=== PATIENT | male | born 1965 | race Caucasian/White ===

== ENCOUNTER 2023-01-07 07:12 | Emergency (ER) | payer BC, SELFPAY ==
[2023-01-07 07:18] VITALS: BP 141/96; PULSE 68; RESP 18; TEMP 36.7; O2SAT 97; BMI 27.3
--- NOTE | 2023-01-07 07:31 | ED.HA1 ---
HPI - Headache General Chief Complaint: Dizziness Stated Complaint: HEADACHE, DIZZINESS Time Seen by Provider: 01/07/23 07:22 Source: patient Mode of arrival: walk-in History of Present Illness HPI Narrative: 57-year-old male presents for headache. It started about 3:20 this morning and was not associated with any trauma fever or stiff neck. He has a long history of migraine headaches and has seen a specialist about them. This time it's mostly on the right side of his head and he has no weakness or numbness. He feels dizzy. No vomiting and the headache has been continuous. Related Data Home Medications Medication Instructions Recorded Confirmed propranolol 60 mg capsule,24 mg PO 01/07/23 hr,extended release sumatriptan succinate 100 mg tablet mg PO 01/07/23 triamterene 37.5 cap 01/07/23 mg-hydrochlorothiazide 25 mg capsule Allergies Allergy/AdvReac Type Severity Reaction Status Date / Time No Known Drug Allergies Allergy Verified 01/07/23 07:22 Review of Systems ROS Narrative A ten point review of systems is negative except as noted above. PFSH PFS Social History Smoking status: Current some day smoker Exam Narrative Exam Narrative: Nurses note and vital signs reviewed and patient is not hypoxic. General: The patient appears well and in no apparent distress. Patient is resting comfortably on cart. he has his eyes closed. Skin: Warm, dry, no pallor noted. There is no rash noted. Head: Normocephalic, atraumatic Ears, Nose, Mouth, and Throat: oral mucosa is moist. Nares patent. Cardiovascular: Regular Rate and Rhythm Respiratory: Patient is in no distress, no accessory muscle use, lungs are clear to auscultation, no wheezing, rales or rhonchi Back: non-tender GI: nontender Musculoskeletal: The patient has no evidence of calf tenderness, no pitting edema, symmetrical pulses noted bilaterally Neurological: A&O x4, normal speech; upper and lower extremity strength five out of five and symmetric Psychiatric: Cooperative Constitutional Vital Signs, click to edit/add: Last Vital Signs Temp 98.0 F 01/07/23 07:18 Pulse 68 01/07/23 07:18 Resp 18 01/07/23 07:18 BP 141/96 H 01/07/23 07:18 Pulse Ox 97 01/07/23 07:18 O2 Del Method Room Air 01/07/23 07:18 Course Vital Signs Vital signs: Vital Signs Temperature 98.0 F 01/07/23 07:18 Pulse Rate 68 01/07/23 07:18 Respiratory Rate 18 01/07/23 07:18 Blood Pressure 141/96 H 01/07/23 07:18 Pulse Oximetry 97 01/07/23 07:18 Oxygen Delivery Method Room Air 01/07/23 07:18 Temperature 98.0 F 01/07/23 07:18 Pulse Rate 68 01/07/23 07:18 Respiratory Rate 18 01/07/23 07:18 Blood Pressure 141/96 H 01/07/23 07:18 Pulse Oximetry 97 01/07/23 07:18 Oxygen Delivery Method Room Air 01/07/23 07:18 MDM - Headache MDM Narrative Medical decision making narrative: the patient was given IV medications and he feels much better now, his headache is essentially gone. He is able to be discharged home. Treatment diagnosis and follow-up were discussed with the patient. I've no clinical suspicion of acute intracranial pathology. Differential Diagnosis Differential diagnosis: Likely migraine, subarachnoid hemorrhage and meningitis Discharge Plan Discharge Chief Complaint: Dizziness Clinical Impression: Migraine Patient Disposition: Home, Self-Care Time of Disposition Decision: 10:10 Condition: Good Mode of Transportation: Private Vehicle Prescriptions / Home Meds: No Action sumatriptan succinate 100 mg tablet PO propranolol 60 mg capsule,extended release 24 hr PO triamterene-hydrochlorothiazid 37.5-25 mg capsule Instructions: Migraine Headache (ED) Stand Alone Forms: Portal Instructions Referrals: Physician,Non-Staff, MD [Primary Care Provider] - 1 week
--- NOTE | 2023-01-07 07:52 | ECG_ITS ---
The [facility] Test Date: 2023-01-07 Pat Name: ANGELA LUGO Department: Room: - Gender: Male Neurology Physician: : 1965 Requested By: [id number] Order Number: [id number] Reading MD: RENATA DEL CASTILLO Measurements Intervals [place] Rate: 56 P: 67 AL: 166 QRS: 48 QRSD: 92 T: 53 QT: 422 QTc: 413 Interpretive Statements 1100 Sinus rhythm [id number] Early repolarization 9110 normal ECG No previous ECG available for comparison Electronically Signed On 01-08-2023 7:02:34 EDT by RENATA DEL CASTILLO
[2023-01-07] MEDS: ONDANSETRON PF 4 MG/2 ML VIAL IV (08:07)
[2023-01-07] MEDS: 0.9 % SODIUM CHLORIDE 1,000 ML 1000 ML IV (08:07)
[2023-01-07] MEDS: KETOROLAC TROMETHAMINE 30 MG/ML VIAL IVP (08:07)
[2023-01-07] MEDS: METHYLPREDNISOLONE SOD SUCC PF 125 MG/2 ML VIAL IVP (08:07)
[2023-01-07] MEDS: MORPHINE SULFATE 4 MG/ML VIAL IV (09:08)
== END 2023-01-07 10:17 | disposition home or self-care (01) ==
PROVIDERS: Emergency Provider Emergency Medicine
DX: G43.909 Migraine, unspecified, not intractable, without status migrainosus (principal); Z79.899 Other long term (current) drug therapy; F17.210 Nicotine dependence, cigarettes, uncomplicated
CPT/HCPCS: 93005; 96361; 96374; 96375; 99284; J2930

== ENCOUNTER 2024-05-06 06:16 | Emergency (ER) | payer BC, SELFPAY ==
[2024-05-06 06:19] VITALS: BP 138/90; PULSE 72; TEMP 36.5; O2SAT 98; BMI 29.8
--- NOTE | 2024-05-06 06:27 | ED.GENADUL1 ---
HPI HPI - General Adult General Chief complaint: Extremity Problem, Nontraumatic Stated complaint: UE INJURY Time Seen by Provider: 05/06/24 06:26 Source: patient Mode of arrival: walk-in Limitations: no limitations History of Present Illness HPI narrative: Patient is a 58-year-old male who is presenting to the ER today with chief complaint of left shoulder pain, left-sided neck pain, left trapezius pain, left scapular pain. Patient has no chest pain or shortness of breath. No abdominal pain nausea vomiting. Patient is right-hand dominant. Patient has no specific injury. Patient states the pain has been getting worse in the last 3 to 4 days. Patient has no fall or injury. No headache. No radiculopathy or paresthesias. No chest pain or shortness of breath. Patient has been using pkin-cgf-wckftxy products, ice and patient has a jwbg-mzl-rnnolks pain patch on with no significant relief. Patient is due to be working today, Wednesday and Wednesday. Patient has a PCP appointment with his doctor on Wednesday. Patient hagya-hhao-uwqbfaty. No strokelike signs or symptoms. All systems are negative except as noted/marked. All systems reviewed and otherwise negative. Nurses note and vital signs reviewed and patient is not hypoxic. Patient blood pressure was rechecked manually, 138/90. General: The patient appears well and in no apparent distress. Patient is resting comfortably on cart. Patient is not toxic, lethargic, or listless Skin: Warm, dry, no pallor noted. There is no rash noted. No petechiae, purpura. Head: Normocephalic, atraumatic; patient has no midline cervical tenderness to palpation. Mild to moderate left paracervical tenderness to palpation along with moderate tenderness palpation to left upper trapezius muscle. Patient has mild tenderness to palpation to left upper thoracic area as well, no rash. No midline thoracic tenderness to palpation. Eye: Normal conjunctiva, no drainage, EOMI. PERRL Ears, Nose, Mouth, and Throat: oral mucosa is moist. Nares patent. Mouth without vesicles. Cardiovascular: Regular Rate and Rhythm, no murmur, gallop, rub Respiratory: Patient is in no distress, no accessory muscle use, lungs are clear to auscultation, no wheezing, rales or rhonchi. Breath sounds equal bilateral. Back: See head exam. Patient has mild tenderness palpation to the left upper thoracic area and moderate tenderness to palpation to left upper trapezius muscle. Otherwise the rest of his back is non-tender, no CVA tenderness bilaterally to percussion. No CT LS midline pain GI: no tenderness Musculoskeletal: Patient has full range of motion of all of the extremities. Patient does have moderate tenderness to left paracervical soft tissue, left upper trapezius and left upper thoracic muscle tissue with raising his left arm up above his head. He does have full flexion extension abduction to 90 degrees with no pain. Once patient has abduction over 90 degrees, that is when he starting to have pain to left shoulder and left upper trapezius and left upper thoracic area. No crepitus to left shoulder. No signs of fracture or dislocation. No rash. No motor, sensory, or focal neurological deficits Neurological: A&O x4, normal speech Psychiatric: Cooperative Related Data Home Medications ?Medication ?Instructions ?Recorded ?Confirmed propranolol 60 mg capsule,24 mg PO 01/07/23 hr,extended release sumatriptan succinate 100 mg tablet mg PO 01/07/23 triamterene 37.5 cap 01/07/23 mg-hydrochlorothiazide 25 mg capsule Previous Rx's ?Medication ?Instructions ?Recorded hydrocodone 5 mg-acetaminophen 325 1 tab PO Q4H PRN pain #6 tabs 05/06/24 mg tablet lidocaine 5 % topical patch 1 patch topical Q24H #15 ea 05/06/24 (Lidoderm) methocarbamol 500 mg tablet 500 mg PO Q8H PRN muscle pain #10 05/06/24 tabs Allergies Allergy/AdvReac Type Severity Reaction Status Date / Time No Known Drug Allergies Allergy Verified 05/06/24 06:25 Opioid HPI Opioid Management Most Recent Opioid Data: No Data to Display [facility] Social History Smoking status: Current some day smoker Little interest or pleasure in doing things: not at all Feeling down, depressed, or hopeless: not at all Exam Constitutional Vital Signs, click to edit/add: Last Vital Signs Temp 97.7 F 05/06/24 06:19 Pulse 72 05/06/24 06:19 Resp 18 05/06/24 06:19 BP 138/90 05/06/24 06:19 Pulse Ox 98 05/06/24 06:19 Course Vital Signs Vital signs: Vital Signs Temperature 97.7 F 05/06/24 06:19 Pulse Rate 72 05/06/24 06:19 Respiratory Rate 18 05/06/24 06:19 Blood Pressure 138/90 05/06/24 06:19 Pulse Oximetry 98 05/06/24 06:19 Temperature 97.7 F 05/06/24 06:19 Pulse Rate 72 05/06/24 06:19 Respiratory Rate 18 05/06/24 06:19 Blood Pressure 138/90 05/06/24 06:19 Pulse Oximetry 98 05/06/24 06:19 Medical Decision Making MDM Narrative Medical decision making narrative: Patient chest x-ray shows no acute cardiopulmonary disease, no infiltrate, no effusion. Patient left shoulder x-ray shows no acute abnormality. Education on using ice was discussed. Education on shoulder exercises was shown at bedside as well. Patient has an appoint with Dr. Andrews at 10:30 AM on May 08, 2 days from now. Patient most likely has muscle strain to left trapezius, left upper thoracic area. Patient may have underlying left shoulder pathology. Patient understands education on rotator cuff was given to him for educational purposes only, I am not diagnosing him with rotator cuff injury at this time. Patient was hoping for a work note for today and tomorrow, I told the patient I could give him a work note for today, he can return back on Wednesday with restrictions for the next 3 to 5 days. This was written on his discharge work note. No questions at discharge. Discharge Plan Discharge Stand Alone Forms: Work/School Release Chief Complaint: Extremity Problem, Nontraumatic Clinical Impression: Left shoulder pain, Strain of left trapezius muscle, Acute left-sided thoracic back pain Patient Disposition: Home, Self-Care Time of Disposition Decision: 06:48 Condition: Fair Prescriptions / Home Meds: New methocarbamol 500 mg tablet 500 mg PO Q8H PRN (Reason: muscle pain) Qty: 10 0RF hydrocodone-acetaminophen 5-325 mg tablet 1 tab PO Q4H PRN (Reason: pain) Qty: 6 0RF lidocaine [Lidoderm] 5 % adhesive patch,medicated 1 patch topical Q24H Qty: 15 0RF Rx Instructions: leave on most painful area for up to 12 hrs No Action sumatriptan succinate 100 mg tablet PO propranolol 60 mg capsule,extended release 24 hr PO triamterene-hydrochlorothiazid 37.5-25 mg capsule Print Language: Angolan Instructions: Muscle Strain (ED), Rotator Cuff Injury (ED), Thoracic Pain (ED), Back Pain (ED), Shoulder Pain (ED) Additional Instructions: Use ice 20 minutes on, 20 minutes off, do not use heat. You have an appointment at [address] Andrews, orthopedic surgery. Perform stretching exercises for your left shoulder. I am not diagnosing you with rotator cuff injury, but education on rotator cuff injuries was given to you for educational purposes only. Alternate Tylenol and either Motrin, Advil, or ibuprofen every 4 hours to help with pain. If you are having severe pain, substitute a [place] tablet instead of Tylenol. Do not take Tylenol and [place] at the same time, you may actually take too much Tylenol at 1 setting or in 1 day. Maximum Tylenol dose of Tylenol is 3000 mg a day. Maximum dose of either Motrin, Advil, or ibuprofen is 2400 mg a day. Referrals: Physician,Non-Staff, [Primary Care Provider] - 1 week Sebastien Andrews MD [Physician] - 1 week
--- NOTE | 2024-05-06 06:35 | XR_ITS ---
The [address] [address] Patient Name: ANGELA LUGO MRN: [id number] date: 1965 Sex: M Assigned Patient Location: ED.MAIN Current Patient Location: ER Accession/Order Number: [id number] Exam Date: 05/06/2024 06:40 Report Date: 05/06/2024 08:21 At the request of: GUILLAUME FISCHER Procedure: XR shoulder LT min 2V EXAM: XR shoulder LT min 2V 05/06/2024 FINDINGS: Internal rotation, external rotation, and scapular Y type views were obtained. HISTORY: Pain. COMPARISON: None. XR/XR shoulder LT min 2V IMPRESSION: 1. No acute fracture or dislocation. 2. Mild arthritic changes involving the acromioclavicular articulation noted. Glenohumeral joint appears otherwise unremarkable. No pathologic calcification or radiopaque foreign body noted. Electronically authenticated by: KANNAN CLEANING Date: 05/06/2024 08:21
--- NOTE | 2024-05-06 06:35 | XR_ITS ---
The [address] [address] Patient Name: ANGELA LUGO MRN: [id number] date: 1965 Sex: M Assigned Patient Location: ED.MAIN Current Patient Location: ER Accession/Order Number: [id number] Exam Date: 05/06/2024 06:40 Report Date: 05/06/2024 08:21 At the request of: GUILLAUME FISCHER Procedure: XR chest 2V EXAM: XR chest 2V 05/06/2024 COMPARISON STUDY: AP chest 07/07/2021. FINDINGS: Cardiomediastinal contours are stable and within normal limits. No new dense consolidation, effusion, edema, failure, pneumothorax, or acute osseous change in the interval. Multilevel degenerative changes of the spine are noted incidentally. HISTORY: Pain. XR/XR chest 2V IMPRESSION: No acute cardiopulmonary process suspected in the interval. Electronically authenticated by: KANNAN [employer] Date: 05/06/2024 08:21
[2024-05-06] MEDS: KETOROLAC TROMETHAMINE 30 MG/ML VIAL IM (06:46)
== END 2024-05-06 07:02 | disposition home or self-care (01) ==
PROVIDERS: Emergency Provider Emergency Medicine
DX: S46.812A Strain of other muscles, fascia and tendons at shoulder and upper arm level, left arm, initial encounter (principal); M25.512 Pain in left shoulder; F17.200 Nicotine dependence, unspecified, uncomplicated; M54.6 Pain in thoracic spine; X58.XXXA Exposure to other specified factors, initial encounter
CPT/HCPCS: 71046; 73030; 96372; 99284; J1885

== ENCOUNTER 2024-05-08 10:59 | Outpatient (OUT) | payer BC, SELFPAY ==
--- NOTE | 2024-05-08 | XR_ITS ---
The [place] [id number] Patient Name: ANGELA LUGO MRN: [id number] date: 1965 Sex: M Assigned Patient Location: Current Patient Location: Accession/Order Number: [id number] Exam Date: 05/08/2024 11:04 Report Date: 05/09/2024 05:27 At the request of: CHELSEA GALAN Procedure: XR cervical spine 2-3V EXAMINATION: XR cervical spine 2-3V HISTORY: CERVICAL SPINE PAIN COMPARISON: No relevant comparison available. FINDINGS: BONES: No significant spondylosis, scoliosis, fracture, or visible bony lesion. DISC SPACES: Moderate narrowing C5-C6, C6-C7. PARASPINOUS: Negative. No paraspinous abnormality is seen. OTHER: Negative. XR/XR cervical spine 2-3V IMPRESSION: 1. Moderate degenerative disc disease at C5-C6 and C6-C7. Consider MRI for further evaluation. Electronically authenticated by: CHELSEA CRUZ Date: 05/09/2024 05:27
== END 2024-05-08 11:00 | disposition home or self-care (01) ==
LOC: EC 11:00
PROVIDERS: Visit Provider Orthopaedic Surgery
DX: M54.2 Cervicalgia (principal)
CPT/HCPCS: 72040

== ENCOUNTER 2024-05-15 06:40 | Outpatient (OUT) | payer BC, SELFPAY ==
--- NOTE | 2024-05-15 06:43 | MR_ITS ---
The [address] [address] Patient Name: ANGELA LUGO MRN: [id number] date: 1965 Sex: M Assigned Patient Location: MRI Current Patient Location: MRI Accession/Order Number: [id number] Exam Date: 05/15/2024 06:57 Report Date: 05/15/2024 08:03 At the request of: CATALINA MONTESINOS Procedure: MR cervical spine wo con MR cervical spine wo con, 05/15/2024 6:57 AM EST INDICATION: M54.2 Cervical pain M54.12 radiculopathy COMPARISON: Prior x-ray of cervical spine dated 05/08/[address] of the neck dated 07/07/2021 TECHNIQUE: Multiplanar, multisequence MRI images of cervical spine were obtained without contrast. FINDINGS: There is loss of normal physiologic cervical lordosis. The vertebral heights are relatively preserved. The cervicomedullary junction is unremarkable. No definite signal abnormality within the spinal cord is noted. There are moderate disc osteophyte complex associated with uncovertebral joint arthrosis from C3 to T1 contributing to neuroforaminal and canal stenosis. At the level of C2-C3, there is no neuroforaminal narrowing or canal stenosis. At the level of C3-C4, there is no neuroforaminal narrowing and no canal stenosis. At the level of C4-C5, there is superimposed central extrusion with superior migration with mild bilateral neuroforaminal narrowing and moderate to severe central canal stenosis. At the level of C5-C6, there is superimposed disc bulge with moderate bilateral neuroforaminal narrowing and moderate to severe central canal stenosis. At the level of C6-C7, there is mild right and moderate to severe left neuroforaminal narrowing and moderate canal stenosis. Level of C7-T1 is unremarkable. No definite muscular or ligamentous injury is noted. MR/MR cervical spine wo con IMPRESSION: Moderate degenerative changes of the cervical spine in particular at C4-C5, C5-C6 and C6-C7. Electronically authenticated by: NICOLASA ROCHA Date: 05/15/2024 08:03
--- OUTSIDE RECORDS SUMMARY | 2024-05-15 06:43 | XMS_ITS | CCD ---
Author Organization [facility] Care Team Providers Care Brand Representative Name Role Phone REQUEST, DR NONE LISTED Primary Care Unavailav REID, DR CARI Beckwith Attending Unavailable KARLA, DR CARI Beckwith Admitting Unavailable KARLA, DR CARI Beckwith Consulting Unavailable TONY CHESTER Consulting Unavailable NIGHAT, OZ Attending Unavailable NIGHAT, OZ Admitting Unavailable REQUEST, NONE LISTED Primary Care Unavailav CALL, DR ZHANE Danielle Consulting Unavailable HAY, DR GARCIA Consulting Unavailable SARAH GAN Consulting Unavailable SAMSA, OZ Consulting Unavailable MARTINNICA AFRRELL Consulting Unavailable Marlo, Gregg Consulting Unavailable Nima, Ena Consulting Unavailable Catarina Plascencia Unavailable Unavailable Unavailable Unavailable Unavailable Yan CENTRIFUGAL WAX MOLDER, Rahel Addison Unavailable Mariaa Collado MD Primary Care Provider Emma Scanlon NP Unavailable Shellie Veliz Primary Care [facility] er Capo HOUSER-Emma SHETH Primary Care Provider Lizz Hampton NP Unavailable VELMA ROSARIO Attending Unavailable SHELLIE HAMMOND Referring Unavailable SHELLIE HAMMOND Primary Care Unavailable GRIS ANTHONY Attending Unavailable SHELLIE HAMMOND Referring Unavailable EMMA SCANLON Primary Care Unavailable SHELLIE HAMMOND Referring Unavailable SHELLIE HAMMOND Primary Care Unavailable EMMA SCANLON Referring Unavailable CAPO EMMA R Primary Care Unavailable EMMA SCANLON Referring Unavailable EMMA SCANLON Primary Care Unavailable SHELLIE HAMMOND Referring Unavailable SHELLIE HAMMOND Primary Care Unavailable ZHANE BATES Attending Unavailable ZHANE BATES Referring Unavailable SCANLON, EMMA R Primary Care Unavailable GRILLIS, VELMA Bartlett Referring Unavailable SCANLON, EMMA R Primary Care Unavailable GRILLIS, VELMA Bartlett Attending Unavailable GRILLIS, VELMA E Referring Unavailable SCANLON, EMMA R Primary Care Unavailable GRILLIS, VELMA E Admitting Unavailable GRILLISVELMA Attending Unavailable SHELLIE HAMMOND Primary Care Unavailable ALONDRA HODGE Attending Unavailable SCANLON, EMMA R Primary Care Unavailable QUIN, MARIAA Referring Unavailable SCANLON, EMMA R Primary Care Unavailable QUIN, MARIAA Referring Unavailable SCANLON, EMMA R Primary Care Unavailable QUIN, MARIAA Referring Unavailable SCANLON, EMMA R Primary Care Unavailable QUIN, MARIAA Referring Unavailable SCANLON, EMMA R Primary Care Unavailable QUIN, MARIAA Referring Unavailable SCANLON, EMMA R Primary Care Unavailable QUIN, MARIAA Referring Unavailable SCANLON, EMMA R Primary Care Unavailable Scanlon CENTRIFUGAL WAX MOLDER, Emma R Unavailable Capo CENTRIFUGAL WAX MOLDER, Emma R Unavailable Marbella Phillips DO Attending Provider [phone] SCANLON, EMMA R Attending Unavailable SCANLON, EMMA R Referring Unavailable HAMPTONLIZZ Attending Unavailab fany HAMPTON, LIZZ Ley Referring Unavailab le HAMPTON, LIZZ Ley Attending Unavailab le QUIN, MARIAA F Attending Unavailable QUIN, MARIAA F Referring Unavailable QUIN, MARIAA F Referring Unavailable QUIN, MARIAA F Referring Unavailable QUIN, MARIAA F Attending Unavailable MARBELLA PHILLIPS Attending Unavailable QUIN, MARIAA F Referring Unavailable MARBELLA PHILLIPS Referring Unavailable MARBELLA PHILLIPS Attending Unavailable MARBELLA PHILLIPS Attending Unavailable MARIA L ETIENNE Attending Unavailab MARBELLA Singer Attending Unavailable Marbella Phillips Attending Unavailable Marbella Phillips Admitting Unavailable Mariaa Collado MD Unavailable YUKO REID Attending Unavailable CATARINA PLASCENCIA Primary Care Unavailable Medications Current Medications Medication Drug Class(es) Dates Sig (Normalized) Sig (Original) benzonatate 200 mg oral capsule (1 source) Non-narcotic Antitussive Start: 01-31-2024 End: 02-07-2024 take 1 capsule by mouth three times daily as needed for cough benzonatate (Tessalon) 200 MG capsule Indications: Cough, unspecified type Take 1 capsule (200 mg) by mouth 3 (three) times a day as needed for cough for up to 7 days Do not crush or chew. 20 capsule 01/31/2024 02/07/2024 Active doxycycline hyclate 100 mg oral capsule (4 sources) Tetracycline-class Drug Start: 04-14-2024 take 1 capsule by mouth in the morning doxycycline (Vibramycin) 100 MG capsule Take 100 mg by mouth in the morning and 100 mg before bedtime. 04/14/2024 Active Start: 11-23-2023 End: 12-03-2023 doxycycline (Vibra-Tabs) 100 MG tablet Indications: Acute bronchitis, unspecified organism Take 1 tablet (100 mg) by mouth in the morning and 1 tablet (100 mg) before bedtime. Do all this for 10 days. Take with a full glass of water and do not lie down for at least 30 minutes after.. 20 tablet 11/23/2023 12/03/2023 Active hydroCHLOROthiazide 25 mg / triamterene 37.5 mg oral capsule (20 sources) Potassium-sparing Diuretic, Thiazide Diuretic Start: 11-24-2023 End: 11-23-2024 take 1 capsule by mouth once daily Triamterene-Hydrochlorothiazid 37.5-25 mg capsule Active 1 CAP PO Daily April 14, 2024 12:00am Start: 07-13-2022 take 1 capsule by mouth in the morning triamterene-hydroCHLOROthiazide (Dyazide ) 37.5-25 MG capsule Take 1 capsule by mouth in the morning. 07/13/2022 Active Start: 09-02-2021 take 1 capsule by mouth once daily Triamterene-HCTZ 37.5-25 MG Oral Capsule TAKE 1 CAPSULE Daily Quantity: 90 Refills: 3 Ordered: 06-Nov-2022 Ben Ly MD Start : 02-Sep-2021 Active take 1 capsule by mouth once triamterene-hydroCHLOROthiazide (DYAZIDE ) 37.5-25 mg per capsule Take 1 capsule by mouth. 0 Active lisinopril 5 mg oral tablet (3 sources) Angiotensin Converting Enzyme Inhibitor Start: 07-23-2020 lisinopril 5 MG tablet 1 (one) time each day at the same time. 0 07/23/2020 Active my-jhc-C-glutamin-l ysine-hb124 (AIR[place]ORNE, LYSINE HCL,) 1,000-50 mg tablet, effervescent (2 sources) wr-dnr-Y-glutami n-oxana ine-hb124 (A[place]NE, LYSINE HCL,) 1,000-50 mg tablet, effervescent Take by mouth as needed. 0 Active Nirmatrelvir&Ritona vir 300/100 (Paxlovid, 300/100,) 20 x 150 MG & 10 x 100MG tablet therapy pack (6 sources) Start: 04-03-2024 take 1 tablet by mouth in the morning Nirmatrelvir&Ritonavi r 300/100 (Paxlovid, 300/100,) 20 x 150 MG & 10 x 100MG tablet therapy pack Indications: COVID-19 Take 1 Dose by mouth in the morning and 1 Dose before bedtime. 1 each 04/03/2024 Active omeprazole 40 mg delayed release oral capsule (20 sources) Proton Pump Inhibitor Start: 02-01-2024 End: 01-31-2025 take 1 capsule by mouth before mealtime omeprazole (PriLOSEC) [address] capsule Indications: Gastroesophageal reflux disease without esophagitis Take 1 capsule (40 mg) by mouth in the morning. Take before meals. Do not crush or chew.. 90 capsule 3 02/01/2024 01/31/2025 Active 24 hr propranolol hydrochloride 60 mg extended release oral capsule (20 sources) beta-Adrenergic Galileo Start: 11-24-2023 End: 11-23-2024 take 1 capsule by mouth once daily propranolol LA (Inderal LA) 60 mg 24 hr capsule Indications: Benign essential hypertension Take 1 capsule (60 mg) by mouth once daily. 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 Do not crush, chew, or split. . 30 capsule 11 09/02/2022 09/02/2023 Active Start: 12-23-2020 take 1 capsule by mo [facility] once daily Propranolol HCl ER 60 MG Oral Capsule Extended Release 24 Hour TAKE 1 CAPSULE Daily Quantity: 0 Refills: 0 Ordered: 10-Jul-2021 DO Start : 23-Dec-2020 Active SUMAtriptan 100 mg oral tablet (20 sources) Serotonin-1b and Serotonin-1d Receptor Agonist Start: 05-12-2023 take 1 tablet by mouth every two hours as needed, then take 2 tablets by mouth once daily as needed SUMAtriptan (Imitrex) 100 MG tablet Indications: Migraine without aura and without status migrainosus, not intractable (CMS/HCC) 1 tablet at least 2 hours between doses as needed Orally max 2 per day for 30 day(s) 9 tablet 05/12/2023 Active Start: 11-06-2021 SUMAtriptan Francisco ccinate 100 MG Oral Tablet TAKE DIRECTED. Quantity: 0 Refills: 0 Ordered: 04-Nov-2022 DO Start : 06-Nov-2021 Active take 1 tablet by mouth once DANIELITO triptan (Imitrex) 100 mg tablet Take 1 tablet (100 mg) by mouth 1 time if needed for migraine. Active Completed/Discontinued Medications Medication Drug Class(es) Dates Sig (Normalized) Sig (Original) acetaminophen 325 mg / oxyCODONE hydrochloride 5 mg oral tablet (1 source) Opioid Agonist Start: 06-15-2023 End: 06-30-2023 oxyCODONE-acetamino phen (PERCOCET) 5-325 mg per tablet Indications: Gallbladder polyp Take 1 tablet by mouth every 6 (six) hours as needed for pain for up to 8 doses. Max Daily Amount: 4 tablets 8 tablet 0 06/15/2023 06/30/2023 Discontinued (Patient Stopped On Own) Problems Active Problems Problem Classification Problem Date Documented Date Episodic/Chronic Adjustment disorders (20 sources) Adjustment disorder with anxious mood; Translations: [Adjustment disorder with anxiety] Onset: 09-02-2022 09-02-2022 Chronic Cardiac dysrhythmias (20 sources) Supraventricular tachycardia; Translations: [Supraventricular tachycardia] Onset: 07-10-2021 09-02-2022 Chronic Esophageal disorders (2 sources) Gastroesophageal reflux disease without esophagitis; Translations: [Gastro-esophageal reflux disease without esophagitis] 02-01-2024 Chronic Essential hypertension (20 sources) Essential (primary) hypertension; Translations: [Benign essential hypertension] Onset: 07-10-2021 09-02-2022 Chronic Fluid and electrolyte disorders (1 source) Dehydration; Translations: [DEHYDRATION] Onset: 05-20-2021 Episodic Headache; including migraine (20 sources) Migraine without aura, not refractory ; Translations: [Migraine without aura, not intractable, without status migrainosus] Onset: 09-02-2022 09-02-2022 Chronic Headache; including migraine (1 source) Headache; including migraine; Translations: [HEADACHE UNSPECIFIED] Onset: 07-10-2021 Heart valve disorders (20 sources) Tricuspid valve regurgitation; Translations: [Rheumatic tricuspid insufficiency] Onset: 09-02-2022 09-02-2022 Chronic Nonspecific chest pain (6 sources) Chest pain, unspecified; Translations: [Chest pain] Onset: 07-10-2021 01-31-2024 Episodic Other aftercare (1 source) Other intermediate (current) drug therapy; Translations: [OTH DETENTION CURRENT DRUG THERAPY] Onset: 07-10-2021 Episodic Other and ill-defined heart disease (20 sources) Left ventricular hypertrophy; Translations: [Cardiomegaly] Onset: 09-02-2022 09-02-2022 Chronic Other circulatory disease (1 source) H/O: hypertension; Translations: [Personal history of other diseases of the circulatory system] 06-09-2023 Episodic Other lower respiratory disease (6 sources) Cough; Translations: [Cough, unspecified type] 01-31-2024 Episodic Other lower respiratory disease (7 sources) Hemoptysis; Translations: [Hemoptysis] 02-25-2024 Episodic Other lower respiratory disease (1 source) Acute lower respiratory tract infection; Translations: [Unspecified acute lower respiratory infection] 04-14-2024 Episodic Other lower respiratory disease (1 source) Unspecified acute lower respiratory infection; Translations: [Other diseases of respiratory system, not elsewhere classified] 04-14-2024 Episodic Other lower respiratory disease (1 source) Hemoptysis; Translations: [Hemoptysis] Onset: 03-28-2024 Episodic Other nervous system disorders (1 source) Paresthesia of skin; Translations: [PARESTHESIA OF SKIN] Onset: 07-10-2021 Episodic Other nutritional; endocrine; and metabolic disorders (1 source) Obesity, unspecified; Translations: [OBESITY UNSPECIFIED] Onset: 07-10-2021 Chronic Other nutritional; endocrine; and metabolic disorders (1 source) Body mass index (BMI) 30.0-30.9, adult; Translations: [BODY MASS INDEX BMI 30.0-30.9 ADULT] Onset: 07-10-2021 Chronic Other nutritional; endocrine; and metabolic disorders (2 sources) Obesity; Translations: [Obesity, unspecified] Chronic Other nutritional; endocrine; and metabolic disorders (9 sources) Overweight in adulthood with body mass index of 25 or more but less than 30; Translations: [Overweight] Onset: 05-01-2024 05-01-2024 Episodic Other nutritional; endocrine; and metabolic disorders (2 sources) Body mass index (BMI) 29.0-29.9, adult; Translations: [Body mass index (BMI) 29.0-29.9, adult] Onset: 05-01-2024 Episodic Other screening for suspected conditions (not mental disorders or infectious disease) (9 sources) CT of chest abnormal; Translations: [Abnormal findings on diagnostic imaging of other specified body structures] Onset: 02-10-2024 01-31-2024 Chronic Other screening for suspected conditions (not mental disorders or infectious disease) (5 sources) CT of chest abnormal 01-31-2024 Episodic Other upper respiratory infections (2 sources) Sore throat symptom; Translations: [Acute pharyngitis, unspecified] 04-03-2024 Episodic Paralysis (1 source) Hemiplegia, unspecified affecting left nondominant side; Translations: [HEMIPL UNS AFFECT LT NONDOM SIDE] Onset: 07-10-2021 Chronic Unclassified (1 source) CONTACT W/AND (SUSP) EXPOS COVID-19; Translations: [CONTACT W/AND (SUSP) EXPOS COVID-19] Onset: 07-10-2021 Unclassified (1 source) Post-op Onset: 06-30-2023 Unclassified (1 source) Cholelithiasis Onset: 06-09-2023 Unclassified (1 source) Cough, unspecified; Translations: [Cough, unspecified] Onset: 02-10-2024 Unclassified (1 source) gallbladder polyp Onset: 06-15-2023 Viral infection (2 sources) Disease caused by 2019-nCoV; Translations: [COVID-19] 04-03-2024 Episodic Past or Other Problems Problem Classification Problem Date Documented Da te Episodic/Chronic Biliary tract disease (4 sources) Polyp of gallbladder; Translations: [Cholesterolosis of gallbladder] Onset: 06-09-2023 06-09-2023 Episodic Other circulatory disease (1 source) Personal history of other diseases of the circulatory system; Translations: [Personal history of other diseases of the circulatory system] Onset: 06-09-2023 Episodic Other lower respiratory disease (20 sources) Nodule of lung; Translations: [Solitary pulmonary nodule] Onset: 09-02-2022 09-02-2022 Episodic Other lower respiratory disease (1 source) Multiple nodules of lung; Translations: [Other nonspecific abnormal finding of lung field] 12-01-2023 Episodic Residual codes; unclassified (1 source) Acquired absence of other specified parts of digestive tract; Translations: [Acquired absence of other specified parts of digestive tract] Onset: 06-30-2023 Episodic Residual codes; unclassified (1 source) Pain, unspecified; Translations: [Pain, unspecified] Onset: 06-08-2023 Episodic Syncope (20 sources) Syncope and collapse; Translations: [Syncope] Onset: 07-07-2021 Episodic Unclassified (9 sources) Never smoked tobacco; Translations: [Never a smoker] Unclassified (3 sources) Onset: 07-31-2021 07-31-2021 Results Test Name Value Interpretation Reference Range Facility FUNGUS (MYCOLOGY) CULTUREon 04-27-2024 [facility] NOTE Final report [facility] are OTHER-RIGHT LOWER LO BE TBBX [place] FUNGUS (MYCOLOGY) RESULT 104-27-2024 [facility] NOTE Comment [facility] Comment on above: No yeast or mold iso lated after 4 weeks. Performed at: [address] [id number] Network Analyst: Tigre Baker PhD, Phone: [phone] [facility] NOTE Comment [facility] Comment on above: No yeast or mold iso lated after 4 weeks. Performed at: [facility] [address] [id number] Network Analyst: Tigre Baker PhD, Phone: [phone] No Panel Informationon 04-27 OTHER-RIGHT LOWER LO BE TBBX [place] [facility] NOTE Final report [facility] are [facility] MISC LABon 04-07-2024 [facility] Comment on above: Bronch Alveolar Lav RIGHT LOWER LOBE Lower Respiratory Culture report Result : Routine respiratory ofelia Performed at: [facility] [id number] Network Analyst: Tigre Baker PhD, Phone: [phone] [facility] Test Name: LAB [facility] CULTURE FROM RT LOW LOBE - BAL [place] [facility] Laboratory - Microbiology an d Antimicrobial susceptibilityon 04-03-2024 SARS-CoV-2 (COVID-19) RNA MANDI+probe Ql (Unsp spec) Positive [facility] S. pyogenes Ag Ql (Throat) Negative Negative, None Detected [facility] Healthcare No Panel Informationon 04-03 FLU A Negative [facility] FLU B Negative [facility] Interpretation and review of laboratory results Abnormal [facility] Interpretation and review of laboratory results Normal [facility]ca re [facility] AFB SMEAR RESULTon [facility] NOTE Negative [facility] Comment on above: Performed at: - [facility] [address] [id number] Network Analyst: Tigre Baker PhD, Phone: [phone] AFB SPECIMEN PROCESSINGon [facility] NOTE Concentration [facility] OTHER-RIGHT LOWER LO BE TBBX [place] [facility] OTHER-RIGHT LOWER LO BE TBBX [place] FUNGAL SMEARon 03-30-2024 [facility] NOTE Not performed [facility] Health care [facility] FUNGAL SMEAR No Yeast Like Elemen ts Seen [facility] FUNGAL SMEAR No Fungal Like Eleme nts Seen [facility] Healthcare [facility] No Panel Informationon 03-30 [facility] NOTE Concentration [facility] FUNGAL SMEARon 03-29-2024 FUNGAL SMEAR No Fungal Like Eleme nts Seen [facility] FUNGAL SMEAR No Yeast Like Elemen ts Seen [facility] Healthcare [facility] AFB Specimen Processingon AFB Specimen Processing Concentration Negative Performed at: [facility] [id number] Network Analyst: Tigre Baker PhD, Phone: [phone] PERFORMED BY: [place] [address] PATHOLOGIST BOWL TOPPER MAGGIE MANNING M.D. Normal [facility] Comment on above: Performed By: #### C UBR, [facility], FLCCDIFF, FS #### [address] #### MYC CULT, AFBCS RES1 #### [facility] , AFB Specimen Processing OTHER-RIGHT LOWER LOBE TBBX Concentration OTHER-RIGHT LOWER LOBE TBBX Negative Performed at: - [facility] [address] [id number] Network Analyst: Tigre Baker PhD, Phone: [phone] PERFORMED BY: [place] [address] PATHOLOGIST BOWL TOPPER MAGGIE MANNING M.D. Normal [facility] Comment on above: Performed By: #### C UBR, [facility], FLCCDIFF, FS #### [address] #### MYC CULT, AFBCS RES1 #### [facility] , Acid fast bacillus (AFB) cul tureOrdered By: Marbella Phillips on 03-28-2024 Mycobacterium sp identified Org specific cx Nom (Unsp spec) Acid fast bacillus (AFB) culture [facility] Acid fast bacillus (AFB) sme arOrdered By: Marbella Phillips on 03-28-2024 Microscopic observation Smear Nom (Unsp spec) Acid fast bacillus (AFB) smear [facility] Bacteria identification in b ronchial specimen by aerobe cultureOrdered By: Marbella Phillips on 03-28-2024 Bacteria identified Aer cx Nom (Bronch spec) Bacteria identification in bronchial specimen by aerobe culture [facility] Body fluid differential cell countOrdered By: Marbella Phillips on 03-28-2024 Differential panel (Body fld) Body fluid differential cell count [facility] Comment on above: The reference interv al and other method performance specifications have not been established for this body fluid. The test result must be integrated into the clinical context for interpretation. Body fluid total nucleated c ells countOrdered By: Marbellanavin Phillips on 03-28-2024 Body Fluid Total Nucleated Cells 1348 /uL [facility] Comment on above: Body fluid is partia lly clotted and/or cell clumps or debris are present. Fluid cell count and differential results may not be reliable. Clinical correlation is recommended.The reference interval and other method performance specifications have not been established for this body fluid. The test result must be integrated into the clinical context for interpretation. Bronch Cultureon 03-28-2024 Bronch Culture Light Normal Respira tory Ofelia 2 Days PERFORMED BY: [place] [address] PATHOLOGIST BOWL TOPPER MAGGIE MANNING M.D. Normal [facility] Comment on above: Performed By: #### C UBR, MISC LAB, FLCCDIFF, FS #### [place] [address] [place] #### MYC CULT, AFBCS RES1 #### [facility] , Bronch Culture No Growth 2 Days PERFORMED BY: [place] [address] PATHOLOGIST BOWL TOPPER MAGGIE MANNING M.D. Normal [facility] Comment on above: Performed By: #### C UBR, MISC LAB, FLCCDIFF, FS #### [place] [address] [place] #### MYC CULT, AFBCS RES1 #### [facility] , Bronch Culture Respiratory Results PENDING SAMPLE SENT TO LAB [facility] PRIOR TO BEING SET UP IN HOUSE. ADDED ON TEST TO LAB [facility] ORDER. RESULTING IN A MISC. TEST. @04/07/24 NICO PERFORMED BY: [place] [address] PATHOLOGIST BOWL TOPPER MAGGIE MANNING M.D. Normal [facility] Comment on above: Performed By: #### C UBR, MISC LAB, FLCCDIFF, FS #### [address] #### MYC CULT, AFBCS RES1 #### [facility] , CELL COUNT/DIFF,FLUIDon 12- APPEARANCE, FLUID Turbid [facility] Comment on above: The reference interv al and other method performance specifications have not been established for this body fluid. The test result must be integrated into the clinical context for interpretation. COLOR, FLUID Straw [facility] Comment on above: The reference interv al and other method performance specifications have not been established for this body fluid. The test result must be integrated into the clinical context for interpretation. COLOR, FLUID SUPERNATANT [facility]raw [facility] Comment on above: The reference interv al and other method performance specifications have not been established for this body fluid. The test result must be integrated into the clinical context for interpretation. EOSINOPHILS, FLUID 0 /100{WBC} 0 - 3 /100{WBC} [facility] LYMPHOCYTES, FLUID 1 % [facility] Comment on above: The reference interv al and other method performance specifications have not been established for this body fluid. The test result must be integrated into the clinical context for interpretation. MONOCYTES/MACROPHAG ES, FLUID 8 % [facility] Comment on above: The reference interv al and other method performance specifications have not been established for this body fluid. The test result must be integrated into the clinical context for interpretation. NEUTROPHIL, FLUID 91 % [facility] Comment on above: The reference interv al and other method performance specifications have not been established for this body fluid. The test result must be integrated into the clinical context for interpretation. RBC, FLUID 65 /uL [facility] Comment on above: Body fluid is partia lly clotted and/or cell clumps or debris are present. Fluid cell count and differential results may not be reliable. Clinical correlation is recommended.@Avg 68,62 = 65 03/28/24 1320 [id number] The reference interval and other method performance specifications have not been established for this body fluid. The test result must be integrated into the clinical context for interpretation. TNC, BODY FLUID 1348 /uL [facility] Comment on above: Body fluid is partia lly clotted and/or cell clumps or debris are present. Fluid cell count and differential results may not be reliable. Clinical correlation is recommended. The reference interval and other method performance specifications have not been established for this body fluid. The test result must be integrated into the clinical context for interpretation. Body Fluid Source: O ther (Name in the Site) Body Fluid Site: RLL [facility] Cell Count/Diff, Fluidon Appearance, Fluid Turbid Normal [facility] Comment on above: Order Comment: Body Fluid Source: Other (Name in the Site) Body Fluid Site: RLL Result Comment: The reference interval and other method performance specifications have not been established for this body fluid. The test result must be integrated into the clinical context for interpretation. Performed By: #### C UBR, MISC LAB, FLCCDIFF, FS #### [address] #### MYC CULT, AFBCS RES1 #### [facility] , Color, Fluid Straw Normal The [facility] Comment on above: Order Comment: Body Fluid Source: Other (Name in the Site) Body Fluid Site: RLL Result Comment: The reference interval and other method performance specifications have not been established for this body fluid. The test result must be integrated into the clinical context for interpretation. Performed By: #### C UBR, MISC LAB, FLCCDIFF, FS #### [place] [address] [place] #### MYC CULT, AFBCS RES1 #### [facility] , Color, Fluid Supernatant Straw Normal [facility] Comment on above: Order Comment: Body Fluid Source: Other (Name in the Site) Body Fluid Site: RLL Result Comment: The reference interval and other method performance specifications have not been established for this body fluid. The test result must be integrated into the clinical context for interpretation. Performed By: #### C UBR, MISC LAB, FLCCDIFF, FS #### [address] #### MYC CULT, AFBCS RES1 #### [facility] , Eosinophils, Fluid 0 /100{WBC} Normal 0-3 [facility] Comment on above: Order Comment: Body Fluid Source: Other (Name in the Site) Body Fluid Site: RLL Result Comment: PERF ORMED BY: [place] [address] PATHOLOGIST BOWL TOPPER MAGGIE MANNING M.D. Performed By: #### C UBR, MISC LAB, FLCCDIFF, FS #### [address] #### MYC CULT, AFBCS RES1 #### [facility] , Lymphocytes, Fluid 1 % Normal The [facility] Comment on above: Order Comment: Body Fluid Source: Other (Name in the Site) Body Fluid Site: RLL Result Comment: The reference interval and other method performance specifications have not been established for this body fluid. The test result must be integrated into the clinical context for interpretation. Performed By: #### C UBR, MISC LAB, FLCCDIFF, FS #### [address] #### MYC CULT, AFBCS RES1 #### [facility] , Monocytes/Macrophag es, Fluid 8 % Normal [facility] Comment on above: Order Comment: Body Fluid Source: Other (Name in the Site) Body Fluid Site: RLL Result Comment: The reference interval and other method performance specifications have not been established for this body fluid. The test result must be integrated into the clinical context for interpretation. Performed By: #### C UBR, MISC LAB, FLCCDIFF, FS #### [place] [id number] [place] #### MYC CULT, AFBCS RES1 #### [facility] , Neutrophil, Fluid 91 % Normal [facility] Comment on above: Order Comment: Body Fluid Source: Other (Name in the Site) Body Fluid Site: RLL Result Comment: The reference interval and other method performance specifications have not been established for this body fluid. The test result must be integrated into the clinical context for interpretation. Performed By: #### C UBR, MISC LAB, FLCCDIFF, FS #### [address] #### MYC CULT, AFBCS RES1 #### [facility] , RBC, Fluid 65 /uL Normal [facility] Comment on above: Order Comment: Body Fluid Source: Other (Name in the Site) Body Fluid Site: RLL Result Comment: Body fluid is partially clotted and/or cell clumps or debris are present. Fluid cell count and differential results may not be reliable. Clinical correlation is recommended.@Avg 68,62 = 65 03/28/24 1320 [id number] The reference interval and other method performance specifications have not been established for this body fluid. The test result must be integrated into the clinical context for interpretation. Performed By: #### C UBR, MISC LAB, FLCCDIFF, FS #### [address] #### MYC CULT, AFBCS RES1 #### [facility] , TNC, Body Fluid 1348 /uL Normal The [facility] Comment on above: Order Comment: Body Fluid Source: Other (Name in the Site) Body Fluid Site: RLL Result Comment: Body fluid is partially clotted and/or cell clumps or debris are present. Fluid cell count and differential results may not be reliable. Clinical correlation is recommended. The reference interval and other method performance specifications have not been established for this body fluid. The test result must be integrated into the clinical context for interpretation. Performed By: #### C UBR, MISC LAB, FLCCDIFF, FS #### [address] #### MYC CULT, AFBCS RES1 #### [facility] , Color of Spun Body fluidOrde red By: Marbella Pihllips on 03-28-2024 Color (Spun body fld) Color of Spun Body fluid [facility] Comment on above: The reference interv al and other method performance specifications have not been established for this body fluid. The test result must be integrated into the clinical context for interpretation. Determination of appearance of body fluidOrdered By: Marbella Phillips on 03-28-2024 Appearance (Body fld) Determination of appearance of body fluid [facility] Comment on above: The reference interv al and other method performance specifications have not been established for this body fluid. The test result must be integrated into the clinical context for interpretation. Evaluation of color of body fluidOrdered By: Marbella Phillips on 03-28-2024 Color (Body fld) Evaluation of color of body fluid [facility] Comment on above: The reference interv al and other method performance specifications have not been established for this body fluid. The test result must be integrated into the clinical context for interpretation. Fungal Smearon 03-28-2024 Fungal Smear Fungus Smear Results No Fungal Like Elements Seen No Yeast Like Elements Seen PERFORMED BY: [place] [address] PATHOLOGIST BOWL TOPPER MAGGIE MANNING M.D. Normal [facility] Comment on above: Performed By: #### C UBR, MISC LAB, FLCCDIFF, FS #### [place] [address] [place] #### MYC CULT, AFBCS RES1 #### [facility] , Fungal Smear Fungus Smear Results No Yeast Like Elements Seen No Fungal Like Elements Seen PERFORMED BY: [place] [address] PATHOLOGIST BOWL TOPPER MAGGIE MANNING M.D. Normal [facility] Comment on above: Performed By: #### C UBR, MISC LAB, FLCCDIFF, FS #### [place] [address] [place] #### MYC CULT, AFBCS RES1 #### [facility] , Fungal Smear PERFORMED BY: [place] [address] PATHOLOGIST BOWL TOPPER MAGGIE MANNING M.D. Normal [facility] Comment on above: Performed By: #### C UBR, MISC LAB, FLCCDIFF, FS #### [address] #### MYC CULT, AFBCS RES1 #### [facility] , Fungal smearOrdered By: Jeremy Phillips on 03-28-2024 Fungus identified Fungus stain Nom (Unsp spec) Fungal smear [facility] Fungus # 2 identified in Uns pecified specimen by CultureOrdered By: Marbella Phillips on 03-28-2024 Fungus identified # 2 Cx Nom (Unsp spec) Fungus # 2 identified in Unspecified specimen by Culture [facility] Fungus # 3 identified in Uns pecified specimen by CultureOrdered By: Marbella Phillips on 03-28-2024 Fungus identified # 3 Cx Nom (Unsp spec) Fungus # 3 identified in Unspecified specimen by Culture [facility] Fungus # 4 identified in Uns pecified specimen by CultureOrdered By: Marbella Phillips on 03-28-2024 Fungus identified # 4 Cx Nom (Unsp spec) Fungus # 4 identified in Unspecified specimen by Culture [facility] Fungus (Mycology) Cultureon 03-28-2024 Fungus (Mycology) Culture Final report Comment No yeast or mold isolated after 4 weeks. Performed at: - [facility] [id number] Network Analyst: Tigre Baker PhD, Phone: [phone] PERFORMED BY: [place] [address] PATHOLOGIST BOWL TOPPER MAGGIE MANNING M.D. Normal [facility] Comment on above: Performed By: #### C UBR, MISC LAB, FLCCDIFF, FS #### [address] [address] [place] #### MYC CULT, AFBCS RES1 #### [facility] , Fungus (Mycology) Culture OTHER-RIGHT LOWER LOBE TBBX Final report OTHER-RIGHT LOWER LOBE TBBX Comment No yeast or mold isolated after 4 weeks. Performed at: [facility], [place], [place] [id number] Network Analyst: Tigre Baker PhD, Phone: [phone] PERFORMED BY: [place] [address] PATHOLOGIST BOWL TOPPER MAGGIE MANNING M.D. Normal [facility] Comment on above: Performed By: #### C VIDAR, [facility], FLCCDIFF, FS #### [address] #### MYC CULT, AFBCS RES1 #### [facility] , Noah 03-28-2024 L ------ Specimen: [id number] Received: 03/29/24 Status: [place] Num: [id number] Spec Type: Surgical Subm Dr: Marbella Phillips DO Tissues: A Lung - Transbroncial Biopsy ((3) RLL TBBX IN FORMALIN) B Lung - Transbroncial Biopsy ((4) RLL TBBX IN SALINE) Procedures: HE/Kimberly, Gross/Micro L4/2 Age/ Patient Sex Location Account Attending Physician Dariusz Najera 58/M [place] [id number] Marbella Phillips DO SPEC NUM: [id number] RECD: 03/29/24 STATUS: [place] NUM: [id number] ADA: 03/28/[address] [facility] [address]: Marbella Phillips DO ENTERED: 03/29/[address]: [facility] SPEC TYPE: Surgical DEPT: S ENTERED BY: [id number] RECV BY: [id number] ORDERED: HE/4, Gross/Micro L4/2 ORDERED: HE/4, Gross/Micro L4/2 Pathological Diagnosis A, right lower lobe of lung, transbronchial biopsy: -Benign bronchial mucosa with moderate chronic inflammation in lamina propria, consistent with nonspecific chronic bronchitis -Incidental mild stromal congestion and edema are also noticed -No evidence of malignancy or any epithelial atypia or dysplasia identified B, right lower lobe of lung, transbronchial biopsy: -Minute mucus tissue with rare admixed blood cells and at least 1 benign epithelial cell -The material is however largely exhausted after the processing, and is not contributory for any possible or specific type interpretation Clinical Information 58-year-old white male with hemoptysis. Gross Description Part A is received in formalin labeled with the patients name, date of , and BX RT lower lobe are 2 pale domínguez, focally erythematous, feathery, 0.3 and 0.4 cm in greatest dimension tissue bits. The specimen is filtered and entirely submitted in a single cassette. (1, ns, [id number] A) CIRO Specimen: [id number] Received: 03/29/24 Status: [place] Num: [id number] Spec Type: Surgical Subm Dr: Marbella Phillips DO Tissues: A Lung - Transbroncial Biopsy ((3) RLL TBBX IN FORMALIN) B Lung - Transbroncial Biopsy ((4) RLL TBBX IN SALINE) Procedures: HE/Kimberly, Gross/Micro L4/2 Patient: Dariusz Najera [id number] (Continued) Specimen: [id number] Received: 03/29/24 (Continued) Gross Description (Continued) Signed (signature on file) Rosita Nicholson MD 03/30/24 046 Specimen: [id number] Received: 03/29/24 Status: [place] Num: [id number] Spec Type: Surgical Subm Dr: Marbella Phillips DO Tissues: A Lung - Transbroncial Biopsy ((3) RLL TBBX IN FORMALIN) B Lung - Transbroncial Biopsy ((4) RLL TBBX IN SALINE) Procedures: HE/4, Gross/Micro L4/2 Patient: Dariusz Najera [id number] (Continued) Specimen: [id number] Received: 03/29/24 (Continued) Gross Description (Continued) Part B is received in saline from microbiology labeled with the patient's name, date of , and BX RT lower lobe is a domínguez-pink, focally erythematous, feathery, 0.2 cm in greatest dimension tissue bit. The specimen is filtered and entirely submitted in a single cassette. (1, ns, [id number] B) Microscopic Description Microscopic examinations are performed supporting the above interpretation CPT Codes 51690a1 Specimen: [id number] Received: 03/29/24 Status: [place] Num: [id number] Spec Type: Surgical Subm Dr: Marbella Phillips DO Tissues: A Lung - Transbroncial Biopsy ((3) RLL TBBX IN FORMALIN) B Lung - Transbroncial Biopsy ((4) RLL TBBX IN SALINE) Procedures: Beth PHILLIPS/Alexis L4/2 Patient: Dariusz Najera [id number] (Continued) Signed (signature on file) Rosita Nicholson MD 03/30/24 1402 Normal [facility] L ------ Specimen: [id number] Received: 03/29/24 Status: [place] Num: [id number] Spec Type: Cytology Subm Dr: Marbella Phillips DO Tissues: A BRONWASH (RT WASH) B BAL (RLL) Procedures: HE/2, Gross/Micro L4, Cyto Prepstain/2, PAPSTN/2 Age/ Patient Sex Location Account Attending Physician Dariusz Najera/Azael DU [id number] Marbella Phillips DO SPEC NUM: [id number] RECD: 03/29/24 STATUS: [place] NUM: [id number] ADA: 03/28/[address] [facility] [address]: Marbella Phillips DO ENTERED: 03/29/24 [facility] DR: SPEC TYPE: Cytology DEPT: LEDA ENTERED BY: [id number] RECV BY: [id number] ORDERED: HE/2, Gross/Micro L4, Cyto Prepstain/2, PAPSTN/2 ORDERED: HE/2, Gross/Micro L4, Cyto Prepstain/2, PAPSTN/2 Pathological Diagnosis A, right lung bronchial washings for cytology: -Negative for malignant cell -Many degenerated PMNs, consistent with recent or acute bronchopneumonitis -Cell block section also showing similar findings B, right lower lobe of lung BAL for cytology: -No evidence of malignant cell -Moderate numbers of PMN and occasional chronic inflammatory cells and respiratory epithelial cells, consistent with sampling of recent bronchopneumonitis without obvious atypical cell identified Clinical Information 58 yo male with hemoptysis Gross Description A. (Rt wash) Received fresh is 3 ml colorless opaque mucinous unfixed fluid for cytology said to have been obtained as Right wash. ThinPrep and cell block preparations are prepared for microscopic examination. (NC/nh) Specimen: [id number] Received: 03/29/24 Status: [place] Num: [id number] Spec Type: Cytology Subm Dr: Marbella Phillips DO Tissues: A BRONWASH (RT WASH) B BAL (RLL) Procedures: HE/2, Gross/Micro L4, Cyto Prepstain/2, PAPSTN/2 Patient: Dariusz Najera [id number] (Continued) Specimen: [id number] Received: 03/29/24 (Continued) Gross Description (Continued) Signed (signature on file) Rosita Nicholson MD 04/01/24 [facility] Specimen: [id number] Received: 03/29/24 Status: [place] Num: [id number] Spec Type: Cytology Subm Dr: Marbella Phillips DO Tissues: A BRONWASH (RT WASH) B BAL (RLL) Procedures: HE/2, Gross/Micro L4, Cyto Prepstain/2, PAPSTN/2 Patient: Dariusz Najera [id number] (Continued) Specimen: [id number] Received: 03/29/24 (Continued) Gross Description (Continued) Marty (BAL RLL) Received fresh is 15 ml colorless opaque unfixed fluid for cytology said to have been obtained as RLL BAL. ThinPrep preparations are prepared for microscopic examination. (NC/nd) Microscopic Description Microscopic examinations are performed supporting the above interpretation CPT Codes 61633m3 89548 Specimen: [id number] Received: 03/29/24 Status: [place] Num: [id number] Spec Type: Cytology Subm Dr: Marbella Phillips DO Tissues: A BRONWASH (RT WASH) B BAL (RLL) Procedures: HE/2, Gross/Micro L4, Cyto Prepstain/2, PAPSTN/2 Patient: Dariusz Najera [id number] (Continued) Signed (signature on file) Chin-Seng Nicholson MD 04/01/24 1111 Normal [facility] 03-28-2024 [facility] Normal [facility] Comment on above: Order Comment: [facility] Test Name: LAB PATRICIA BRONC CULTURE FROM RT LOW LOBE - BAL Result Comment: Bron ch Alveolar Lav RIGHT LOWER LOBE Lower Respiratory Culture report Result : Routine respiratory ofelia Performed at: CB - [facility] [address] [id number] Network Analyst: Tigre Baker PhD, Phone: [phone] PERFORMED BY: [place] [address] PATHOLOGIST BOWL TOPPER MAGGIE MANNING M.D. Performed By: #### C UBR, [facility], FLCCDIFF, FS #### [place] [address] [place] #### MYC CULT, AFBCS RES1 #### [facility] , Manual body fluid eosinophil s/100 leukocytesOrdered By: Marbella Phillips on 03-28-2024 Eosinophils/100 WBC Manual cnt (Body fld) Manual body fluid eosinophils/100 leukocytes 0-3 [facility] Manual body fluid erythrocyt es count (number/volume)Ordered By: Marbella Phillips on 03-28-2024 RBC Manual cnt (Body fld) [#/Vol] Manual body fluid erythrocytes count (number/volume) [facility] Comment on above: Body fluid is partia lly clotted and/or cell clumps or debris are present. Fluid cell count and differential results may not be reliable. Clinical correlation is recommended.@Avg 68,62 = 65 03/28/24 1320 [id number] reference interval and other method performance specifications have not been established for this body fluid. The test result must be integrated into the clinical context for interpretation. Manual body fluid lymphocyte s/100 leukocytesOrdered By: Marbella Phillips on 03-28-2024 Lymphocytes/100 WBC Manual cnt (Body fld) Manual body fluid lymphocytes/100 leukocytes [facility] Comment on above: The reference interv al and other method performance specifications have not been established for this body fluid. The test result must be integrated into the clinical context for interpretation. Neutrophils/100 WBC Manual c nt (Body fld)Ordered By: Marbella Phillips on 03-28-2024 Neutrophils/100 WBC (Body fld) Manual body fluid neutrophils/100 leukocytes [facility] Comment on above: The reference interv al and other method performance specifications have not been established for this body fluid. The test result must be integrated into the clinical context for interpretation. No Panel InformationOrdered By: Marbella Phillips on 03-28-2024 Miscellaneous Test See comment [facility] Comment on above: Bronch Alveolar Lav RIGHT LOWER LOBE Lower Respiratory Culture reportResult : Routine respiratory floraPerformed at: CB - [facility] [address] [id number] Director: Tigre Baker PhD, Phone: [phone] Mycology Susceptibility N/A [facility] CT CHEST W IV CONTRASTon CT CHEST W IV CONTRAST EXAM: CT CHEST W IV CONTRAST Clinical History: Follow up exam, history of coughing up blood - resolved Reference Exam: 12/03/2023 CT scanning Imaging technique: Axial imaging of the thorax is provided from above the thoracic inlet, through the hemidiaphragms, during the IV bolus of nonionic contrast material IV contrast: Isovue-300, 100 mL Imaging findings: Heart/pericardium: The heart size is normal. No pericardial effusion. No evidence of chamber enlargement. Non-gated study limits the evaluation of the coronary arteries. There is evidence of coronary arterial calcification. Great vessels: The great vessels are remarkable for minor atherosclerosis. Standard great vessel branching pattern. Four pulmonary vein ostia are present. No evidence of pulmonary vein stenosis. No pulmonary arterial enlargement. No definite filling defect of the pulmonary arteries. Hilum/mediastinum: Negative for mediastinal lymphadenopathy or mass. Pulmonary parenchymal analysis: Pulmonary parenchyma is remarkable for tubular bronchiectasis in the medial right lower lobe, fairly stable in appearance. Thickened peribronchial marcelo remain. Air cysts in the inferior right lower lobe. Negative for lobar consolidation. No other soft tissue density pulmonary nodularity. No pneumothorax. No pleural effusion. The airway is unremarkable. No abnormality of the pleural space. Thoracic inlet: Symmetry of the structures here is documented. Upper abdomen: Negative. Osseous analysis: Moderate thoracic spinal spondylosis. Chest wall: Negative. Impression: 1. Tubular bronchiectasis right lower lobe with thickening of the peribronchial marcelo. No changes. 2. Vascular atherosclerotic disease. 3. No lobar pneumonia or pulmonary alveolar edema. All CT scans at this institution are performed using dose optimization techniques as appropriate for the performed exam including the following: Automated exposure control Adjustment of the mA and/or kV according to patient size Use of iterative reconstruction technique Normal Not Available Comment on above: Order Comment: PE pr otocol HX ABNORMAL CHEST CT CT Chest W contrast Tracey EXAM: CT CHEST W IV CONTRAST Clinical History: Follow up exam, history of coughing up blood - resolved Reference Exam: 12/03/2023 CT scanning Imaging technique: Axial imaging of the thorax is provided from above the thoracic inlet, through the hemidiaphragms, during the IV bolus of nonionic contrast material IV contrast: Isovue-300, 100 mL Imaging findings: Heart/pericardium: The heart size is normal. No pericardial effusion. No evidence of chamber enlargement. Non-gated study limits the evaluation of the coronary arteries. There is evidence of coronary arterial calcification. Great vessels: The great vessels are remarkable for minor atherosclerosis. Standard great vessel branching pattern. Four pulmonary vein ostia are present. No evidence of pulmonary vein stenosis. No pulmonary arterial enlargement. No definite filling defect of the pulmonary arteries. Hilum/mediastinum: Negative for mediastinal lymphadenopathy or mass. Pulmonary parenchymal analysis: Pulmonary parenchyma is remarkable for tubular bronchiectasis in the medial right lower lobe, fairly stable in appearance. Thickened peribronchial marcelo remain. Air cysts in the inferior right lower lobe. Negative for lobar consolidation. No other soft tissue density pulmonary nodularity. No pneumothorax. No pleural effusion. The airway is unremarkable. No abnormality of the pleural space. Thoracic inlet: Symmetry of the structures here is documented. Upper abdomen: Negative. Osseous analysis: Moderate thoracic spinal spondylosis. Chest wall: Negative. Impression: 1. Tubular bronchiectasis right lower lobe with thickening of the peribronchial marcelo. No changes. 2. Vascular atherosclerotic disease. 3. No lobar pneumonia or pulmonary alveolar edema. All CT scans at this institution are performed using dose optimization techniques as appropriate for the performed exam including the following: Automated exposure control Adjustment of the mA and/or kV according to patient size Use of iterative reconstruction technique IMAGING Cari Gonsales MD - 03/01/2024 EXAM: CT CHEST W IV CONTRAST Clinical History: Follow up exam, history of coughing up blood - resolved Reference Exam: 12/03/2023 CT scanning Imaging technique: Axial imaging of the thorax is provided from above the thoracic inlet, through the hemidiaphragms, during the IV bolus of nonionic contrast material IV contrast: Isovue-300, 100 mL Imaging findings: Heart/pericardium: The heart size is normal. No pericardial effusion. No evidence of chamber enlargement. Non-gated study limits the evaluation of the coronary arteries. There is evidence of coronary arterial calcification. Great vessels: The great vessels are remarkable for minor atherosclerosis. Standard great vessel branching pattern. Four pulmonary vein ostia are present. No evidence of pulmonary vein stenosis. No pulmonary arterial enlargement. No definite filling defect of the pulmonary arteries. Hilum/mediastinum: Negative for mediastinal lymphadenopathy or mass. Pulmonary parenchymal analysis: Pulmonary parenchyma is remarkable for tubular bronchiectasis in the medial right lower lobe, fairly stable in appearance. Thickened peribronchial marcelo remain. Air cysts in the inferior right lower lobe. Negative for lobar consolidation. No other soft tissue density pulmonary nodularity. No pneumothorax. No pleural effusion. The airway is unremarkable. No abnormality of the pleural space. Thoracic inlet: Symmetry of the structures here is documented. Upper abdomen: Negative. Osseous analysis: Moderate thoracic spinal spondylosis. Chest wall: Negative. Impression: 1. Tubular bronchiectasis right lower lobe with thickening of the peribronchial marcelo. No changes. 2. Vascular atherosclerotic disease. 3. No lobar pneumonia or pulmonary alveolar edema. All CT scans at this institution are performed using dose optimization techniques as appropriate for the performed exam including the following: Automated exposure control Adjustment of the mA and/or kV according to patient size Use of iterative reconstruction technique [facility] Study observation (narrative) [facility] CT Chest W contrast IVOrdere d By: Cari Gonsales on 03-01-2024 [facility] Devver e Work Phone: CT CHEST WO IV CONTRASTon CT CHEST WO IV CONTRAST EXAM: CT Chest Without Contrast. REASON FOR EXAM: Coughing up blood over 1 month. COMPARISON: Chest x-ray November 23, 2023. TECHNIQUE: Sagittal, coronal, axial thin cuts of the chest obtained. Contrast not administered. FINDINGS: The lower neck is without abnormality. Scattered subcentimeter noncalcified mediastinal lymph nodes with benign fatty paula. The heart is not enlarged. No pericardial thickening. Multivessel coronary artery calcifications are present. Images of the upper abdomen are without acute abnormality. No axillary adenopathy. The lungs are notable for a tubular opacity in the right lower lobe. This overall measures 1.76 x 1.8 x 1.7 cm. There is bronchial wall thickening. There are internal subtle calcifications. Subtle bronchial wall thickening diffusely. Density of the anterolateral third rib is present. IMPRESSION: 1. There is right lower lobe bronchiectasis with bronchial wall thickening and calcifications. Differential includes chronic inflammatory, infectious disease or malignancy. Correlate with bronchoscopy. 2. Coronary artery and atherosclerotic vascular disease. 3. The chest x-ray finding of the left upper lung corresponds to a small bone island or nonaggressive appearing subtle bone lesion of the left lateral third rib. *This report is generated using voice recognition reporting ([employer]). On occasion Getting-ine erroneously drops words from the report or replaces the spoken word with similar sounding words. Please call with any questions/concerns regarding this report.* Dictated and transcribed 12/06/23/dpd This report has been electronically signed and approved by the interpreting radiologist. Electronically Signed Ben Grey II, M.D. 2023-12-06 09:59:27 Normal Not Available Comment on above: Order Comment: COUGH ING UP BLOOD X 1 MONTH, HX NODULES XR CHEST 2 VIEWSon 4 XR CHEST 2 VIEWS EXAM: XR Chest, Two Views. REASON FOR EXAM: Hemoptysis. COMPARISON: None FINDINGS: Two images of the chest submitted. The cardiac and mediastinal silhouettes are normal for size. The trachea is not displaced. Pulmonary vasculature is normal. The lungs are clear. The regional skeleton and pleural surfaces are without significant abnormality. 2 to 3 mm left upper lobe circumscribed density consistent with an incidental granuloma. History reports right lower lobe pulmonary nodule. This finding is not definitely visualized on the current study. No previous submitted for comparison. IMPRESSION: No cardiopulmonary abnormalities radiographically. *This report is generated using voice recognition reporting ([email or web address]). On occasion [employer] erroneously drops words from the report or replaces the spoken word with similar sounding words. Please call with any questions/concerns regarding this report.* Dictated and transcribed 11/24/23/dpd This report has been electronically signed and approved by the interpreting radiologist. Electronically Signed Ben Grey II, M.D. 2023-11-24 12:53:41 Normal Not Available XR ABDOMEN 2 VIEWon 09-30-19 24 XR ABDOMEN 2 VIEW FINDINGS: Moderate to large volume of ascending colon stool tapering through the transverse and descending colon regions. No mass effect or bowel obstruction. No free air. No biliary or intrarenal stones. Bilateral 2 mm pelvic calcifications, likely phleboliths. IMPRESSION: Proximal colon stool, no obstruction. TRANSCRIBED BY: ELECTRONICALLY SIGNED BY: Rosales Estes MD Normal Not Available Surgical Pathologyon 024 Surgical Pathology Normal [facility] Comment on above: Result Comment: [facility] [address] [place] [address] Surgical Pathology Consultation Patient Name:DARIUSZ NAJERA:1965 (Age: 57)Gender:MTaken:06/15/2023eported:06/23/2023hysician(s):Velma Rosario D.O. ([phone])Copy To: Rec. #:[id number]: #[id number] Final Pathologic Diagnosis Gallbladder, cholecystectomy: Mild subacute and chronic cholecystitis Report Electronically Signed Out nsk/06/23/2023Razia Gutierrez MD Interpretation performed at [address], [place] [address], License number: [id number]. Clinical History Gallbladder polyp. Gross Description Received in formalin labeled PARISH, gallbladder is an intact gallbladder that measures, 9.1 x 2.8 x 2.7 cm with a cystic duct of 0.2 cm. No lymph node is identified adjacent to the cystic duct. The serosal surface is green with an area of green granular soft tissue consistent with hepatic bed. The gallbladder is opened and filled with green viscous bile. No calculus is identified within the lumen. The mucosa is green and velvety with yellow striations. The gallbladder wall is 0.1-0.2 cm in thickness. Autoglazier cross-sections are submitted within a single cassette. (1, ss, [id number],m2) DM. dm/06/16/2023EAK Specimen(s) Received Gallbladder Fee Codes(s): 1; 26707 COMPLETE BLOOD COUNTon Erythrocyte distribution width (RBC) [Ratio] 13.2 % Normal 11.5-15.0 [facility] Comment on above: Performed By: #### C YOKO SOLIS, 3040-3 #### [facility] ([id number]) [address] [address] [place] [address] Hematocrit (Bld) [Volume fraction] 42.2 % Normal 39-49 [facility] Comment on above: Performed By: #### Sharmin SOLIS CMP, 3040-3 #### [facility] ([id number]) [address] [address] Hemoglobin (Bld) [Mass/Vol] 14.0 g/dL Normal 13.0-17.0 [facility] Comment on above: Performed By: #### Sharmin SOLIS CMP, 3040-3 #### [facility] ([id number]) [address] [address] MCH (RBC) [Entitic mass] 30.0 pg Normal 27-34 [facility] Comment on above: Performed By: #### Sharmin SOLIS CMP, 0-3 #### [facility] ([id number]) [address] [place] [address] MCHC (RBC) [Mass/Vol] 33.3 g/dL Normal 32-36 [facility] Comment on above: Performed By: #### Sharmin BC, CMP, 3040-3 #### [facility] ([id number]) [address], [facility] [address] [place] [address] MCV (RBC) [Entitic vol] 90 fL Normal 80-100 [facility] Comment on above: Performed By: #### Sharmin SOLIS, CMP, 3039-3 #### [facility] ([id number]) [address], [facility] [address] [place] [address] Platelet mean volume (Bld) [Entitic vol] 9.9 fL Normal 7-12 [facility] Comment on above: Performed By: #### Sharmin BC, CMP, 3039-3 #### [facility] ([id number]) [address], [facility] [address] [place] [address] Platelets (Bld) [#/Vol] 233 10*3/uL Normal 150-450 [facility] Comment on above: Performed By: #### Sharmin BC, CMP, 0-3 #### [facility] ([id number]) [address], [facility] [address] [place] [address] RBC COUNT 4.69 X10E12/L Normal 4.10-5.70 [facility] Comment on above: Performed By: #### Sharmin BC, CMP, 0-3 #### [facility] ([id number]) [address] [address] [place] [address] WBC (Bld) [#/Vol] 6.1 10*3/uL Normal 4.0-11.0 [facility] Comment on above: Performed By: #### Sharmin BC, CMP, 0-3 #### [facility] ([id number]) [address], [address] [place] [address] COMPREHENSIVE METABOLIC PANE Noah 06-10-2023 Albumin [Mass/Vol] 4.3 g/dL Normal 3.2-5.3 [facility] Comment on above: Performed By: #### Sharmin SOLIS CMP, 3040-3 #### [facility] ([id number]) [address], [address] [place] [address] ALP [Catalytic activity/Vol] 121 U/L Normal 39-130 [facility] Comment on above: Performed By: #### Sharmin SOLIS CMP, 3039-3 #### [facility] ([id number]) [address] [place] [address] ALT [Catalytic activity/Vol] 14 U/L Normal 0-40 [facility] Comment on above: Performed By: #### Sharmin SOLIS CMP, 3039-3 #### [facility] ([id number]) [address] [place] [address] Anion gap [Moles/Vol] 8 mmol/L Normal 5-15 [facility] Comment on above: Performed By: #### Sharmin SOLIS CMP, 3039-3 #### [facility] ([id number]) [address], [address] [place] [address] AST [Catalytic activity/Vol] 15 U/L Normal 0-41 [facility] Comment on above: Performed By: #### Sharmin SOLIS CMP, 3039-3 #### [facility] ([id number]) [address], [address] [place] [address] Bilirubin [Mass/Vol] 0.4 mg/dL Normal 0.3-1.2 [facility] Comment on above: Performed By: #### Sharmin SOLIS CMP, 0-3 #### [facility] ([id number]) [address] [place] [address] Calcium [Mass/Vol] 9.0 mg/dL Normal 8.5-10.5 [facility] Comment on above: Performed By: #### Sharmin SOLIS CMP, 3040-3 #### [facility] ([id number]) [address] [place] [address] Chloride [Moles/Vol] 106 mmol/L Normal 98-109 [facility] Comment on above: Performed By: #### Sharmin SOLIS CMP, 0-3 #### [facility] ([id number]) [address], [address] [place] [address] CO2 [Moles/Vol] 29 mmol/L Normal 22-32 [facility] Comment on above: Performed By: #### Sharmin SOLIS CMP, 3040-3 #### [facility] ([id number]) [address] [place] [address] Creatinine [Mass/Vol] 0.86 mg/dL Normal 0.60-1.30 [facility] Comment on above: Result Comment: METH OD TRACEABLE TO IDMS STANDARD Performed By: #### Sharmin SOLIS CMP, 3040-3 #### [facility] ([id number]) [address], [address] [place] [address] eGFR (CKD-EPI) NON-RACE DEPENDENT >90 Normal >59 [facility] Comment on above: Result Comment: Reported eGFR is based on the CKD-EPI 2020 equation that does not use a race coefficient. Performed By: #### Sharmin SOLIS CMP, 3040-3 #### [facility] ([id number]) [address] [place] [address] Glucose [Mass/Vol] 100 mg/dL High 65-99 [facility] Comment on above: Performed By: #### Sharmin SOLIS CMP, 3040-3 #### [facility] ([id number]) [address] [place] [address] Potassium [Moles/Vol] 4.1 mmol/L Normal 3.5-5.0 [facility] Comment on above: Performed By: #### Sharmin SOLIS CMP, 3040-3 #### [facility] ([id number]) [address] [place] [address] Protein [Mass/Vol] 6.6 g/dL Normal 6.0-8.0 [facility] Comment on above: Performed By: #### Sharmin SOLIS CMP, 3040-3 #### [facility] ([id number]) [address], [facility] [address] [place] [address] Sodium [Moles/Vol] 143 mmol/L Normal 134-146 [facility] Comment on above: Performed By: #### Sharmin SOLIS CMP, 3040-3 #### [facility] ([id number]) [address], [facility] [address] [place] [address] Urea nitrogen [Mass/Vol] 26 mg/dL High 5-23 [facility] Comment on above: Performed By: #### Sharmin SOLIS CMP, 3040-3 #### [facility] ([id number]) [address], [facility] [address] [place] [address] ECG 12 leadon 06-10-2023 [facility] LIPASEon 06-10-2023 Lipase [Catalytic activity/Vol] 30 U/L Normal 11-82 [facility] Comment on above: Performed By: #### Sharmin SOLIS CMP, 3040-3 #### [facility] ([id number]) [address] [place] [address] US GALLBLADDERon 05-17-2023 US GALLBLADDER FINDINGS: Liver normal in size, contour, and echogenicity. No intrahepatic and no extrahepatic ductal dilatation. Common duct measures 5 mm. Gallbladder contains 1.8 mm nonshadowing echogenic nonmobile focus adherent to the wall of the gallbladder. No gallbladder wall thickening or para cholecystic fluid. Pancreatic body normal in size, shape, and echogenicity. Remainder of pancreas obscured by overlying bowel gas. IMPRESSION: Impression: Gallbladder polyp. ELECTRONICALLY SIGNED BY: Nirmal Gutierres MD Normal Not Available Office Visit (Cardiology)on 11-06-2022 Follow-up visit Diagnoses/Problems Assessed Benign essential hypertension (401.1) (I10) Overweight with body mass index (BMI) of 27 to 27.9 in adult (278.02,V85.23) (E66.3,Z68.27) Never a smoker Syncope (780.2) (R55) Orders Benign essential hypertension Renew: Triamterene-HCTZ 37.5-25 MG Oral Capsule; TAKE 1 CAPSULE Daily Basic Metabolic Panel; Status:Active; Requested for:24Cwu0664; Overweight with body mass index (BMI) of 27 to 27.9 in adult Healthy Weight Tips; Status:Complete; Done: 29Pio5445 Some eating tips that can help you lose weight.; Status:Complete; Done: 81Isv0463 SocHx: Never a smoker Tobacco Use Screening; Status:Complete; Done: 25Klu6416 Patient Instructions Please bring all medicines, vitamins, and herbal supplements with you when you come to the office. Prescriptions will not be filled unless you are compliant with your follow up appointments or have a follow up appointment scheduled as per instruction of your physician. Refills should be requested at the time of your visit. lab follow up in 1 year. Chief Complaint DARIUSZ NAJERA is being seen for an annual follow-up of. History of Present Illness Patient returns in follow-up of problems as noted. In the interim he is done well. He has been exercising and dieting and lost weight. Blood pressure control has improved. Advised him that continued weight loss and exercise may lower his blood pressure to the point where medication may have to be reduced. We would probably recommend a reduction or cessation of Dyazide therapy if and/or when blood pressure becomes lower. Propranolol appears to be beneficial at preventing migraine headaches. He also may have a benefit if in fact there is an element of vasovagal syncope. For now, though, we will continue as is. He was educated regarding symptoms to watch for and encouraged to call if they arise. Surgical History Problems History of Complete colonoscopy History of Esophagogastroduodenoscopy History of Tonsillectomy with adenoidectomy History of Beasley tooth extraction Current Meds Medication NameInstruction Propranolol HCl ER 60 MG Oral Capsule Extended Release 24 HourTAKE 1 CAPSULE Daily SUMAtriptan Succinate 100 MG Oral TabletTAKE DIRECTED. Triamterene-HCTZ 37.5-25 MG Oral CapsuleTAKE 1 CAPSULE Daily Patient did not bring medication list or bottles. Updated verbally with patient Allergies Medication No Known Drug Allergies Recorded By: Nasra Bullock; 07/17/2021 3:24:36 PM Social History Problems Consumes alcohol occasionally (V49.89) (Z78.9) Never a smoker No caffeine use No illicit drug use Review of Systems Constitutional: not feeling tired. Eyes: no eyesight problems. ENT: no hearing loss and no nosebleeds. Cardiovascular: no intermittent leg claudication and as noted in HPI. Respiratory: no chronic cough and no shortness of breath. Gastrointestinal: no change in bowel habits and no blood in stools. Genitourinary: no urinary frequency and no hematuria. Skin: no skin rashes. Neurological: no seizures and no frequent falls. Psychiatric: no depression and not suicidal. All other systems have been reviewed and are negative for complaint. Vitals Vital Signs Recorded: 39Rjy9760 01:39PM Heart Rate76, L Radial Oqmltaam652, LUE, Sitting Qwvikuxxl34, LUE, Sitting Height5 ft 7 in Tmdybf432 lb BMI Gmhmdkjaik48.41 kg/m2 BSA Calculated1.91 Tobacco Useb) No PHQ-2 #1. Over the last 2 weeks have you felt down, depressed or hopeless? (If yes, answer PHQ-9 below)No PHQ-2 #2. Over the last 2 weeks have you felt little interest or pleasure in doing things? (If yes, answer PHQ-9 below)No Physical Exam Constitutional: alert and in no acute distress. Eyes: no erythema, swelling or discharge from the eye . Neck: neck is supple, symmetric, trachea midline, no masses and no thyromegaly . Pulmonary: no increased work of breathing or signs of respiratory distress and lungs clear to auscultation. Cardiovascular: carotid pulses 2+ bilaterally with no bruit , JVP was normal, no thrills , regular rhythm, normal S1 and S2, no murmurs , pedal pulses 2+ bilaterally and no edema . Abdomen: abdomen non-tender, no masses and no hepatomegaly . Skin: skin warm and dry, normal skin turgor . Psychiatric judgment and insight is normal and oriented to person, place and time . Signatures Electronically signed by : Ben Ly MD; Nov 07 2022 1:14PM EST (Author) Normal [facility] Tobacco Screening.on 023 Adult depression screening assessment No [facility] [address] DO Work Phone: Tobacco use status CP b) No [facility] [address] DO Work Phone: Falls Risk Screeningon 09-30 Fall risk assessment c) Not medically indicated [facility] [facility] DO Work Phone: Tobacco Screening.on 022 Tobacco use status CP b) No [facility] [address] DO Work Phone: Tobacco Screening.on 022 Adult depression screening assessment No -[facility] 250 DO Work Phone: Tobacco use status CP b) No [facility] [facility] DO Work Phone: CBC AUTO DIFFon 07-08-2021 BASO # 0.1 103/ul Normal 0.0-0.1 [facility] Comment on above: Performed By: #### D DIM #### [facility] [address] [place] [address] Dr. Sony Nicholson Basophils/100 WBC (Bld) 0.7 % Normal 0.2-2.0 [facility] Comment on above: Performed By: #### D DIM #### [facility] [address] [place] [address] Dr. Sony Nicholson EO # 0.2 103/ul Normal 0.0-0.7 [facility] Comment on above: Performed By: #### D DIM #### [facility] [address] [place] [address] Dr. Sony Nicholson Eosinophils/100 WBC (Bld) 2.8 % Normal 0.9-7.0 [facility] Comment on above: Performed By: #### D DIM #### [facility] [address] [place] [address] Dr. Sony Nicholson Erythrocyte distribution width (RBC) [Ratio] 12.9 % Normal 11.0-15.0 [facility] Comment on above: Performed By: #### D DIM #### [facility] [address] [place] [address] Dr. Sony Nicholson Hematocrit (Bld) [Volume fraction] 43.7 % Normal 42.0-54.0 [facility] Comment on above: Performed By: #### D DIM #### [facility] [address] [place] [address] Dr. Sony Nicholson Hemoglobin (Bld) [Mass/Vol] 14.4 g/dL Normal 14.0-18.0 [facility] Comment on above: Performed By: #### D DIM #### [facility] [address] [place] [address] Dr. Sony Nicholson IG # 0.02 10e3/ul Normal 0.00-0.03 [facility] Comment on above: Performed By: #### D DIM #### [facility] [address] [place] [address] Dr. Sony Nicholson IG % 0.3 % Normal 0.0-0.5 [facility] Comment on above: Performed By: #### D DIM #### [facility] [address] [place] [address] Dr. Sony Nicholson LYMPH # 1.9 103/ul Normal 1.2-3.8 [facility] Comment on above: Performed By: #### D DIM #### [facility] [address] [place] [address] Dr. Sony Nicholson Lymphocytes/100 WBC (Bld) 25.9 % Normal 20.5-60.0 [facility] Comment on above: Performed By: #### D DIM #### [facility] [address] [place] [address] Dr. Sony Nicholson MANUAL DIFF REQ NO Normal [facility] Comment on above: Performed By: #### D DIM #### [facility] [address] [place] [address] Dr. Sony Nicholson MCH (RBC) [Entitic mass] 29.8 pg Normal 25.9-34.0 [facility] Comment on above: Performed By: #### D DIM #### [facility] [address] [place] [address] Dr. Sony Nicholson MCHC (RBC) [Mass/Vol] 33.0 g/dL Normal 29.9-35.2 [facility] Comment on above: Performed By: #### D DIM #### [facility] [address] [place] [address] Dr. Sony Nicholson MCV (RBC) [Entitic vol] 90.5 fL Normal 80.0-94.0 [facility] Comment on above: Performed By: #### D DIM #### [facility] [address] [place] [address] Dr. Sony Nicholson MONO # 0.7 103/ul Normal 0.3-0.8 [facility] Comment on above: Performed By: #### D DIM #### [facility] [address] [place] [address] Dr. Sony Nicholson Monocytes/100 WBC (Bld) 10.2 % Normal 1.7-12.0 [facility] Comment on above: Performed By: #### D DIM #### [facility] [address] [place] [address] Dr. Sony Nicholson NEUT # 4.3 103/ul Normal 1.4-6.5 [facility] Comment on above: Performed By: #### D DIM #### [facility] [address] [place] [address] Dr. Sony Nicholson Neutrophils/100 WBC (Bld) 60.1 % Normal 43.0-75.0 [facility] Comment on above: Performed By: #### D DIM #### [facility] [address] [place] [address] Dr. Sony Nicholson Platelet mean volume (Bld) [Entitic vol] 12.3 fL Normal 9.5-13.5 [facility] Comment on above: Performed By: #### D DIM #### [facility] [address] [place] [address] Dr. Sony Nicholson PLT 240 103/ul Normal 150-450 [facility] Comment on above: Performed By: #### D DIM #### [facility] [address] [address] [address] Sony Nicholson RBC 4.83 106/ul Normal 4.70-6.10 [facility] [facility] Comment on above: Performed By: #### D DIM #### [facility] [address] [address] [address] Sony Nicholson WBC 7.2 103/ul Normal 4.0-11.0 [facility] Comment on above: Performed By: #### D DIM #### [facility] [address] [address] [address] Sony Nicholson PROF CHEM 8 (BAS METB)on Anion gap [Moles/Vol] 13.2 mmol/L Normal [facility] Comment on above: Performed By: #### B MP #### [facility] [address] [place] [address] Dr. Sony Nicholson Calcium [Mass/Vol] 8.4 mg/dL Critically low 8.5-10.1 Th [facility] Comment on above: Performed By: #### B MP #### [facility] [address] [place] [address] Dr. Sony Nicholson Chloride [Moles/Vol] 102 mmol/L Normal 98-107 [facility] Comment on above: Performed By: #### B MP #### [facility] [address] [place] [address] Dr. Sony Nicholson CO2 [Moles/Vol] 27.5 mmol/L Normal 22.0-30.0 [facility] Comment on above: Performed By: #### B MP #### [facility] [address] [place] [address] Dr. Sony Nicholson Creatinine [Mass/Vol] 1.06 mg/dL Normal 0.66-1.25 [facility] Comment on above: Performed By: #### B MP #### [facility] [address] [place] [address] Dr. Sony Nicholson EGFR-AF NORWEGIAN >60 Normal >=60 [facility] Comment on above: Performed By: #### B MP #### [facility] [address] [address] [address] Sony Nicholson EGFR-NON AF NORWEGIAN >60 Normal >=60 [facility] Comment on above: Performed By: #### B MP #### [facility] [address] [address] [address] Sony Nicholson Glucose [Mass/Vol] 114 mg/dL Critically high 74-106 [facility] Comment on above: Performed By: #### B MP #### [facility] [address] [address] [address] Sony Nicholson Potassium [Moles/Vol] 4.7 mmol/L Normal 3.4-5.0 [facility] Comment on above: Performed By: #### B MP #### [facility] [address] [address] [address] Sony Nicholson Sodium [Moles/Vol] 138 mmol/L Normal 137-145 [facility] Comment on above: Performed By: #### B MP #### [facility] [address] [address] [address] Sony Nicholson Urea nitrogen [Mass/Vol] 24.0 mg/dL Critically high 7.0-18.0 [facility] Comment on above: Performed By: #### B MP #### [facility] [address] [address] [address] Sony Nicholson Urea nitrogen/Creatinine [Mass ratio] 22.6 mg/mg Normal [facility] Comment on above: Performed By: #### B MP #### [facility] [address] [address] [address] Sony Nicholson CARDIAC CARI 3-6on 2 CK [Catalytic activity/Vol] 122 U/L Normal 55-170 [facility] Comment on above: Performed By: #### C MREP #### [facility] [address] [address] [address] Sony Nicholson CK.MB [Mass/Vol] 0.98 ng/mL Normal <=2.37 [facility] Comment on above: Performed By: #### C MREP #### [facility] [address] [place] [address] Dr. Sony Nicholson HSTROP 7.2 pg/mL Normal 4.0-42.2 [facility] Comment on above: Result Comment: CUT- OFF POINTS HAVE BEEN ESTABLISHED BASED ON THE FOURTH UNIVERSAL DEFINITIONS OF MYOCARDIAL INFARCTION. THE UPPER REFERENCE LIMIT (URL) OF TROPONIN, DEFINED THE 99TH PERCENTILE OF cTnI DISTRIBUTION IN A REFERENCE POPULATION, HAS BEEN CONFIRMED THE DECISION THRESHOLD FOR CA DIAGNOSIS. Performed By: #### C MREP #### [facility] [address] [place] [address] Dr. Sony Nicholson CK [Catalytic activity/Vol] 137 U/L Normal 55-170 [facility] Comment on above: Performed By: #### C MREP #### [facility] [address] [place] [address] Dr. Sony Nicholson CK.MB [Mass/Vol] 1.18 ng/mL Normal <=2.37 [facility] Comment on above: Performed By: #### C MREP #### [facility] [address] [place] [address] Dr. Sony Nicholson HSTROP 9.3 pg/mL Normal 4.0-42.2 [facility] Comment on above: Result Comment: CUT- OFF POINTS HAVE BEEN ESTABLISHED BASED ON THE FOURTH UNIVERSAL DEFINITIONS OF MYOCARDIAL INFARCTION. THE UPPER REFERENCE LIMIT (URL) OF TROPONIN, DEFINED THE 99TH PERCENTILE OF cTnI DISTRIBUTION IN A REFERENCE POPULATION, HAS BEEN CONFIRMED THE DECISION THRESHOLD FOR CA DIAGNOSIS. Performed By: #### C MREP #### [facility] [address] [place] [address] Dr. Sony Nicholson CARDIAC CARI ADMITon 022 CK [Catalytic activity/Vol] 152 U/L Normal 55-170 [facility] Comment on above: Performed By: #### D DIM #### [facility] [address] [place] [address] Dr. Sony Nicholson CK.MB [Mass/Vol] 1.43 ng/mL Normal <=2.37 [facility] Comment on above: Performed By: #### D DIM #### [facility] [address] [place] [address] Dr. Sony Nicholson HSTROP 8.1 pg/mL Normal 4.0-42.2 [facility] Comment on above: Result Comment: CUT- OFF POINTS HAVE BEEN ESTABLISHED BASED ON THE FOURTH UNIVERSAL DEFINITIONS OF MYOCARDIAL INFARCTION. THE UPPER REFERENCE LIMIT (URL) OF TROPONIN, DEFINED THE 99TH PERCENTILE OF cTnI DISTRIBUTION IN A REFERENCE POPULATION, HAS BEEN CONFIRMED THE DECISION THRESHOLD FOR CA DIAGNOSIS. Performed By: #### D DIM #### [facility] [address] [place] [address] Dr. Sony Nicholson DAVID 46.0 ng/mL Normal <=121.0 [facility] Comment on above: Performed By: #### D DIM #### [facility] [address] [place] [address] Dr. Sony Nicholson CBC AUTO DIFFon 07-07-2021 BASO # 0.1 103/ul Normal 0.0-0.1 [facility] Comment on above: Performed By: #### C BC #### [facility] [address] [place] [address] Dr. Sony Nicholson Basophils/100 WBC (Bld) 0.7 % Normal 0.2-2.0 [facility] Comment on above: Performed By: #### C BC #### [facility] [address] [place] [address] Dr. Sony Nicholson EO # 0.2 103/ul Normal 0.0-0.7 [facility] Comment on above: Performed By: #### C BC #### [facility] [address] [place] [address] Dr. Sony Nicholson Eosinophils/100 WBC (Bld) 2.4 % Normal 0.9-7.0 [facility] Comment on above: Performed By: #### C BC #### [facility] [address] [place] [address] Dr. Sony Nicholson Erythrocyte distribution width (RBC) [Ratio] 12.6 % Normal 11.0-15.0 [facility] Comment on above: Performed By: #### C BC #### [facility] [address] [place] [address] Dr. Sony Nicholson Hematocrit (Bld) [Volume fraction] 45.9 % Normal 42.0-54.0 [facility] Comment on above: Performed By: #### C BC #### [facility] [address] [place] [address] Dr. Sony Nicholson Hemoglobin (Bld) [Mass/Vol] 15.1 g/dL Normal 14.0-18.0 [facility] Comment on above: Performed By: #### C BC #### [facility] [address] [place] [address] Dr. Sony Nicholson IG # 0.01 10e3/ul Normal 0.00-0.03 [facility] Comment on above: Performed By: #### C BC #### [facility] [address] [place] [address] Dr. Sony Nicholson IG % 0.1 % Normal 0.0-0.5 [facility] Comment on above: Performed By: #### C BC #### [facility] [address] [place] [address] Dr. Sony Nicholson LYMPH # 1.8 103/ul Normal 1.2-3.8 [facility] Comment on above: Performed By: #### C BC #### [facility] [address] [place] [address] Dr. Sony Nicholson Lymphocytes/100 WBC (Bld) 25.9 % Normal 20.5-60.0 [facility] Comment on above: Performed By: #### C BC #### [facility] [address] [place] [address] Dr. Sony Nicholson MANUAL DIFF REQ NO Normal [facility] Comment on above: Performed By: #### C BC #### [facility] [address] [place] [address] Dr. Sony Nicholson MCH (RBC) [Entitic mass] 29.3 pg Normal 25.9-34.0 [facility] Comment on above: Performed By: #### C BC #### [facility] [address] [place] [address] Dr. Sony Nicholson MCHC (RBC) [Mass/Vol] 32.9 g/dL Normal 29.9-35.2 [facility] Comment on above: Performed By: #### C BC #### [facility] [address] [place] [address] Dr. Sony Nicholson MCV (RBC) [Entitic vol] 89.0 fL Normal 80.0-94.0 [facility] Comment on above: Performed By: #### C BC #### [facility] [address] [address] [address] Sony Nicholson MONO # 0.8 103/ul Normal 0.3-0.8 [facility] Comment on above: Performed By: #### C BC #### [facility] [address] [place] [address] Dr. Sony Nicholson Monocytes/100 WBC (Bld) 11.8 % Normal 1.7-12.0 [facility] Comment on above: Performed By: #### C BC #### [facility] [address] [place] [address] Dr. Sony Nicholson NEUT # 4.2 103/ul Normal 1.4-6.5 [facility] Comment on above: Performed By: #### C BC #### [facility] [address] [place] [address] Dr. Sony Nicholson Neutrophils/100 WBC (Bld) 59.1 % Normal 43.0-75.0 [facility] Comment on above: Performed By: #### C BC #### [facility] [address] [place] [address] Dr. Sony Nicholson Platelet mean volume (Bld) [Entitic vol] 10.4 fL Normal 9.5-13.5 [facility] Comment on above: Performed By: #### C BC #### [facility] [address] [place] [address] Dr. Sony Nicholson PLT 305 103/ul Normal 150-450 [facility] Comment on above: Performed By: #### C BC #### [facility] [address] [place] [address] Dr. Sony Nicholson RBC 5.16 106/ul Normal 4.70-6.10 [facility] Comment on above: Performed By: #### C BC #### [facility] [address], [place] [address] Dr. Sony Nicholson WBC 7.1 103/ul Normal 4.0-11.0 [facility] Comment on above: Performed By: #### C BC #### [facility] [address] [place], [place] [address] HEAD WO CONon 07-07-2021 CT HEAD WO CON EXAMINATION: CT HEAD WO CON HISTORY: Transient cerebral ischemia COMPARISON: May 17, 2021 TECHNIQUE: CT examination of the head without IV contrast. Dose reduction techniques were achieved by using automated exposure control and/or adjustment of mA and/or kV according to patient size and/or use of iterative reconstruction technique. FINDINGS: The structures of the posterior fossa and supratentorial space are developmentally normal. Domínguez/white matter differentiation is preserved throughout. No evident skull fracture, hemorrhage or acute ischemia. 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 No midline shift or mass. Normal size of the ventricles and sulci for age. Normal orbits. Pneumatized portions of the skull are clear. IMPRESSION: No acute intracranial abnormality. Electronically authenticated by: NICA SALAZAR Date: 2021-07-07 06:36 Normal [facility] CTA NECK WO W CONon 07-08-19 22 CTA NECK WO W CON EXAMINATION: CTA NEC K WO W CON, CTA HEAD WO W CON HISTORY: Transient cerebral ischemia. COMPARISON: CT head without contrast, 07/07/2021. TECHNIQUE: Postcontrast axial CTA images were obtained through the head and neck. Reconstructions were obtained in the axial, sagittal, and coronal planes. MIP (maximum intensity projection) images were performed. Carotid stenosis is reported according to NASCET criteria. Dose reduction techniques were achieved by using automated exposure control and/or adjustment of mA and/or kV according to patient size and/or use of iterative reconstruction technique. FINDINGS: CTA BRAIN: No stenosis of the distal internal carotid arteries. Anterior cerebral arteries are normal. Middle cerebral arteries are normal. Distal vertebral arteries are normal. Basilar artery normal. Cerebellar arteries are patent. Posterior cerebral arteries are normal in caliber. No proximal arterial occlusion or significant stenosis. No intracranial aneurysm. No vascular malformation. CTA NECK: Left common carotid artery normal in caliber. No stenosis of the left carotid bifurcation. No stenosis of the left internal carotid artery. 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 This is located along the anterior wall of the distal left ICA below the skull base. This does not result in stenosis. No evidence of acute dissection. No stenosis of the right common carotid artery. Right carotid bifurcation normal. Right internal carotid artery normal. No stenosis of the right ICA. Origins of the vertebral arteries are normal. Vertebral arteries are normal in caliber. No vertebral artery stenosis. No vertebral artery dissection. No neck masses. No lymphadenopathy in the neck. Lung apices are clear. Osseous structures are unremarkable. IMPRESSION: 1. Normal CTA of the brain. 2. No carotid or vertebral artery stenosis in the neck. 3. 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 This does not result in significant left ICA stenosis. 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 No convincing evidence of acute dissection. 4. No evidence of dissection or pseudoaneurysm of the right ICA. No dissection or pseudoaneurysm along the vertebral arteries. Electronically authenticated by: GREGG LOPEZ Date: 2021-07-07 12:51 Normal [facility] Covid-19 PCR (CVDTBH)on 06-11 SARS-CoV-2 (COVID-19) RNA MANDI+probe Ql (Unsp spec) Not detected Normal NOT DETECTED [facility] Comment on above: Result Comment: When diagnostic testing is negative, the possibility of a false negative should be considered in the context of a patient's recent exposures and the presence of clinical signs and symptoms consistent with SARS-CoV-2. This test is not yet approved or cleared by the [place] Food and Drug Administration (FDA). This test was developed by [employer], [place], [place]. The performance characteristics of this test were validated by [facility]. The results are not intended to be used as the sole means for clinical diagnosis or patient management decisions. [facility] is authorized under Clinical Laboratory Improvement Amendments (CLIA) to perform high- complexity testing. This test is not yet approved or cleared by the [place] FDA. When there are no FDA-approved or cleared tests available, and other criteria are met, FDA can make tests available under an emergency access mechanism called an Emergency Use Authorization (EUA). The EUA for this test is supported by the [employer] of Health and Human Service's declaration that circumstances exist to justify the emergency use of in vitro diagnostics for the detection and/or diagnosis of the virus that causes COVID-19. This EUA will remain in effect for the duration of the COVID-19 declaration justifying emergency of IVDs, unless it is terminated or revoked by the FDA (after which the test may no longer be used). Performed By: #### C VDTBH #### [facility] [address] [place] [address] Dr. Sony Nicholson D-DIMERon 07-07-2021 D-DIMER 0.20 mg/L FEU Normal 0.19-0.50 [facility] Comment on above: Performed By: #### D DIM #### [facility] [address] [place] [address] Dr. Sony Nicholson D-DIMER COMMENTS SEE BELOW Normal [facility] Comment on above: Result Comment: Incr eases in D-Dimer concentration observed with thromboembolic events can be variable due to localization, size, and age of the thrombus. Therefore, a thromboembolic event cannot be diagnosed with certainty on the basis of the reference range. D-Dimers may also be elevated for a variety of disorders including: advanced age, , coronary disease, cancer, liver disease, infection, inflammation, hematoma, DIC, trauma, post-surgery, diabetes, thrombolytic or anticoagulant therapy, stress, and generalized hospitalization. Performed By: #### D DIM #### [facility] [address] [place] [address] Dr. Sony Nicholson GLYCOHEMOGLOBIN A1Con 2021 ADA RECOMMENDATION ADA THERAPEUTIC TARG ET 6.0 - 7.0 ACTION SUGGESTED > 7.0 Normal [facility] Comment on above: Performed By: #### D DIM #### [facility] [address] [place] [address] Dr. Sony Nicholson Glucose [Mass/Vol] 117 mg/dL Normal [facility] Comment on above: Performed By: #### D DIM #### [facility] [address] [address] [address] Sony Nicholson HbA1c (Bld) [Mass fraction] 5.7 % Normal <=6.0 [facility] Comment on above: Performed By: #### D DIM #### [facility] [address] [address] [address] Sony Nicholson LIPID PROFILEon 07-07-2021 CHOL-HDL RATIO NORM SEE BELOW Normal [facility] Comment on above: Result Comment: 3.3 - 4.4 LOW RISK 4.4 - 7.1 AVERAGE RISK 7.1 - 11.0 MODERATE RISK >11.0 HIGH RISK Performed By: #### L IPID #### [facility] [address] [place] [address] Dr. Sony Nicholson Cholesterol [Mass/Vol] 272 mg/dL Critically high <=200 [facility] Comment on above: Performed By: #### L IPID #### [facility] [address] [place] [address] Dr. Sony Nicholson Cholesterol in HDL [Mass/Vol] 52 mg/dL Normal 40-60 [facility] Comment on above: Performed By: #### L IPID #### [facility] [address] [place] [address] Dr. Sony Nicholson Cholesterol in LDL [Mass/Vol] 187.8 mg/dL Normal [facility] Comment on above: Performed By: #### L IPID #### [facility] [address] [place] [address] Dr. Sony Nicholson Cholesterol.total/C holesterol in HDL [Mass ratio] 5.2 {ratio} Normal [facility] Comment on above: Performed By: #### L IPID #### [facility] [address] [place] [address] Dr. Sony Nicholson HDL NORMAL > or = 60 mg/dl - LO W CARDIOVASCULAR RISK <40 mg/dl - HIGH CARDIOVASCULAR RISK Normal [facility] Comment on above: Performed By: #### L IPID #### [facility] [address] [place] [address] Dr. Sony Nicholson LDL CALC NORMAL SEE BELOW Normal [facility] Comment on above: Result Comment: <100 mg/dl OPTIMAL 100 - 129 mg/dl NEAR OR ABOVE OPTIMAL 130 - 159 mg/dl BORDERLINE HIGH 160 - 189 mg/dl HIGH >190 mg/dl VERY HIGH Performed By: #### L IPID #### [facility] [address] [address] [address] Sony Nicholson Triglyceride [Mass/Vol] 161 mg/dL Critically high <=150 [facility] Comment on above: Performed By: #### L IPID #### [facility] [address] [address] [address] Sony Nicholson VLDL CALC 32.2 mg/dL Normal [facility] Comment on above: Performed By: #### L IPID #### [facility] [address] [place] [address] Dr. Sony Nicholson MRI BRAIN WO W CONon 022 MRI BRAIN WO W CON MRI BRAIN WITH AND W ITHOUT CONTRAST, 07/07/2021. HISTORY: TIA. Syncope. COMPARISON: CTA head and neck, 07/07/2021. TECHNIQUE: Sagittal and axial T1, axial T2, FLAIR, diffusion, T2 gradient, postcontrast axial, coronal, and sagittal T1 images were obtained. FINDINGS: Paranasal sinuses clear. Mastoid air cells clear. Nasopharynx normal. [employer] spaces normal. Orbital contents unremarkable. Extracranial soft tissue structures are unremarkable. Mild brain atrophy. No hydrocephalus. No extra-axial fluid collections. No mass effect. No shift of midline. No diffusion restriction. No acute ischemic infarction. The T2 gradient images show no hemorrhagic lesions. No pathologic enhancement in the brain. No brain masses. IMPRESSION: 1. No acute infarction. 2. Mild brain atrophy. 3. No pathologic enhancement. No masses. No acute findings. Electronically authenticated by: GREGG LOPEZ Date: 2021-07-07 15:23 Normal [facility] PROF CHEM 8 (BAS METB)on Anion gap [Moles/Vol] 10.5 mmol/L Normal [facility] Comment on above: Performed By: #### D DIM #### [facility] [address] [place] [address] Dr. Sony Nicholson Calcium [Mass/Vol] 8.5 mg/dL Normal 8.5-10.1 [facility] Comment on above: Performed By: #### D DIM #### [facility] [address] [place] [address] Dr. Sony Nicholson Chloride [Moles/Vol] 101 mmol/L Normal 98-107 [facility] Comment on above: Performed By: #### D DIM #### [facility] [address] [address] [address] Sony Nicholson CO2 [Moles/Vol] 31.4 mmol/L Critically high 22.0-30.0 [facility] Comment on above: Performed By: #### D DIM #### [facility] [address] [place] [address] Dr. Sony Nicholson Creatinine [Mass/Vol] 1.08 mg/dL Normal 0.66-1.25 [facility] Comment on above: Performed By: #### D DIM #### [facility] [address] [place] [address] Dr. Sony Nicholson EGFR-AF NORWEGIAN >60 Normal >=60 [facility] Comment on above: Performed By: #### D DIM #### [facility] [address] [place] [address] Dr. Sony Nicholson EGFR-NON AF NORWEGIAN >60 Normal >=60 [facility] Comment on above: Performed By: #### D DIM #### [facility] [address] [place] [address] Dr. Sony Nicholson Glucose [Mass/Vol] 113 mg/dL Critically high 74-106 [facility] Comment on above: Performed By: #### D DIM #### [facility] [facility] [address] [place] [address] Dr. Sony Nicholson Potassium [Moles/Vol] 4.9 mmol/L Normal 3.4-5.0 [facility] Comment on above: Performed By: #### D DIM #### [facility] [address] [place] [address] Dr. Sony Nicholson Sodium [Moles/Vol] 138 mmol/L Normal 137-145 [facility] Comment on above: Performed By: #### D DIM #### [facility] [address] [place], [place] [address] Dr. Sony Nicholson Urea nitrogen [Mass/Vol] 26.0 mg/dL Critically high 7.0-18.0 [facility] Comment on above: Performed By: #### D DIM #### [facility] [address] [place], [place] [address] Dr. Sony Nicholson Urea nitrogen/Creatinine [Mass ratio] 24.1 mg/mg Normal [facility] Comment on above: Performed By: #### D DIM #### [facility] [address] [place] [address] [address] Sony Nicholson CAROTID ART BILon 022 US CAROTID ART KELLEE EXAMINATION: US WHITE TID ART KELLEE HISTORY: Syncope COMPARISON: No relevant comparison available. TECHNIQUE: Duplex Doppler ultrasound analysis of carotid and vertebral arteries. . Bilateral carotid arterial duplex examination was performed using B-mode, color flow and spectral analysis. Carotid stenosis is reported according to validated velocity parameters, similar to NASCET criteria. FINDINGS: RIGHT CAROTID ARTERY No significant atherosclerosis Subclavian: PSV: 161.4 cm/s cm/s EDV: 9.7 cm/s cm/s CCA: Prox: PSV: 82.0 cm/s cm/s EDV: 19.3 cm/s cm/s Mid: PSV: 74.3 cm/s cm/s EDV: 21.5 cm/s cm/s Distal: PSV: 76.5 cm/s cm/s EDV: 20.4 cm/s cm/s BULB: PSV: 58.9 cm/s cm/s EDV: 14.9 cm/s cm/s ICA: Prox: PSV: 73.2 cm/s cm/s EDV: 29.2 cm/s cm/s Mid: PSV: 60.0 cm/s cm/s EDV: 25.9 cm/s cm/s Distal: PSV: 75.4 cm/s cm/s EDV: 22.6 cm/s cm/s ECA: PSV: 88.8 cm/s cm/s EDV: 15.0 cm/s cm/s VERTEBRAL: PSV: 92.7 cm/s cm/s EDV: 26.7 cm/s cm/s ICA/CCA ratio: PSV: 1.0 EDV: 1.1 LEFT CAROTID ARTERY No significant atherosclerosis Subclavian: PSV: 93.1 cm/s cm/s EDV: 5.5 cm/s CCA: Prox: PSV: 94.0 cm/s cm/s EDV: 29.2 cm/s Mid: PSV: 74.5 cm/s cm/s EDV: 21.5 cm/s Distal: PSV: 68.1 cm/s cm/s EDV: 28.0 cm/s BULB: PSV: 59.0 cm/s cm/s EDV: 22.8 cm/s ICA: Prox: PSV: 46.7 cm/s cm/s EDV: 23.2 cm/s Mid: PSV: 59.0 cm/s cm/s EDV: 26.7 cm/s Distal: PSV: 50.2 cm/s cm/s EDV: 22.3 cm/s ECA: PSV: 82.3 cm/s cm/s EDV: 12.4 cm/s VERTEBRAL: PSV: 45.3 cm/s cm/s EDV: 20.4 cm/s ICA/CCA ratio: PSV: 0.9 EDV: 0.8 IMPRESSION: 0-49% flow stenosis in the internal carotid arteries Spectral Doppler US Thresholds (Reference: Leon EG, et al. Radiology 2000; 214:247-252) Stenosis (%) PSV (cm/sec) VICA/VCCA 0-49 <150 <2.5 50-69 150-225 2.5-4.0 >70 >225 >4.0 Electronically authenticated by: ZHANE CALL Date: 2021-07-07 14:10 Normal [facility] XR CHEST 1 Von 07-07-2021 XR CHEST 1 V EXAM: XR CHEST 1 V 07/07/2021 5:39 AM EDT OH001 CLINICAL STATEMENT: CHEST PAIN, UNSPECIFIED COMPARISON: 05/30/2020 TECHNIQUE: Single AP radiograph of the chest is submitted. FINDINGS: There is no acute airspace disease. The cardiac silhouette is normal. The costophrenic recesses are sharp. No pneumothorax. The bony elements are unremarkable. IMPRESSION: No acute cardiopulmonary process. FOLLOW-UP: Follow-up as clinically indicated. Electronically authenticated by: ENA SAID Date: 2021-07-07 06:31 Normal [facility] CBC AUTO DIFFon 05-18-2021 BASO # 0.1 103/ul Normal 0.0-0.1 [facility] Comment on above: Performed By: #### C BC #### [facility] [address] [address] [address] Sony Nicholson Basophils/100 WBC (Bld) 0.8 % Normal 0.2-2.0 [facility] Comment on above: Performed By: #### C BC #### [facility] [address] [place] [address] Dr. Sony Nicholson EO # 0.4 103/ul Normal 0.0-0.7 [facility] Comment on above: Performed By: #### C BC #### [facility] [address] [place] [address] Dr. Sony Nicholson Eosinophils/100 WBC (Bld) 4.2 % Normal 0.9-7.0 [facility] Comment on above: Performed By: #### C BC #### [facility] [address] [place] [address] Dr. Sony Nicholson Erythrocyte distribution width (RBC) [Ratio] 12.5 % Normal 11.0-15.0 [facility] Comment on above: Performed By: #### C BC #### [facility] [address] [place] [address] Dr. Sony Nicholson Hematocrit (Bld) [Volume fraction] 44.1 % Normal 42.0-54.0 [facility] Comment on above: Performed By: #### C BC #### [facility] [address] [place] [address] Dr. Sony Nicholson Hemoglobin (Bld) [Mass/Vol] 14.6 g/dL Normal 14.0-18.0 [facility] Comment on above: Performed By: #### C BC #### [facility] [address] [place] [address] Dr. Sony Nicholson IG # 0.02 10e3/ul Normal 0.00-0.03 [facility] Comment on above: Performed By: #### C BC #### [facility] [address] [place] [address] Dr. Sony Nicholson IG % 0.2 % Normal 0.0-0.5 [facility] Comment on above: Performed By: #### C BC #### [facility] [address] [place] [address] Dr. Sony Nicholson LYMPH # 2.7 103/ul Normal 1.2-3.8 [facility] Comment on above: Performed By: #### C BC #### [facility] [address] [place] [address] Dr. Sony Nicholson Lymphocytes/100 WBC (Bld) 28.0 % Normal 20.5-60.0 [facility] Comment on above: Performed By: #### C BC #### [facility] [address] [place] [address] Dr. Sony Nicholson MANUAL DIFF REQ NO Normal [facility] Comment on above: Performed By: #### C BC #### [facility] [address] [place] [address] Dr. Sony Nicholson MCH (RBC) [Entitic mass] 29.6 pg Normal 25.9-34.0 [facility] Comment on above: Performed By: #### C BC #### [facility] [address] [place] [address] Dr. Sony Nicholson MCHC (RBC) [Mass/Vol] 33.1 g/dL Normal 29.9-35.2 [facility] Comment on above: Performed By: #### C BC #### [facility] [address] [place] [address] Dr. Sony Nicholson MCV (RBC) [Entitic vol] 89.3 fL Normal 80.0-94.0 [facility] Comment on above: Performed By: #### C BC #### [facility] [address] [place] [address] Dr. Sony Nicholson MONO # 0.8 103/ul Normal 0.3-0.8 [facility] Comment on above: Performed By: #### C BC #### [facility] [address] [address] [address] Sony Nicholson Monocytes/100 WBC (Bld) 8.6 % Normal 1.7-12.0 [facility] Comment on above: Performed By: #### C BC #### [facility] [address] [address] [address] Sony Nicholson NEUT # 5.6 103/ul Normal 1.4-6.5 [facility] Comment on above: Performed By: #### C BC #### [facility] [address] [place] [address] Dr. Sony Nicholson Neutrophils/100 WBC (Bld) 58.2 % Normal 43.0-75.0 [facility] Comment on above: Performed By: #### C BC #### [facility] [address] [place] [address] Dr. Sony Nicholson Platelet mean volume (Bld) [Entitic vol] 11.1 fL Normal 9.5-13.5 [facility] Comment on above: Performed By: #### C BC #### [facility] [address] [place] [address] Dr. Sony Nicholson PLT 264 103/ul Normal 150-450 [facility] Comment on above: Performed By: #### C BC #### [facility] [address] [place] [address] Dr. Sony Nicholson RBC 4.94 106/ul Normal 4.70-6.10 [facility] Comment on above: Performed By: #### C BC #### [facility] [address] [place] [address] Dr. Sony Nicholson WBC 9.7 103/ul Normal 4.0-11.0 [facility] Comment on above: Performed By: #### C BC #### [facility] [address] [place] [address] HEAD WO CONon 05-18-2021 CT HEAD WO CON EXAMINATION: CT HEAD WO CON HISTORY: HEADACHE COMPARISON: CT head examination dated 05/30/2020. TECHNIQUE: CT examination of the head without IV contrast. Dose reduction techniques were achieved by using automated exposure control and/or adjustment of mA and/or kV according to patient size and/or use of iterative reconstruction technique. FINDINGS: The cerebral sulci and ventricles are normal in size and shape. The density of the cerebrum, brainstem, and cerebellum is unremarkable. There is no evidence of intracranial hemorrhage, mass, or midline shift. No extra-axial fluid collection is seen. The brainstem and cerebellum are normal in appearance. The visualized paranasal sinuses and mastoid air cells are clear. No skull abnormalities are identified. IMPRESSION: 1. No acute intracranial abnormality. Electronically authenticated by: Gurdeep CHESTER Date: 2021-05-17 23:54 Normal [facility] PROF 14(COMP METB)on 022 Albumin [Mass/Vol] 4.1 g/dL Normal 3.5-5.0 [facility] Comment on above: Performed By: #### C MP #### [facility] [address] [place] [address] Dr. Sony Nicholson Albumin/Globulin [Mass ratio] 1.1 {ratio} Normal [facility] Comment on above: Performed By: #### C MP #### [facility] [address] [place] [address] Dr. Sony Nicholson ALP [Catalytic activity/Vol] 97 U/L Normal 38-126 [facility] Comment on above: Performed By: #### C MP #### [facility] [address] [place] [address] Dr. Sony Nicholson ALT [Catalytic activity/Vol] 26 U/L Normal 21-72 [facility] Comment on above: Performed By: #### C MP #### [facility] [address] [place] [address] Dr. Sony Nicholson Anion gap [Moles/Vol] 10.9 mmol/L Normal [facility] Comment on above: Performed By: #### C MP #### [facility] [address] [place] [address] Dr. Sony Nicholson AST [Catalytic activity/Vol] 22 U/L Normal 17-59 [facility] Comment on above: Performed By: #### C MP #### [facility] [address] [address] [address] Sony Nicholson Bilirubin [Mass/Vol] 0.3 mg/dL Normal 0.2-1.3 [facility] Comment on above: Performed By: #### C MP #### [facility] [address] [address] [address] Sony Nicholson Calcium [Mass/Vol] 9.3 mg/dL Normal 8.4-10.2 [facility] Comment on above: Performed By: #### C MP #### [facility] [address] [address] [address] Sony Nicholson Chloride [Moles/Vol] 100 mmol/L Normal 98-107 [facility] Comment on above: Performed By: #### C MP #### [facility] [address] [place] [address] Dr. Sony Nicholson CO2 [Moles/Vol] 30.8 mmol/L Critically high 22.0-30.0 [facility] Comment on above: Performed By: #### C MP #### [facility] [address] [address] [address] Sony Nicholson Creatinine [Mass/Vol] 1.04 mg/dL Normal 0.66-1.25 [facility] Comment on above: Performed By: #### C MP #### [facility] [address] [place] [address] Dr. Sony Nicholson EGFR-AF NORWEGIAN >60 Normal >=60 [facility] Comment on above: Performed By: #### C MP #### [facility] [address] [address] [address] Sony Nicholson EGFR-NON AF NORWEGIAN >60 Normal >=60 [facility] Comment on above: Performed By: #### C MP #### [facility] [address] [place] [address] Dr. Sony Nicholson Globulin (S) [Mass/Vol] 3.6 g/dL Normal [facility] Comment on above: Performed By: #### C MP #### [facility] [address] [place] [address] Dr. Sony Nicholson Glucose [Mass/Vol] 128 mg/dL Critically high 74-106 [facility] Comment on above: Performed By: #### C MP #### [facility] [address] [address] [address] Sony Nicholson Potassium [Moles/Vol] 3.7 mmol/L Normal 3.4-5.0 [facility] Comment on above: Performed By: #### C MP #### [facility] [address] [address] [address] Sony Nicholson Protein [Mass/Vol] 7.7 g/dL Normal 6.1-8.2 [facility] Comment on above: Performed By: #### C MP #### [facility] [address] [address] [address] Sony Nicholson Sodium [Moles/Vol] 138 mmol/L Normal 137-145 [facility] Comment on above: Performed By: #### C MP #### [facility] [address] [address] [address] Sony Nicholson Urea nitrogen [Mass/Vol] 33.0 mg/dL Critically high 9.0-20.0 [facility] Comment on above: Performed By: #### C MP #### [facility] [address] [address] [address] Sony Nicholson Urea nitrogen/Creatinine [Mass ratio] 31.7 mg/mg Normal [facility] Comment on above: Performed By: #### C MP #### [facility] [address] [address] [address] Sony Nicholson Vital Signs Date Time Vital Sign Value Performing Clinician Facility 05-01-2024 09:33-0500 Diastolic blood pressure 88 mm[Hg] Yuko Reid 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 Work Phone: [facility] 05-01-2024 09:33-0500 Systolic blood pressure 140 mm[Hg] Yuko Reid 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 Work Phone: [facility] 05-01-2024 09:15-0500 Body height 170.2 cm Yuko Reid 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 Work Phone: [facility] 05-01-2024 09:15-0500 Body mass index (BMI) [Ratio] 29.73 kg/m2 Yuko Reid 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 Work Phone: [facility] 05-01-2024 09:15-0500 Body weight 86.09 kg Yuko Reid 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 Work Phone: [facility] 05-01-2024 09:15-0500 Heart rate 68 /min Yuko Reid 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 Work Phone: [facility] 04-21-2024 08:32-0500 Body height 172.1 cm Marbella Alan DO Work Phone: [facility] 04-21-2024 08:32-0500 Body mass index (BMI) [Ratio] 29.23 kg/m2 Marbella Alan DO Work Phone: [facility] 04-21-2024 08:32-0500 Body weight 86.55 kg Marbella Alan DO Work Phone: [facility] 04-21-2024 08:32-0500 Diastolic blood pressure 97 mm[Hg] Marbella Alan DO Work Phone: [facility] 04-21-2024 08:32-0500 Heart rate 68 /min Marbella Alan DO Work Phone: [facility] 04-21-2024 08:32-0500 SaO2% (BldA) [Mass fraction] 97 % Marbella Alan DO Work Phone: [facility] 04-21-2024 08:32-0500 Systolic blood pressure 131 mm[Hg] Marbella Alan DO Work Phone: [facility] 04-14-2024 09:28-0500 Body height 170.18 cm Marbella Alan DO Work Phone: [facility] 04-14-2024 09:28-0500 Body mass index (BMI) [Ratio] 29.7 kg/m2 Marbella Alan DO Work Phone: [facility] 04-14-2024 09:28-0500 Body temperature 98.2 [degF] Marbella Alan DO Work Phone: [facility] 04-14-2024 09:28-0500 Body weight 86.18 kg Marbella Alan DO Work Phone: [facility] 04-14-2024 09:28-0500 Diastolic blood pressure 94 mm[Hg] Marbella Alan DO Work Phone: [facility] 04-14-2024 09:28-0500 Heart rate 70 /min Marbella Alan DO Work Phone: [facility] 04-14-2024 09:28-0500 Respiratory rate 18 /min Marbella Alan DO Work Phone: [facility] 04-14-2024 09:28-0500 SaO2% (BldA) [Mass fraction] 97 % Marbella Alan DO Work Phone: [facility] 04-14-2024 09:28-0500 Systolic blood pressure 144 mm[Hg] Marbella Alan DO Work Phone: [facility] 04-03-2024 15:32-0500 Body height 172.1 cm Maria L [place] [employer] Work Phone: [facility] 04-03-2024 15:32-0500 Body mass index (BMI) [Ratio] 30.02 kg/m2 Maria L [place] [employer] Work Phone: [facility] 04-03-2024 15:32-0500 Body weight 88.91 kg Maria L [place] [employer] Work Phone: [facility] 04-03-2024 15:32-0500 Diastolic blood pressure 76 mm[Hg] Maria L [place] [employer] Work Phone: [facility] 04-03-2024 15:32-0500 Heart rate 88 /min Maria L [place] [employer] Work Phone: [facility] 04-03-2024 15:32-0500 Respiratory rate 18 /min Maria L Etienne [employer] Work Phone: [facility] 04-03-2024 15:32-0500 SaO2% (BldA) [Mass fraction] 96 % Maria L Etienne [employer] Work Phone: [facility] 04-03-2024 15:32-0500 Systolic blood pressure 128 mm[Hg] Maria L Etienne [employer] Work Phone: [facility] 03-24-2024 08:32-0500 Body height 172.1 cm Marbella Alan DO Work Phone: [facility] 03-24-2024 08:32-0500 Body mass index (BMI) [Ratio] 30.21 kg/m2 Marbella Alan DO Work Phone: [facility] 03-24-2024 08:32-0500 Body weight 89.45 kg Marbella Alan DO Work Phone: [facility] 03-24-2024 08:32-0500 Diastolic blood pressure 83 mm[Hg] Marbella Alan DO Work Phone: [facility] 03-24-2024 08:32-0500 Heart rate 72 /min Marbella Alan DO Work Phone: [facility] 03-24-2024 08:32-0500 SaO2% (BldA) [Mass fraction] 98 % Marbella Alan DO Work Phone: [facility] 03-24-2024 08:32-0500 Systolic blood pressure 127 mm[Hg] Marbella Alan DO Work Phone: [facility] 02-25-2024 09:59-0500 Body height 172.1 cm Marbella Alan DO Work Phone: [facility] 02-25-2024 09:59-0500 Body mass index (BMI) [Ratio] 30.11 kg/m2 Marbella Alan DO Work Phone: [facility] 02-25-2024 09:59-0500 Body weight 89.18 kg Marbella Alan DO Work Phone: [facility] 02-25-2024 09:59-0500 Diastolic blood pressure 96 mm[Hg] Marbella Alan DO Work Phone: [facility] 02-25-2024 09:59-0500 Heart rate 84 /min Marbella Alan DO Work Phone: [facility] 02-25-2024 09:59-0500 SaO2% (BldA) [Mass fraction] 97 % Marbella Alan DO Work Phone: [facility] 02-25-2024 09:59-0500 Systolic blood pressure 126 mm[Hg] Marbella Alan DO Work Phone: [facility] 01-31-2024 14:28-0400 Body height 172.1 cm Mariaa Collado MD Work Phone: [facility] 01-31-2024 14:28-0400 Body mass index (BMI) [Ratio] 29.47 kg/m2 Mariaa Collado MD Work Phone: [facility] 01-31-2024 14:28-0400 Body weight 87.27 kg Mariaa Collado MD Work Phone: [facility] 01-31-2024 14:28-0400 Diastolic blood pressure 84 mm[Hg] Mariaa Collado MD Work Phone: [facility] 01-31-2024 14:28-0400 Heart rate 86 /min Mariaa Collado MD Work Phone: [facility] 01-31-2024 14:28-0400 Respiratory rate 20 /min Mariaa Collado MD Work Phone: [facility] 01-31-2024 14:28-0400 SaO2% (BldA) [Mass fraction] 97 % Mariaa Collado MD Work Phone: [facility] 01-31-2024 14:28-0400 Systolic blood pressure 132 mm[Hg] Mariaa Collado MD Work Phone: [facility] 06-30-2023 12:49-0400 Body height 170.2 cm 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 Work Phone: [facility] 06-30-2023 12:49-0400 Body mass index (BMI) [Ratio] 30.6 kg/m2 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 Work Phone: [facility] 06-30-2023 12:49-0400 Body weight 88.63 kg 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 Work Phone: [facility] 06-30-2023 12:49-0400 Diastolic blood pressure 71 mm[Hg] 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 Work Phone: [facility] 06-30-2023 12:49-0400 Heart rate 76 /min 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 Work Phone: [facility] 06-30-2023 12:49-0400 Systolic blood pressure 145 mm[Hg] 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 Work Phone: [facility] 06-10-2023 09:07-0500 Body height 170.2 cm Pmh 1 [facility] 06-10-2023 09:07-0500 Body mass index (BMI) [Ratio] 29.91 kg/m2 [facility] 1 [facility] 06-10-2023 09:07-0500 Body weight 86.64 kg Pmh 1 [facility] 06-09-2023 09:11-0500 Body height 170.2 cm Velma Rosario DO Work Phone: [facility] 06-09-2023 09:11-0500 Body mass index (BMI) [Ratio] 30.01 kg/m2 Velma Rosario DO Work Phone: [facility] 06-09-2023 09:11-0500 Body weight 86.91 kg Velma Rosario DO Work Phone: [facility] 11-06-2022 13:39-0400 Body height 170.18 cm Catarina Olivarespfer Work Phone: [facility] DO Work Phone: 11-06-2022 13:39-0400 Body mass index (BMI) [Ratio] 27.41 kg/m2 Catarina Olivarespfer Work Phone: [facility] DO Work Phone: 11-06-2022 13:39-0400 Body surface area Derived from formula 1.91 m2 Catarina Olivarespfer Work Phone: [facility] DO Work Phone: 11-06-2022 13:39-0400 Body weight 79.38 kg Catarina Olivarespfer Work Phone: [facility] DO Work Phone: 11-06-2022 13:39-0400 Diastolic blood pressure 88 mm[Hg] Catarina Olivarespfer Work Phone: [facility] DO Work Phone: 11-06-2022 13:39-0400 Heart rate 76 /min Catarina Olivarespcarolyn Work Phone: [facility] DO Work Phone: 11-06-2022 13:39-0400 Systolic blood pressure 118 mm[Hg] Catarina Olivarespfer Work Phone: [facility] DO Work Phone: 09-30-2021 08:44-0400 Diastolic blood pressure 86 mm[Hg] Catarina Ley Kampfer Work Phone: [facility] DO Work Phone: 09-30-2021 08:44-0400 Systolic blood pressure 130 mm[Hg] Catarina Plascencia Work Phone: [facility] DO Work Phone: 09-30-2021 08:43-0400 Diastolic blood pressure 92 mm[Hg] Catarina Plascencia Work Phone: [facility] DO Work Phone: 09-30-2021 08:43-0400 Systolic blood pressure 128 mm[Hg] Catarina Plascencia Work Phone: [facility] DO Work Phone: 09-30-2021 08:35-0400 Body height 170.18 cm Catarina Plascencia Work Phone: [facility] DO Work Phone: 09-30-2021 08:35-0400 Body mass index (BMI) [Ratio] 28.98 kg/m2 Catarina Plascencia Work Phone: [facility] DO Work Phone: 09-30-2021 08:35-0400 Body surface area Derived from formula 1.96 m2 Catarina Plascencia Work Phone: [facility] DO Work Phone: 09-30-2021 08:35-0400 Body weight 83.92 kg Catarina Plascencia Work Phone: [facility] DO Work Phone: 09-30-2021 08:35-0400 Heart rate 78 /min Catarina Plascencia Work Phone: [facility] DO Work Phone: 09-02-2021 14:17-0400 Body height 170.18 cm Catarina Plascencia Work Phone: [facility] DO Work Phone: 09-02-2021 14:17-0400 Body mass index (BMI) [Ratio] 29.6 kg/m2 Catarina Plascencia Work Phone: [facility] DO Work Phone: 09-02-2021 14:17-0400 Body surface area Derived from formula 1.97 m2 Catarina Plascencia Work Phone: [facility] DO Work Phone: 09-02-2021 14:17-0400 Body weight 85.73 kg Catarina Plascencia Work Phone: [facility] DO Work Phone: 09-02-2021 14:17-0400 Diastolic blood pressure 88 mm[Hg] Catarina Plascencia Work Phone: [facility] DO Work Phone: 09-02-2021 14:17-0400 Heart rate 56 /min Catarina Plascencia Work Phone: [facility] DO Work Phone: 09-02-2021 14:17-0400 Systolic blood pressure 138 mm[Hg] Catarina Plascencia Work Phone: [facility] DO Work Phone: 09-02-2021 09:47-0400 Diastolic blood pressure 90 mm[Hg] Catarina Olivarespcarolyn Work Phone: [facility] DO Work Phone: 09-02-2021 09:47-0400 Systolic blood pressure 152 mm[Hg] Catarina Olivarestjcarolyn Work Phone: [facility] DO Work Phone: 09-02-2021 09:10-0400 Body height 170.18 cm Catarina Plascencia Work Phone: [facility] DO Work Phone: 09-02-2021 09:10-0400 Body mass index (BMI) [Ratio] 29.6 kg/m2 Catarina Olivarespfer Work Phone: [facility] DO Work Phone: 09-02-2021 09:10-0400 Body surface area Derived from formula 1.97 m2 Catarina Olivarespcarolyn Work Phone: [facility] DO Work Phone: 09-02-2021 09:10-0400 Body weight 85.73 kg Catarina Olivarespcarolyn Work Phone: [facility] DO Work Phone: 09-02-2021 09:10-0400 Diastolic blood pressure 110 mm[Hg] Catarina Olivarespcarolyn Work Phone: [facility] DO Work Phone: 09-02-2021 09:10-0400 Heart rate 56 /min Catarina Olivarespcarolyn Work Phone: [facility] DO Work Phone: 09-02-2021 09:10-0400 Systolic blood pressure 160 mm[Hg] Catarina Olivarespfer Work Phone: [facility] DO Work Phone: 07-17-2021 15:33-0400 Diastolic blood pressure 90 mm[Hg] Catarina Olivarespfer Work Phone: [facility] DO Work Phone: 07-17-2021 15:33-0400 Systolic blood pressure 112 mm[Hg] Catarina Plascencia Work Phone: [facility] DO Work Phone: 07-17-2021 15:26-0400 Body height 170.18 cm Catarina Plascencia Work Phone: [facility] DO Work Phone: 07-17-2021 15:26-0400 Body mass index (BMI) [Ratio] 30.98 kg/m2 Catarina Plascencia Work Phone: [facility] DO Work Phone: 07-17-2021 15:26-0400 Body surface area Derived from formula 2.01 m2 Catarina Plascencia Work Phone: [facility] DO Work Phone: 07-17-2021 15:26-0400 Body weight 89.72 kg Catarina Plascencia Work Phone: [facility] DO Work Phone: 07-17-2021 15:26-0400 Diastolic blood pressure 100 mm[Hg] Catarina Plascencia Work Phone: [facility] DO Work Phone: 07-17-2021 15:26-0400 Heart rate 65 /min Catarina Plascencia Work Phone: [facility] DO Work Phone: 07-17-2021 15:26-0400 Systolic blood pressure 120 mm[Hg] Catarina Plascencia Work Phone: [facility] DO Work Phone: Encounters Encounter Date Encounter Type Care Provider Facility Start: 05-01-2024 End: 05-01-2024 Office outpatient visit 10 minutes Yuko K Reid 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 Work Phone: [facility] Comment on above: Benign essential hyp ertension (Primary Dx); BMI 29.0-29.9,adult Start: 05-01-2024 End: 05-01-2024 ambulatory YUKO Mackenzie [facility] Ambulatory Start: 04-21-2024 End: 04-21-2024 Bamboo flowsheet Marbella Gurdeep Alan DO Work Phone: [facility] Start: 04-21-2024 End: 04-21-2024 Bamboo flowsheet Marbella Gurdeep Alan DO Work Phone: [facility] Start: 04-21-2024 End: 04-21-2024 Office outpatient visit 25 minutes Marbella Gurdeep Wilkinsonck DO Work Phone: [facility] Comment on above: Abnormal chest CT (P rimary Dx); Hemoptysis Start: 04-21-2024 End: 04-21-2024 ambulatory MARBELLA Gurdeep ALAN Not Available Start: 04-14-2024 End: 04-14-2024 Telephone encounter Mariaa Collado MD Work Phone: [facility] Start: 04-14-2024 End: 04-14-2024 ambulatory Marbella Alan DO Work Phone: [facility] Work Phone: Start: 04-14-2024 End: 04-14-2024 Patient encounter procedure Marbella Alan DO Work Phone: [facility] Work Phone: Start: 04-03-2024 End: 04-03-2024 Office outpatient visit 15 minutes Maria L Etienne [employer] Work Phone: [facility] Comment on above: COVID-19 (Primary Dx ); Sore throat Start: 04-03-2024 End: 04-03-2024 ambulatory MARIA L ETIENNE Not Available Start: 04-03-2024 End: 04-03-2024 Bamboo flowsheet Maria L Av Hackenburg [employer]AL WAX M[employer]DER Work Phone: [facility] Start: 04-03-2024 End: 04-03-2024 Bamboo flowsheet Maria L Etienne [employer] M[employer]DER Work Phone: [facility] Start: 03-29-2024 End: 03-29-2024 Bamboo flowsheet Marbella K Alan DO Work Phone: [facility] Start: 03-29-2024 End: 03-29-2024 Bamboo flowsheet Marbella K Alan DO Work Phone: [facility] Start: 03-29-2024 End: 03-29-2024 ambulatory MARBELLA K ALAN Not Available Start: 03-28-2024 End: 04-27-2024 External Result Encounter Marbella K Alan DO Work Phone: [facility] Unsolicited Start: 03-28-2024 End: 04-27-2024 External Result Encounter Marbella K Alan DO Work Phone: [facility] Unsolicited Start: 03-28-2024 End: 03-28-2024 ambulatory Marbella Alan Facility:[facility] Start: 03-28-2024 End: 03-28-2024 Departed Referred Marbella Alan DO Work Phone: [facility] [place] Work Phone: Start: 03-24-2024 End: 03-24-2024 Bamboo flowsheet Marbella K Alan DO Work Phone: [facility] Start: 03-24-2024 End: 03-24-2024 Bamboo flowsheet Marbella K Alan DO Work Phone: [facility] Start: 03-24-2024 End: 03-24-2024 Office outpatient visit 25 minutes Marbella K Alan DO Work Phone: [facility] Comment on above: Abnormal chest CT (P rimary Dx); Hemoptysis Start: 03-24-2024 End: 03-24-2024 ambulatory MARBELLA PHILLIPS Not Available Start: 03-01-2024 End: 03-01-2024 ambulatory MARBELLA Gurdeep ALAN Not Available Start: 02-25-2024 End: 02-25-2024 Bamboo flowsheet Marbella Gurdeep Alan DO Work Phone: [facility] Start: 02-25-2024 End: 02-25-2024 Bamboo flowsheet Marbella K Alan DO Work Phone: [facility] Start: 02-25-2024 End: 02-25-2024 Office outpatient new 60 minutes Marbella Gurdeep Alan DO Work Phone: [facility] Comment on above: Hemoptysis (Primary Dx); Subacute cough; Abnormal chest CT Start: 02-25-2024 End: 02-25-2024 ambulatory MARBELLA PHILLIPS Not Available Start: 02-21-2024 End: 02-21-2024 [facility] Start: 02-21-2024 End: 02-21-2024 [facility] Start: 02-21-2024 End: 02-21-2024 [facility] Start: 02-15-2024 End: 02-15-2024 Telephone encounter Mariaa Collado MD Work Phone: [facility] Start: 02-10-2024 End: 02-10-2024 [facility] Start: 02-10-2024 End: 02-10-2024 ambulatory [facility] Start: 02-01-2024 End: 02-01-2024 Orders Only Mariaa Collado MD Work Phone: [facility] Comment on above: Gastroesophageal ref lux disease without esophagitis (Primary Dx) Start: 01-31-2024 End: 01-31-2024 Office outpatient visit 25 minutes Mariaa Collado MD Work Phone: [facility] Comment on above: Cough, unspecified t ype (Primary Dx); Abnormal chest CT; Chest pain, unspecified type Start: 01-31-2024 End: 01-31-2024 ambulatory MARIAA Lieberman QUIN Not Available Start: 01-31-2024 End: 01-31-2024 Bamboo flowsheet Mariaa Collado MD Work Phone: [facility] Start: 01-31-2024 End: 01-31-2024 Bamboo flowsheet Mariaa Collado MD Work Phone: [facility] Start: 12-16-2023 End: 12-16-2023 ambulatory MARIAA Lieberman QUIN Not Available Start: 12-07-2023 End: 12-07-2023 Orders Only Mariaa Collado MD Work Phone: [facility] Comment on above: Subacute cough (Prim hermelinda Dx); Abnormal chest CT Start: 12-03-2023 End: 12-03-2023 ambulatory MARIAA Mio QUIN Not Available Start: 12-01-2023 End: 12-01-2023 Orders Only Mariaa Collado MD Work Phone: [facility] Comment on above: Lung nodule, multipl e (Primary Dx) Start: 11-23-2023 End: 11-23-2023 ambulatory MARIAA Mio QUIN Not Available Start: 10-04-2023 End: 10-04-2023 ambulatory LIZZ A HAMPTON Not Available Start: 09-30-2023 End: 09-30-2023 ambulatory LIZZ A HAMPTON Not Available Start: 09-30-2023 End: 09-30-2023 ambulatory LIZZ A HAMPTON Not Available Start: 06-30-2023 End: 06-30-2023 Postop follow up visit related to original px 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 Work Phone: [facility] Comment on above: Status post laparosc opic cholecystectomy (Primary Dx); Gallbladder polyp Start: 06-30-2023 End: 06-30-2023 [facility] GRIS ANTHONY [facility] Start: 06-15-2023 End: 06-15-2023 Evaluation and management of inpatient ALONDRA HODGE [facility] Start: 06-15-2023 End: 06-15-2023 Evaluation and management of inpatient TOPEKA Tri RATNA [facility] Start: 06-10-2023 End: 06-10-2023 ambulatory [facility] Start: 06-10-2023 Encounter for other preprocedural examination SHELLIE HAMMOND [facility] Start: 06-10-2023 End: 06-10-2023 Patient encounter procedure [facility] Pre-Admission Testing 1 [facility] - Pre Admit Comment on above: Preop examination (P rimary Dx); Hypertension, unspecified type Start: 06-10-2023 End: 06-10-2023 Preprocedural examination done [facility] 1 [facility] Start: 06-09-2023 End: 06-09-2023 Office outpatient new 45 minutes Velma Bartlett nereida DO Work Phone: [facility] Comment on above: Gallbladder polyp (P rimary Dx); History of hypertension Start: 06-09-2023 End: 06-11-[address] [facility] Start: 06-08-2023 ambulatory SHELLIE J [facility] Start: 05-24-2023 Telephone encounter Mariaa milton MD Work Phone: [facility] Start: 05-21-2023 End: 05-21-2023 ambulatory EMMA SCANLON Not Available Start: 05-17-2023 Chart abstracting Emma Scanlon [employer] Work Phone: [facility] Start: 05-17-2023 Telephone encounter Emma Marquez lf [employer]DER Work Phone: [facility] Comment on above: Abdominal Pain Start: 05-12-2023 End: 05-12-2023 ambulatory EMMA SCANLON Not Available Start: 11-06-2022 Office outpatient vi sit 15 minutes Catarina Plascencia Work Phone: [facility] DO Work Phone: Start: 11-06-2022 Patient encounter procedure Catarina Plascencia Work Phone: [facility] DO Work Phone: Start: 09-02-2022 Rx Renewal Catarina Camacho r Work Phone: [facility] DO Work Phone: Start: 09-30-2021 Office outpatient vi sit 15 minutes Catarina Olivarespcarolyn Work Phone: [facility] DO Work Phone: Start: 09-30-2021 Patient encounter procedure Catarina Plascencia Work Phone: [facility] [facility] DO Work Phone: Start: 09-02-2021 Office outpatient vi sit 15 minutes Catarina Plascencia Work Phone: [facility] DO Work Phone: Start: 07-17-2021 Office consultation new/estab patient 60 min Catarina Plascencia Work Phone: [facility] DO Work Phone: Start: 07-07-2021 End: 07-08-2021 ambulatory [facility] Facility: Start: 05-18-2021 End: 05-18-[address] NONE LISTED REQUEST Facility: Procedures Date Procedure Procedure Detail Performing Clinician Start: 04-03-2024 Iaadiadoo streptococcus group a Maria L Etienne [employer] Work Phone: Start: 04-03-2024 STATUS COVID-19/FLU Maria L Etienne [employer] M[employer]DER Work Phone: Start: 03-28-2024 Acid fast bacilli culture Marbella Phillips DO Work Phone: Start: 03-28-2024 Acid fast stain method Marbella Phillips DO Work Phone: Start: 03-28-2024 Bacteria identification test Marbella cole DO Work Phone: Start: 03-28-2024 Determination of growth of fungi Marbella Phillips DO Work Phone: Start: 03-28-2024 Fungal Culture Result 2 Marbellanavin Phillips DO Work Phone: Start: 03-28-2024 Fungal Culture Result 3 Marbellanavin Phillips DO Work Phone: Start: 03-28-2024 Fungal Culture Result 4 Marbellanavin Phillips DO Work Phone: Start: 03-28-2024 Mycology Susceptibility Marbellanavin Phillips DO Work Phone: Start: 03-28-2024 AFB SMEAR RESULT Marbella Phillips DO Work Phone: Start: 03-28-2024 AFB SPECIMEN PROCESSING Marbella Phillips DO Work Phone: Start: 03-28-2024 BRONCH CULTURE Marbella Phillips DO Work Phone: Start: 03-28-2024 CELL COUNT/DIFF,FLUID Marbella Phillips DO Work Phone: Start: 03-28-2024 FUNGAL SMEAR Marbella Gurdeep Phillips DO Work Phone: Start: 03-28-2024 FUNGUS (MYCOLOGY) CULTURE Marbella Gurdeep Wilkinsonc k DO Work Phone: Start: 03-28-2024 FUNGUS (MYCOLOGY) RESULT 1 Marbella Gurdeep Stra ck DO Work Phone: Start: 03-28-2024 MISC LAB Marbella Gurdeep Alan DO Work Phone: Start: 03-27-2021 Colonoscopy Emma Scanlon NP Work Phone: Start: 03-12-2021 Total colonoscopy Catarina Plascencia Work Phone: Esophagogastroduodenoscopy S rebecca Plascencia Work Phone: Extraction of wisdom tooth S rebecca Plascencia Work Phone: History of cholecystectomy Statu s post laparoscopic cholecystectomy 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 Work Phone: Tonsillectomy and adenoidectomy Catarina Plascencia Work Phone: Plan of Treatment Date Care Activity Detail Author Start: 03-27-2031 Screening for malign ant neoplasm of colon [facility] Start: 10-09-2024 Influenza vaccination Influenza Vacc ine (#1) [facility] Comment on above: Postponed from 12/11 (Patient Refused) Start: 06-29-2024 Adult BMI Screening Adult BMI Screen ing [facility] Start: 06-29-2024 Tobacco Screening Tobacco Screening [facility] Start: 06-12-2024 End: 04-21-2025 CT Chest WO contrast CT chest wo IV contrast Imaging Routine Abnormal chest CT Hemoptysis Expected: 06/12/2024, Expires: 04/21/2025 [facility] Work Phone: Comment on above: Expected: 06/12/2024 , Expires: 04/21/2025 Start: 06-09-2024 Adult BMI Screening Adult BMI Screen ing [facility] Start: 06-09-2024 Tobacco Screening Tobacco Screening [facility] Start: 04-21-2024 End: 04-21-2024 Patient encounter procedure [facility] Comment on above: Arrived Start: 04-19-2024 End: 04-19-2024 Patient encounter procedure 04/19/2024 8:45 AM EST Office Visit [facility] [address] [place] [address] Marbella Phillips, DO [address] [place] [address] [facility] Start: 04-14-2024 End: 04-14-2024 Patient encounter procedure 04/14/2024 11:40 AM EST Office Visit [facility] [address] [place] [phone] Mariaa Collado MD [address] [place], [place] [id number] [facility] Start: 04-03-2024 End: 04-03-2024 Patient encounter procedure 04/03/2024 3:30 PM EST Office Visit [facility] [address] [place] [phone] Maria L Etienne NP [address] [place], [place] [phone] Arrived [facility] Comment on above: Arrived Start: 03-28-2024 Acid Fast Bacilli Cu lture & Smear Acid Fast Bacilli Culture & Smear [facility] Start: 03-28-2024 Fungal Culture Result 1 Fungal Cultu re Result 1 [facility] Start: 03-28-2024 Mycology Culture Mycology Culture [facility] Start: 03-28-2024 [facility] Start: 03-24-2024 End: 03-24-2024 Patient encounter procedure [facility] Comment on above: Arrived Start: 02-25-2024 End: 02-25-2024 Patient encounter procedure 02/25/2024 10:15 AM EST Consult [facility] [address] [place] [phone] Marbella Phillips, DO [address] [facility] [place] [address] [facility] Start: 01-31-2024 End: 01-31-2024 Patient encounter procedure 01/31/2024 2:40 PM EDT Office Visit [facility] [address] [place] [phone] Mariaa oCllado MD [address] [facility], [place] [phone] Arrived [facility] Comment on above: Arrived Start: 01-31-2024 End: 01-30-2025 CBC W Auto Differential panel - Blood CBC and differential Lab Routine Chest pain, unspecified type Expected: 01/31/2024 (Approximate), Expires: 01/30/2025 [facility] Comment on above: Expected: 01/31/2024 (Approximate), Expires: 01/30/2025 Start: 01-31-2024 End: 01-30-2025 Comprehensive metabolic 2000 panel - Serum or Plasma Comprehensive metabolic panel Lab Routine Chest pain, unspecified type Expected: 01/31/2024, Expires: 01/30/2025 [facility] Comment on above: Expected: 01/31/2024 , Expires: 01/30/2025 Start: 01-31-2024 End: 01-30-2025 ECG 12 lead [facility] Comment on above: Expected: 01/31/2024 (Approximate), Expires: 01/30/2025 Start: 01-31-2024 End: 01-30-2026 NM Heart Perfusion W single state of exercise Stress test with myocardial perfusion Cardiac Nuclear Medicine Routine Chest pain, unspecified type Expected: 01/31/2024 (Approximate), Expires: 01/30/2026 [facility] Comment on above: Expected: 01/31/2024 (Approximate), Expires: 01/30/2026 Start: 01-31-2024 End: 01-30-2025 NM Whole body Bone 3 Phase Views NM bone 3 phase Imaging Routine Cough, unspecified type Abnormal chest CT Expected: 01/31/2024, Expires: 01/30/2025 [facility] Work Phone: Comment on above: Expected: 01/31/2024 , Expires: 01/30/2025 Start: 01-31-2024 End: 01-30-2025 TSH W/REFLEX TO FT4 TSH W/REFLEX TO FT4 Lab Routine Chest pain, unspecified type Expected: 01/31/2024 (Approximate), Expires: 01/30/2025 [facility] Comment on above: Expected: 01/31/2024 (Approximate), Expires: 01/30/2025 Start: 12-12-2023 COVID-19 Vaccine () COVID-19 Vaccine () [facility] Start: 12-12-2023 Influenza vaccination Influenza Vacc ine (#1) [facility] Start: 12-01-2023 End: 11-30-2024 CT Chest WO contrast CT chest wo IV contrast Imaging Routine Lung nodule,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 Pupils: Pupils are equal, round, and reactive to light. Cardiovascular: Rate and Rhythm: Normal rate and regular rhythm. Heart sounds: Normal heart sounds. Pulmonary: Effort: Pulmonary effort is normal. Breath sounds: Normal breath sounds. Abdominal: General: Bowel sounds are normal. Palpations: Abdomen is soft. Musculoskeletal: Cervical back: Normal range of motion and neck supple. Lymphadenopathy: Cervical: No cervical adenopathy. Skin: General: Skin is warm and dry. Neurological: Mental Status: He is alert. ASSESSMENT AND PLAN: Assessment/Plan Diagnoses and all orders for this visit: COVID-19 - Nirmatrelvir&Ritonavir 300/100 (Paxlovid, 300/100,) 20 x 150 MG & 10 x 100MG tablet therapy pack; Take 1 Dose by mouth in the morning and 1 Dose before bedtime. Recommend paxlovid. Discussed possible side effects of the medication with patient. Patient verbalizes willingness to take medication. Rx. sent to pharmacy. Otherwise use OTC meds to control symptoms. Eat healthy and keep well hydrated. Quarantine per the health department guideline. Avoid alcohol and tobacco products. Sleep on your belly to prevent pneumonia and get up and about every one hour during the day to prevent blood clots. Any respiratory distress needs to be evaluated in the ER. Instructed to notify office of any changes. Sore throat - STATUS COVID-19/FLU - POCT rapid strep A manually resulted documented in this encounter [facility] 03-24-2024 History of Present illness Narrative Images from the original note were not included. Dariusz Najera presents today for follow up on CT scan of his chest. He does continue to cough and expectorate secretions. He does continue with some bloody secretions he is well. He was unable to to submit a sample of his sputum since his last office visit. But he was able to get his CT scan of his chest. He does also continue to complain of some discomfort on his right chest. He denies any current complaints fevers or chills. Allergies: No Known Allergies Medications: Current Outpatient Medications: omeprazole (PriLOSEC) [address] capsule, Take 1 capsule (40 mg) by mouth in the morning. Take before meals. Do not crush or chew.., Disp: 90 capsule, Rfl: 3 propranolol LA (Inderal LA) 60 MG 24 hr capsule, Take 1 capsule (60 mg) by mouth in the morning., Disp: 30 capsule, Rfl: 11 SUMAtriptan (Imitrex) 100 MG tablet, 1 tablet at least 2 hours between doses as needed Orally max 2 per day for 30 day(s), Disp: 9 tablet, Rfl: 0 triamterene-hydroCHLOROthiazide (Dyazide) 37.5-25 MG capsule, Take 1 capsule by mouth in the morning., Disp: , Rfl: Past Medical History: Past Medical History: Diagnosis Date History of being hospitalized 06/2021 syncope History of medical problems hx of bleeding spot found 10y+ R lower lobe Hypertension (CMS/HCC) Migraine (CMS/HCC) Social History: Social History Tobacco Use Smoking status: Never Smokeless tobacco: Never Substance Use Topics Alcohol use: Never Vitals: BP 127/83 (BP Location: Left arm, Patient Position: Sitting) Pulse 72 Ht 5' 7.75 Wt 197 lb 3.2 oz SpO2 98% BMI 30.21 kg/m Exam: Heart: regular rate Lungs: clear to auscultation bilaterally, no wheezes/rales/rhonchi, no resp distress Extremities: no edema noted, no visible rashes Neuro: alert, oriented x3 Imaging Reviewed: Images and report of CT chest from February 2024 reviewed- - tubular bronchiectasis in the right lower lobe with thickening of the peribronchial wall, vascular atherosclerosis disease, no lobar pneumonia or pulmonary alveolar Assessment/Plan: Diagnoses and all orders for this visit: Abnormal chest CT Hemoptysis Abnormal CT chest / hemoptysis -- he does continue with a cough with productive sputum. He does continue with blood-streaked sputum as well. We discussed the findings of his CT scan of his chest. This does appear to be similar to his scan that was done in November 2023. He has not been able to submit a sample. He does have definite evidence of bronchiectasis, however there is still an opacity measuring 1.7 x 1.8 x 1.7 cm in size. He has undergone bronchoscopy in the past many years ago. This was done 15-20 years ago. I was not able to obtain any records from that system in regards to the bronchoscopy or the findings. At this time we discussed bronchoscopy again. He is agreeable to proceeding with this given that he does continue with discomfort, the abnormality noted on his CT, and productive cough with occasional blood. The risks and benefits were discussed with him. He is agreeable to proceeding. We will schedule this for next week pending authorization by his insurance company. He will follow here in 4 weeks' time once the bronchoscopy is able to be completed and the results have returned. Follow up in about 4 weeks (around 04/21/2024) for bronchoscopy. Marbella Phillips DO documented in this encounter [facility] 02-25-2024 History of Present illness Narrative Images from the original note were not included. Dariusz Najera presents today for evaluation in regards to abnormal CT scan his chest and cough. He states that he has had some pain in the right side of his chest since the summer. In June he had a cholecystectomy. Thought this pain in the summertime may have been related to his recent cholecystectomy. However he did also have a cough that was productive of yellow-brown sputum and some occasions the blood. He states that his CT scan of his chest was ordered and he was noted to have some scarring . He also underwent a bone scan which he was told was okay. He states recently he did have a stress test. He is unsure of the results of this, but was able to run quite a bit time on the machine. He states he was told by the hydro technician that he did do good job. He denies any current complaints of shortness of breath at rest or with exertion. He does continue with cough. He states this occurs mostly in the morning. Occasionally does have blood in the sputum. However it is mostly productive of brown to yellow sputum. Denies any fevers, chills, or sweats. He does work at a [employer]. He does also give a prior history of undergoing bronchoscopy in the past for an abnormality in his lung. He states that this was probably 15-20 years ago at [facility]. He denies any other complaints at this time. No Known Allergies Current Outpatient Medications Medication Sig Dispense Refill omeprazole (PriLOSEC) [address] capsule Take 1 capsule (40 mg) by mouth in the morning. Take before meals. Do not crush or chew.. 90 capsule 3 propranolol LA (Inderal LA) 60 MG 24 hr capsule Take 1 capsule (60 mg) by mouth in the morning. 30 capsule 11 SUMAtriptan (Imitrex) 100 MG tablet 1 tablet at least 2 hours between doses as needed Orally max 2 per day for 30 day(s) 9 tablet 0 triamterene-hydroCHLOROthiazide (Dyazide) 37.5-25 MG capsule Take 1 capsule by mouth in the morning. No current facility-administered medications for this visit. Past Medical History: Diagnosis Date History of being hospitalized 06/2021 syncope History of medical problems hx of bleeding spot found 10y+ R lower lobe Hypertension (CMS/HCC) Migraine (CMS/HCC) Past Surgical History: Procedure Laterality Date ADENOIDECTOMY BRONCHOSCOPY TONSILLECTOMY WISDOM TOOTH EXTRACTION Family History Problem Relation Name Age of Onset Breast cancer Mother Lymphoma Mother Heart disease Mother Cancer Father Hearing loss Father Hypertension Father Pancreatic cancer Father's Brother Cancer Paternal Grandmother Social History Tobacco Use Smoking status: Never Smokeless tobacco: Never Substance Use Topics Alcohol use: Never BP (!) 126/96 (BP Location: Left arm, Patient Position: Sitting) Pulse 84 Ht 5' 7.75 Wt 196 lb 9.6 oz SpO2 97% BMI 30.11 kg/m Exam: Heart: regular rate Lungs: clear to auscultation bilaterally, no wheezes/rales/rhonchi, no resp distress Extremities: no edema noted, no visible rashes Neuro: alert, oriented x3 Imaging Reviewed: PFT's from December 2023 reviewed- - FVC 3.78 L (80 %), FEV1 3.21 L ( 95 %), ratio 82 %, no significant bronchodilator response, no air trapping or hyperinflation present, DLCO not able to be completed Images and report of CT chest from November 2023 reviewed-- right lower lobe bronchiectasis with bronchial wall thickening calcifications, opacity measuring 1.7 x 1.8 x 1.7 cm Assessment/Plan: Abnormal CT chest /cough /hemoptysis -- we did have a discussion regarding the findings of his CT scan of his chest. He does give a history of abnormality noted many years ago. He did undergo bronchoscopy at that time. However he is unsure of any results other than he knows it was benign. He states this was done in the [place] area. He had followed with Pulmonary as well. At this time I do have concerns that he may have changes when compared to his old scans given that his symptoms are new. He is unsure when his last CT scan of his chest was completed prior to this 1 that was done recently. He has yet to have a sputum culture despite the fact that he does have purulent sputum medications of blood. I do have concerns that he may have a component of a malignancy given his current symptoms of hemoptysis. At this time we discussed the possibility repeating the bronchoscopy. He was agreeable to having this done if necessary. The risks and benefits were discussed with him today. However given that his scan is 2 to 3-month-old, I would feel best to have a repeat scan to have most new information to review. Also in the meantime I will check a sputum culture. I will also try to get information from his prior bronchoscopy that was done many years ago. Once his CT scan is completed, we discussed the findings over the phone and discuss the next steps. The patient understands the plan and is agreeable. Follow up in about 4 weeks (around 03/24/2024) for CT chest. Marbella Phillips DO documented in this encounter [facility] 02-15-2024 Telephone encounter Note Pt was told his bone scans would be returned in about 2 business days, They were done last , at [facility]. Pt would like called at [phone] when the results are back. [facility] 02-15-2024 Miscellaneous Notes Pt was told his bone scans would be returned in about 2 business days, They were done last , at [facility]. Pt would like called at [phone] when the results are back. documented in this encounter [facility] 01-31-2024 History of Present illness Narrative Dariusz Najera is a 58 y.o. male presents with chief complaint of Breathing Problem (Patient presents today for pain in right chest. Patient states that he has scarring in his right lung as shown on the CT Scan. Patient is wanting to get tessalon for the cough to get him through until his appointment with pulmonology on Feb 24.) and Chills (Patient states that they have been ongoing for 3 weeks now and he is only cold along his chest, his legs and arms are fine.) HPI: HPI History of Present Illness The patient is a 58-year-old male who presents for evaluation of multiple medical concerns. He experiences pain during coughing and spasms, which sometimes radiates to his back. The intensity of the pain varies, with recent episodes being more severe. Certain movements, such as reaching or pulling, can trigger the pain, and it occasionally disrupts his sleep. He finds relief when lying on his left side. He describes the pain as similar to what he experienced prior to his gallbladder removal. He initially thought his symptoms were due to broken ribs, as he had a similar injury from playing football in his youth. He has an upcoming appointment with a clinical reimbursement specialist on 02/25/2024. He reports difficulty breathing during exertion, particularly at work where he is exposed to dust without a mask. He avoids taking medication due to potential stomach upset. His physical stamina has decreased, as evidenced by his inability to run on the treadmill or mow his lawn without taking breaks. He notes increased difficulty in breathing and occasionally experiences a sensation of heaviness on the other side of his chest. He is not experiencing any chest pain on the opposite side and has had no fainting episodes. He has recently started experiencing cold intolerance, which began 3 to 4 weeks ago. His diet has changed since his gallbladder removal on 06/11/2023, with a focus on probiotic foods. He also experienced a period of severe diarrhea. FAMILY HISTORY He has a family history of heart disease and cancer. SUBJECTIVE: MEDICATIONS: Current Outpatient Medications Medication Instructions propranolol LA (INDERAL LA) 60 mg, Oral, Every morning SUMAtriptan (Imitrex) 100 MG tablet 1 tablet at least 2 hours between doses as needed Orally max 2 per day for 30 day(s) triamterene-hydroCHLOROthiazide (Dyazide) 37.5-25 MG capsule 1 capsule, Daily ALLERGIES: No Known Allergies SURGICAL HISTORY: Past Surgical History: Procedure Laterality Date ADENOIDECTOMY BRONCHOSCOPY TONSILLECTOMY WISDOM TOOTH EXTRACTION FAMILY HISTORY: Family History Problem Relation Name Age of Onset Breast cancer Mother Lymphoma Mother Heart disease Mother Cancer Father Hearing loss Father Hypertension Father Pancreatic cancer Father's Brother Cancer Paternal Grandmother SOCIAL HISTORY: Social History Tobacco Use Smoking status: Never Smokeless tobacco: Never Substance Use Topics Alcohol use: Never Drug use: Never Depression: Not at risk (11/23/2023) PHQ-2 PHQ-2 Score: 0 REVIEW OF SYMPTOMS: OBJECTIVE: Visit Vitals BP 132/84 (BP Location: Left arm, Patient Position: Sitting, BP Cuff Size: Large adult) Pulse 86 Resp 20 Ht 5' 7.75 Wt 192 lb 6.4 oz SpO2 97% BMI 29.47 kg/m Smoking Status Never BSA 2.04 m Physical Exam Constitutional: Appearance: He is normal weight. HENT: Head: Normocephalic and atraumatic. Nose: Nose normal. No congestion. Mouth/Throat: Mouth: Mucous membranes are moist. Eyes: Extraocular Movements: Extraocular movements intact. Pupils: Pupils are equal, round, and reactive to light. Cardiovascular: Rate and Rhythm: Normal rate and regular rhythm. Pulmonary: Effort: Pulmonary effort is normal. No respiratory distress. Breath sounds: Normal breath sounds. No wheezing. Musculoskeletal: General: No swelling or deformity. Cervical back: Normal range of motion and neck supple. Right lower leg: No edema. Left lower leg: No edema. Skin: General: Skin is warm and dry. Findings: No rash. Neurological: General: No focal deficit present. Mental Status: He is alert and oriented to person, place, and time. Cranial Nerves: No cranial nerve deficit. Gait: Gait normal. Psychiatric: Mood and Affect: Mood normal. Behavior: Behavior normal. ASSESSMENT AND PLAN: Assessment/Plan Problem List Items Addressed This Visit None Visit Diagnoses Cough, unspecified type - Primary Relevant Orders NM bone [address] Relevant Orders NM bone 3 phase Chest pain, unspecified type Relevant Orders TSH W/REFLEX TO FT4 CBC and differential Comprehensive metabolic panel Stress test with myocardial perfusion ECG 12 lead EKG with out acute changes Assessment & Plan 1. Chest pain. The calcification in his lungs is unlikely to be the cause of his discomfort. A small area on the lateral side of his rib bone appears slightly unusual. He reports the pain is exacerbated by movement and sometimes wakes him up at night. A bone scan will be ordered to investigate the area of concern. He is advised to take Tylenol Extra Strength before bedtime and during the day as needed. An EKG will be performed for comparison with his previous one. Blood work will be drawn and a stress test will be ordered. Tessalon Perles will be prescribed. Due to left sided chest heaviness with exertion and exertional fatigue and dyspnea 2. Cold intolerance. His thyroid function was normal in 2020. He reports experiencing cold intolerance that started three to four weeks ago. A thyroid test will be conducted. Pending pulmonary consult on stable lung calcification documented in this encounter [facility] 06-30-2023 History of Present illness Narrative Subjective Dariusz Najera is a 57 y.o. male status post robotic assisted laparoscopic cholecystectomy on 06/15/2023. Pain is tolerable. His waist area was tender for first 10 days, this is getting better. He has been walking on his treadmill. He denies any fevers. He is tolerating oral intake. He denies any nausea or vomiting. He is having bowel function. Objective Vitals: 06/30/23 1249 BP: 145/71 Pulse: 76 Physical Exam Constitutional: General: He is not in acute distress. Appearance: Normal appearance. He is not ill-appearing. Abdominal: Palpations: Abdomen is soft. Tenderness: There is no abdominal tenderness. There is no guarding. Skin: General: Skin is warm and dry. Coloration: Skin is not jaundiced. Comments: Lap sites clean, dry and intact. No signs of infection. Final Pathologic Diagnosis Gallbladder, cholecystectomy: Mild subacute and chronic cholecystitis Assessment Dariusz Najera is a 57 y.o.male postoperative laparoscopic cholecystectomy. Plan No heavy lifting for another 4 weeks. He will be remaining off work until then. Follow-up as needed. Status post laparoscopic cholecystectomy [Z90.49] ALEX CRAWFORD [facility] General Surgery [place] This note was created with the assistance of a speech recognition program. While intending to generate a timely document that accurately reflects the content of the visit, no guarantee can be provided that every grammatical or spelling mistake has been or will be identified or corrected. Thank you for your understanding. ALEX Crawford 06/30/23 1303 documented in this encounter [facility] 06-10-2023 Instructions Barbi Linares RN - 06/10/2023 9:00 AM EST Preoperative Education Checklist- General Surgery date: 06/15/23 Surgery time: 0800 a.m. Arrival time: 0610 a.m. 1. Bring a photo ID and your insurance card with you the day of surgery. You will check in at the main lobby of the [facility]- registration desk is straight ahead as soon as you walk in. Tell them you are here for surgery. 2. If you have a Living Will/Durable Power of [place] [employer] for Health Care that is not on file here, please bring a copy the day of surgery. 3. Please shower/bathe the night before surgery with the provided soap or wipes. Do not shower the morning of surgery- you will do use wipes when you arrive here at the hospital before getting into your surgical gown. Do not shave the area of your procedure for 2 days prior to your surgery. 4. NO powder, lotion, perfume/cologne, aftershave, make-up, deodorant, or hair products after you have bathed. 5. NO nail botswanan/acrylic on at least one finger. If you are having a hand, wrist or foot surgery then all nail botswanan and artificial/acrylic nails must be removed from that hand or foot. 6. Avoid ALL Aspirin and non-steroidal anti-inflammatory drugs and certain vitamins (Ibuprofen, Advil, Aleve, Excedrin, Meloxicam, Celebrex, fish/krill oil, etc.) for 7 days prior to surgery as instructed by your surgeon and/or your prescribing doctor. Tylenol IS ALLOWED. If you are on Ticlid, Xarelto, Eliquis, Pradaxa, Plavix or Coumadin, please check with your prescribing doctor for instructions for when to stop them. 7. If you use an inhaler, continue to use it routinely. 8. Nothing to eat or drink (not even water, gum, mints, or hard candy!) AFTER midnight prior to your surgery. 9. Take only medications that you are instructed to on the morning of surgery with a TINY SIP OF WATER. 10. Choose a responsible adult that will be able to drive you home when you are discharged from your hospital stay for your surgery and can stay with you in your home for 24 hours after your procedure. You must NOT drive any vehicle or operate any machinery for 24 hours after surgery. 11. When you dress for your appointment, please wear loose fitting clothing that is appropriate to accommodate your surgical area procedure. BRING WITH YOU ANY DEVICES YOU MAY NEED: DESTINY hose, ice machine, sling/swath, brace or special shoe, oversized zip-up or button up shirt, CPAP machine if staying overnight. 12. Do NOT wear jewelry, watches, or any piercings or metal for surgery- leave these valuables and money at home. 13. Do NOT wear contact lenses for surgery- glasses are okay if needed. 14. The anesthesiologist will talk with you the day of surgery and will ask you to sign a Consent Form. 15. Refrain from smoking or any type of tobacco use for at least 8 hours and marijuana for 24 hours prior to arrival for your surgery. 16. If a GREEN BLOOD band is given to you, please bring it with you for the day of surgery. 17. Notify your surgeon if you develop any illness before your surgery. 18. If you are staying overnight, please DO NOT BRING your home medications with you. 19. If you have any questions prior to surgery, please call the Preadmission Testing office at [phone], Mon.-Fri. 7 a.m.-3 p.m. Leave a voicemail if needed. Pre-Surgery Instructions: Medication Instructions propranolol LA (INDERAL LA) 60 mg 24 hr capsule Take morning of procedure SUMAtriptan (IMITREX) 100 mg tablet Stop taking 0 days prior to procedure triamterene-hydroCHLOROthiazide (DYAZIDE) 37.5-25 mg per capsule Take morning of procedure [id number] (AIRBORNE, LYSINE HCL,) 1,000-50 mg tablet, effervescent Stop taking 0 days prior to procedure How to Avoid an Infection after Your Surgery Your doctor will give you specific instructions, but remember: -ALWAYS wash hands before caring for your incision. -No picking, scratching, or rubbing your incision. -No creams, lotion, powder, rubbing alcohol or hydrogen peroxide on the incision (can harm the tissue and slow healing). -Your doctor will give you specific instructions for what type of dressing you will need and how often it will need changed for infection purposes. -No tight clothing on incision. -Do not allow anyone to touch your incision unless they are cleaning, checking, or redressing it (be sure they wash their hands first). -No contact of your incision with pets; avoid sleeping with pets. -Take full course of antibiotic if prescribed for you after surgery- do not stop unless directed to by your physician. You may also be given an antibiotic prior to your surgery to help prevent surgical site infections. -Eat a healthy and varied diet including proteins, fruits, and vegetables to help promote wound healing and keep blood sugars under control if you are diabetic. -Smoking slows the healing process by decreasing the amount of oxygen in your blood that is needed for tissue healing. Try to avoid or stop smoking if possible. LOOK at your incision each morning and each night to check the progress of healing. Some soreness, numbness, itching and/or mild bruising around the incision is normal. Call your doctor if you notice any of the following: -Increased redness or hardening around the incision area. -Increased pain at the incision site. -Incision feels hot to the touch. -Swelling or pulling apart of the incision edges. -Yellow or green drainage or foul odor coming from the incision. -Bleeding from the incision (apply pressure as needed). -Fever higher than 101 degrees Fahrenheit for more than 4 hours. SHOWERING: Your doctor will give you specific instructions, but remember: -Be careful getting into and out of the shower. -Showers should be quick (5 minutes or less). -Use a clean washcloth to gently wash your incision with soap and water and pat the area dry with a clean towel. -No re-using wash cloths or towels; get a fresh one to clean your incision. -Do not soak in the bathtub, go swimming or use a hot tub (Jacuzzi), or perform activities where your incision is submerged in water or exposed to any fluids or substances until instructed by your doctor. -If your have the sticky strips (steri-strips) over the incision, it is OK to shower with them. Do not remove them. Let them fall off on their own. If you have a question, call your doctor s office. Go to the follow-up appointment with your doctor. documented in this encounter [facility] [employer] [facility] 06-10-2023 Miscellaneous Notes Preoperative Education Checklist- General Surgery date: 06/15/23 Surgery time: 0800 a.m. Arrival time: 0610 a.m. 1. Bring a photo ID and your insurance card with you the day of surgery. You will check in at the main lobby of the [facility]- registration desk is straight ahead as soon as you walk in. Tell them you are here for surgery. 2. If you have a Living Will/Durable Power of [place] [employer] for Health Care that is not on file here, please bring a copy the day of surgery. 3. Please shower/bathe the night before surgery with the provided soap or wipes. Do not shower the morning of surgery- you will do use wipes when you arrive here at the hospital before getting into your surgical gown. Do not shave the area of your procedure for 2 days prior to your surgery. 4. NO powder, lotion, perfume/cologne, aftershave, make-up, deodorant, or hair products after you have bathed. 5. NO nail botswanan/acrylic on at least one finger. If you are having a hand, wrist or foot surgery then all nail botswanan and artificial/acrylic nails must be removed from that hand or foot. 6. Avoid ALL Aspirin and non-steroidal anti-inflammatory drugs and certain vitamins (Ibuprofen, Advil, Aleve, Excedrin, Meloxicam, Celebrex, fish/krill oil, etc.) for 7 days prior to surgery as instructed by your surgeon and/or your prescribing doctor. Tylenol IS ALLOWED. If you are on Ticlid, Xarelto, Eliquis, Pradaxa, Plavix or Coumadin, please check with your prescribing doctor for instructions for when to stop them. 7. If you use an inhaler, continue to use it routinely. 8. Nothing to eat or drink (not even water, gum, mints, or hard candy!) AFTER midnight prior to your surgery. 9. Take only medications that you are instructed to on the morning of surgery with a TINY SIP OF WATER. 10. Choose a responsible adult that will be able to drive you home when you are discharged from your hospital stay for your surgery and can stay with you in your home for 24 hours after your procedure. You must NOT drive any vehicle or operate any machinery for 24 hours after surgery. 11. When you dress for your appointment, please wear loose fitting clothing that is appropriate to accommodate your surgical area procedure. BRING WITH YOU ANY DEVICES YOU MAY NEED: DESTINY hose, ice machine, sling/swath, brace or special shoe, oversized zip-up or button up shirt, CPAP machine if staying overnight. 12. Do NOT wear jewelry, watches, or any piercings or metal for surgery- leave these valuables and money at home. 13. Do NOT wear contact lenses for surgery- glasses are okay if needed. 14. The anesthesiologist will talk with you the day of surgery and will ask you to sign a Consent Form. 15. Refrain from smoking or any type of tobacco use for at least 8 hours and marijuana for 24 hours prior to arrival for your surgery. 16. If a GREEN BLOOD band is given to you, please bring it with you for the day of surgery. 17. Notify your surgeon if you develop any illness before your surgery. 18. If you are staying overnight, please DO NOT BRING your home medications with you. 19. If you have any questions prior to surgery, please call the Preadmission Testing office at [phone], Mon.-Fri. 7 a.m.-3 p.m. Leave a voicemail if needed. Pre-Surgery Instructions: Medication Instructions propranolol LA (INDERAL LA) 60 mg 24 hr capsule Take morning of procedure SUMAtriptan (IMITREX) 100 mg tablet Stop taking 0 days prior to procedure triamterene-hydroCHLOROthiazide (DYAZIDE) 37.5-25 mg per capsule Take morning of procedure [id number] (AIRBORNE, LYSINE HCL,) 1,000-50 mg tablet, effervescent Stop taking 0 days prior to procedure How to Avoid an Infection after Your Surgery Your doctor will give you specific instructions, but remember: -ALWAYS wash hands before caring for your incision. -No picking, scratching, or rubbing your incision. -No creams, lotion, powder, rubbing alcohol or hydrogen peroxide on the incision (can harm the tissue and slow healing). -Your doctor will give you specific instructions for what type of dressing you will need and how often it will need changed for infection purposes. -No tight clothing on incision. -Do not allow anyone to touch your incision unless they are cleaning, checking, or redressing it (be sure they wash their hands first). -No contact of your incision with pets; avoid sleeping with pets. -Take full course of antibiotic if prescribed for you after surgery- do not stop unless directed to by your physician. You may also be given an antibiotic prior to your surgery to help prevent surgical site infections. -Eat a healthy and varied diet including proteins, fruits, and vegetables to help promote wound healing and keep blood sugars under control if you are diabetic. -Smoking slows the healing process by decreasing the amount of oxygen in your blood that is needed for tissue healing. Try to avoid or stop smoking if possible. LOOK at your incision each morning and each night to check the progress of healing. Some soreness, numbness, itching and/or mild bruising around the incision is normal. Call your doctor if you notice any of the following: -Increased redness or hardening around the incision area. -Increased pain at the incision site. -Incision feels hot to the touch. -Swelling or pulling apart of the incision edges. -Yellow or green drainage or foul odor coming from the incision. -Bleeding from the incision (apply pressure as needed). -Fever higher than 101 degrees Fahrenheit for more than 4 hours. SHOWERING: Your doctor will give you specific instructions, but remember: -Be careful getting into and out of the shower. -Showers should be quick (5 minutes or less). -Use a clean washcloth to gently wash your incision with soap and water and pat the area dry with a clean towel. -No re-using wash cloths or towels; get a fresh one to clean your incision. -Do not soak in the bathtub, go swimming or use a hot tub (Jacuzzi), or perform activities where your incision is submerged in water or exposed to any fluids or substances until instructed by your doctor. -If your have the sticky strips (steri-strips) over the incision, it is OK to shower with them. Do not remove them. Let them fall off on their own. If you have a question, call your doctor s office. Go to the follow-up appointment with your doctor. Hibiclens and surgical instructions reviewed. Patient verbalized understanding. documented in this encounter [facility] 06-10-2023 Nurse Note Preoperative Education Checklist- General Surgery date: 06/15/23 Surgery time: 0800 a.m. Arrival time: 0610 a.m. 1. Bring a photo ID and your insurance card with you the day of surgery. You will check in at the main lobby of the [facility]- registration desk is straight ahead as soon as you walk in. Tell them you are here for surgery. 2. If you have a Living Will/Durable Power of [place] [employer] for Health Care that is not on file here, please bring a copy the day of surgery. 3. Please shower/bathe the night before surgery with the provided soap or wipes. Do not shower the morning of surgery- you will do use wipes when you arrive here at the hospital before getting into your surgical gown. Do not shave the area of your procedure for 2 days prior to your surgery. 4. NO powder, lotion, perfume/cologne, aftershave, make-up, deodorant, or hair products after you have bathed. 5. NO nail botswanan/acrylic on at least one finger. If you are having a hand, wrist or foot surgery then all nail botswanan and artificial/acrylic nails must be removed from that hand or foot. 6. Avoid ALL Aspirin and non-steroidal anti-inflammatory drugs and certain vitamins (Ibuprofen, Advil, Aleve, Excedrin, Meloxicam, Celebrex, fish/krill oil, etc.) for 7 days prior to surgery as instructed by your surgeon and/or your prescribing doctor. Tylenol IS ALLOWED. If you are on Ticlid, Xarelto, Eliquis, Pradaxa, Plavix or Coumadin, please check with your prescribing doctor for instructions for when to stop them. 7. If you use an inhaler, continue to use it routinely. 8. Nothing to eat or drink (not even water, gum, mints, or hard candy!) AFTER midnight prior to your surgery. 9. Take only medications that you are instructed to on the morning of surgery with a TINY SIP OF WATER. 10. Choose a responsible adult that will be able to drive you home when you are discharged from your hospital stay for your surgery and can stay with you in your home for 24 hours after your procedure. You must NOT drive any vehicle or operate any machinery for 24 hours after surgery. 11. When you dress for your appointment, please wear loose fitting clothing that is appropriate to accommodate your surgical area procedure. BRING WITH YOU ANY DEVICES YOU MAY NEED: DESTINY hose, ice machine, sling/swath, brace or special shoe, oversized zip-up or button up shirt, CPAP machine if staying overnight. 12. Do NOT wear jewelry, watches, or any piercings or metal for surgery- leave these valuables and money at home. 13. Do NOT wear contact lenses for surgery- glasses are okay if needed. 14. The anesthesiologist will talk with you the day of surgery and will ask you to sign a Consent Form. 15. Refrain from smoking or any type of tobacco use for at least 8 hours and marijuana for 24 hours prior to arrival for your surgery. 16. If a GREEN BLOOD band is given to you, please bring it with you for the day of surgery. 17. Notify your surgeon if you develop any illness before your surgery. 18. If you are staying overnight, please DO NOT BRING your home medications with you. 19. If you have any questions prior to surgery, please call the Preadmission Testing office at [phone], Mon.-Fri. 7 a.m.-3 p.m. Leave a voicemail if needed. Pre-Surgery Instructions: Medication Instructions propranolol LA (INDERAL LA) 60 mg 24 hr capsule Take morning of procedure SUMAtriptan (IMITREX) 100 mg tablet Stop taking 0 days prior to procedure triamterene-hydroCHLOROthiazide (DYAZIDE) 37.5-25 mg per capsule Take morning of procedure [id number] (A[place]NE, LYSINE HCL,) 1,000-50 mg tablet, effervescent Stop taking 0 days prior to procedure How to Avoid an Infection after Your Surgery Your doctor will give you specific instructions, but remember: -ALWAYS wash hands before caring for your incision. -No picking, scratching, or rubbing your incision. -No creams, lotion, powder, rubbing alcohol or hydrogen peroxide on the incision (can harm the tissue and slow healing). -Your doctor will give you specific instructions for what type of dressing you will need and how often it will need changed for infection purposes. -No tight clothing on incision. -Do not allow anyone to touch your incision unless they are cleaning, checking, or redressing it (be sure they wash their hands first). -No contact of your incision with pets; avoid sleeping with pets. -Take full course of antibiotic if prescribed for you after surgery- do not stop unless directed to by your physician. You may also be given an antibiotic prior to your surgery to help prevent surgical site infections. -Eat a healthy and varied diet including proteins, fruits, and vegetables to help promote wound healing and keep blood sugars under control if you are diabetic. -Smoking slows the healing process by decreasing the amount of oxygen in your blood that is needed for tissue healing. Try to avoid or stop smoking if possible. LOOK at your incision each morning and each night to check the progress of healing. Some soreness, numbness, itching and/or mild bruising around the incision is normal. Call your doctor if you notice any of the following: -Increased redness or hardening around the incision area. -Increased pain at the incision site. -Incision feels hot to the touch. -Swelling or pulling apart of the incision edges. -Yellow or green drainage or foul odor coming from the incision. -Bleeding from the incision (apply pressure as needed). -Fever higher than 101 degrees Fahrenheit for more than 4 hours. SHOWERING: Your doctor will give you specific instructions, but remember: -Be careful getting into and out of the shower. -Showers should be quick (5 minutes or less). -Use a clean washcloth to gently wash your incision with soap and water and pat the area dry with a clean towel. -No re-using wash cloths or towels; get a fresh one to clean your incision. -Do not soak in the bathtub, go swimming or use a hot tub (Jacuzzi), or perform activities where your incision is submerged in water or exposed to any fluids or substances until instructed by your doctor. -If your have the sticky strips (steri-strips) over the incision, it is OK to shower with them. Do not remove them. Let them fall off on their own. If you have a question, call your doctor s office. Go to the follow-up appointment with your doctor. [facility] 06-10-2023 Nurse Note Hibiclens and surgical instructions reviewed. Patient verbalized understanding. [facility] 06-09-2023 History of Present illness Narrative Images from the original note were not included. [facility] [address] [id number] CONSULT NOTE Dariusz Najera 57 y.o. CHIEF COMPLAINT Chief Complaint Patient presents with Cholelithiasis GALLBLADDER POLYP, REFERRED BY EMMA SCANLON NP Dariusz Najera is a 57-year-old male who presents today with findings of a gallbladder polyp on ultrasound performed at [facility] recently. Patient states he has been having pain in the right upper quadrant which radiates to the back and has been constant since late March 2023. He admits to nausea and vomiting intermittently and rates the pain as a 5/10 constant with occasional pain that shoots to the right shoulder blade at times associated sometimes with fever and sweats. He also has worse pain after eating sometimes. He has a history of hypertension and headaches for which he takes propranolol and Dyazide. He has no other health issues. 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 MEDICATIResults Ultrasound abdomen limited (Order [id number]) Ultrasound abdomen limited Order: [id number] Impression Impression: Gallbladder polyp. ELECTRONICALLY SIGNED BY: Nirmal Gutierres MD Narrative FINDINGS: Liver normal in size, contour, and echogenicity. No intrahepatic and no extrahepatic ductal dilatation. Common duct measures 5 mm. Gallbladder contains 1.8 mm nonshadowing echogenic nonmobile focus adherent to the wall of the gallbladder. No gallbladder wall thickening or para cholecystic fluid. Pancreatic body normal in size, shape, and echogenicity. Remainder of pancreas obscured by overlying bowel gas. Exam End: 05/21/23 08:26 Specimen Collected: 05/21/23 13:56 Last Resulted: 05/21/23 13:57 Received From: [facility] Result Received: 05/25/23 10:20 MEDICATION Current Outpatient Medications: propranolol LA (INDERAL LA) 60 mg 24 hr capsule, Take 1 capsule (60 mg total) by mouth in the morning., Disp: , Rfl: SUMAtriptan (IMITREX) 100 mg tablet, Take 1 tablet (100 mg total) by mouth once as needed., Disp: , Rfl: triamterene-hydroCHLOROthiazide (DYAZIDE) 37.5-25 mg per capsule, Take 1 capsule by mouth., Disp: , Rfl: ALLERGY No Known Allergies MEDICAL HISTORY Past Medical History: Diagnosis Date Chronic headache Hypertension Migraine Syncope Visual impairment SURGICAL HISTORY Past Surgical History: Procedure Laterality Date BRONCHOSCOPY Right COLONOSCOPY N/A 03/27/2021 Performed by Jose Biggs MD at [facility] TONSILLECTOMY SOCIAL HISTORY Social History Socioeconomic History Marital status: Spouse name: Not on file Number of children: Not on file Years of education: Not on file Highest education level: Not on file Occupational History Not on file Tobacco Use Smoking status: Never Smokeless tobacco: Never Vaping Use Vaping Use: Never used Substance and Sexual Activity Alcohol use: Yes Comment: rare Drug use: Never Sexual activity: Yes Partners: Female Other Topics Concern Not on file Social History Narrative Not on file Social Determinants of Health Financial Resource Strain: Not on file Food Insecurity: No Food Insecurity (06/09/2023) Hunger Screening Food Insecurity - Worry: Never True Food Insecurity - Inability: Never True Transportation Needs: Not on file Physical Activity: Not on file Stress: Not on file Social Connections: Not on file Interpersonal Safety: Not on file Housing Instability: Not on file FAMILY HISTORY Family History Problem Relation Age of Onset Cancer Mother Breast cancer Mother Lymphoma Mother Stomach cancer Father Pancreatic cancer Paternal Uncle Lung cancer Paternal cousin REVIEW OF SYSTEMS: Constitutional: Denies fevers, denies recent illnesses. Eyes: Denies any vision changes. ENT: Denies any throat pain. Neck: Denies any neck pain. Cardiovascular denies chest pain. Denies palpitations. Respiratory: Denies shortness of breath, denies cough, denies history of asthma or any other pulmonary illnesses. Gastrointestinal: See chief complaint Genitourinary negative for dysuria hematuria urinary frequency or urgency. Musculoskeletal: Negative for extremity pains or joint discomfort. Neurologic: History of migraine; No change in sensation or paresthesias or history of seizure disorder skin: No rashes. Hematologic: No anemia. No purpura. No petechiae and no prolonged or excessive bleeding Allergic and immunologic: No pruritus. No swelling. Endocrine: No unexplained weight loss. No polydipsia. No polyuria. No polyphagia. PHYSICAL EXAM Constitutional: He is oriented to person, place, and time. Vital signs are normal. He appears well-developed and well-nourished. HEENT: Head: Normocephalic and atraumatic. Eyes: Conjunctivae, EOM and lids are normal. Neck: Trachea normal. Neck supple. No thyroid mass present. Cardiovascular: Normal rate and regular rhythm. Pulmonary/Chest: Effort normal and breath sounds normal. Abdominal: Soft. Normal appearance. He exhibits no distension and no mass. There is no hepatosplenomegaly or splenomegaly. There is negative White's sign. No hernia. Musculoskeletal: Normal range of motion. Lymphadenopathy: He has no cervical adenopathy. He has no axillary adenopathy. Right: No inguinal and no supraclavicular adenopathy present. Left: No inguinal and no supraclavicular adenopathy present. Neurological: He is alert and oriented to person, place, and time. Skin: Skin is warm, dry and intact. Psychiatric: He has a normal mood and affect. His speech is normal and behavior is normal. Cognition and memory are normal. IMPRESSION 1. Gallbladder polyp per ultrasound although it could be cholelithiasis 2. History of hypertension and migraine headaches 3. Mild obesity with BMI of 30 ASSESSMENT & PLAN Robotic/Laparoscopic cholecystectomy with possible open cholecystectomy. I discussed the risks, benefits, and alternatives to surgery, which may include infection, bleeding, bile duct injury, intestinal injury, blood clots in legs or lungs, pneumonia, heart attack, and/or . Patient voices understanding and wishes to proceed. Evaluation included: Preparing to see the patient (e.g., review of tests) Obtaining and/or reviewing separately obtained history Performing a medically appropriate examination and/or evaluation Counseling and educating the patient/family/caregiver Referring and communicating with other health health care aide Gallbladder polyp [K82.4] Velma Rosario, DO This note was created with the assistance of a speech recognition program. While intending to generate a timely document that accurately reflects the content of the visit, no guarantee can be provided that every grammatical or spelling mistake has been or will be identified or corrected. Thank you for your understanding. documented in this encounter [facility] 05-24-2023 Telephone encounter Note Please call Dariusz castellanos results to his US .. He asked if you can text him the results because he's at work and has no VM . [phone] [facility] 05-24-2023 Miscellaneous Notes Please call Dariusz castellanos results to his US .. He asked if you can text him the results because he's at work and has no VM . [phone] documented in this encounter [facility] 05-17-2023 Telephone encounter Note PC from pt stating he had to leave work on Wednesday because of abd pain. States pain gets worse at times and has U/S for this morning at 10:30. He is questioning if there is any medication that would help with pain? States he uses [facility] in [place]. His call back is [phone]. Thank you! [facility] 05-17-2023 Miscellaneous Notes PC from pt stating he had to leave work on Wednesday because of abd pain. States pain gets worse at times and has U/S for this morning at 10:30. He is questioning if there is any medication that would help with pain? States he uses [facility] in [place]. His call back is [phone]. Thank you! documented in this encounter [facility] 06-18-2021 History of Present illness Narrative Patient is seen in consultation at the request of his primary care physician for syncope. He is an individual who describes 2 episodes of syncope in the last month. One episode occurred after coming up a flight of stairs walking across the kitchen is standing at the counter plugging in his Fitbit. The other episode occurred at work while he was doing some paperwork. He describes no prodrome whatsoever no palpitation or sense of impending syncope. No warmth nausea diaphoresis and no apparent trigger.He had several other episodes of syncope in the remote past. Those also appear to be abrupt in onset. He literally had no warning whatsoever and felt like a stone . Because of this I am most suspicious of sinus node arrest.I explained to him that the likelihood of this being vasovagal is very low. He had read up on it and question whether or not a tilt table test was necessary. I advised him the clinical scenario is not consistent with vasovagal syncope. Is my actually more consistent with sinus node arrest. Additionally the symptoms do not sound like a ventricular tachyarrhythmia or supraventricular tachyarrhythmia. A recent echocardiogram performed at an outside hospital was basically normal. He arrives today having had a 30-day event monitor applied earlier in the day.I advised him that the best thing to do is stop lisinopril to prevent untoward hypotension. Stay on propranolol in hopes that this might exacerbated the phenomenon to provide a useful recording while he is on the 30-day event monitor. If in fact he demonstrates sinus node dysfunction and her sinus node arrest her next challenge will be to decide whether or not we simply stop beta-blockers or, alternatively, consider pacemaker implantation. Requested bridge only cover it if and when we have any useful data.We discussed other cardiac entities and why we are not suspicious of them. We discussed other testing modalities as well including invasive electrophysiologic study. I believe the probability of utility in the situation is low because he has a short CT interval and a narrow QRS complex. Because of this I doubt conduction system disease.I propose we get together in the next 5 or 6 weeks in follow-up of a 30-day event monitor. Obviously findings are yielded in the interim we will take action sooner. He will contact us if he has an episode or any useful information becomes available. -[facility]Tiffanie Mclain DO Work Phone: 06-16-2021 History of Present illness Narrative Patient is seen in consultation at the request of his primary care physician for syncope. He is an individual who describes 2 episodes of syncope in the last month. One episode occurred after coming up a flight of stairs walking across the kitchen is standing at the counter plugging in his Fitbit. The other episode occurred at work while he was doing some paperwork. He describes no prodrome whatsoever no palpitation or sense of impending syncope. No warmth nausea diaphoresis and no apparent trigger.He had several other episodes of syncope in the remote past. Those also appear to be abrupt in onset. He literally had no warning whatsoever and felt like a stone . Because of this I am most suspicious of sinus node arrest.I explained to him that the likelihood of this being vasovagal is very low. He had read up on it and question whether or not a tilt table test was necessary. I advised him the clinical scenario is not consistent with vasovagal syncope. Is my actually more consistent with sinus node arrest. Additionally the symptoms do not sound like a ventricular tachyarrhythmia or supraventricular tachyarrhythmia. A recent echocardiogram performed at an outside hospital was basically normal. He arrives today having had a 30-day event monitor applied earlier in the day.I advised him that the best thing to do is stop lisinopril to prevent untoward hypotension. Stay on propranolol in hopes that this might exacerbated the phenomenon to provide a useful recording while he is on the 30-day event monitor. If in fact he demonstrates sinus node dysfunction and her sinus node arrest her next challenge will be to decide whether or not we simply stop beta-blockers or, alternatively, consider pacemaker implantation. Requested bridge only cover it if and when we have any useful data.We discussed other cardiac entities and why we are not suspicious of them. We discussed other testing modalities as well including invasive electrophysiologic study. I believe the probability of utility in the situation is low because he has a short CT interval and a narrow QRS complex. Because of this I doubt conduction system disease.I propose we get together in the next 5 or 6 weeks in follow-up of a 30-day event monitor. Obviously findings are yielded in the interim we will take action sooner. He will contact us if he has an episode or any useful information becomes available. -[facility] [address] DO Work Phone: Chief complaint Narrative - Reported DARIUSZ NAJERA is being seen for a consultation for syncope. MP-[facility] [address] DO Work Phone: Evaluation note Diagnosis Gallbladder polyp- Primary Cholesterolosis of gallbladder History of hypertension Personal history of other diseases of circulatory system Preop examination- Primary Unspecified pre-operative examination Hypertension, unspecified type [facility] Preop examination- Primary Unspecified pre-operative examination Hypertension, unspecified type Preop examination Unspecified pre-operative examination Hypertension, unspecified type [facility] Status post laparoscopic cholecystectomy- Primary Other postprocedural status Gallbladder polyp Cholesterolosis of gallbladder [facility] Cough, unspecified type- Primary Abnormal chest CT Nonspecific (abnormal) findings on radiological and other examination of other intrathoracic organs Chest pain, unspecified type documented in this encounter [facility]* Diagnosis Gastroesophageal reflux disease without esophagitis- Primary Esophageal reflux documented in this encounter [facility]* Diagnosis Hemoptysis- Primary Subacute cough Abnormal chest CT Nonspecific (abnormal) findings on radiological and other examination of other intrathoracic organs Abnormal chest CT Nonspecific (abnormal) findings on radiological and other examination of other intrathoracic organs documented in this encounter [facility]* Diagnosis Abnormal chest CT- Primary Nonspecific (abnormal) findings on radiological and other examination of other intrathoracic organs Hemoptysis documented in this encounter [facility]* Diagnosis Lung nodule, multiple- Primary documented in this encounter [facility] note* Diagnosis Subacute cough- Primary Abnormal chest CT Nonspecific (abnormal) findings on radiological and other examination of other intrathoracic organs documented in this encounter [facility]* Diagnosis COVID-19- Primary Sore throat Acute pharyngitis documented in this encounter [facility]* Diagnosis Onset Date Resolution Status Admit Date Acute lower respiratory infection acute April 14 9:06am [facility] Work Phone: Evaluation note* Diagnosis Abnormal chest CT- Primary Nonspecific (abnormal) findings on radiological and other examination of other intrathoracic organs Hemoptysis documented in this encounter [facility] Diagnosis Benign essential hypertension- Primary Essential hypertension, benign BMI 29.0-29.9,adult documented in this encounter [facility] Work Phone: History of Present illness NarrativePatient returns in follow-up of problems as noted. He feels dramatically better after stopping lisinopril. Unfortunately his blood pressure is elevated because of this I recommend he stay on propranolol but start taking a diuretic in an effort to achieve better blood pressure control. Advised him and his that it is unknown as to whether he will respond favorably to this and that if he were to have orthostatic symptoms he should call and we probably would reduce the dose by 50%. Otherwise he is instructed to take the medicine as is and we will do a blood pressure check in 2 weeks and we will probably plan to see him in the next 3 to 6 months.-[facility] Fengguo DO Work Phone: History of Present illness NarrativePatient returns in follow-up of hypertension management. He is done relatively well on propranolol and triamterene with hydrochlorothiazide. Blood pressure still borderline and I suggested he might actually consider increasing propranolol 220 mg a day not only for improved blood pressure control but also improve migraine headache control. He will consider the matter but for the time being blood pressure control does appear to be adequate because of this we make no other change- [facility] Fengguo DO Work Phone: History of Present illness NarrativePatient returns in follow-up of problems as noted. In the interim he is done well. He has been exercising and dieting and lost weight. Blood pressure control has improved. Advised him that continued weight loss and exercise may lower his blood pressure to the point where medication may have to be reduced. We would probably recommend a reduction or cessation of Dyazide therapy if and/or when blood pressure becomes lower. Propranolol appears to be beneficial at preventing migraine headaches. He also may have a benefit if in fact there is an element of vasovagal syncope. For now, though, we willcontinue as is. He was educated regarding symptoms to watch for and encouraged to call if they arise.[facility] Fengguo DO Work Phone: InstructionsNot on filedocumented in this encounter [facility] SystemInstructionsNot on filedocumented in this encounter [facility] SystemReason for referral (narrative)* Consultation (Routine) - Pending Review Specialty Diagnoses / Procedures Referred By Nessa t Referred To Contact Pulmonary Disease / Pulmonology Diagnoses Subacute cough Abnormal chest CT Procedures CT OFFICE/OUTPATIENT [facility] 60 MINUTES Mariaa Collado MD [address] [place] [address] Alan, Marbella Mackenzie DO [address] [place] [address] Referral ID Status Reason Start Date Expiration Date Visits Requested Visits Authorized [id number] Pending Review Specialty Services Required 12/07/2023 06/04/2024 1 1 [facility] Healthcare Summary Purpose Family History No Family History Records FoundUnknown Family Member Name Dates Details Family history of hypertensi on: Father(V17.49, Z82.49) Status:Active Family history of lymphoma: Mother(V16.7, Z80.7) Status:Active H/O mastectomy: Mother(V45.7 1, Z90.10) Status:Active Unknown Family Member Name Dates Details Family history of hypertensi on: Father(V17.49, Z82.49) Status:Active Family history of lymphoma: Mother(V16.7, Z80.7) Status:Active H/O mastectomy: Mother(V45.7 1, Z90.10) Status:Active Unknown Family Member Name Dates Details Family history of hypertensi on: Father(V17.49, Z82.49) Status:Active Family history of lymphoma: Mother(V16.7, Z80.7) Status:Active H/O mastectomy: Mother(V45.7 1, Z90.10) Status:Active Unknown Family Member Name Dates Details Family history of hypertensi on: Father(V17.49, Z82.49) Status:Active Family history of lymphoma: Mother(V16.7, Z80.7) Status:Active H/O mastectomy: Mother(V45.7 1, Z90.10) Status:Active Unknown Family Member Name Dates Details Family history of hypertensi on: Father(V17.49, Z82.49) Status:Active Family history of lymphoma: Mother(V16.7, Z80.7) Status:Active H/O mastectomy: Mother(V45.7 1, Z90.10) Status:Active Unknown Family Member Name Dates Details Family history of hypertensi on: Father(V17.49, Z82.49) Status:Active Family history of lymphoma: Mother(V16.7, Z80.7) Status:Active H/O mastectomy: Mother(V45.7 1, Z90.10) Status:Active Family history of malignant neoplasm of stomach: Father(V16.0, Z80.0) Status:Active Unknown Family Member Name Dates Details Family history of hypertensi on: Father(V17.49, Z82.49) Status:Active Family history of lymphoma: Mother(V16.7, Z80.7) Status:Active H/O mastectomy: Mother(V45.7 1, Z90.10) Status:Active Family history of malignant neoplasm of stomach: Father(V16.0, Z80.0) Status:Active Relationship Condition Age at Onset Recorded Date/T dao father Unknown Malignant neoplasm Unknown mother Malignant neoplasm Unknown Advance Directives No Advanced Directives Records Found Advance Directive Response Recorded Date/ Time Advance Directives No March 9:16am Chief Complaint DARIUSZ NAJERA is being seen for a 5 week follow-up of.DARIUSZ NAJERA is being seen for a 5 week follow-up of.DARIUSZ NAJERA is being seen for hypertension.DARIUSZ NAJERA is being seen for hypertension.DARIUSZ NAJERA is being seen for an annual follow-up of.DARIUSZ NAJERA is being seen for an annual follow-up of. Reason for Referral Specialty Diagnoses / Procedures Referred By Nessa peacock Referred To Contact Diagnoses Gallbladder polyp Procedures Unlisted Procedure / Surgery Velma Rosario DO [address] [place] [address] Referral ID Status Reason Start Date Expiration Date V isits Requested Visits Authorized [id number] Pending Review 06/09/2023 06/08/2024 1 1 Specialty Diagnoses / Procedures Referred By Nessa peacock Referred To Contact Diagnoses Preop examination Hypertension, unspecified type Procedures ECG 12 lead Zhane Bates MD [address] [place] [address] Referral ID Status Reason Start Date Expiration Date V isits Requested Visits Authorized [id number] Pending Review 06/09/2023 06/08/2024 1 1 Specialty Diagnoses / Procedures Referred By Contac t Referred To Contact Radiology Diagnoses Lung nodule, multiple Procedures CT chest wo IV contrast Mariaa Collado MD [address] [place] [address] Referral ID Status Reason Start Date Expiration Date V isits Requested Visits Authorized [id number] Pending Review 12/01/2023 05/29/2024 1 1 Chief Complaint and Reason for Visit Chief Complaint Admit Date hemoptysis March 28, 2024 8:00am Congestion April 14, 2024 9: 06am Reason for Visit Admit Date Acute lower respiratory infection Apruar y 2024 9:06am Additional Source Comments (unrecognized sect ion and content) No Status Records FoundNo Status Records FoundNo Status Records FoundNo Status Records FoundNo Status Records FoundNo Status Records FoundNo Status Records Found INFORMATION SOURCE (unrecogn ized section and content) DATE CREATED AUTHOR 07/12/2021 [facility] DATE CREATED AUTHOR AUTHOR'S ORGANIZ ATION 11/07/2022 [employer] DATE CREATED AUTHOR AUTHOR'S ORGANIZ ATION 02/17/2024 [facility] DATE CREATED AUTHOR AUTHOR'S ORGANIZ ATION 03/10/2024 [facility] DATE CREATED AUTHOR AUTHOR'S ORGANIZ ATION 04/26/2024 [facility] DATE CREATED AUTHOR AUTHOR'S ORGANIZ ATION 04/30/2024 [facility] DATE CREATED AUTHOR AUTHOR'S ORGANIZ ATION 05/02/2024 [facility] Reason for Visit (unrecogniz ed section and content) Reason Onset Date Comments Abdominal Pain 05/17/2023 Reason Comments Cholelithiasis GALLBLADDER POLYP, R EFERRED BY EMMA SCANLON NP Specialty Diagnoses / Procedures Referred By Nessa peacock Referred To Contact General Surgery Diagnoses Gallbladder polyp Procedures CT OFFICE OUTPATIENT VISIT 60-74 MINS HIGH MDM AMB REFERRAL TO GENERAL SURGERY Emma Scanlon, 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 [address] [place] [address] Velma Rosario, DO [address] [place] [address] Referral ID Status Reason Start Date Expiration Date Visits Re quested Visits Authorized [id number] Closed 05/25/2023 11/21/2023 1 1 Reason Comments Post-op Post op davinci chol ecystectomy performed 06/15/23 at [facility] Reason Comments Breathing Problem Patient presents tod ay for pain in right chest. Patient states that he has scarring in his right lung as shown on the CT Scan. Patient is wanting to get tessalon for the cough to get him through until his appointment with pulmonology on Feb 24. Chills Patient states that they have been ongoing for 3 weeks now and he is only cold along his chest, his legs and arms are fine. Reason Comments Cough Consultation Abnormal CT Chest Consultation Specialty Diagnoses / Procedures Referred By Nessa peacock Referred To Contact Pulmonary Disease / Pulmonology Diagnoses Subacute cough Abnormal chest CT Procedures CT OFFICE/OUTPATIENT [facility] 60 MINUTES Mariaa Collado MD [address] [place] [address] Phone: tel: fax: Marbella Phillips, DO [address] [place] [address] Phone: tel: fax: Referral ID Status Reason Start Date Expiration Date V isits Requested Visits Authorized [id number] Closed Specialty Services Required 12/07/2023 06/04/2024 [address] chest 1 month follow up wi th CT chest Reason Comments Sore Throat Reason Comments Abnormal CT Chest 1 [address] up po [address] bronchoscopy Reason Comments Follow-up Annual Exam Care Teams (unrecognized sec tion and content) Brand Representative Relationship Specialty Start Date End Date Rahel Heredia NP [address] [id number] PCP - [place] [employer] 11/10/20 Mariaa Collado MD [address] [place] [address] PCP - General Family Medicine 08/18/22 Emma Scanlon NP [address] [place] [address] Nurse Practitioner Family Medicine 05/10/23 Brand Representative Relationship Specialty [place] [address] [place] [address]. [place] [address] [facility] 11/10/20 Mariaa Collado MD [address] [place] [address] PCP - General Family Medicine 08/18/22 Emma Scanlon NP [address] [facility] [place] [address] Nurse Practitioner Family Medicine 05/10/23 Brand Representative Relationship Specialty Start Date End Date Shellie Hammond, 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 [address] [facility] [place] [address] [place] [address] PCP - General Family Medicine 09/09/18 Brand Representative Relationship Specialty Start Date End Date Emma Scanlon, 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 [address] [facility] [place] [address] PCP - General Nurse Practitioner 06/10/23 Brand Representative Relationship Specialty Start Date End Date Emma Scanlon, 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 [address] [facility] [place] [address] PCP - General Nurse Practitioner 06/10/23 Brand Representative Relationship Specialty Start Date End Date Mariaa Collado MD [address] [place] [address] PCP - General Family Medicine 08/18/22 Lizz Hampton NP [address] [place] [address] PCP - [place] [employer] 11/11/23 Emma Scanlon NP [address] [place] [address] Nurse Practitioner Family Medicine 05/10/23 Brand Representative Relationship Specialty Start Date End Date Mariaa Collado MD [address] [place] [address] PCP - General Family Medicine 08/18/22 Lizz Hampton NP [address] [place] [address] PCP - [place] [employer] 11/11/23 Emma Scanlon NP [address] [place] [address] Nurse Practitioner Family Medicine 05/10/23 Brand Representative Relationship Specialty Start Date End Date Mariaa Collado MD [address] [place] [address] PCP - General Family Medicine 08/18/22 Lizz Hampton NP [address] [place] [address] PCP - [place] [employer] 11/11/23 Emma Scanlon NP [address] [place] [address] Nurse Practitioner Family Medicine 05/10/23 Brand Representative Relationship Specialty Start Date End Date Mariaa Collado MD [address] [place] [address] PCP - General Family Medicine 08/18/22 Lizz Hampton NP [address] [place] [address] PCP - [place] [employer] 11/11/23 Emma Scanlon NP [address] [place] [address] Nurse Practitioner Family Medicine 05/10/23 Brand Representative Relationship Specialty Start Date End Date Mariaa Collado MD [address] [place] [address] PCP - General Family Medicine 08/18/22 Lizz Hampton NP [address] [place] [address] PCP - [place] [employer] 11/11/23 Emma Scanlon NP [address] [place] [address] Nurse Practitioner Family Medicine 05/10/23 Brand Representative Relationship Specialty Start Date End Date Mariaa Collado MD [address] [place] [address] PCP - General Family Medicine 08/18/22 Lizz Hampton NP [address] [place] [address] PCP - [place] [employer] 11/11/23 Emma Scanlon [employer] [address] [place] [address] Nurse Practitioner Family Medicine 05/10/23 Brand Representative Relationship Specialty Start Date End Date Mariaa Collado MD [address] [place] [address] PCP - General Family Medicine 08/18/22 Lizz Hampton [employer] [address] [place] [address] PCP - [place] [employer] 11/11/23 Emma Scanlon NP [address] [place] [address] Nurse Practitioner Family Medicine 05/10/23 Brand Representative Relationship Specialty Start Date End Date Mariaa Collado MD [address] [place] [address] PCP - General Family Medicine 08/18/22 Lizz Hampton [employer] [address] [place] [address] PCP - [place] [employer] 11/11/23 Emma Scanlon NP [address] [place] [address] Nurse Practitioner Family Medicine 05/10/23 Brand Representative Relationship Specialty Start Date End Date Mariaa Collado MD [address] [place] [address] PCP - General Family Medicine 08/18/22 Lizz Hampton NP [address] [place] [address] PCP - [place] [employer] 11/11/23 Emma Scanlon NP [address] [place] [address] Nurse Practitioner Family Medicine 05/10/23 Brand Representative Relationship Specialty Start Date End Date Mariaa Collado MD [address] [place] [address] PCP - General Family Medicine 08/18/22 Emma Scanlon NP [address] [place] [address] PCP - [place] [employer] 07/12/23 Emma Scanlon NP [address] [place] [address] Nurse Practitioner Family Medicine 05/10/23 Brand Representative Relationship Specialty Start Date End Date Mariaa Collado MD [address] [place] [address] PCP - General Family Medicine 08/18/22 Lizz Hampton NP [address] [place] [address] PCP - [place] [employer] 11/11/23 Emma Scanlon NP [address] [place] [address] Nurse Practitioner Family Medicine 05/10/23 Brand Representative Relationship Specialty Start Date End Date Mariaa Collado MD [address] [place] [address] PCP - General Family Medicine 08/18/22 Emma Scanlon, [employer] [address] [place] [address] PCP - [place] [employer] 07/12/23 Emma Scanlon NP [address] [place] [address] Nurse Practitioner Family Medicine 05/10/23 Brand Representative Relationship Specialty Start Date End Date Mariaa Collado MD [address] [place] [address] PCP - General Family Medicine 08/18/22 Lizz Hampton, [employer] [address] [place] [address] PCP - [place] [employer] 11/11/23 Emma Scanlon NP [address] [place] [address] Nurse Practitioner Family Medicine 05/10/23 Brand Representative Relationship Specialty Start Date End Date Mariaa Collado MD [address] [place] [address] PCP - General Family Medicine 08/18/22 Lizz Hampton, [employer] [address] [place] [address] PCP - [place] [employer] 11/11/23 Emma Scanlon NP [address] [place] [address] Nurse Practitioner Family Medicine 05/10/23 Brand Representative Relationship Specialty Start Date End Date Mariaa Collado MD [address] [place] [address] PCP - General Family Medicine 08/18/22 Lizz Hampton, [employer] [address] [place] [address] PCP - [place] [employer] 11/11/23 Emma Scanlon NP [address] [facility] [place] [address] Nurse Practitioner Family Medicine 05/10/23 Team Status: Active Member Role Status Dates Mariaa Collado MD Primary Care Provider Active Team Status: Inactive Member Role Status Dates Marbella Phillips DO Attending Provider Active Sta rt: March 28, 2024 End: March 28, 2024 Team Status: Inactive Member Role Status Dates Nery Leal APRN Attending Provider Active Start: April 14, 2024 End: April 14, 2024 Mariaa Collado MD Primary Care Provider Active Sta rt: April 14, 2024 End: April 14, 2024 Brand Representative Relationship Specialty Start Date End Date Mariaa Collado MD [address] [place] [address] PCP - General Family Medicine 08/18/22 Lizz Hampton NP [address] [place] [address] PCP - [facility] 11/11/23 Emma Scanlon NP [address] [place] [address] Nurse Practitioner Family Medicine 05/10/23 Brand Representative Relationship Specialty Start Date End Date Mariaa Collado MD [address] [facility] [place] [address] Referring Physician Family Medicine 05/01/24 Goals (unrecognized section and content) Goals may be documented in a n alternate section FOR RECORDS PERTAINING TO PATIENTS WHO ARE OR HAVE BEEN ENROLLED IN A CHEMICAL DEPENDENCY/SUBSTANCEABUSE PROGRAM, SOME INFORMATION MAY BE OMITTED. This clinical summary was aggregated from multiple sources. Caution should be exercised in using it in the provision of clinical care. This summary normalizes information from multiple sources, and as a consequence, information in this document may materially change the coding, format and clinical context of patient data. In addition, data may be omitted in some cases. CLINICAL DECISIONS SHOULD BE BASED ON THE PRIMARY CLINICAL RECORDS. [employer] [facility]. provides no warranty or guarantee of the accuracy or completeness of information in this document.
== END 2024-05-15 06:41 | disposition home or self-care (01) ==
LOC: MRI 06:40
PROVIDERS: PCP Family Medicine; Visit Provider Physician Assistant
DX: M54.2 Cervicalgia (principal); M54.12 Radiculopathy, cervical region; M43.10 Spondylolisthesis, site unspecified
CPT/HCPCS: 72141

== ENCOUNTER 2024-05-23 14:30 | Outpatient (OUT) | payer BC, SELFPAY ==
[2024-05-23 15:04] LABS: Basophils Absolute Auto 0.1 10^3/uL (0.0-0.1); Basophils Percent Auto 0.8 % (0.2-2.0); Eosinophils Absolute Auto 0.3 10^3/uL (0.0-0.7); Eosinophils Percent Auto 3.1 % (0.9-7.0); Hematocrit 45.1 % (42.0-54.0); Hemoglobin 15.2 g/dL (14.0-18.0); Immature Granulocytes Abs Auto 0.03 10^3/uL (0.00-0.03); Immature Granulocytes Pct Auto 0.3 % (0.0-0.5); Lymphocytes Absolute Auto 2.4 10^3/uL (1.2-3.8); Mean Corpuscular HGB Conc 33.7 g/dL (29.9-35.2); Mean Corpuscular Hemoglobin 29.8 pg (25.9-34.0); Mean Corpuscular Volume 88.4 fL (80.0-94.0); Mean Platelet Volume 11.2 fL (9.5-13.5); Monocytes Absolute Auto 0.7 10^3/uL (0.3-0.8); Monocytes Percent Auto 6.4 % (1.7-12.0); Neutrophils Percent Auto 66.4 % (43.0-75.0); Platelet Count 298 10^3/uL (150-450); Red Cell Distribution Width 13.3 % (11.0-15.0); White Blood Count 10.5 10^3/uL (4.0-11.0)
[2024-05-23 15:18] LABS: INR 0.98; Partial Thromboplastin Time 26.5 sec (22.3-36.2); Prothrombin Time 10.4 sec (9.0-11.6)
[2024-05-23 15:21] LABS: Anion Gap 11.3; BUN Creatinine Ratio 22.3; Calcium 9.2 mg/dL (8.5-10.1); Carbon Dioxide 31.7 mmol/L (21.0-32.0); Chloride 101 mmol/L (98-107); Estimated GFR (African America >60 (>=60 mL/min/1.73m^2); Estimated GFR (Non-African Ame 57 (>=60 mL/min/1.73m^2); Glucose 113 mg/dL (74-106); Sodium 140 mmol/L (136-145)
== END 2024-05-23 14:31 | disposition home or self-care (01) ==
LOC: LAB 14:31
PROVIDERS: PCP Family Medicine
DX: Z01.810 Encounter for preprocedural cardiovascular examination (principal); Z01.811 Encounter for preprocedural respiratory examination; Z01.818 Encounter for other preprocedural examination; M50.322 Other cervical disc degeneration at C5-C6 level; I10 Essential (primary) hypertension
CPT/HCPCS: 36415; 80048; 85025; 85610; 85730; 87081

== ENCOUNTER 2024-05-24 10:14 | Outpatient (OUT) | payer BC, SELFPAY ==
--- NOTE | 2024-05-24 10:16 | ECG_ITS ---
The [facility] Test Date: 2024-05-24 Pat Name: ANGELA LUGO Department: Room: - Gender: Male Front Desk Officer: : 1965 Requested By: [id number] Order Number: [id number] Reading MD: RENATA DEL CASTILLO Measurements Intervals [place] Rate: 74 P: 67 MS: 160 QRS: 58 QRSD: 85 T: 59 QT: 359 QTc: 399 Interpretive Statements SINUS RHYTHM ST ELEVATION, PROBABLY EARLY REPOLARIZATION [ST ELEVATION WITH NORMALLY INFLECTED T WAVE] Electronically Signed On 05-24-2024 20:27:04 EST by RENATA DEL CASTILLO
--- OUTSIDE RECORDS SUMMARY | 2024-05-24 10:36 | XMS_ITS | CCD ---
Author Organization [facility] CliniSyri Care Team Providers Care [place] [employer] Attendant Name Role Phone REQUEST, DR NONE LISTED Primary Care Unavaila daniela REID, DR CARI Beckwith Attending Unavailable KARLA, DR CARI Beckwith Admitting Unavailable KARLA, DR CARI Beckwith Consulting Unavailable TONY CHESTER Consulting Unavailable NIGHAT, OZ Attending Unavailable NIGHAT, OZ Admitting Unavailable REQUEST, NONE LISTED Primary Care Unavaila daniela CALL, DR ZHANE Danielle Consulting Unavailable HAY, DR GARCIA Consulting Unavailable SARAH GAN Consulting Unavailable NIGHAT, OZ Consulting Unavailable NICA SALAZAR Consulting Unavailable Gregg Sellers Consulting Unavailable Ena Us Consulting Unavailable Catarina Plascencia Unavailable Unavailable Unavailable Unavailable Unavailable Yan GUY, Rahel Addison Unavailable Mariaa Collado MD Primary Care Provider Emma Scanlon NP Unavailable Shellie Veliz Primary Care [facility] er Emma Florez Primary Care Provider Lizz Hampton NP Unavailable VELMA ROSARIO Attending Unavailable SHELLIE HAMMOND Referring Unavailable SHELLIE HAMMOND Primary Care Unavailable GRIS ANTHONY Attending Unavailable SHELLIE HAMMOND Referring Unavailable EMMA SCANLON Primary Care Unavailable SHELLIE HAMMOND Referring Unavailable SHELLIE HAMMOND Primary Care Unavailable EMMA SCANLON Referring Unavailable EMMA SCANLON Primary Care Unavailable EMMA SCANLON Referring Unavailable EMMA SCANLON Primary Care Unavailable SHELLIE HAMMOND Referring Unavailable SHELLIE HAMMOND Primary Care Unavailable ZHANE BATES Attending Unavailable ZHANE BATES Referring Unavailable SCANLON, EMMA R Primary Care Unavailable VELMA ROSARIO Referring Unavailable SCANLON, EMMA R Primary Care Unavailable MIRSVELMA Attending Unavailable DGILLIS, VELMA Bartlett Referring Unavailable SCANLON, EMMA R Primary Care Unavailable GRILLISVELMA Admitting Unavailable VELMA ROSARIO Attending Unavailable SHELLIE HAMMOND Primary Care Unavailable ALONDRA HODGE Attending Unavailable SCANLON, EMMA R Primary Care Unavailable HEAVEN, MARIAA Referring Unavailable SCANLON, EMMA R Primary Care Unavailable HEAVEN, MARIAA Referring Unavailable SCANLON, EMMA R Primary Care Unavailable HEAVEN, MARIAA Referring Unavailable SCANLON, EMMA R Primary Care Unavailable HEAVEN, MARIAA Referring Unavailable SCANLON, EMMA R Primary Care Unavailable HEAVEN, MARIAA Referring Unavailable SCANLON, EMMA R Primary Care Unavailable HEAVEN, MARIAA Referring Unavailable SCANLON, EMMA R Primary Care Unavailable Scanlon PULMONARY SPECIALIST, Emma R Unavailable Capo PULMONARY SPECIALIST, Emma R Unavailable Marbella Phillips DO Attending Provider SCANLON, EMMA R Attending Unavailable SCANLON, EMMA R Referring Unavailable HAMPTONLIZZ Attending Unavailab fany HAMPTON, LIZZ Ley Referring Unavailab LIZZ Trevizo Attending Unavailab le HEAVEN, MARIAA F Attending Unavailable HEAVEN, MARIAA F Referring Unavailable HEAVEN, MARIAA F Referring Unavailable HEAVEN, MARIAA F Referring Unavailable HEAVEN, MARIAA F Attending Unavailable MARBELLA PHILLIPS Attending Unavailable HEAVEN, MARIAA Lieberman Referring Unavailable MARBELLA PHILLIPS Referring Unavailable MARBELLA PHILLIPS Attending Unavailable MARBELLA PHILLIPS Attending Unavailable MARIA L ETIENNE Attending Unavailab MARBELLA Singer Attending Unavailable Mariaa Collado MD Unavailable [phone] YUKO REID Attending Unavailable CATARINA PLASCENCIA Primary Care Unavailable Marbella Phillips Admitting Unavailable Marbella Phillips Attending Unavailable Heaven GIBSON, Mariaa Lieberman Unavailable Medications Current Medications Medication Drug Class(es) Dates Sig (Normalized) Sig (Original) acetaminophen 325 mg / HYDROcodone bitartrate 5 mg oral tablet (2 sources) Opioid Agonist Start: 05-06-2024 take 1 tablet by mouth every four hours as needed HYDROcodone-aceta minophen (Ross) 5-325 MG tablet Take 1 tablet by mouth every 4 (four) hours if needed 05/06/2024 Active benzonatate 200 mg oral capsule (1 source) [...] Active doxycycline hyclate 100 mg oral capsule (6 sources) Tetracycline-class Drug Start: 04-14-2024 take 1 [...] Take 1 capsule by mouth. 0 Active Syxw-Dboaiipch-Uyz-Methyl Koffi (UKGG-ABNSY-LUHASTALT EX) (2 sources) apply 1 dose transdermal route once daily Pbyz-Zmkpvapem-Pzc-Methyl Koffi (SZNL-KZEOA-HQSCINYUV EX) Apply 1 patch topically 1 (one) time each day at the same time Active lisinopril 5 mg oral tablet (3 sources) Angiotensin Converting Enzyme Inhibitor Sta rt: 1 lisinopril 5 MG tablet 1 (one) time each day at the same time. 0 07/23/2020 Active methocarbamol 500 mg oral tablet (2 sources) Muscle Relaxant Sta rt: 5 take 1 tablet by mouth every eight hours as needed methocarbamol (Robaxin) 500 MG tablet Take 500 mg by mouth every 8 (eight) hours if needed 05/06/2024 Active jv-rpo-J-zpujojyp-xqzoiy-ra3 24 (AIRBORNE, LYSINE HCL,) 1,000-50 mg tablet, effervescent (2 sources) jr-kte-G-glutami n-lysine-hb 124 (AIRBORNE, LYSINE HCL,) 1,000-50 mg tablet, effervescent Take by mouth as needed. 0 Active Nirmatrelvir&Ritonavir 300/100 (Paxlovid, 300/100,) 20 x 150 MG & 10 x 100MG tablet therapy pack (8 sources) Sta rt: 4 take 1 tablet by mouth in the morning Nirmatrelvir&Ritonavir 300/100 (Paxlovid, 300/100,) 20 x 150 MG & 10 x 100MG tablet therapy pack Indications: COVID-19 Take 1 Dose by mouth in the morning and 1 Dose before bedtime. 1 each 04/03/2024 Active omeprazole 40 mg delayed release oral capsule (20 sources) Proton Pump Inhibitor Sta rt: 4 End : 5 take 1 capsule by mouth before mealtime omeprazole (PriLOSEC) [address] capsule Indications: Gastroesophageal reflux disease without esophagitis Take 1 capsule (40 mg) by mouth in the morning. Take before meals. Do not crush or chew.. 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 30 capsule 11 11/24/2023 Active Start: 11-24-2023 End: 11-23-2024 take 1 capsule by mouth once daily propranolol LA (Inderal LA) 60 mg 24 hr capsule Indications: Benign essential hypertension Take 1 capsule (60 mg) by mouth once daily. 90 capsule 3 11/24/2023 11/23/2024 Active Start: 09-02-2022 End: 09-02-2023 take 1 [...] Start: 12-23-2020 take 1 capsule by mo uth once daily Propranolol HCl ER 60 MG [...] 01-31-2024 Episodic Other aftercare (1 source) Other m[facility] (current) drug therapy; Translations: [OTH MEDICAL CODER CURRENT DRUG THERAPY] Onset: 07-10-2021 Episodic Other [...] Test Name Value Interpretation Reference Range Facility ALL CBC WITH AUTO DIFFon BASOPHILS ABSOLUTE AUTO 0.1 [facility] Basophils/100 WBC (Bld) 0.8 % 0.2 - 2.0 % [facility] Eosinophils/100 WBC (Bld) 3.1 % 0.9 - 7.0 % [facility] Erythrocyte distribution width (RBC) [Ratio] 13.3 % 11.0 - 15.0 % [facility] Hematocrit (Bld) [Volume fraction] 45.1 % 42.0 - 54.0 % [facility] Hemoglobin (Bld) [Mass/Vol] 15.2 g/dL 14.0 - 18.0 g/dL [facility] IMMATURE GRANULOCYTES ABS AUTO 0.03 [facility] Immature granulocytes/100 WBC (Bld) 0.3 % 0.0 - 0.5 % [facility] Interpretation and review of laboratory results [facility]normal [facility] LYMPHOCYTES ABSOLUTE AUTO 2.4 [facility] Lymphocytes/100 WBC (Bld) 23 % 20.5 - 60.0 % [facility] MCH (RBC) [Entitic mass] 29.8 pg 25.9 - 34.0 pg [facility] MCHC (RBC) [Mass/Vol] 33.7 g/dL 29.9 - 35.2 g/dL [facility] MCV (RBC) [Entitic vol] 88.4 fL 80.0 - 94.0 fL [facility] MONOCYTES ABSOLUTE AUTO 0.7 [facility] Monocytes/100 WBC (Bld) 6.4 % 1.7 - 12.0 % [facility] NEUTROPHILS ABSOLUTE AUTO 7 High [facility] Neutrophils/100 WBC (Bld) 66.4 % 43.0 - 75.0 % [facility] Platelet mean volume (Bld) [Entitic vol] 11.2 fL 9.5 - 13.5 fL [facility] TB EO # 0.3 [facility] PLT 298 [facility] RBC 5.1 [facility] WBC 10.5 [facility] MR Cervical spine WO contras ton 05-15-[address] [address] Magnetic Resonance Report Signed Patient: DARIUSZ NAJERA MR#: [id number] : 1965 Acct:[id number] Age/Sex: 58 / M ADM Date: 05/15/24 Loc: MRI Attending Dr: Hannah REYES Ordering Physician: Hannah Montesinos Date of Service: 05/15/24 Procedure(s): MR cervical spine wo con Accession Number(s): [id number] cc: MARIAA COLLADO ; Hannah Montesinos [place] [id number] Patient Name: DARIUSZ NAJERA MRN: [facility]:[id number] date: 1965 Sex: M Assigned Patient Location: MRI Current Patient Location: MRI Accession/Order Number: [id number] Exam Date: 05/15/2024 06:57 Report Date: 05/15/2024 08:03 At the request of: HANNAH MONTESINOS Procedure: MR cervical spine wo con MR cervical spine wo con, 05/15/2024 6:57 AM EST INDICATION: M54.2 Cervical pain M54.12 radiculopathy COMPARISON: Prior x-ray of cervical spine dated 05/08/[address] of the neck dated 07/07/2021 TECHNIQUE: Multiplanar, multisequence MRI images of cervical spine were obtained without contrast. FINDINGS: There is loss of normal physiologic cervical lordosis. The vertebral heights are relatively preserved. The cervicomedullary junction is unremarkable. No definite signal abnormality within the spinal cord is noted. There are moderate disc osteophyte complex associated with uncovertebral joint arthrosis from C3 to T1 contributing to neuroforaminal and canal stenosis. At the level of C2-C3, there is no neuroforaminal narrowing or canal stenosis. At the level of C3-C4, there is no neuroforaminal narrowing and no canal stenosis. At the level of C4-C5, there is superimposed central extrusion with superior migration with mild bilateral neuroforaminal narrowing and moderate to severe central canal stenosis. At the level of C5-C6, there is superimposed disc bulge with moderate bilateral neuroforaminal narrowing and moderate to severe central canal stenosis. At the level of C6-C7, there is mild right and moderate to severe left neuroforaminal narrowing and moderate canal stenosis. Level of C7-T1 is unremarkable. No definite muscular or ligamentous injury is noted. MR/MR cervical spine wo con IMPRESSION: Moderate degenerative changes of the cervical spine in particular at C4-C5, C5-C6 and C6-C7. Electronically authenticated by: BE ROCHA Date: 05/15/2024 08:03 Dictated By: Be Rocha M.D. Signed By: 05/15/24805 DD/ 2 TD/TT: Carburetor Specialist: [facility] Radiology, Radiologi MD [facility] - 05/15/2024 [place] [address] Magnetic Resonance Report Signed Patient: DARIUSZ NAJERA MR#: [id number] : 1965 Acct:[id number] Age/Sex: 58 / M ADM Date: 05/15/24 Loc: MRI Attending Dr: Hannah REYES Ordering Physician: Hannah Montesinos Date of Service: 05/15/24 Procedure(s): MR cervical spine wo con Accession Number(s): [id number] cc: MARIAA COLLADO ; Hannah Montesinos [place] [address] Patient Name: DARIUSZ NAJERA MRN: [facility]:[id number] date: 1965 Sex: M Assigned Patient Location: MRI Current Patient Location: MRI Accession/Order Number: [id number] Exam Date: 05/15/2024 06:57 Report Date: 05/15/2024 08:03 At the request of: HANNAH MONTESINOS Procedure: MR cervical spine wo con MR cervical spine wo con, 05/15/2024 6:57 AM EST INDICATION: M54.2 Cervical pain M54.12 radiculopathy COMPARISON: Prior x-ray of cervical spine dated 05/08/[address] of the neck dated 07/07/2021 TECHNIQUE: Multiplanar, multisequence MRI images of cervical spine were obtained without contrast. FINDINGS: There is loss of normal physiologic cervical lordosis. The vertebral heights are relatively preserved. The cervicomedullary junction is unremarkable. No definite signal abnormality within the spinal cord is noted. There are moderate disc osteophyte complex associated with uncovertebral joint arthrosis from C3 to T1 contributing to neuroforaminal and canal stenosis. At the level of C2-C3, there is no neuroforaminal narrowing or canal stenosis. At the level of C3-C4, there is no neuroforaminal narrowing and no canal stenosis. At the level of C4-C5, there is superimposed central extrusion with superior migration with mild bilateral neuroforaminal narrowing and moderate to severe central canal stenosis. At the level of C5-C6, there is superimposed disc bulge with moderate bilateral neuroforaminal narrowing and moderate to severe central canal stenosis. At the level of C6-C7, there is mild right and moderate to severe left neuroforaminal narrowing and moderate canal stenosis. Level of C7-T1 is unremarkable. No definite muscular or ligamentous injury is noted. MR/MR cervical spine wo con IMPRESSION: Moderate degenerative changes of the cervical spine in particular at C4-C5, C5-C6 and C6-C7. Electronically authenticated by: BE ROCHA Date: 05/15/2024 08:03 Dictated By: Be Rocha M.D. Signed By: 05/15/24 0806 DD/ 0803 TD/TT: Carburetor Specialist: [facility] [employer] Radiology Study observation (narrative) [facility] [employer] MR Cervical spine WO contras tOrdered By: Radiologist Radiology on 05-15-2024 [facility] [employer] Work Phone: FUNGUS (MYCOLOGY) CULTUREon 04-27-2024 [facility] NOTE Final report [facility] are OTHER-RIGHT LOWER LO BE T[facility]X [facility] FUNGUS (MYCOLOGY) RESULT 1on 04-27-2024 [facility] [place] NOTE Comment [facility] e Comment on above: No yeast or mold iso lated after 4 weeks. Performed at: [facility] [id number] Bundle Breaker: Tigre Baker PhD, Phone: [phone] [facility] [facility] NOTE Comment [facility] Comment on above: No yeast or mold iso lated after 4 weeks. Performed at: [facility] [address] [id number] Bundle Breaker: Tigre Baker PhD, Phone: [phone] No Panel Informationon 04-27 OTHER-RIGHT LOWER LO BE TBBX [facility] [place] NOTE Final report [facility] are [facility] MISC LABon 04-07-2024 [facility] Comment on above: Bronch Alveolar Lav RIGHT LOWER LOBE Lower Respiratory Culture report Result : Routine respiratory ofelia Performed at: [facility] [address] [id number] Bundle Breaker: Tigre Baker PhD, Phone: [phone] [facility] Test Name: LAB PATRICIA BRON CULTURE FROM RT LOW LOBE - BAL [facility] - Microbiology an d Antimicrobial susceptibilityon 04-03-2024 SARS-CoV-2 (COVID-19) RNA MANDI+probe Ql (Unsp spec) Positive [facility] S. pyogenes Ag Ql (Throat) Negative Negative, None Detected [facility] No Panel Informationon 04-03 FLU A Negative [facility] FLU B Negative [facility] Interpretation and review of laboratory results Abnormal [facility] Interpretation and review of laboratory results Normal [facility] AFB SMEAR RESULTon [facility] [facility] NOTE Negative [facility] Comment on above: Performed at: - [facility] [address] [id number] Bundle Breaker: Tigre Baker PhD, Phone: [phone] AFB SPECIMEN PROCESSINGon [facility] NOTE Concentration [facility] Health care OTHER-RIGHT LOWER LO BE TBBX [facility] [facility] OTHER-RIGHT LOWER LO BE TBBX [place] FUNGAL SMEARon 03-30-2024 [facility] [facility] NOTE Not performed [facility] Health care [facility] FUNGAL SMEAR No Yeast Like Elemen ts Seen [facility] Healthcare FUNGAL SMEAR No Fungal Like Eleme nts Seen [facility] Healthcare [facility] No Panel Informationon 03-30 [facility] [facility] NOTE Concentration [facility] Health care [facility] FUNGAL SMEARon 03-29-2024 FUNGAL SMEAR No Fungal Like Eleme nts Seen [facility] Healthcare FUNGAL SMEAR No Yeast Like Elemen ts Seen [facility] Healthcare [facility] AFB Specimen Processingon AFB Specimen Processing Concentration Negative Performed at: [place] [address] Bundle Breaker: Tigre Baker PhD, Phone: [phone] Negative No acid fast bacilli isolated after 6 weeks. Performed at: [address] [id number] Bundle Breaker: Tigre Baker PhD, Phone: [phone] PERFORMED BY: [place] [address] PATHOLOGIST LINK TRAINER TEACHER MAGGIE MANNING M.D. Normal [facility] Comment on above: Performed By: #### C UBR, MISC LAB, FLCCDIFF, FS #### [address] #### MYC CULT, AFBCS RES1 #### [facility] , AFB Specimen Processing OTHER-RIGHT LOWER LOBE TBBX Concentration OTHER-RIGHT LOWER LOBE TBBX Negative Performed at: [address] [id number] Bundle Breaker: Tigre Baker PhD, Phone: [phone] OTHER-RIGHT LOWER LOBE TBBX Negative No acid fast bacilli isolated after 6 weeks. Performed at: [address] [id number] Bundle Breaker: Tigre Baker PhD, Phone: [phone] PERFORMED BY: [place] [address] PATHOLOGIST LINK TRAINER TEACHER MAGGIE MANNING M.D. Normal [facility] Comment on above: Performed By: #### C UBR, MISC LAB, FLCCDIFF, FS #### [facility] [address] [place] [address] [place] #### MYC CULT, AFBCS RES1 #### [facility] , Acid fast bacillus (AFB) cul tureOrdered By: Marbella Phillips on 03-28-2024 Mycobacterium sp identified Org specific cx Nom (Unsp spec) Acid fast bacillus (AFB) culture [facility] Acid fast bacillus (AFB) sme arOrdered By: Marbella Phillips on 03-28-2024 Microscopic observation Smear Nom (Unsp spec) Acid fast bacillus (AFB) smear [facility] Bacteria identification in b ronchial specimen by aerobe cultureOrdered By: Marbella Phillips on 03-28-2024 Bacteria identified Aer cx Nom (Bronch spec) Bacteria identification in bronchial specimen by aerobe culture [facility] Body fluid differential cell countOrdered By: Marbella Phillips on 03-28-2024 Differential panel (Body fld) Body fluid differential cell count [facility] Comment on above: The reference interv al and other method performance specifications have not been established for this body fluid. The test result must be integrated into the clinical context for interpretation. Body fluid total nucleated c ells countOrdered By: Marbella Phillips on 03-28-2024 Body Fluid Total Nucleated Cells 1348 /uL [facility] Comment on above: Body fluid is [...] 03-28-2024 Bronch Culture Light Normal Respira tory Oeflia 2 Days PERFORMED BY: [place] [address] PATHOLOGIST LINK TRAINER TEACHER MAGGIE MANNING M.D. Normal [facility] Comment on above: Performed By: #### C UBR, MISC LAB, FLCCDIFF, FS #### [place] [address] [place] #### MYC CULT, AFBCS RES1 #### [facility] , Bronch Culture No Growth 2 Days PERFORMED BY: [place] [address] PATHOLOGIST LINK TRAINER TEACHER MAGGIE MANNING M.D. Normal [facility] Comment on above: Performed By: #### C UBR, MISC LAB, FLCCDIFF, FS #### [address] #### MYC CULT, AFBCS RES1 #### [facility] , Bronch Culture Respiratory Results PENDING SAMPLE SENT TO LAB PATRIC[facility] PRIOR TO BEING SET UP IN HOUSE. ADDED ON TEST TO LAB [facility] ORDER. RESULTING IN A MISC. TEST. @04/07/24 NICO PERFORMED BY: [place] [address] PATHOLOGIST LINK TRAINER TEACHER MAGGIE MANNING M.D. Normal [facility] Comment on above: Performed By: #### C UBR, MISC LAB, FLCCDIFF, FS #### [address] #### MYC CULT, AFBCS RES1 #### [facility] , CELL COUNT/DIFF,FLUIDon 12-1 APPEARANCE, FLUID Turbid [facility] Comment on above: The reference interv al and other method performance specifications have not been established for this body fluid. The test result must be integrated into the clinical context for interpretation. COLOR, FLUID Straw [facility] are Comment on above: The reference interv al and other method performance specifications have not been established for this body fluid. The test result must be integrated into the clinical context for interpretation. COLOR, FLUID SUPERNATANT Straw [facility] Comment on above: The reference interv al and other method performance specifications have not been established for this body fluid. The test result must be integrated into the clinical context for interpretation. EOSINOPHILS, FLUID 0 /100{WBC} 0 - 3 /100{WBC} [facility] LYMPHOCYTES, FLUID 1 % [facility] Comment on above: The reference [...] is recommended.@Avg 68,62 = 65 03/28/24 1320 [id number] The reference interval and other method performance [...] (Name in the Site) Body Fluid Site: [facility] Cell Count/Diff, Fluidon Appearance, Fluid Turbid Normal [facility] Comment on above: Order Comment: Body Fluid Source: Other (Name in the Site) Body Fluid Site: [facility] Result Comment: The reference interval and other method performance specifications have not been established for this body fluid. The test result must be integrated into the clinical context for interpretation. Performed By: #### C UBR, MISC LAB, FLCCDIFF, FS #### [facility] [address] [place] [address] #### MYC CULT, AFBCS RES1 #### [facility] , Color, Fluid Straw Normal [facility] Comment on above: Order Comment: Body Fluid Source: Other (Name in the Site) Body Fluid Site: [facility] Result Comment: The reference interval and other method performance specifications have not been established for this body fluid. The test result must be integrated into the clinical context for interpretation. Performed By: #### C UBR, MISC LAB, FLCCDIFF, FS #### [address] #### MYC CULT, AFBCS RES1 #### [facility] , Color, Fluid Supernatant Straw Normal [facility] Comment on above: Order Comment: Body Fluid Source: Other (Name in the Site) Body Fluid Site: [facility] Result Comment: The reference interval and other method performance specifications have not been established for this body fluid. The test result must be integrated into the clinical context for interpretation. Performed By: #### C UBR, MISC LAB, FLCCDIFF, FS #### [address] #### MYC CULT, AFBCS RES1 #### [facility] , Eosinophils, Fluid 0 /100{WBC} Normal 0-[address] [facility] Comment on above: Order Comment: Body Fluid Source: Other (Name in the Site) Body Fluid Site: [facility] Result Comment: PERF ORMED BY: [place] [address] PATHOLOGIST LINK TRAINER TEACHER MAGGIE MANNING M.D. Performed By: #### C UBR, MISC LAB, FLCCDIFF, FS #### [address] #### MYC CULT, AFBCS RES1 #### [facility] , Lymphocytes, Fluid 1 % Normal [facility] Comment on above: Order Comment: Body Fluid Source: Other (Name in the Site) Body Fluid Site: [facility] Result Comment: The reference interval and other method performance specifications have not been established for this body fluid. The test result must be integrated into the clinical context for interpretation. Performed By: #### C UBR, MISC LAB, FLCCDIFF, FS #### [place] [address] [place] #### MYC CULT, AFBCS RES1 #### [facility] , Monocytes/Macrophag es, Fluid 8 % Normal [facility] Comment on above: Order Comment: Body Fluid Source: Other (Name in the Site) Body Fluid Site: RLL Result Comment: The reference interval and other method performance specifications have not been established for this body fluid. The test result must be integrated into the clinical context for interpretation. Performed By: #### C UBR, MISC LAB, FLCCDIFF, FS #### [address] #### MYC CULT, AFBCS RES1 #### [facility] , Neutrophil, Fluid 91 % Normal [facility] Comment on above: Order Comment: Body Fluid Source: Other (Name in the Site) Body Fluid Site: RLL Result Comment: The reference interval and other method performance specifications have not been established for this body fluid. The test result must be integrated into the clinical context for interpretation. Performed By: #### C UBR, MISC LAB, FLCCDIFF, FS #### [place] [address] [place] #### MYC CULT, AFBCS RES1 #### [facility] , RBC, Fluid 65 /uL Normal [facility] Comment on above: Order Comment: Body Fluid Source: Other (Name in the Site) Body Fluid Site: RLL Result Comment: Body fluid is partially clotted and/or cell clumps or debris are present. Fluid cell count and differential results may not be reliable. Clinical correlation is recommended.@Avg 68,62 = 65 03/28/24 1320 [id number] The reference interval and other method performance specifications have not been established for this body fluid. The test result must be integrated into the clinical context for interpretation. Performed By: #### C UBR, MISC LAB, FLCCDIFF, FS #### [place] [address] [place] #### MYC CULT, AFBCS RES1 #### [facility] , TNC, Body Fluid 1348 /uL Normal [facility] Comment on above: [...] C UBR, MISC LAB, FLCCDIFF, FS #### [address] #### MYC CULT, AFBCS RES1 #### [facility] , Color of Spun Body fluidOrde red By: Marbella Phillips on 03-28-2024 Color (Spun body fld) Color of Spun Body fluid [facility] Comment on above: The reference interv al and other method performance specifications have not been established for this body fluid. The test result must be integrated into the clinical context for interpretation. Determination of appearance of body fluidOrdered By: Marbella Phillips on 03-28-2024 Appearance (Body fld) Determination of appearance of body fluid [facility] Comment on above: The reference interv al and other method performance specifications have not been established for this body fluid. The test result must be integrated into the clinical context for interpretation. Evaluation of color of body fluidOrdered By: Marbella Phillips on 03-28-2024 Color (Body fld) Evaluation of color of body fluid [facility] Comment on above: The reference interv al and other method performance specifications have not been established for this body fluid. The test result must be integrated into the clinical context for interpretation. Fungal Smearon 03-28-2024 Fungal Smear Fungus Smear Results No Fungal Like Elements Seen No Yeast Like Elements Seen PERFORMED BY: [place] [address] PATHOLOGIST LINK TRAINER TEACHER MAGGIE MANNING M.D. Normal [facility] Comment on above: Performed By: #### C UBR, MISC LAB, FLCCDIFF, FS #### [place] [address] [place] #### MYC CULT, AFBCS RES1 #### [facility] , Fungal Smear Fungus Smear Results No Yeast Like Elements Seen No Fungal Like Elements Seen PERFORMED BY: [place] [address] PATHOLOGIST LINK TRAINER TEACHER MAGGIE MANNING M.D. Normal [facility] Comment on above: Performed By: #### C UBR, MISC LAB, FLCCDIFF, FS #### [place] [address] [place] #### MYC CULT, AFBCS RES1 #### [facility] , Fungal Smear PERFORMED BY: [place] [address] PATHOLOGIST LINK TRAINER TEACHER MAGGIE MANNING M.D. Normal [facility] Comment on above: Performed By: #### C UBR, MISC LAB, FLCCDIFF, FS #### [place] [address] [place] #### MYC CULT, AFBCS RES1 #### [facility] , Fungal smearOrdered By: Jeremy Phillips on 03-28-2024 Fungus identified Fungus stain Nom (Unsp spec) Fungal smear [facility] Fungus # 2 identified in Uns pecified specimen by CultureOrdered By: Marbella Phillips on 03-28-2024 Fungus identified # 2 Cx Nom (Unsp spec) Fungus # 2 identified in Unspecified specimen by Culture [facility] Fungus # 3 identified in Uns pecified specimen by CultureOrdered By: Marbella Phillips on 03-28-2024 Fungus identified # 3 Cx Nom (Unsp spec) Fungus # 3 identified in Unspecified specimen by Culture [facility] Fungus # 4 identified in Uns pecified specimen by CultureOrdered By: Marbella Phillips on 03-28-2024 Fungus identified # 4 Cx Nom (Unsp spec) Fungus # 4 identified in Unspecified specimen by Culture [facility] Fungus (Mycology) Cultureon 03-28-2024 Fungus (Mycology) Culture Final report Comment No yeast or mold isolated after 4 weeks. Performed at: [address] [id number] Bundle Breaker: Tigre Baker PhD, Phone: [phone] PERFORMED BY: [place] [address] PATHOLOGIST LINK TRAINER TEACHER MAGGIE MANNING M.D. Normal [facility] Comment on above: Performed By: #### C UBR, MISC LAB, FLCCDIFF, FS #### [address] #### MYC CULT, AFBCS RES1 #### [facility] , Fungus (Mycology) Culture OTHER-RIGHT LOWER LOBE TBBX Final report OTHER-RIGHT LOWER LOBE TBBX Comment No yeast or mold isolated after 4 weeks. Performed at: [address] [id number] Bundle Breaker: Tigre Baker PhD, Phone: [phone] PERFORMED BY: [place] [address] PATHOLOGIST LINK TRAINER TEACHER MAGGIE MANNING M.D. Normal [facility] Comment on above: Performed By: #### C UBR, MISC LAB, FLCCDIFF, FS #### [address] #### MYC CULT, AFBCS RES1 #### [facility] , [facility] 03-28-2024 L ------ Specimen: [id number] Received: 03/29/24 Status: FERCHO Manuel Num: [id number] Spec Type: Cytology Subm Dr: Marbella Phillips DO Tissues: A BRONWASH (RT WASH) B BAL (RLL) Procedures: HE/2, Gross/Micro L4, Cyto Prepstain/2, PAPSTN/2 Age/ Patient Sex Location Account Attending Physician Dariusz Najera 58/M [place] [id number] Marbella Phillips DO SPEC NUM: [id number] RECD: 03/29/24 STATUS: FERCHO PATRIA NUM: [id number] ADA: 03/28/[address]: Marbella Phillips DO ENTERED: 03/29/24 [facility] DR: SPEC TYPE: Cytology DEPT: LEDA ENTERED BY: [id number] RECV BY: [id number] ORDERED: HE/2, Gross/Micro L4, Cyto Prepstain/2, PAPSTN/2 [...] block preparations are prepared for microscopic examination. (ME/nh) Specimen: [id number] Received: 03/29/24 Status: FERCHO Manuel Num: [id number] Spec Type: Cytology Subm Dr: Marbella Phillips DO Tissues: A BRONWASH (RT WASH) B BAL (RLL) Procedures: HE/2, Gross/Micro L4, Cyto Prepstain/2, PAPSTN/2 Patient: Dariusz Najera [id number] (Continued) Specimen: [id number] Received: 03/29/24 (Continued) Gross Description (Continued) Signed (signature on file) Rosita Nicholson MD 04/01/24 1111 Specimen: [id number] Received: 03/29/24 Status: FERCHO Manuel Num: [id number] Spec Type: Cytology Subm Dr: Marbella Phillips DO Tissues: A BRONWASH (RT WASH) B BAL (RLL) Procedures: HE/2, Gross/Micro L4, Cyto Prepstain/2, PAPSTN/2 Patient: Dariusz Najera [id number] (Continued) Specimen: [id number] Received: 03/29/24 (Continued) Gross Description (Continued) B. (BAL RLL) Received fresh is 15 ml colorless opaque unfixed fluid for cytology said to have been obtained as RLL BAL. ThinPrep preparations are prepared for microscopic examination. (FL/nh) Microscopic Description Microscopic examinations are performed supporting the above interpretation CPT Codes 75266d2 79839 Specimen: [id number] Received: 03/29/24 Status: FERCHO Manuel Num: [id number] Spec Type: Cytology Subm Dr: Marbella Phillips DO Tissues: A BRONWASH (RT WASH) B BAL (RLL) Procedures: HE/2, Gross/Micro L4, Cyto Prepstain/2, PAPSTN/2 Patient: Dariusz Najera [id number] (Continued) Signed (signature on file) Rosita Nicholson MD 04/01/24 1111 Normal [facility] L ------ Specimen: [id number] Received: 03/29/24 Status: FERCHO Patria Num: [id number] Spec Type: Surgical Subm Dr: Marbella Phillips DO Tissues: A Lung - Transbroncial Biopsy ((3) RLL TBBX IN FORMALIN) B Lung - Transbroncial Biopsy ((4) RLL TBBX IN SALINE) Procedures: Beth PHILLIPS/Alexis L4/2 Age/ Patient Sex Location Account Attending Physician Dariusz Najera 58/M ANA LAURA [id number] Marbella Phillips DO SPEC NUM: [id number] RECD: 03/29/24 STATUS: FERCHO BENITEZLandry NUM: [id number] ADA: 03/28/[address]: Marbella Phillips DO ENTERED: 03/29/24-1411 [facility] DR: [facility] SPEC TYPE: Surgical DEPT: S ENTERED BY: [id number] RECV BY: [id number] ORDERED: HE/4, Gross/Micro L4/2 ORDERED: HE/4, Gross/Micro [...] submitted in a single cassette. (1, ns, G35-6117 A) CIRO Specimen: [id number] Received: 03/29/24 Status: FERCHO Manuel Num: [id number] Spec Type: Surgical Subm Dr: Marbella Phillips DO Tissues: A Lung - Transbroncial Biopsy ((3) RLL TBBX IN FORMALIN) B Lung - Transbroncial Biopsy ((4) RLL TBBX IN SALINE) Procedures: JACQUELINE Gross/Micro L4/2 Patient: Dariusz Najera [id number] (Continued) Specimen: [id number] Received: 03/29/24 (Continued) Gross Description (Continued) Signed (signature on file) Rosita Nicholson MD 03/30/241401 Specimen: [id number] Received: 03/29/24 Status: FERCHO Manuel Num: [id number] Spec Type: Surgical Subm Dr: Marbella Phillips DO Tissues: A Lung - Transbroncial Biopsy ((3) RLL TBBX IN FORMALIN) B Lung - Transbroncial Biopsy ((4) RLL TBBX IN SALINE) Procedures: Beth PHILLIPS/Micro L4/2 Patient: Dariusz Najera [id number] (Continued) Specimen: [id number] Received: 03/29/24 (Continued) Gross Description (Continued) Part B is received in saline from microbiology labeled with the patient's name, date of , and BX RT lower lobe is a domínguez-pink, focally erythematous, feathery, 0.2 cm in greatest dimension tissue bit. The specimen is filtered and entirely submitted in a single cassette. (1, ns, V37-0200 B) Microscopic Description Microscopic examinations are performed supporting the above interpretation CPT Codes 39327q0 Specimen: [id number] Received: 03/29/24 Status: FERCHO Manuel Num: [id number] Spec Type: Surgical Subm Dr: Marbella Phillips DO Tissues: A Lung - Transbroncial Biopsy ((3) RLL TBBX IN FORMALIN) B Lung - Transbroncial Biopsy ((4) RLL TBBX IN SALINE) Procedures: HE/Kimberly, Gross/Micro L4/2 Patient: Dariusz Najera [id number] (Continued) Signed (signature on file) Rosita Nicholson MD 03/30/24 1402 Normal [facility] 03-28-2024 [facility] Normal [facility] Comment on above: Order Comment: [facility] Test Name: LAB PATRICIA BRONC CULTURE FROM RT LOW LOBE - BAL Result Comment: Bron ch Alveolar Lav RIGHT LOWER LOBE Lower Respiratory Culture report Result : Routine respiratory ofelia Performed at: CB - [facility] [address] [id number] Bundle Breaker: Tigre Baker PhD, Phone: [phone] PERFORMED BY: [address] [address] PATHOLOGIST LINK TRAINER TEACHER MAGGIE MANNING M.D. Performed By: #### C UBR, [facility], FLCCDIFF, #### [address] [place] [address] [facility] #### MYC CULT, AFBCS RES1 #### [facility] , Manual body fluid eosinophil s/100 leukocytesOrdered By: Marbella Phillips on 03-28-2024 Eosinophils/100 WBC Manual cnt (Body fld) Manual body fluid eosinophils/100 leukocytes 0-3 [facility] Manual body fluid erythrocyt es count (number/volume)Ordered By: Marbella Phillips on 03-28-2024 RBC Manual cnt (Body fld) [#/Vol] Manual body fluid erythrocytes count (number/volume) [facility] Comment on above: Body fluid is partia lly clotted and/or cell clumps or debris are present. Fluid cell count and differential results may not be reliable. Clinical correlation is recommended.@Av 68,62 = 65 03/28/24 1320 [id number] reference interval and other method performance specifications have not been established for this body fluid. The test result must be integrated into the clinical context for interpretation. Manual body fluid lymphocyte s/100 leukocytesOrdered By: Marbella Phillips on 03-28-2024 Lymphocytes/100 WBC Manual cnt (Body fld) Manual body fluid lymphocytes/100 leukocytes [facility] Comment on above: The reference interv al and other method performance specifications have not been established for this body fluid. The test result must be integrated into the clinical context for interpretation. Neutrophils/100 WBC Manual c nt (Body fld)Ordered By: Marbella Phillips on 03-28-2024 Neutrophils/100 WBC (Body fld) Manual body fluid neutrophils/100 leukocytes [facility] Comment on above: The reference interv al and other method performance specifications have not been established for this body fluid. The test result must be integrated into the clinical context for interpretation. No Panel InformationOrdered By: Marbella Phillips on 03-28-2024 Miscellaneous Test See comment [facility] Comment on above: Bronch Alveolar Lav RIGHT LOWER LOBE Lower Respiratory Culture reportResult : Routine respiratory floraPerformed at: CB - [facility] [address] [id number] Director: Tigre Baker PhD, Phone: [phone] Mycology Susceptibility N/A [facility] CT CHEST W IV CONTRASTon CT [...] patient size Use of iterative reconstruction technique [facility] [employer] Radiology Study observation (narrative) [facility] [employer] CT Chest W contrast IVOrdere d By: Cari Gonsales on 03-01-2024 [employer] Work Phone: CT CHEST WO IV [...] report is generated using voice recognition reporting (Univa UD). On occasion PowerScribe erroneously drops words from the report or [...] report is generated using voice recognition reporting (Clarivoycribe). On occasion PowerScribe erroneously drops words from the report or replaces the spoken word with similar sounding words. Please call with any questions/concerns regarding this report.* Dictated and transcribed 11/24/23dpd This report has been electronically signed and [...] Available Surgical Pathologyon 024 Surgical Pathology Normal [facility] Comment on above: Result Comment: [facility] [address] [place] [address] Surgical Pathology Consultation Patient Name:DARIUSZ NAJERA:1965 (Age: 57)Gender:MTaken:06/15/2023eported:06/23/2023hysician(s):Velma Rosario D.O. ([phone])Copy To: Rec. #:[id number]: #[id number] Final Pathologic Diagnosis Gallbladder, cholecystectomy: Mild subacute and chronic cholecystitis Report Electronically Signed Out nsk/06/23/2023Razia Gutierrez MD Interpretation performed at [facility], [address] [place] [address], License number: [id number]. Clinical History Gallbladder polyp. Gross Description Received in formalin labeled DANIA, gallbladder is an intact gallbladder that measures, [...] gallbladder wall is 0.1-0.2 cm in thickness. Physician cross-sections are submitted within a single cassette. (1, ss, [id number],m2) DM. dm/06/16/2023EAK Specimen(s) Received Gallbladder Fee Codes(s): 1; 26161 COMPLETE BLOOD COUNTon Erythrocyte distribution width (RBC) [Ratio] 13.2 % Normal 11.5-15.[address] [facility] Comment on above: Performed By: #### C BC, CMP, 3040-3 #### [facility] ([id number]) [address], [address] [place] [address] Hematocrit (Bld) [Volume fraction] 42.2 % Normal 39-[address] [facility] Comment on above: Performed By: #### C BC, CMP, 3040-3 #### [facility] ([id number]) [address] [place] [address] Hemoglobin (Bld) [Mass/Vol] 14.0 g/dL Normal 13.0-17.[address] [facility] Comment on above: Performed By: #### Sharmin BC CMP, 0-3 #### [facility] ([id number]) [address], [address] [place] [address] MCH (RBC) [Entitic mass] 30.0 pg Normal 27-[address] [facility] Comment on above: Performed By: #### Sharmin BC, CMP, 3039-3 #### [facility] ([id number]) [address], [address] [place] [address] MCHC (RBC) [Mass/Vol] 33.3 g/dL Normal 32-[address] [facility] Comment on above: Performed By: #### Sharmin BC, CMP, 3039-3 #### [facility] ([id number]) [address], [address] [place] [address] MCV (RBC) [Entitic vol] 90 fL Normal 80-[address] [facility] Comment on above: Performed By: #### Sharmin BC, CMP, 3039-3 #### [facility] ([id number]) [address] [place] [address] Platelet mean volume (Bld) [Entitic vol] 9.9 fL Normal 7-[address] [facility] Comment on above: Performed By: #### Sharmin BC, CMP, 3039-3 #### [facility] ([id number]) [address] [place] [address] Platelets (Bld) [#/Vol] 233 10*3/uL Normal 150-[address] [facility] Comment on above: Performed By: #### Sharmin BC, CMP, 3039-3 #### [facility] ([id number]) [address] [place] [address] RBC COUNT 4.69 X10E12/L Normal 4.10-5.[address] [facility] Comment on above: Performed By: #### Sharmin SOLIS CMP, 3040-3 #### [facility] ([id number]) [address] [place] [address] WBC (Bld) [#/Vol] 6.1 10*3/uL Normal 4.0-11.0 [facility] Comment on above: Performed By: #### Sharmin SOLIS CMP, 3040-3 #### [facility] ([id number]) [address], [address] [place] [address] COMPREHENSIVE METABOLIC PANE Noah 06-10-2023 Albumin [Mass/Vol] 4.3 g/dL Normal 3.2-5.3 [facility] Comment on above: Performed By: #### Sharmin SOLIS CMP, 3040-3 #### [facility] ([id number]) [address] [place] [address] ALP [Catalytic activity/Vol] 121 U/L Normal 39-[address] [facility] Comment on above: Performed By: #### Sharmin SOLIS CMP, 3040-3 #### [facility] ([id number]) [address] [place] [address] ALT [Catalytic activity/Vol] 14 U/L Normal 0-[address] [facility] Comment on above: Performed By: #### Sharmin SOLIS CMP, 3040-3 #### [facility] ([id number]) [address], [address] [place] [address] Anion gap [Moles/Vol] 8 mmol/L Normal 5-[address] [facility] Comment on above: Performed By: #### Sharmin SOLIS CMP, 3040-3 #### [facility] ([id number]) [address], [address] [place] [address] AST [Catalytic activity/Vol] 15 U/L Normal 0-[address] [facility] Comment on above: Performed By: #### Sharmin SOLIS CMP, 3040-3 #### [facility] ([id number]) [address] [place] [address] Bilirubin [Mass/Vol] 0.4 mg/dL Normal 0.3-1.[address] [facility] Comment on above: Performed By: #### Sharmin SOLIS CMP, 3039-3 #### [facility] ([id number]) [address] [place] [address] Calcium [Mass/Vol] 9.0 mg/dL Normal 8.5-10.5 [facility] Comment on above: Performed By: #### Sharmin SOLIS CMP, 3039-3 #### [facility] ([id number]) [address] [place] [address] Chloride [Moles/Vol] 106 mmol/L Normal 98-[address] [facility] Comment on above: Performed By: #### Sharmin SOLIS CMP, 3039-3 #### [facility] ([id number]) [address] [place] [address] CO2 [Moles/Vol] 29 mmol/L Normal 22-[address] [facility] Comment on above: Performed By: #### Sharmin SOLIS CMP, 3039-3 #### [facility] ([id number]) [address] [place] [address] Creatinine [Mass/Vol] 0.86 mg/dL Normal 0.60-1.[address] [facility] Comment on above: Result Comment: METH OD TRACEABLE TO IDMS STANDARD Performed By: #### Sharmin SOLIS CMP, 0-3 #### [facility] ([id number]) [address] [place] [address] eGFR (CKD-EPI) NON-RACE DEPENDENT >90 Normal >[address] [facility] Comment on above: Result Comment: Reported eGFR is based on the CKD-EPI 2020 equation that does not use a race coefficient. Performed By: #### Sharmin SOLIS CMP, 3040-3 #### [facility] ([id number]) [address] [place] [address] Glucose [Mass/Vol] 100 mg/dL High 65-99 [facility] Comment on above: Performed By: #### Sharmin SOLIS CMP, 0-3 #### [facility] ([id number]) [address] [place] [address] Potassium [Moles/Vol] 4.1 mmol/L Normal 3.5-5.[address] [facility] Comment on above: Performed By: #### Sharmin SOLIS CMP, 3040-3 #### [facility] ([id number]) [address] [place] [address] Protein [Mass/Vol] 6.6 g/dL Normal 6.0-8.0 [facility] Comment on above: Performed By: #### Sharmin SOLIS CMP, 0-3 #### [facility] ([id number]) [address] [place] [address] Sodium [Moles/Vol] 143 mmol/L Normal 134-146 [facility] Comment on above: Performed By: #### Sharmin SOLIS CMP, 0-3 #### [facility] ([id number]) [address] [place] [address] Urea nitrogen [Mass/Vol] 26 mg/dL High 5-[address] [facility] Comment on above: Performed By: #### Sharmin SOLIS CMP, 3040-3 #### [facility] ([id number]) [address] [place] [address] ECG 12 leadon 06-10-2023 TRACEMASTERVUE [facility] LIPASEon 06-10-2023 Lipase [Catalytic activity/Vol] 30 U/L Normal 11-[address] [facility] Comment on above: Performed By: #### C , [facility], 3040-3 #### [facility] ([id number]) [address] [place] [address] US GALLBLADDERon 05-17-2023 US GALLBLADDER FINDINGS: Liver [...] CAPSULE Daily Basic Metabolic Panel; Status:Active; Requested for:[id number]; Overweight with body mass index (BMI) of 27 to 27.9 in adult Healthy Weight Tips; Status:Complete; Done: 80Xfc1276 Some eating tips that can help you lose weight.; Status:Complete; Done: 73Vic6574 SocHx: Never a smoker Tobacco Use Screening; Status:Complete; Done: 09Rks4496 Patient Instructions Please bring all medicines, vitamins, [...] History of Tonsillectomy with adenoidectomy History of [place] tooth extraction Current Meds Medication NameInstruction Propranolol [...] negative for complaint. Vitals Vital Signs Recorded: 70Ktu6457 01:39PM Heart Rate76, L Radial Gbefauip994, LUE, Sitting Vnhfbvusm12, LUE, Sitting Height5 ft 7 in Uqfdwi642 lb BMI Eqbdzzzfzh29.41 kg/m2 BSA Calculated1.91 Tobacco Useb) No PHQ-2 [...] Screening.on 023 Adult depression screening assessment No -[facility] [address] DO Work Phone: Tobacco use status CP b) No [facility] [address] DO Work Phone: Falls Risk Screeningon 09-30 Fall risk assessment c) Not medically indicated MP-No [facility] [address] DO Work Phone: Tobacco Screening.on 022 Tobacco use status CP b) No -[facility] [address] DO Work Phone: Tobacco Screening.on 022 Adult depression screening assessment No [facility] [address] DO Work Phone: Tobacco use status CP b) No [facility] [address] DO Work Phone: CBC AUTO DIFFon 07-08-2021 BASO # 0.1 103/ul Normal 0.0-0.1 [facility] Comment on above: Performed By: #### D DIM #### [facility] [address] [address] [address] Sony Nicholson Basophils/100 WBC (Bld) 0.7 % Normal 0.2-2.0 [facility] Comment on above: Performed By: #### D DIM #### [facility] [address] [place] [address] Dr. Sony Nicholson EO # 0.2 103/ul Normal 0.0-0.7 [facility] Comment on above: Performed By: #### D DIM #### [facility] [address] [place] [address] Dr. Sony Nicholson Eosinophils/100 WBC (Bld) 2.8 % Normal 0.9-7.0 [facility] Comment on above: Performed By: #### D DIM #### [facility] [address] [place] [address] Dr. Sony Nicholson Erythrocyte distribution width (RBC) [Ratio] 12.9 % Normal 11.0-15.0 [facility] Comment on above: Performed By: #### D DIM #### [facility] [address] [place] [address] Dr. Sony Nicholson Hematocrit (Bld) [Volume fraction] 43.7 % Normal 42.0-54.0 [facility] Comment on above: Performed By: #### D DIM #### [facility] [address] [place] [address] Dr. Sony Nicholson Hemoglobin (Bld) [Mass/Vol] 14.4 g/dL Normal 14.0-18.0 [facility] Comment on above: Performed By: #### D DIM #### [facility] [address] [place] [address] Dr. Sony Nicholson IG # 0.02 10e3/ul Normal 0.00-0.03 [facility] Comment on above: Performed By: #### D DIM #### [facility] [address] [place] [address] Dr. Sony Nicholson IG % 0.3 % Normal 0.0-0.5 [facility] Comment on above: Performed By: #### D DIM #### [facility] [address] [place] [address] Dr. Sony Nicholson LYMPH # 1.9 103/ul Normal 1.2-3.8 [facility] Comment on above: Performed By: #### D DIM #### [facility] [address] [place] [address] Dr. Sony Nicholson Lymphocytes/100 WBC (Bld) 25.9 % Normal 20.5-60.0 [facility] Comment on above: Performed By: #### D DIM #### [facility] [address] [address] [address] Sony Nicholson MANUAL DIFF REQ NO Normal [facility] Comment on above: Performed By: #### D DIM #### [facility] [address] [place] [address] Dr. Sony Nicholson MCH (RBC) [Entitic mass] 29.8 pg Normal 25.9-34.0 [facility] Comment on above: Performed By: #### D DIM #### [facility] [address] [place] [address] Dr. Sony Nicholson MCHC (RBC) [Mass/Vol] 33.0 g/dL Normal 29.9-35.2 [facility] Comment on above: Performed By: #### D DIM #### [facility] [address] [place] [address] Dr. Sony Nicholson MCV (RBC) [Entitic vol] 90.5 fL Normal 80.0-94.0 [facility] Comment on above: Performed By: #### D DIM #### [facility] [address] [place] [address] Dr. Sony Nicholson MONO # 0.7 103/ul Normal 0.3-0.8 [facility] Comment on above: Performed By: #### D DIM #### [facility] [address] [place] [address] Dr. Sony Nicholson Monocytes/100 WBC (Bld) 10.2 % Normal 1.7-12.0 [facility] Comment on above: Performed By: #### D DIM #### [facility] [address] [place] [address] Dr. Sony Nicholson NEUT # 4.3 103/ul Normal 1.4-6.5 [facility] Comment on above: Performed By: #### D DIM #### [facility] [address] [place] [address] Dr. Sony Nicholson Neutrophils/100 WBC (Bld) 60.1 % Normal 43.0-75.0 [facility] Comment on above: Performed By: #### D DIM #### [facility] [address] [place] [address] Dr. Sony Nicholson Platelet mean volume (Bld) [Entitic vol] 12.3 fL Normal 9.5-13.5 [facility] Comment on above: Performed By: #### D DIM #### [facility] [address] [place] [address] Dr. Sony Nicholson PLT 240 103/ul Normal 150-450 [facility] Comment on above: Performed By: #### D DIM #### [facility] [address] [place] [address] Dr. Sony Nicholson RBC 4.83 106/ul Normal 4.70-6.10 [facility] Comment on above: Performed By: #### D DIM #### [facility] [address] [place] [address] Dr. Sony Nicholson WBC 7.2 103/ul Normal 4.0-11.0 [facility] Comment on above: Performed By: #### D DIM #### [facility] [address] [place] [address] Dr. Sony Nicholson PROF CHEM 8 (BAS METB)on Anion gap [Moles/Vol] 13.2 mmol/L Normal [facility] Comment on above: Performed By: #### B MP #### [facility] [address] [place] [address] Dr. Sony Nicholson Calcium [Mass/Vol] 8.4 mg/dL Critically low 8.5-10.1 e [facility] Comment on above: Performed By: #### B MP #### [facility] [address] [place] [address] Dr. Sony Nicholson Chloride [Moles/Vol] 102 mmol/L Normal 98-107 [facility] Comment on above: Performed By: #### B MP #### [facility] [address] [place] [address] Dr. Sony Nicholson CO2 [Moles/Vol] 27.5 mmol/L Normal 22.0-30.0 [facility] Comment on above: Performed By: #### B MP #### [facility] [address] [address] [address] Sony Nicholson Creatinine [Mass/Vol] 1.06 mg/dL Normal 0.66-1.25 [facility] Comment on above: Performed By: #### B MP #### [facility] [address] [address] [address] Sony Nicholson EGFR-AF SINGAPOREAN >60 Normal >=60 [facility] Comment on above: Performed By: #### B MP #### [facility] [address] [address] [address] Sony Nicholson EGFR-NON AF SINGAPOREAN >60 Normal >=60 [facility] Comment on above: Performed By: #### B MP #### [facility] [address] [address] [address] Sony Nicholson Glucose [Mass/Vol] 114 mg/dL Critically high 74-106 [facility] Comment on above: Performed By: #### B MP #### [facility] [address] [address] [address] Sony Nicholson Potassium [Moles/Vol] 4.7 mmol/L Normal 3.4-5.0 [facility] Comment on above: Performed By: #### B MP #### [facility] [address] [address] [address] Sony Nicholson Sodium [Moles/Vol] 138 mmol/L Normal 137-145 [facility] Comment on above: Performed By: #### B MP #### [facility] [address] [address] [address] Sony Nicholson Urea nitrogen [Mass/Vol] 24.0 mg/dL Critically high 7.0-18.0 [facility] Comment on above: Performed By: #### B MP #### [facility] [address] [address] [address] Sony Nicholson Urea nitrogen/Creatinine [Mass ratio] 22.6 mg/mg Normal [facility] Comment on above: Performed By: #### B MP #### [facility] [address] [address] [address] Sony Nicholson CARDIAC CARI 3-6on 2 CK [Catalytic activity/Vol] 122 U/L Normal 55-170 [facility] Comment on above: Performed By: #### C MREP #### [facility] [address] [place] [address] Dr. Sony Nicholson CK.MB [Mass/Vol] 0.98 ng/mL Normal <=2.37 [facility] Comment on above: Performed By: #### C MREP #### [facility] [address] [place] [address] Dr. Sony Nicholson HSTROP 7.2 pg/mL Normal 4.0-42.2 [facility] Comment on above: Result Comment: CUT- OFF POINTS HAVE BEEN ESTABLISHED BASED ON THE FOURTH UNIVERSAL DEFINITIONS OF MYOCARDIAL INFARCTION. THE UPPER REFERENCE LIMIT (URL) OF TROPONIN, DEFINED THE 99TH PERCENTILE OF cTnI DISTRIBUTION IN A REFERENCE POPULATION, HAS BEEN CONFIRMED THE DECISION THRESHOLD FOR SD DIAGNOSIS. Performed By: #### C MREP #### [facility] [address] [place] [address] Dr. oSny Nicholson CK [Catalytic activity/Vol] 137 U/L Normal 55-170 [facility] Comment on above: Performed By: #### C MREP #### [facility] [address] [place] [address] Dr. Sony Nicholson CK.MB [Mass/Vol] 1.18 ng/mL Normal <=2.37 [facility] Comment on above: Performed By: #### C MREP #### [facility] [address] [place] [address] Dr. Sony Nicholson HSTROP 9.3 pg/mL Normal 4.0-42.2 [facility] Comment on above: Result Comment: CUT- OFF POINTS HAVE BEEN ESTABLISHED BASED ON THE FOURTH UNIVERSAL DEFINITIONS OF MYOCARDIAL INFARCTION. THE UPPER REFERENCE LIMIT (URL) OF TROPONIN, DEFINED THE 99TH PERCENTILE OF cTnI DISTRIBUTION IN A REFERENCE POPULATION, HAS BEEN CONFIRMED THE DECISION THRESHOLD FOR SD DIAGNOSIS. Performed By: #### C MREP #### [facility] [address] [address] [address] Sony Nicholson CARDIAC CARI ADMITon 022 CK [Catalytic activity/Vol] 152 U/L Normal 55-170 [facility] Comment on above: Performed By: #### D DIM #### [facility] [address] [place] [address] Dr. Sony Nicholson CK.MB [Mass/Vol] 1.43 ng/mL Normal <=2.37 [facility] Comment on above: Performed By: #### D DIM #### [facility] [address] [place] [address] Dr. Sony Nicholson HSTROP 8.1 pg/mL Normal 4.0-42.2 [facility] Comment on above: Result Comment: CUT- OFF POINTS HAVE BEEN ESTABLISHED BASED ON THE FOURTH UNIVERSAL DEFINITIONS OF MYOCARDIAL INFARCTION. THE UPPER REFERENCE LIMIT (URL) OF TROPONIN, DEFINED THE 99TH PERCENTILE OF cTnI DISTRIBUTION IN A REFERENCE POPULATION, HAS BEEN CONFIRMED THE DECISION THRESHOLD FOR SD DIAGNOSIS. Performed By: #### D DIM #### [facility] [address] [place] [address] Dr. Sony Nicholson DAVID 46.0 ng/mL Normal <=121.0 [facility] Comment on above: Performed By: #### D DIM #### [facility] [address] [place] [address] Dr. Sony Nicholson CBC AUTO DIFFon 07-07-2021 BASO # 0.1 103/ul Normal 0.0-0.1 [facility] Comment on above: Performed By: #### C BC #### [facility] [address] [place] [address] Dr. Sony Nicholson Basophils/100 WBC (Bld) 0.7 % Normal 0.2-2.0 [facility] Comment on above: Performed By: #### C BC #### [facility] [address] [place] [address] Dr. Sony Nicholson EO # 0.2 103/ul Normal 0.0-0.7 [facility] Comment on above: Performed By: #### C BC #### [facility] [address] [place] [address] Dr. Sony Nicholson Eosinophils/100 WBC (Bld) 2.4 % Normal 0.9-7.0 [facility] Comment on above: Performed By: #### C BC #### [facility] [address] [place] [address] Dr. Sony Nicholson Erythrocyte distribution width (RBC) [Ratio] 12.6 % Normal 11.0-15.0 [facility] Comment on above: Performed By: #### C BC #### [facility] [address] [place] [address] Dr. Sony Nicholson Hematocrit (Bld) [Volume fraction] 45.9 % Normal 42.0-54.0 [facility] Comment on above: Performed By: #### C BC #### [facility] [address] [place] [address] Dr. Sony Nicholson Hemoglobin (Bld) [Mass/Vol] 15.1 g/dL Normal 14.0-18.0 [facility] Comment on above: Performed By: #### C BC #### [facility] [address] [place] [address] Dr. Sony Nicholson IG # 0.01 10e3/ul Normal 0.00-0.03 [facility] Comment on above: Performed By: #### C BC #### [facility] [address] [place] [address] Dr. Sony Nicholson IG % 0.1 % Normal 0.0-0.5 [facility] Comment on above: Performed By: #### C BC #### [facility] [address] [place] [address] Dr. Sony Nicholson LYMPH # 1.8 103/ul Normal 1.2-3.8 [facility] Comment on above: Performed By: #### C BC #### [facility] [address] [place] [address] Dr. Sony Nicholson Lymphocytes/100 WBC (Bld) 25.9 % Normal 20.5-60.0 [facility] Comment on above: Performed By: #### C BC #### [facility] [address] [place] [address] Dr. Sony Nicholson MANUAL DIFF REQ NO [facility] Comment on above: Performed By: #### C BC #### [facility] [address] [place] [address] Dr. Sony Nicholson MCH (RBC) [Entitic mass] 29.3 pg Normal 25.9-34.0 [facility] Comment on above: Performed By: #### C BC #### [facility] [address] [place] [address] Dr. Sony Nicholson MCHC (RBC) [Mass/Vol] 32.9 g/dL Normal 29.9-35.2 [facility] Comment on above: Performed By: #### C BC #### [facility] [address] [place] [address] Dr. Sony Nicholson MCV (RBC) [Entitic vol] 89.0 fL Normal 80.0-94.0 [facility] Comment on above: Performed By: #### C BC #### [facility] [address] [place] [address] Dr. Sony Nicholson MONO # 0.8 103/ul Normal 0.3-0.8 [facility] Comment on above: Performed By: #### C BC #### [facility] [address] [place] [address] Dr. Sony Nicholson Monocytes/100 WBC (Bld) 11.8 % Normal 1.7-12.0 [facility] Comment on above: Performed By: #### C BC #### [facility] [address] [place] [address] Dr. Sony Nicholson NEUT # 4.2 103/ul Normal 1.4-6.5 [facility] Comment on above: Performed By: #### C BC #### [facility] [address] [place] [address] Dr. Sony Nicholson Neutrophils/100 WBC (Bld) 59.1 % Normal 43.0-75.0 [facility] Comment on above: Performed By: #### C BC #### [facility] [address] [address] [address] Sony Nicholson Platelet mean volume (Bld) [Entitic vol] 10.4 fL Normal 9.5-13.5 [facility] Comment on above: Performed By: #### C BC #### [facility] [address] [address] [address] Sony Nicholson PLT 305 103/ul Normal 150-450 [facility] Comment on above: Performed By: #### C BC #### [facility] [address] [address] [address] Sony Nicholson RBC 5.16 106/ul Normal 4.70-6.10 [facility] Comment on above: Performed By: #### C BC #### [facility] [address] [place] [address] Dr. Sony Nicholson WBC 7.1 103/ul Normal 4.0-11.0 [facility] Comment on above: Performed By: #### C BC #### [facility] [address] [place] [address] HEAD WO CONon [...] by: NICA SALAZAR Date: 2021-07-07 06:36 Normal [facility] CTA NECK WO W CONon 07-08-19 22 [...] the vertebral arteries. Electronically authenticated by: GREGG SELLERS Date: 2021-07-07 12:51 Normal [facility] Covid-19 PCR (CVDTB)on 06-11 SARS-CoV-2 (COVID-19) RNA MANDI+probe Ql (Unsp spec) Not detected Normal NOT DETECTED [facility] Comment on above: Result Comment: When diagnostic testing is negative, the possibility of a false negative should be considered in the context of a patient's recent exposures and the presence of clinical signs and symptoms consistent with SARS-CoV-2. This test is not yet approved or cleared by the [place] Food and Drug Administration (FDA). This test was developed by [employer], [place], [place]. The performance characteristics of this test were validated by [facility]. The results are not intended to be used as the sole means for clinical diagnosis or patient management decisions. [facility] is authorized under Clinical Laboratory Improvement [...] for this test is supported by the [place] of [employer] and Human Service's declaration that [...] used). Performed By: #### C VDTBH #### [facility] [address] [place] [address] Dr. Sony Nicholson D-DIMERon 07-07-2021 D-DIMER 0.20 mg/L FEU Normal 0.19-0.50 [facility] Comment on above: Performed By: #### D DIM #### [facility] [address] [place] [address] Dr. Sony Nicholson D-DIMER COMMENTS SEE BELOW Normal [facility] Comment on above: Result Comment: Incr eases [...] hospitalization. Performed By: #### D DIM #### [facility] [address] [address] [address] Sony Nicholson GLYCOHEMOGLOBIN A1Con 2021 ADA RECOMMENDATION ADA THERAPEUTIC TARG ET 6.0 - 7.0 ACTION SUGGESTED > 7.0 Normal [facility] Comment on above: Performed By: #### D DIM #### [facility] [address] [address] [address] Sony Nicholson Glucose [Mass/Vol] 117 mg/dL Normal [facility] Comment on above: Performed By: #### D DIM #### [facility] [address] [place] [address] Dr. Sony Nicholson HbA1c (Bld) [Mass fraction] 5.7 % Normal <=6.0 [facility] Comment on above: Performed By: #### D DIM #### [facility] [address] [place] [address] Dr. Sony Nicholson LIPID PROFILEon 07-07-2021 CHOL-HDL RATIO NORM SEE BELOW Normal [facility] Comment on above: Result Comment: 3.3 - 4.4 LOW RISK 4.4 - 7.1 AVERAGE RISK 7.1 - 11.0 MODERATE RISK >11.0 HIGH RISK Performed By: #### L IPID #### [facility] [address] [place] [address] Dr. Sony Nicholson Cholesterol [Mass/Vol] 272 mg/dL Critically high <=200 [facility] Comment on above: Performed By: #### L IPID #### [facility] [address] [place] [address] Dr. Sony Nicholson Cholesterol in HDL [Mass/Vol] 52 mg/dL Normal 40-60 [facility] Comment on above: Performed By: #### L IPID #### [facility] [address] [place] [address] Dr. Sony Nicholson Cholesterol in LDL [Mass/Vol] 187.8 mg/dL Normal [facility] Comment on above: Performed By: #### L IPID #### [facility] [address] [address] [address] Sony Nicholson Cholesterol.total/C holesterol in HDL [Mass ratio] 5.2 {ratio} Normal [facility] Comment on above: Performed By: #### L IPID #### [facility] [address] [place] [address] Dr. Sony Nicholson HDL NORMAL > or = 60 mg/dl - LO W CARDIOVASCULAR RISK <40 mg/dl - HIGH CARDIOVASCULAR RISK Normal [facility] Comment on above: Performed By: #### L IPID #### [facility] [address] [address] [address] Sony Nicholson LDL CALC NORMAL SEE BELOW Normal [facility] Comment on above: Result Comment: <100 mg/dl OPTIMAL 100 - 129 mg/dl NEAR OR ABOVE OPTIMAL 130 - 159 mg/dl BORDERLINE HIGH 160 - 189 mg/dl HIGH >190 mg/dl VERY HIGH Performed By: #### L IPID #### [facility] [address] [place] [address] Dr. Sony Nicholson Triglyceride [Mass/Vol] 161 mg/dL Critically high <=150 [facility] Comment on above: Performed By: #### L IPID #### [facility] [address] [place] [address] Dr. Sony Nicohlson VLDL CALC 32.2 mg/dL Normal [facility] Comment on above: Performed By: #### L IPID #### [facility] [address] [place] [address] Dr. Sony Nicholson MRI BRAIN WO W CONon 022 MRI BRAIN WO W CON MRI BRAIN WITH AND W ITHOUT CONTRAST, 07/07/2021. HISTORY: TIA. Syncope. COMPARISON: CTA head and neck, 07/07/2021. TECHNIQUE: Sagittal and axial T1, axial T2, FLAIR, diffusion, T2 gradient, postcontrast axial, coronal, and sagittal T1 images were obtained. FINDINGS: Paranasal sinuses clear. Mastoid air cells clear. Nasopharynx normal. Ground Host/Hostess spaces normal. Orbital contents unremarkable. Extracranial soft [...] No acute findings. Electronically authenticated by: GREGG SELLERS Date: 2021-07-07 15:23 Normal [facility] PROF CHEM 8 (BAS METB)on Anion gap [Moles/Vol] 10.5 mmol/L Normal [facility] Comment on above: Performed By: #### D DIM #### [facility] [address] [address] [address] Sony Nicholson Calcium [Mass/Vol] 8.5 mg/dL Normal 8.5-10.1 [facility] Comment on above: Performed By: #### D DIM #### [facility] [address] [address] [address] Sony Nicholson Chloride [Moles/Vol] 101 mmol/L Normal 98-107 [facility] Comment on above: Performed By: #### D DIM #### [facility] [address] [address] [address] Sony Nicholson CO2 [Moles/Vol] 31.4 mmol/L Critically high 22.0-30.0 [facility] Comment on above: Performed By: #### D DIM #### [facility] [address] [address] [address] Sony Nicholson Creatinine [Mass/Vol] 1.08 mg/dL Normal 0.66-1.25 [facility] Comment on above: Performed By: #### D DIM #### [facility] [address] [address] [address] Sony Nicholson EGFR-AF SINGAPOREAN >60 Normal >=60 [facility] Comment on above: Performed By: #### D DIM #### [facility] [address] [address] [address] Sony Nicholson EGFR-NON AF SINGAPOREAN >60 Normal >=60 [facility] Comment on above: Performed By: #### D DIM #### [facility] [address] [address] [address] Sony Nicholson Glucose [Mass/Vol] 113 mg/dL Critically high 74-106 [facility] Comment on above: Performed By: #### D DIM #### [facility] [address] [address] [address] Sony Nicholson Potassium [Moles/Vol] 4.9 mmol/L Normal 3.4-5.0 [facility] Comment on above: Performed By: #### D DIM #### [facility] [address] [address] [address] Sony Nicholson Sodium [Moles/Vol] 138 mmol/L Normal 137-145 [facility] Comment on above: Performed By: #### D DIM #### [facility] [address] [address] [address] Sony Nicholson Urea nitrogen [Mass/Vol] 26.0 mg/dL Critically high 7.0-18.0 [facility] Comment on above: Performed By: #### D DIM #### [facility] [address] [address] [address] Sony Nicholson Urea nitrogen/Creatinine [Mass ratio] 24.1 mg/mg Normal [facility] Comment on above: Performed By: #### D DIM #### [facility] [address] [place] [address] Dr. Sony Nicholson US CAROTID ART BILon 07-07- 022 US CAROTID ART KELLEE EXAMINATION: US [...] ZHANE CALL Date: 2021-07-07 14:10 Normal [facility] XR CHEST 1 Von 07-07-2021 XR [...] as clinically indicated. Electronically authenticated by: ENA US Date: 2021-07-07 06:31 Normal [facility] CBC AUTO DIFFon 05-18-2021 BASO # 0.1 103/ul Normal 0.0-0.1 [facility] Comment on above: Performed By: #### C BC #### [facility] [address] [place] [address] Dr. Sony Nicholson Basophils/100 WBC (Bld) 0.8 % Normal 0.2-2.0 [facility] Comment on above: Performed By: #### C BC #### [facility] [address] [place] [address] Dr. Sony Nicholson EO # 0.4 103/ul Normal 0.0-0.7 [facility] Comment on above: Performed By: #### C BC #### [facility] [address] [place] [address] Dr. Sony Nicholson Eosinophils/100 WBC (Bld) 4.2 % Normal 0.9-7.0 [facility] Comment on above: Performed By: #### C BC #### [facility] [address] [place] [address] Dr. Sony Nicholson Erythrocyte distribution width (RBC) [Ratio] 12.5 % Normal 11.0-15.0 [facility] Comment on above: Performed By: #### C BC #### [facility] [address] [place] [place] [address] Dr. Sony Nicholson Hematocrit (Bld) [Volume fraction] 44.1 % Normal 42.0-54.0 [facility] Comment on above: Performed By: #### C BC #### [facility] [address] [place] [address] Dr. Sony Nicholson Hemoglobin (Bld) [Mass/Vol] 14.6 g/dL Normal 14.0-18.0 [facility] Comment on above: Performed By: #### C BC #### [facility] [address] [place] [address] Dr. Sony Nicholson IG # 0.02 10e3/ul Normal 0.00-0.03 [facility] Comment on above: Performed By: #### C BC #### [facility] [address] [place] [address] Dr. Sony Nicholson IG % 0.2 % Normal 0.0-0.5 [facility] Comment on above: Performed By: #### C BC #### [facility] [address] [place] [address] Dr. Sony Nicholson LYMPH # 2.7 103/ul Normal 1.2-3.8 [facility] Comment on above: Performed By: #### C BC #### [facility] [address] [place] [address] Dr. Sony Nicholson Lymphocytes/100 WBC (Bld) 28.0 % Normal 20.5-60.0 [facility] Comment on above: Performed By: #### C BC #### [facility] [address] [place] [address] Dr. Sony Nicholson MANUAL DIFF REQ NO Normal [facility] Comment on above: Performed By: #### C BC #### [facility] [address] [place] [address] Dr. Sony Nicholson MCH (RBC) [Entitic mass] 29.6 pg Normal 25.9-34.0 [facility] Comment on above: Performed By: #### C BC #### [facility] [address] [place] [address] Dr. Sony Nicholson MCHC (RBC) [Mass/Vol] 33.1 g/dL Normal 29.9-35.2 [facility] Comment on above: Performed By: #### C BC #### [facility] [address] [place] [address] Dr. Sony Nicholson MCV (RBC) [Entitic vol] 89.3 fL Normal 80.0-94.0 [facility] Comment on above: Performed By: #### C BC #### [facility] [address] [place] [address] Dr. Sony Nicohlson MONO # 0.8 103/ul Normal 0.3-0.8 [facility] Comment on above: Performed By: #### C BC #### [facility] [address] [place] [address] Dr. Sony Nicholson Monocytes/100 WBC (Bld) 8.6 % Normal 1.7-12.0 [facility] Comment on above: Performed By: #### C BC #### [facility] [address] [place] [address] Dr. Sony Nicholson NEUT # 5.6 103/ul Normal 1.4-6.5 [facility] Comment on above: Performed By: #### C BC #### [facility] [address] [place] [address] Dr. Sony Nicholson Neutrophils/100 WBC (Bld) 58.2 % Normal 43.0-75.0 [facility] Comment on above: Performed By: #### C BC #### [facility] [address] [place] [address] Dr. Sony Nicholson Platelet mean volume (Bld) [Entitic vol] 11.1 fL Normal 9.5-13.5 [facility] Comment on above: Performed By: #### C BC #### [facility] [address] [place] [address] Dr. Sony Nicholson PLT 264 103/ul Normal 150-450 [facility] Comment on above: Performed By: #### C BC #### [facility] [address] [place] [address] Dr. Sony Nicholson RBC 4.94 106/ul Normal 4.70-6.10 [facility] Comment on above: Performed By: #### C BC #### [facility] [address] [address] [address] Sony Nicholson WBC 9.7 103/ul Normal 4.0-11.0 [facility] Comment on above: Performed By: #### C BC #### [facility] [address] HEAD WO CONon [...] Gurdeep CHESTER Date: 2021-05-17 23:54 Normal [facility] PROF 14(COMP METB)on 022 Albumin [Mass/Vol] 4.1 g/dL Normal 3.5-5.0 [facility] Comment on above: Performed By: #### C MP #### [facility] [address] [place] [address] Dr. Sony Nicholson Albumin/Globulin [Mass ratio] 1.1 {ratio} Normal [facility] Comment on above: Performed By: #### C MP #### [facility] [address] [place] [address] Dr. Sony Nicholson ALP [Catalytic activity/Vol] 97 U/L Normal 38-126 [facility] Comment on above: Performed By: #### C MP #### [facility] [address] [place] [address] Dr. Sony Nicholson ALT [Catalytic activity/Vol] 26 U/L Normal 21-72 [facility] Comment on above: Performed By: #### C MP #### [facility] [address] [address] [address] Sony Nicholson Anion gap [Moles/Vol] 10.9 mmol/L Normal [facility] Comment on above: Performed By: #### C MP #### [facility] [address] [address] [address] Sony Nicholson AST [Catalytic activity/Vol] 22 U/L Normal 17-59 [facility] Comment on above: Performed By: #### C MP #### [facility] [address] [address] [address] Sony Nicholson Bilirubin [Mass/Vol] 0.3 mg/dL Normal 0.2-1.3 [facility] Comment on above: Performed By: #### C MP #### [facility] [address] [address] [address] Sony Nicholson Calcium [Mass/Vol] 9.3 mg/dL Normal 8.4-10.2 [facility] Comment on above: Performed By: #### C MP #### [facility] [address] [address] [address] Sony Nicholson Chloride [Moles/Vol] 100 mmol/L Normal 98-107 [facility] Comment on above: Performed By: #### C MP #### [facility] [address] [address] [address] Sony Nicholson CO2 [Moles/Vol] 30.8 mmol/L Critically high 22.0-30.0 [facility] Comment on above: Performed By: #### C MP #### [facility] [address] [address] [address] Sony Nicholson Creatinine [Mass/Vol] 1.04 mg/dL Normal 0.66-1.25 [facility] Comment on above: Performed By: #### C MP #### [facility] [address] [address] [address] Sony Nicholson EGFR-AF SINGAPOREAN >60 Normal >=60 [facility] Comment on above: Performed By: #### C MP #### [facility] [address] [address] [address] Sony Nicholson EGFR-NON AF SINGAPOREAN >60 Normal >=60 [facility] Comment on above: Performed By: #### C MP #### [facility] [address] [address] [address] Sony Nicholson Globulin (S) [Mass/Vol] 3.6 g/dL Normal [facility] Comment on above: Performed By: #### C MP #### [facility] [address] [address] [address] Sony Nicholson Glucose [Mass/Vol] 128 mg/dL Critically high 74-106 [facility] Comment on above: Performed By: #### C MP #### [facility] [address] [place] [address] Dr. Sony Nicholson Potassium [Moles/Vol] 3.7 mmol/L Normal 3.4-5.0 [facility] Comment on above: Performed By: #### C MP #### [facility] [address] [place] [address] Dr. Sony Nicholson Protein [Mass/Vol] 7.7 g/dL Normal 6.1-8.2 [facility] Comment on above: Performed By: #### C MP #### [facility] [address] [place] [address] Dr. Sony Nicholson Sodium [Moles/Vol] 138 mmol/L Normal 137-145 [facility] Comment on above: Performed By: #### C MP #### [facility] [address] [address] [address] Sony Nicholson Urea nitrogen [Mass/Vol] 33.0 mg/dL Critically high 9.0-20.0 [facility] Comment on above: Performed By: #### C MP #### [facility] [address] [place] [address] Dr. Sony Nicholson Urea nitrogen/Creatinine [Mass ratio] 31.7 mg/mg Normal [facility] Comment on above: Performed By: #### C MP #### [facility] [address] [place] [address] Dr. Sony Nicholson Vital Signs Date Time Vital Sign Value Performing Clinician Facility 05-01-2024 09:33-0500 Diastolic blood pressure 88 mm[Hg] Yuko Reid DEBLOCKER-RECYCLING TECHNICIAN Work Phone: [facility] 05-01-2024 09:33-0500 Systolic blood pressure 140 mm[Hg] Yuko Reid DEBLOCKER-RECYCLING TECHNICIAN Work Phone: [facility] 05-01-2024 09:15-0500 Body height 170.2 cm Yuko Reid DEBLOCKER-RECYCLING TECHNICIAN Work Phone: [facility] 05-01-2024 09:15-0500 Body mass index (BMI) [Ratio] 29.73 kg/m2 Yuko Reid DEBLOCKER-RECYCLING TECHNICIAN Work Phone: [facility] 05-01-2024 09:15-0500 Body weight 86.09 kg Yuko Reid DEBLOCKER-RECYCLING TECHNICIAN Work Phone: [facility] 05-01-2024 09:15-0500 Heart rate 68 /min Yuko Reid DEBLOCKER-RECYCLING TECHNICIAN Work Phone: [facility] 04-21-2024 08:32-0500 Body height 172.1 cm Marbella Alan DO Work Phone: [facility] 04-21-2024 08:32-0500 Body mass index (BMI) [Ratio] 29.23 kg/m2 Marbella Alan DO Work Phone: [facility] 04-21-2024 08:32-0500 Body weight 86.55 kg Marbella Alan DO Work Phone: [facility] 04-21-2024 08:32-0500 Diastolic blood pressure 97 mm[Hg] Marbella Alan DO Work Phone: [facility] 04-21-2024 08:32-0500 Heart rate 68 /min Marbella Alan DO Work Phone: [facility] 04-21-2024 08:32-0500 SaO2% (BldA) [Mass fraction] 97 % Marbella Alan DO Work Phone: [facility] 04-21-2024 08:32-0500 Systolic blood pressure 131 mm[Hg] Marbella Alan DO Work Phone: [facility] 04-14-2024 09:28-0500 Body height 170.18 cm Marbella Alan DO Work Phone: [facility] 04-14-2024 09:28-0500 Body mass index (BMI) [Ratio] 29.7 kg/m2 Marbella Alan DO Work Phone: [facility] 04-14-2024 09:28-0500 Body temperature 98.2 [degF] Marbella Alan DO Work Phone: [facility] 04-14-2024 09:28-0500 Body weight 86.18 kg Marbella Alan DO Work Phone: [facility] 04-14-2024 09:28-0500 Diastolic blood pressure 94 mm[Hg] Marbella Alan DO Work Phone: [facility] 04-14-2024 09:28-0500 Heart rate 70 /min Marbella Alan DO Work Phone: [facility] 04-14-2024 09:28-0500 Respiratory rate 18 /min Marbella Alan DO Work Phone: [facility] 04-14-2024 09:28-0500 SaO2% (BldA) [Mass fraction] 97 % Marbella Alan DO Work Phone: [facility] 04-14-2024 09:28-0500 Systolic blood pressure 144 mm[Hg] Marbella Alan DO Work Phone: [facility] 04-03-2024 15:32-0500 Body height 172.1 cm Maria L Etienne PULMONARY SPECIALIST Work Phone: [facility] 04-03-2024 15:32-0500 Body mass index (BMI) [Ratio] 30.02 kg/m2 Maria L Etienne PULMONARY SPECIALIST Work Phone: [facility] 04-03-2024 15:32-0500 Body weight 88.91 kg Maria L Etienne PULMONARY SPECIALIST Work Phone: [facility] 04-03-2024 15:32-0500 Diastolic blood pressure 76 mm[Hg] Maria L Etienne PULMONARY SPECIALIST Work Phone: [facility] 04-03-2024 15:32-0500 Heart rate 88 /min Maria L Etienne PULMONARY SPECIALIST Work Phone: [facility] 04-03-2024 15:32-0500 Respiratory rate 18 /min Maria L Etienne PULMONARY SPECIALIST Work Phone: [facility] 04-03-2024 15:32-0500 SaO2% (BldA) [Mass fraction] 96 % Maria L Etienne PULMONARY SPECIALIST Work Phone: [facility] 04-03-2024 15:32-0500 Systolic blood pressure 128 mm[Hg] Maria L Etienne PULMONARY SPECIALIST Work Phone: [facility] 03-24-2024 08:32-0500 Body height 172.1 cm Marbella Alan DO Work Phone: [facility] 03-24-2024 08:32-0500 Body mass index (BMI) [Ratio] 30.21 kg/m2 Marbella Alan DO Work Phone: [facility] 03-24-2024 08:32-0500 Body weight 89.45 kg Marbella Alan DO Work Phone: [facility] 03-24-2024 08:32-0500 Diastolic blood pressure 83 mm[Hg] Marbella Alan DO Work Phone: [facility] 08:32-0500 Heart rate 72 /min Marbella Alan DO Work Phone: [facility] 08:32-0500 SaO2% (BldA) [Mass fraction] 98 % Marbella Alan DO Work Phone: [facility] 03-24-2024 08:32-0500 Systolic blood pressure 127 mm[Hg] Marbella Alan DO Work Phone: [facility] 02-25-2024 09:59-0500 Body height 172.1 cm Marbella Alan DO Work Phone: [facility] 02-25-2024 09:59-0500 Body mass index (BMI) [Ratio] 30.11 kg/m2 Marbella Alan DO Work Phone: [facility] 02-25-2024 09:59-0500 Body weight 89.18 kg Marbella Alan DO Work Phone: [facility] 02-25-2024 09:59-0500 Diastolic blood pressure 96 mm[Hg] Marbella Alan DO Work Phone: [facility] 02-25-2024 09:59-0500 Heart rate 84 /min Marbella Alan DO Work Phone: [facility] 02-25-2024 09:59-0500 SaO2% (BldA) [Mass fraction] 97 % Marbella Alan DO Work Phone: [facility] 02-25-2024 09:59-0500 Systolic blood pressure 126 mm[Hg] Marbella Alan DO Work Phone: [facility] 01-31-2024 14:28-0400 Body height 172.1 cm Mariaa Collado MD Work Phone: [facility] 01-31-2024 14:28-0400 Body mass index (BMI) [Ratio] 29.47 kg/m2 Mariaa Collado MD Work Phone: [facility] 01-31-2024 14:28-0400 Body weight 87.27 kg Mariaa Collado MD Work Phone: [facility] 01-31-2024 14:28-0400 Diastolic blood pressure 84 mm[Hg] Mariaa Collado MD Work Phone: [facility] 01-31-2024 14:28-0400 Heart rate 86 /min Mariaa Collado MD Work Phone: [facility] 01-31-2024 14:28-0400 Respiratory rate 20 /min Mariaa Collado MD Work Phone: [facility] 01-31-2024 14:28-0400 SaO2% (BldA) [Mass fraction] 97 % Mariaa Collado MD Work Phone: [facility] 01-31-2024 14:28-0400 Systolic blood pressure 132 mm[Hg] Mariaa Collado MD Work Phone: [facility] 06-30-2023 12:49-0400 Body height 170.2 cm 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 DEBLOCKER-RECYCLING TECHNICIAN Work Phone: [facility] 06-30-2023 12:49-0400 Body mass index (BMI) [Ratio] 30.6 kg/m2 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 DEBLOCKER-RECYCLING TECHNICIAN Work Phone: [facility] 06-30-2023 12:49-0400 Body weight 88.63 kg 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 DEBLOCKER-RECYCLING TECHNICIAN Work Phone: [facility] 06-30-2023 12:49-0400 Diastolic blood pressure 71 mm[Hg] 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 DEBLOCKER-RECYCLING TECHNICIAN Work Phone: [facility] [employer] [facility] 06-30-2023 12:49-0400 Heart rate 76 /min 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 DEBLOCKER-RECYCLING TECHNICIAN Work Phone: [facility] 06-30-2023 12:49-0400 Systolic blood pressure 145 mm[Hg] 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 DEBLOCKER-RECYCLING TECHNICIAN Work Phone: [facility] 06-10-2023 09:07-0500 Body height 170.2 cm Pmh 1 [facility] 06-10-2023 09:07-0500 Body mass index (BMI) [Ratio] 29.91 kg/m2 Pm 1 [facility] 06-10-2023 09:07-0500 Body weight 86.64 kg Pmh 1 [facility] 06-09-2023 09:11-0500 Body height 170.2 cm Velma Rosario DO Work Phone: [facility] 06-09-2023 09:11-0500 Body mass index (BMI) [Ratio] 30.01 kg/m2 Velma Rosario DO Work Phone: [facility] 06-09-2023 09:11-0500 Body weight 86.91 kg Velma Rosario DO Work Phone: [facility] 11-06-2022 13:39-0400 Body height 170.18 cm Catarina Av Temo Work Phone: [facility] DO Work Phone: 11-06-2022 13:39-0400 Body mass index (BMI) [Ratio] 27.41 kg/m2 Catarina Av Temo Work Phone: [facility] DO Work Phone: 11-06-2022 13:39-0400 Body surface area Derived from formula 1.91 m2 Catarina Plascencia Work Phone: [facility] DO Work Phone: 11-06-2022 13:39-0400 Body weight 79.38 kg Catarina Plascencia Work Phone: [facility] DO Work Phone: 11-06-2022 13:39-0400 Diastolic blood pressure 88 mm[Hg] Catarina Av Marshalltjcarolyn Work Phone: [facility] DO Work Phone: 11-06-2022 13:39-0400 Heart rate 76 /min Catarina Av Nathancarolyn Work Phone: [facility] DO Work Phone: 11-06-2022 13:39-0400 Systolic blood pressure 118 mm[Hg] Catarina Plascencia Work Phone: [facility] DO Work Phone: 09-30-2021 08:44-0400 Diastolic blood pressure 86 mm[Hg] Catarina Plascencia Work Phone: [facility] DO Work Phone: 09-30-2021 08:44-0400 Systolic blood pressure 130 mm[Hg] Catarina Plascencia Work Phone: [facility] DO Work Phone: 09-30-2021 08:43-0400 Diastolic blood pressure 92 mm[Hg] Catarina Plascencia Work Phone: [facility] DO Work Phone: 09-30-2021 08:43-0400 Systolic blood pressure 128 mm[Hg] Catarina Plascencia Work Phone: [facility] DO Work Phone: 09-30-2021 08:35-0400 Body height 170.18 cm Catarina Plascencia Work Phone: [facility] DO Work Phone: 09-30-2021 08:35-0400 Body mass index (BMI) [Ratio] 28.98 kg/m2 Catarina Olivarespcarolyn Work Phone: [facility] DO Work Phone: 09-30-2021 08:35-0400 Body surface area Derived from formula 1.96 m2 Catarina Plascencia Work Phone: [facility] DO Work Phone: 09-30-2021 08:35-0400 Body weight 83.92 kg Catarina Nathanfer Work Phone: [facility] DO Work Phone: 09-30-2021 08:35-0400 Heart rate 78 /min Catarina Olivarespfer Work Phone: [facility] DO Work Phone: 09-02-2021 14:17-0400 Body height 170.18 cm Catarina Olivarespfer Work Phone: [facility] DO Work Phone: 09-02-2021 14:17-0400 Body mass index (BMI) [Ratio] 29.6 kg/m2 Catarina Olivarespcarolyn Work Phone: [facility] DO Work Phone: 09-02-2021 14:17-0400 Body surface area Derived from formula 1.97 m2 Catarina Olivarespcarolyn Work Phone: [facility] DO Work Phone: 09-02-2021 14:17-0400 Body weight 85.73 kg Catarina Olivarespcarolyn Work Phone: [facility] DO Work Phone: 09-02-2021 14:17-0400 Diastolic blood pressure 88 mm[Hg] Catarina Olivarespfer Work Phone: [facility] DO Work Phone: 09-02-2021 14:17-0400 Heart rate 56 /min Catarina Olivarespfer Work Phone: [facility] DO Work Phone: 09-02-2021 14:17-0400 Systolic blood pressure 138 mm[Hg] Catarina Olivarespfer Work Phone: [facility] DO Work Phone: 09-02-2021 09:47-0400 Diastolic blood pressure 90 mm[Hg] Catarina Plascencia Work Phone: [facility] DO Work Phone: 09-02-2021 09:47-0400 Systolic blood pressure 152 mm[Hg] Catarina Plascencia Work Phone: [facility] DO Work Phone: 09-02-2021 09:10-0400 Body height 170.18 cm Catarina Plascencia Work Phone: [facility] DO Work Phone: 09-02-2021 09:10-0400 Body mass index (BMI) [Ratio] 29.6 kg/m2 Catarina Plascencia Work Phone: [facility] DO Work Phone: 09-02-2021 09:10-0400 Body surface area Derived from formula 1.97 m2 Catarina Plascencia Work Phone: [facility] DO Work Phone: 09-02-2021 09:10-0400 Body weight 85.73 kg Catarina Plascencia Work Phone: [facility] DO Work Phone: 09-02-2021 09:10-0400 Diastolic blood pressure 110 mm[Hg] Catarina Plascencia Work Phone: [facility] DO Work Phone: 09-02-2021 09:10-0400 Heart rate 56 /min Catarina Plascencia Work Phone: [facility] DO Work Phone: 09-02-2021 09:10-0400 Systolic blood pressure 160 mm[Hg] Catarina Plascencia Work Phone: [facility] DO Work Phone: 07-17-2021 15:33-0400 Diastolic blood pressure 90 mm[Hg] Catarina Plascencia Work Phone: [facility] DO Work Phone: 07-17-2021 15:33-0400 Systolic blood pressure 112 mm[Hg] Catarina Plascencia Work Phone: [facility] DO Work Phone: 07-17-2021 15:26-0400 Body height 170.18 cm Catarina Plascencia Work Phone: [facility] DO Work Phone: 07-17-2021 15:26-0400 Body mass index (BMI) [Ratio] 30.98 kg/m2 Catarina Plascencia Work Phone: [facility] DO Work Phone: 07-17-2021 15:26-0400 Body surface area Derived from formula 2.01 m2 Catarina Plascencia Work Phone: [facility] DO Work Phone: 07-17-2021 15:26-0400 Body weight 89.72 kg Catarina Plascencia Work Phone: [facility] DO Work Phone: 07-17-2021 15:26-0400 Diastolic blood pressure 100 mm[Hg] Catarina Plascencia Work Phone: [facility] DO Work Phone: 07-17-2021 15:26-0400 Heart rate 65 /min Catarina Plascencia Work Phone: [facility] DO Work Phone: 07-17-2021 15:26-0400 Systolic blood pressure 120 mm[Hg] Catarina Plascencia Work Phone: [facility] DO Work Phone: Encounters Encounter Date Encounter Type Care Provider Facility Start: 05-23-2024 End: 05-23-2024 Clinisync Result Encounter Generic External Data Provider [facility] External Department Unsolicited Start: 05-23-2024 End: 05-23-2024 Clinisync Result Encounter Generic External Data Provider [facility] External Department Unsolicited Start: 05-15-2024 End: 05-15-2024 Clinisync Result Encounter Generic External Data Provider [facility] External Department Unsolicited Start: 05-15-2024 End: 05-15-2024 Clinisync Result Encounter Generic External Data Provider [facility] External Department Unsolicited Start: 05-01-2024 End: 05-01-2024 Office outpatient visit 10 minutes Yuko Mackenzie Sidney DEBLOCKER-RECYCLING TECHNICIAN Work Phone: [facility] Comment on above: Benign essential hyp ertension (Primary Dx); BMI 29.0-29.9,adult Start: 05-01-2024 End: 05-01-2024 ambulatory [facility] Start: 04-21-2024 End: 04-21-2024 Bamboo flowsheet Marbella Phillips DO Work Phone: [facility] Start: 04-21-2024 End: 04-21-2024 Bamboo flowsheet Marbella Phillips DO Work Phone: [facility] Start: 04-21-2024 End: 04-21-2024 Office outpatient visit 25 minutes Marbella Phillips DO Work Phone: [facility] Comment on above: Abnormal chest CT (P rimary Dx); Hemoptysis Start: 04-21-2024 End: 04-21-2024 ambulatory MARBELLA Gurdeep ALAN Not Available Start: 04-14-2024 End: 04-14-2024 Telephone encounter Mariaa Collado MD Work Phone: [facility] Start: 04-14-2024 End: 04-14-2024 ambulatory Marbella Alan DO Work Phone: [facility] Work Phone: Start: 04-14-2024 End: 04-14-2024 Patient encounter procedure Marbella Alan DO Work Phone: [facility] Work Phone: Start: 04-03-2024 End: 04-03-2024 Office outpatient visit 15 minutes Maria L Etienne PULMONARY SPECIALIST Work Phone: [facility] Comment on above: COVID-19 (Primary Dx ); Sore throat Start: 04-03-2024 End: 04-03-2024 ambulatory MARIA L A HACKENBURG Not Available Start: 04-03-2024 End: 04-03-2024 Bamboo flowsheet Maria L A Hackenburg PULMONARY SPECIALIST Work Phone: [facility] Start: 04-03-2024 End: 04-03-2024 Bamboo flowsheet Maria L A Hackenburg PULMONARY SPECIALIST Work Phone: [facility] Start: 03-29-2024 End: 03-29-2024 Bamboo flowsheet Marbella K Alan DO Work Phone: [facility] Start: 03-29-2024 End: 03-29-2024 Bamboo flowsheet Marbella K Alan DO Work Phone: [facility] Start: 03-29-2024 End: 03-29-2024 ambulatory MARBELLA Gurdeep ALAN Not Available Start: 03-28-2024 End: 04-27-2024 External Result Encounter Marbella Gurdeep Alan DO Work Phone: [facility] External Department Unsolicited Start: 03-28-2024 End: 04-27-2024 External Result Encounter Marbella K Alan DO Work Phone: [facility] External Department Unsolicited Start: 03-28-2024 End: 03-28-2024 ambulatory Marbella Alan Facility:[facility] Start: 03-28-2024 End: 03-28-2024 Departed Referred Marbella Alan DO Work Phone: [facility] [place] Work Phone: Start: 03-24-2024 End: 03-24-2024 Bamboo [...] Hemoptysis Start: 03-24-2024 End: 03-24-2024 ambulatory MARBELLA K ALAN Not Available Start: 03-01-2024 End: 03-01-2024 ambulatory MARBELLA K ALAN Not Available Start: 02-25-2024 End: 02-25-2024 Bamboo flowsheet Marbella K Alan DO Work Phone: [facility] Start: 02-25-2024 End: 02-25-2024 Bamboo flowsheet Marbella K Alan DO Work Phone: [facility] Start: 02-25-2024 End: 02-25-2024 Office outpatient new 60 minutes Marbella K Alan DO Work Phone: [facility] Comment on above: Hemoptysis (Primary Dx); Subacute cough; Abnormal chest CT Start: 02-25-2024 End: 02-25-2024 ambulatory MARBELLA K ALAN Not Available Start: 02-21-2024 End: 02-21-2024 ambulatory [facility] Start: 02-21-2024 End: 02-21-2024 ambulatory [facility] Start: 02-21-2024 End: 02-21-2024 ambulatory [facility] Start: 02-15-2024 End: 02-15-2024 Telephone encounter Mariaa Collado MD Work Phone: [facility] Start: 02-10-2024 End: 02-10-2024 ambulatory [facility] Start: 02-10-2024 End: 02-10-2024 ambulatory [facility] Start: 02-01-2024 End: 02-01-2024 Orders Only Mariaa [...] type Start: 01-31-2024 End: 01-31-2024 ambulatory MARIAA COLLADO Not Available Start: 01-31-2024 End: 01-31-2024 Bamboo flowsheet Mariaa Collado MD Work Phone: [facility] Start: 01-31-2024 End: 01-31-2024 Bamboo flowsheet Mariaa Collado MD Work Phone: [facility] Start: 12-16-2023 End: 12-16-2023 ambulatory MARIAA COLLADO Not Available Start: 12-07-2023 End: 12-07-2023 Orders Only Mariaa Collado MD Work Phone: [facility] Comment on above: Subacute cough (Prim hermelinda Dx); Abnormal chest CT Start: 12-03-2023 End: 12-03-2023 ambulatory MARIAA COLLADO Not Available Start: 12-01-2023 End: 12-01-2023 Orders Only Mariaa Collado MD Work Phone: [facility] Comment on above: Lung nodule, multipl e (Primary Dx) Start: 11-23-2023 End: 11-23-2023 ambulatory MARIAA Mio HEAVEN Not Available Start: 10-04-2023 End: 10-04-2023 ambulatory LIZZ A HAMPTON Not Available Start: 09-30-2023 End: 09-30-2023 ambulatory LIZZ A HAMPTON Not Available Start: 09-30-2023 End: 09-30-2023 ambulatory LIZZ A HAMPTON Not Available Start: 06-30-2023 End: 06-30-2023 Postop follow up visit related to original px 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 DEBLOCKER-RECYCLING TECHNICIAN Work Phone: [facility] Comment on above: Status post laparosc opic cholecystectomy (Primary Dx); Gallbladder polyp Start: 06-30-2023 End: 06-30-2023 ambulatory GRIS Ley ANTHONY [facility] Start: 06-15-2023 End: 06-15-2023 Evaluation and management of inpatient ALONDRA HODGE [facility] Start: 06-15-2023 End: 06-15-2023 Evaluation and management of inpatient VELMA ROSARIO [facility] Start: 06-10-2023 End: 06-10-2023 ambulatory VELMA Tri RATNA [facility] Start: 06-10-2023 Encounter for other preprocedural examination SHELLIE HAMMOND [facility] Start: 06-10-2023 End: 06-10-2023 Patient encounter procedure [facility] Pre-Admission Testing 1 [facility] - Pre Admit Comment on above: Preop examination (P rimary Dx); Hypertension, unspecified type Start: 06-10-2023 End: 06-10-2023 Preprocedural examination done Pm 1 [facility] Start: 06-09-2023 End: 06-09-2023 Office outpatient new 45 minutes Velma Rosario DO Work Phone: [facility] Comment on above: Gallbladder polyp (P rimary Dx); History of hypertension Start: 06-09-2023 End: 06-11-2023 ambulatory VELMA Tri MARLENE [facility] Start: 06-08-2023 ambulatory SHELLIE Albert HAMMOND [facility] Start: 05-24-2023 Telephone encounter Mariaa milton MD Work Phone: [facility] Start: 05-21-2023 End: 05-21-2023 ambulatory EMMA SCANLON Not Available Start: 05-17-2023 Chart abstracting Emma Scanlon PULMONARY SPECIALIST Work Phone: [facility] Start: 05-17-2023 Telephone encounter Emma Marquez lf PULMONARY SPECIALIST Work Phone: [facility] Comment on above: Abdominal Pain Start: 05-12-2023 End: 05-12-2023 ambulatory EMMA SCANLON Not Available Start: 11-06-2022 Office outpatient vi sit 15 minutes Catarina Ley Kampfer Work Phone: [facility] DO Work Phone: Start: 11-06-2022 Patient encounter procedure Catarina Ley Kampfer Work Phone: [facility] DO Work Phone: Start: 09-02-2022 Rx Renewal Catarina Olivarespfe r Work Phone: [facility] DO Work Phone: Start: 09-30-2021 Office outpatient vi sit 15 minutes Catarina A Kampfer Work Phone: [facility] DO Work Phone: Start: 09-30-2021 Patient encounter procedure Catarina Ley Kampfer Work Phone: [facility] [facility] DO Work Phone: Start: 09-02-2021 Office outpatient vi sit 15 minutes Catarina Plascencia Work Phone: [facility] DO Work Phone: Start: 07-17-2021 Office consultation new/estab patient 60 min Catarina Plascencia Work Phone: [facility] DO Work Phone: Start: 07-07-2021 End: 07-08-2021 ambulatory OZ DISLA Facility: Start: 05-18-2021 End: 05-18-[address] NONE LISTED REQUEST Facility: Procedures Date Procedure Procedure Detail Performing Clinician Start: 05-23-2024 ALL CBC WITH AUTO DIFF Generic External Data Provider Start: 05-15-2024 Mri spinal canal cervical w/o contrast matrl Generic External Data Provider Start: 04-03-2024 Iaadiadoo streptococcus group a Maria L A Melanie PULMONARY SPECIALIST Work Phone: Start: 04-03-2024 STATUS COVID-19/FLU Maria L A Melanie PULMONARY SPECIALIST Work Phone: Start: 03-28-2024 Acid fast bacilli culture Marbella Alan DO Work Phone: Start: 03-28-2024 Acid fast stain method Marbella Alan DO Work Phone: Start: 03-28-2024 Bacteria identification test Marbella Stra ck DO Work Phone: Start: 03-28-2024 Determination of growth of fungi Marbella Alan DO Work Phone: Start: 03-28-2024 Fungal Culture Result 2 Marbella Alan DO Work Phone: Start: 03-28-2024 Fungal Culture Result 3 Marbella Alan DO Work Phone: Start: 03-28-2024 Fungal Culture Result 4 Marbella Alan DO Work Phone: Start: 03-28-2024 Mycology Susceptibility Marbella Alan DO Work Phone: Start: 03-28-2024 AFB SMEAR RESULT Marbella Phillips DO Work Phone: Start: 03-28-2024 AFB SPECIMEN PROCESSING Marbella Phillips DO Work Phone: Start: 03-28-2024 BRONCH CULTURE Marbella Phillips DO Work Phone: Start: 03-28-2024 CELL COUNT/DIFF,FLUID Marbella Phillips DO Work Phone: Start: 03-28-2024 FUNGAL SMEAR Marbella Phillips DO Work Phone: Start: 03-28-2024 FUNGUS (MYCOLOGY) CULTURE Marbella mackenzie DO Work Phone: Start: 03-28-2024 FUNGUS (MYCOLOGY) RESULT 1 Marbella cole DO Work Phone: Start: 03-28-2024 MISC LAB Marbella Phillips DO Work Phone: Start: 03-27-2021 Colonoscopy Emma Scanlon NP Work Phone: Start: 03-12-2021 Total colonoscopy Catarina Plascencia Work Phone: Esophagogastroduodenoscopy S rebecca Plascencia Work Phone: Extraction of wisdom tooth Slim rebecca Plascencia Work Phone: History of cholecystectomy Statu s post laparoscopic cholecystectomy 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 DEBLOCKER-RECYCLING TECHNICIAN Work Phone: Tonsillectomy and adenoidectomy Catarinaaissatou Plascencia Work Phone: Plan of Treatment Date Care Activity Detail Author Start: 03-27-2031 Screening for malign ant neoplasm of colon [facility] Start: 10-09-2024 Influenza vaccination Influenza Vacc ine (#1) [facility] Comment on above: Postponed from 12/11 (Patient Refused) Start: 06-29-2024 Adult BMI Screening Adult BMI Screen ing [facility] Start: 06-29-2024 Tobacco Screening Tobacco Screening [facility] Start: 06-12-2024 End: 04-21-2025 CT Chest WO contrast CT chest wo IV contrast Imaging Routine Abnormal chest CT Hemoptysis Expected: 06/12/2024, Expires: 04/21/2025 [facility] Work Phone: Comment on above: Expected: 06/12/2024 , Expires: 04/21/2025 Start: 06-09-2024 Adult BMI Screening Adult BMI Screen ing [facility] Start: 06-09-2024 Tobacco Screening Tobacco Screening [facility] Start: 05-25-2024 End: 05-25-2024 Patient encounter procedure 05/25/2024 1:00 PM EST Office Visit [facility] [address] [place] [phone] Cielo Denise MD [address] [place] [address] [facility] Start: 04-21-2024 End: 04-21-2024 Patient encounter procedure [facility] Comment on above: Arrived Start: 04-19-2024 End: 04-19-2024 Patient encounter procedure 04/19/2024 8:45 AM EST Office Visit [facility] [address] [place] [phone] Marbella Phillips, DO [address] [facility] [place] [address] [facility] Start: 04-14-2024 End: 04-14-2024 Patient encounter procedure 04/14/2024 11:40 AM EST Office Visit [facility] [address] [place] [phone] Mariaa Collado MD [address] [place] [address] [facility] Start: 04-03-2024 End: 04-03-2024 Patient encounter procedure 04/03/2024 3:30 PM EST Office Visit [facility] [address] [place] [phone] Maria L Etienne NP [address] [place], [place] [phone] Arrived [facility] Comment on above: Arrived Start: 03-28-2024 Acid Fast Bacilli Cu lture & Smear Acid Fast Bacilli Culture & Smear [facility] Start: 03-28-2024 Fungal Culture Result 1 Fungal Cultu re Result 1 [facility] Start: 03-28-2024 Mycology Culture Mycology Culture [facility] Start: 03-28-2024 [facility] Start: 03-24-2024 End: 03-24-2024 Patient encounter procedure [facility] Comment on above: Arrived Start: 02-25-2024 End: 02-25-2024 Patient encounter procedure 02/25/2024 10:15 AM EST Consult [facility] [address] [place] [phone] Marbella Phillips, DO [address] [place] [address] [facility] Start: 01-31-2024 End: 01-31-2024 Patient encounter procedure 01/31/2024 2:40 PM EDT Office Visit [facility] [address] [place] [address] Mariaa Collado MD [address] [place], [place] [phone] Arrived [facility] Comment on above: Arrived Start: 01-31-2024 End: 01-30-2025 CBC W Auto Differential panel - Blood CBC and differential Lab Routine Chest pain, unspecified type Expected: 01/31/2024 (Approximate), Expires: 01/30/2025 [facility] Comment on above: Expected: 01/31/2024 (Approximate), Expires: 01/30/2025 Start: 01-31-2024 End: 01-30-2025 Comprehensive metabolic 2000 panel - Serum or Plasma Comprehensive metabolic panel Lab Routine Chest pain, unspecified type Expected: 01/31/2024, Expires: 01/30/2025 [facility] Comment on above: Expected: 01/31/2024 , Expires: 01/30/2025 Start: 01-31-2024 End: 01-30-2025 ECG 12 lead [facility] Comment on above: Expected: 01/31/2024 (Approximate), Expires: 01/30/2025 Start: 01-31-2024 End: 01-30-2026 NM Heart Perfusion W single state of exercise Stress test with myocardial perfusion Cardiac Nuclear Medicine Routine Chest pain, unspecified type Expected: 01/31/2024 (Approximate), Expires: 01/30/2026 [facility] Comment on above: Expected: 01/31/2024 (Approximate), Expires: 01/30/2026 Start: 01-31-2024 End: 01-30-2025 NM Whole body Bone 3 Phase Views NM bone 3 phase Imaging Routine Cough, unspecified type Abnormal chest CT Expected: 01/31/2024, Expires: 01/30/2025 [facility] Work Phone: Comment on above: Expected: 01/31/2024 , Expires: 01/30/2025 Start: 01-31-2024 End: 01-30-2025 TSH W/REFLEX TO FT4 TSH W/REFLEX TO FT4 Lab Routine Chest pain, unspecified type Expected: 01/31/2024 (Approximate), Expires: 01/30/2025 [facility] Comment on above: Expected: 01/31/2024 (Approximate), Expires: 01/30/2025 Start: 12-12-2023 COVID-19 Vaccine ( season) COVID-19 Vaccine () [facility] Start: 12-12-2023 Influenza vaccination Influenza Vacc ine (#1) [facility] Start: 12-01-2023 End: 11-30-2024 CT Chest WO contrast CT chest wo IV contrast Imaging Routine Lung nodule, multiple Expected: 12/01/2023, Expires: 11/30/2024 [facility] Work Phone: Comment on above: Expected: 12/01/2023 , Expires: 11/30/2024 Start: 11-03-2023 FUV, Provider: Ben Ly, Status: Pen, Time: 1:00 PM FUV, Provider: Ben Ly, Status: Pen, Time: 1:00 PM [facility] [facility] DO Work Phone: Start: 06-30-2023 End: 06-30-2023 Patient encounter procedure 06/30/2023 1:00 PM EDT Office Visit [facility] [address] [place] [phone] 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 APRN-MERYL [address] [place], [place] [phone] [facility] General Surgery Start: 06-15-2023 End: 06-15-2023 Admission to same day surgery center 06/15/2023 8:00 AM EST - 06/15/2023 9:45 AM EST Surgery [facility] Surgery [address] [place] [phone] Velma Rosario, [address] [place], [place] [phone] DAVINCI CHOLECYSTECTOMY [05877 (CPT )] [facility] Comment on above: DAVINCI CHOLECYSTECT DAFNE [15687 (CPT )] Start: 06-15-2023 End: 06-15-2023 Laparoscopy surg cholecystectomy DAVINCI CHOLECYSTECTOMY gallbladder polyp 06/15/2023 8:00 AM EST [facility] Start: 06-15-2023 Subsequent hospital visit by physician 06/15/2023 8:00 AM EST Hospital Encounter [facility] [address] [place] [phone] Velma Rosario, DO [address] [place], [place] [phone] [facility] Start: 06-10-2023 End: 06-10-2023 Patient encounter procedure 06/10/2023 9:00 AM EST Procedure visit [facility] - Pre Admit [address] [place] [address] [facility] Start: 05-21-2023 End: 05-21-2023 Professional / ancillary services management 05/21/2023 8:00 AM EST Ancillary Procedure [facility] [address] [place] [address] [facility] Start: 05-17-2023 End: 05-17-2023 Professional / ancillary services management 05/17/2023 10:30 AM EST Ancillary Procedure [facility] [address] [place] [address] [facility] Start: 12-11-2022 COVID-19 Vaccine ( season) COVID-19 Vaccine ( season) [facility] Start: 12-11-2022 Influenza vaccination N [facility] Start: 11-06-2022 FUV, Provider: Ben Ly, Status: Pen, Time: 1:20 PM FUV, Provider: Ben Ly, Status: Pen, Time: 1:20 PM [facility] 250 DO Work Phone: Start: 07-31-2022 Adult BMI Follow Up Plan Adult BMI F ollow Up Plan [facility] Start: 05-12-2022 FUV, Provider: Ben Ly, Status: Pen, Time: 9:30 AM FUV, Provider: Ben Ly, Status: Pen, Time: 9:30 AM [facility] 250 DO Work Phone: Start: 09-30-2021 NURSEVST, Provider: LA MARTINEZ LACE BURN OUT TENDER 1,[id number], Status: Pen, Time: 8:30 AM NURSEVST, Provider: LA MARTINEZ LACE BURN OUT TENDER 1,[id number], Status: Pen, Time: 8:30 AM [facility] DO Work Phone: Start: 09-02-2021 FUV, Provider: Ben Ly, Status: Pen, Time: 8:50 AM FUV, Provider: Ben Ly, Status: Pen,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 Status Records FoundNo Status Records FoundNo Status Records FoundNo Status Records Found INFORMATION SOURCE (unrecogn ized section and content) DATE CREATED AUTHOR 07/12/2021 [facility] DATE CREATED AUTHOR AUTHOR'S ORGANIZ ATION 11/07/2022 [employer] DATE CREATED AUTHOR AUTHOR'S ORGANIZ ATION 02/17/2024 [facility] DATE CREATED AUTHOR AUTHOR'S ORGANIZ ATION 03/10/2024 [facility] DATE CREATED AUTHOR AUTHOR'S ORGANIZ ATION 04/26/2024 [facility] EPIC DATE CREATED AUTHOR AUTHOR'S ORGANIZ ATION 05/02/2024 [facility] DATE CREATED AUTHOR AUTHOR'S ORGANIZ ATION 05/15/2024 [facility] Reason for Visit (unrecogniz ed section and content) Reason Onset Date Comments Abdominal Pain 05/17/2023 Reason Comments Cholelithiasis GALLBLADDER POLYP, R EFERRED BY EMMA SCANLON NP Specialty Diagnoses / Procedures Referred By Nessa peacock Referred To Contact General Surgery Diagnoses Gallbladder polyp Procedures MS OFFICE OUTPATIENT VISIT 60-74 MINS HIGH MDM AMB REFERRAL TO GENERAL SURGERY Emma Scanlon, DEBLOCKER-RECYCLING TECHNICIAN [address] [place] [address] Velma Rosario DO [address] [place] [address] Referral ID Status Reason Start Date Expiration Date Visits Re quested Visits Authorized [id number] Closed 05/25/2023 11/21/2023 1 1 Reason Comments Post-op Post op davinci chol ecystectomy performed 06/15/23 at [facility] Reason Comments Breathing Problem Patient presents tod [...] Diagnoses Subacute cough Abnormal chest CT Procedures MS OFFICE/OUTPATIENT [facility] 60 MINUTES Mariaa Collado MD [address] [place] [address] Phone: tel: fax: Marbella Phillips, DO [address] [place] [address] Phone: tel: fax: Referral ID Status Reason Start Date Expiration Date V isits Requested Visits Authorized [id number] Closed Specialty Services Required 12/07/2023 06/04/2024 [address] chest 1 month follow up wi th CT chest Reason Comments Sore Throat Reason Comments Abnormal CT Chest 1 [address] up [address] bronchoscopy Reason Comments Follow-up Annual Exam Care Teams (unrecognized sec tion and content) [employer] Att[employer] Relationship Specialty Start Date End Date Rahel Heredia NP [address] [place] [address] PCP - [employer] 11/10/20 Mariaa Collado MD [address] [place] [address] PCP - General Family Medicine 08/18/22 Emma Scanlon NP [address] [facility] [place] [address] Nurse Practitioner Family Medicine 05/10/23 [employer] Att[employer] Relationship Specialty Start Date End Date Rahel Heredia NP [address] [facility] [place] [address] PCP - [employer] 11/10/20 Mariaa Collado MD [address] [facility] [place] [address] PCP - General Family Medicine 08/18/22 Emma Scanlon, PULMONARY SPECIALIST [address] [facility] [place] [place] [address] Nurse Practitioner Family Medicine 05/10/23 [employer] Relationship Specialty Start Date End Date Shellie Hammond, DEBLOCKER-RECYCLING TECHNICIAN [address] [facility] [address] [place] [address] PCP - General Family Medicine 09/09/18 [employer] Relationship Specialty Start Date End Date Emma Scanlon, DEBLOCKER-RECYCLING TECHNICIAN [address] [facility] [place] [place] [address] PCP - General Nurse Practitioner 06/10/23 [employer] Att[employer] Relationship Specialty Start Date End Date Emma Scanlon, DEBLOCKER-RECYCLING TECHNICIAN [address] [facility] [place] [place] [address] PCP - General Nurse Practitioner 06/10/23 [employer] Relationship Specialty Start Date End Date Mariaa Collado MD [address] [facility] [place] [address] PCP - General Family Medicine 08/18/22 Lizz Hampton NP [address] [facility] [place] [address] PCP - [employer] 11/11/23 Emma Scanlon NP [address] [place] [address] Nurse Practitioner Family Medicine 05/10/23 [employer] Att[employer] Relationship Specialty Start Date End Date Mariaa Collado MD [address] [place] [address] PCP - General Family Medicine 08/18/22 Lizz Hampton PULMONARY SPECIALIST [address] [place] [address] PCP - [employer] 11/11/23 Emma Scanlon NP [address] [place] [address] Nurse Practitioner Family Medicine 05/10/23 [employer] Att[employer] Relationship Specialty Start Date End Date Mariaa Collado MD [address] [place] [address] PCP - General Family Medicine 08/18/22 Lizz Hampton PULMONARY SPECIALIST [address] [place] [address] PCP - [employer] 11/11/23 Emma cSanlon NP [address] [place] [address] Nurse Practitioner Family Medicine 05/10/23 [employer] Relationship Specialty Start Date End Date Mariaa Collado MD [address] [place] [address] PCP - General Family Medicine 08/18/22 Lizz Hampton NP [address] [place] [address] PCP - [employer] 11/11/23 Emma Scanlon NP [address] [place] [address] Nurse Practitioner Family Medicine 05/10/23 [employer] Att[employer] Relationship Specialty Start Date End Date Mariaa Collado MD [address] [place] [address] PCP - General Family Medicine 08/18/22 Lizz Hampton NP [address] [place] [address] PCP - [employer] 11/11/23 Emma Scanlon NP [address] [place] [address] Nurse Practitioner Family Medicine 05/10/23 [employer] Relationship Specialty Start Date End Date Mariaa Collado MD [address] [place] [address] PCP - General Family Medicine 08/18/22 Lizz Hampton NP [address] [place] [address] PCP - [employer] 11/11/23 Emma Scanlon NP [address] [place] [address] [place] [address] Nurse Practitioner Family Medicine 05/10/23 [employer] Relationship Specialty Start Date End Date Mariaa Collado MD [address] [place] [address] PCP - General Family Medicine 08/18/22 Lizz Hampton NP [address] [place] [address] PCP - [place] [employer] 11/11/23 Emma Scanlon NP [address] [place] [address] Nurse Practitioner Family Medicine 05/10/23 [employer] Relationship Specialty Start Date End Date Mariaa Collado MD [address] [place] [address] PCP - General Family Medicine 08/18/22 Lizz Hampton NP [address] [place] [address] PCP - [place] [employer] 11/11/23 Emma Scanlon NP [address] [place] [address] Nurse Practitioner Family Medicine 05/10/23 [employer] Relationship Specialty Start Date End Date Mariaa Collado MD [address] [place] [address] PCP - General Family Medicine 08/18/22 Lizz Hampton NP [address] [place] [address] PCP - [employer] 11/11/23 Emma Scanlon NP [address] [place] [address] Nurse Practitioner Family Medicine 05/10/23 [employer] Relationship Specialty Start Date End Date Mariaa Collado MD [address] [place] [address] PCP - General Family Medicine 08/18/22 Emma Scanlon NP [address] [place] [address] PCP - [employer] 07/12/23 Emma Scanlon NP [address] [place] [address] Nurse Practitioner Family Medicine 05/10/23 [employer] Relationship Specialty Start Date End Date Mariaa Collado MD [address] [place] [address] PCP - General Family Medicine 08/18/22 Lizz Hampton NP [address] [place] [address] PCP - [employer] 11/11/23 Emma Scanlon NP [address] [place] [address] Nurse Practitioner Family Medicine 05/10/23 [employer] Relationship Specialty Start Date End Date Mariaa Collado MD [address] [place] [address] PCP - General Family Medicine 08/18/22 Emma Scanlon PULMONARY SPECIALIST [address] [place] [address] PCP - [employer] 07/12/23 Emma Scanlon NP [address] [place] [address] Nurse Practitioner Family Medicine 05/10/23 [employer] Relationship Specialty Start Date End Date Mariaa Collado MD [address] [place] [address] PCP - General Family Medicine 08/18/22 Lizz Hampton NP [address] [place] [address] PCP - [place] [employer] 11/11/23 Emma Scanlon NP [address] [place] [address] Nurse Practitioner Family Medicine 05/10/23 [employer] Relationship Specialty Start Date End Date Mariaa Collado MD [address] [place] [address] PCP - General Family Medicine 08/18/22 Lizz Hampton NP [address] [place] [address] PCP - [employer] 11/11/23 Emma Scanlon NP [address] [place] [address] Nurse Practitioner Family Medicine 05/10/23 [employer] Relationship Specialty Start Date End Date Mariaa Collado MD [address] [place] [address] PCP - General Family Medicine 08/18/22 Lizz Hampton PULMONARY SPECIALIST [address] [place] [address] PCP - [employer] 11/11/23 Emma Scanlon NP [address] [place] [address] Nurse Practitioner Family Medicine 05/10/23 Team Status: [...] April 14, 2024 End: April 14, 2024 [employer] Relationship Specialty Start Date End Date Mariaa Collado MD [address] [place] [address] PCP - General Family Medicine 08/18/22 Lizz Hampton, PULMONARY SPECIALIST [address] [place] [address] PCP - [employer] 11/11/23 Emma Scanlon NP [address] [place] [address] Nurse Practitioner Family Medicine 05/10/23 [employer] Relationship Specialty Start Date End Date Mariaa Collado MD [address] [place] [address] Referring Physician Family Medicine 05/01/24 [employer] Relationship Specialty Start Date End Date Mariaa Collado MD [address] [place] [address] PCP - General Family Medicine 08/18/22 Lizz Hampton PULMONARY SPECIALIST [address] [place] [address] PCP - [employer] 11/11/23 Emma Scanlon NP [address] [place] [address] Nurse Practitioner Family Medicine 05/10/23 [employer] Relationship Specialty Start Date End Date Mariaa Collado MD [address] [facility] [place] [address] PCP - General Family Medicine 08/18/22 Mariaa Collado MD [address] [facility] [place] [address] PCP - [facility] 03/12/24 Emma Scanlon NP [address] [facility] [place] [address] Nurse Practitioner Family Medicine 05/10/23 Goals (unrecognized section and content) Goals may [...] BE BASED ON THE PRIMARY CLINICAL RECORDS. [email or web address] provides no warranty or guarantee of the accuracy or completeness of information in this document.
== END 2024-05-24 10:15 | disposition home or self-care (01) ==
LOC: CARD 10:14
PROVIDERS: PCP Family Medicine
DX: Z01.810 Encounter for preprocedural cardiovascular examination (principal); Z01.811 Encounter for preprocedural respiratory examination; Z01.818 Encounter for other preprocedural examination; M50.322 Other cervical disc degeneration at C5-C6 level; I10 Essential (primary) hypertension
CPT/HCPCS: 93005

== ENCOUNTER 2024-08-08 12:21 | Emergency (ER) | payer BC, SELFPAY ==
[2024-08-08 12:25] VITALS: BP 165/99; PULSE 81; TEMP 37.1; O2SAT 96; BMI 29.4
--- NOTE | 2024-08-08 12:40 | PC.NURSE ---
pt had cervical spine surgery in may -- for the past week has had tightness in his throat. sometimes has trouble swallowing his spit. has been eating soft foods since it started
[2024-08-08 13:07] LABS: Basophils Absolute Auto 0.1 10^3/uL (0.0-0.1); Basophils Percent Auto 0.9 % (0.2-2.0); Eosinophils Absolute Auto 0.1 10^3/uL (0.0-0.7); Eosinophils Percent Auto 1.4 % (0.9-7.0); Hematocrit 45.5 % (42.0-54.0); Hemoglobin 15.6 g/dL (14.0-18.0); Immature Granulocytes Abs Auto 0.04 10^3/uL (0.00-0.03); Immature Granulocytes Pct Auto 0.5 % (0.0-0.5); Lymphocytes Absolute Auto 1.7 10^3/uL (1.2-3.8); Lymphocytes Percent Auto 19.8 % (20.5-60.0); Mean Corpuscular HGB Conc 34.3 g/dL (29.9-35.2); Mean Corpuscular Hemoglobin 30.4 pg (25.9-34.0); Mean Corpuscular Volume 88.5 fL (80.0-94.0); Mean Platelet Volume 11.5 fL (9.5-13.5); Monocytes Absolute Auto 0.6 10^3/uL (0.3-0.8); Monocytes Percent Auto 7.3 % (1.7-12.0); Neutrophils Percent Auto 70.1 % (43.0-75.0); Platelet Count 259 10^3/uL (150-450); Red Blood Count 5.14 10^6/uL (4.70-6.10); Red Cell Distribution Width 12.5 % (11.0-15.0); White Blood Count 8.6 10^3/uL (4.0-11.0)
[2024-08-08 13:33] LABS: Alanine Aminotransferase 22 U/L (16-63); Albumin Globulin Ratio 1.2; Albumin Level 4.1 g/dL (3.4-5.0); Alkaline Phosphatase 131 U/L (46-116); Anion Gap 14.1; Aspartate Amino Transferase 21 U/L (15-37); BUN Creatinine Ratio 18.5; Bilirubin Total 0.8 mg/dL (0.2-1.0); Calcium 9.3 mg/dL (8.5-10.1); Carbon Dioxide 28.8 mmol/L (21.0-32.0); Chloride 103 mmol/L (98-107); Estimated GFR (African America >60 (>=60 mL/min/1.73m^2); Estimated GFR (Non-African Ame >60 (>=60 mL/min/1.73m^2); Globulin 3.3 g/dL; Glucose 110 mg/dL (74-106); Potassium 4.9 mmol/L (3.5-5.1); Sodium 141 mmol/L (136-145); Total Protein 7.4 g/dL (6.4-8.2)
[2024-08-08 14:37] LABS: Erythrocyte Sedimentation Rate 21 mm/hr (<=20)
[2024-08-08 14:38] LABS: C Reactive Protein <0.50 mg/dL (<=0.50)
[2024-08-08] MEDS: DEXAMETHASONE SOD PHOS 10 MG/ML VIAL IV (15:15)
--- NOTE | 2024-08-08 15:29 | ED.DENTAL1 ---
HPI - Dental/Oral General Chief complaint: Dental/Oral Stated complaint: HARD SWOLLING, FULLNESS, CHOKING Time Seen by Provider: 08/08/24 12:31 Source: patient Mode of arrival: walk-in Limitations: no limitations History of Present Illness HPI Narrative: The patient is coming to the ER after he had a 8 weeks ago cervical disc surgery is coming to the ER after he had been having difficulty swallowing for the last 10 days, he mentioned that he is swallowing Multisorb 'hard 'him to have episode of choking, the patient denies any difficulty breathing at the moment or any episode where he have to spit his saliva but the patient mentioned that sometimes it is positional that we would feel that he have to spit his saliva in certain position when laying or sitting, the patient denies any difficulty breathing at the moment he is not in any distress. His voice is clear and not muffled Related Data Home Medications ?Medication ?Instructions ?Recorded ?Confirmed propranolol 60 mg capsule,24 60 mg PO DAILY 01/07/23 08/08/24 hr,extended release triamterene 37.5 1 cap PO DAILY 01/07/23 08/08/24 mg-hydrochlorothiazide 25 mg capsule Allergies Allergy/AdvReac Type Severity Reaction Status Date / Time No Known Drug Allergies Allergy Verified 08/08/24 12:28 Review of Systems ROS Status of ROS 10 or more systems reviewed and unremarkable except as noted in history and below [facility] Social History Smoking status: Current some day smoker Little interest or pleasure in doing things: not at all Feeling down, depressed, or hopeless: not at all Exam Narrative Exam Narrative: Nurses notes and vital signs reviewed and patient is not hypoxic. General: Well-appearing and in no apparent distress. Skin: Warm, dry, no pallor noted. No rash. Head: Normocephalic, atraumatic. Neck: Supple, non-tender. Scar of previous surgery on the right side of the neck and the patient does not have any swelling at his a completely normal exam otherwise and there is no lymphadenopathy there is no asymmetry on exam Eye: Pupils are equal, round and EOMI. No scleral icterus. Ears, Nose, Mouth, and Throat: TM are clear, no nasal mucosal hypertrophy. Oral mucosa is moist, no posterior oropharynx erythema, uvula is mid-line and there is no compromise of the airway Cardiovascular: Regular Rate and Rhythm without murmur, gallop or rub. Respiratory: No accessory muscle use or respiratory distress. Lungs are clear to auscultation, no wheezing, rales or rhonchi Chest Wall: no tenderness Back: No midline thoracic or lumbar vertebral tenderness. No CVA tenderness Musculoskeletal: normal ROM, no calf or popliteal tenderness, no lower extremity edema/swelling GI: Abdomen is soft, non-distended. Normal bowel sounds. No masses appreciated. No tenderness to palpation. No rebound, guarding, or rigidity noted. Neurological: A&O x4. No cranial nerve dysfunction observed. No truncal ataxia. Moves all extremities. Sensation intact. Psychiatric: Cooperative and interactive. Normal mood and affect. Constitutional Vital Signs, click to edit/add: Last Vital Signs Temp 98.7 F 08/08/24 12:25 Pulse 81 08/08/24 12:25 Resp 18 08/08/24 12:25 BP 165/99 H 08/08/24 12:25 Pulse Ox 96 08/08/24 12:25 O2 Del Method Room Air 08/08/24 12:25 Course Vital Signs Vital signs: Vital Signs Temperature 98.7 F 08/08/24 12:25 Pulse Rate 81 08/08/24 12:25 Respiratory Rate 18 08/08/24 12:25 Blood Pressure 165/99 H 08/08/24 12:25 Pulse Oximetry 96 08/08/24 12:25 Oxygen Delivery Method Room Air 08/08/24 12:25 Temperature 98.7 F 08/08/24 12:25 Pulse Rate 81 08/08/24 12:25 Respiratory Rate 18 08/08/24 12:25 Blood Pressure 165/99 H 08/08/24 12:25 Pulse Oximetry 96 08/08/24 12:25 Oxygen Delivery Method Room Air 08/08/24 12:25 MDM - Dental/Oral MDM Narrative Medical decision making narrative: The patient complete examination the bedside showing no distress and the patient was not spitting his saliva at any time when he was in the ER he mentioned that this mostly happen in certain position but right now sitting up he is feeling okay and he does not have any complaints He was not in any distress at any time during evaluation in the ER The patient CBC and chemistry showed no acute pathology ESR was mildly elevated and the CRP was negative I did speak with at the phone #[phone] and updated him about the results of the testing including the CT of the neck soft tissue that showed no acute pathology The patient will need a Gastrografin swallow evaluation which we do not do in our facility the patient will be reach out by the surgeon office tomorrow to do the study The patient was given Decadron in the ER he will be discharged home with prednisone for the next 5 days The patient was instructed about the importance of monitoring his symptoms he is to come back in case of any worsening of his symptoms by any means The patient is to follow up with primary care physician in next 2-3 days or to return to the emergency department should any of the signs or symptoms worsen or new symptoms develop. The patient agrees with the following Diagnosis and Treatment plan and the patient will be discharged home. Lab Data Labs: Lab Results 08/08/24 08/08/24 Range/Units 12:35 13:13 WBC 8.6 (4.0-11.0) 10^3/uL RBC 5.14 (4.70-6.10) 10^6/uL Hgb 15.6 (14.0-18.0) g/dL Hct 45.5 (42.0-54.0) % MCV 88.5 (80.0-94.0) fL MCH 30.4 (25.9-34.0) pg MCHC 34.3 (29.9-35.2) g/dL RDW 12.5 (11.0-15.0) % Plt Count 259 (150-450) 10^3/uL MPV 11.5 (9.5-13.5) fL Neut % (Auto) 70.1 (43.0-75.0) % Lymph % (Auto) 19.8 L (20.5-60.0) % [place] % (Auto) 7.3 (1.7-12.0) % Eos % (Auto) 1.4 (0.9-7.0) % Baso % (Auto) 0.9 (0.2-2.0) % Neut # (Auto) 6.0 (1.4-6.5) 10^3/uL Lymph # (Auto) 1.7 (1.2-3.8) 10^3/uL [place] # (Auto) 0.6 (0.3-0.8) 10^3/uL Eos # (Auto) 0.1 (0.0-0.7) 10^3/uL Baso # (Auto) 0.1 (0.0-0.1) 10^3/uL Abs Immat Gran (auto) 0.04 H (0.00-0.03) 10^3/uL Imm/Tot Granulo (auto) 0.5 (0.0-0.5) % ESR 21 H (<=20) mm/hr Sodium 141 (136-145) mmol/L Potassium 4.9 (3.5-5.1) mmol/L Chloride 103 (98-107) mmol/L Carbon Dioxide 28.8 (21.0-32.0) mmol/L Anion Gap 14.1 BUN 22.0 H (7.0-18.0) mg/dL Creatinine 1.19 (0.70-1.30) mg/dL Est GFR ( Amer) >60 (>=60 mL/min/1.73m^2) Est GFR (Non-Af Amer) >60 (>=60 mL/min/1.73m^2) BUN/Creatinine Ratio 18.5 Glucose 110 H (74-106) mg/dL Calcium 9.3 (8.5-10.1) mg/dL Total Bilirubin 0.8 (0.2-1.0) mg/dL AST 21 (15-37) U/L ALT 22 (16-63) U/L Alkaline Phosphatase 131 H (46-116) U/L C-Reactive Protein <0.50 (<=0.50) mg/dL Total Protein 7.4 (6.4-8.2) g/dL Albumin 4.1 (3.4-5.0) g/dL Globulin 3.3 g/dL Albumin/Globulin Ratio 1.2 Discharge Plan Discharge Chief Complaint: Dental/Oral Clinical Impression: Dysphagia Patient Disposition: Home, Self-Care Time of Disposition Decision: 15:32 Prescriptions / Home Meds: No Action propranolol 60 mg capsule,extended release 24 hr 60 mg PO DAILY triamterene-hydrochlorothiazid 37.5-25 mg capsule 1 cap PO DAILY Print Language: Occitan Instructions: Dysphagia (ED) Additional Instructions: Please follow up with your surgeon office Dr Tirado for swallow evaluation Referrals: RAIZA TSAI [Primary Care Provider, [facility]] - 1 week
== END 2024-08-08 16:06 | disposition home or self-care (01) ==
PROVIDERS: Emergency Provider Emergency Medicine; PCP Family Medicine
DX: R13.10 Dysphagia, unspecified (principal); F17.200 Nicotine dependence, unspecified, uncomplicated
CPT/HCPCS: 36415; 70491; 80053; 85025; 85652; 86140; 96374; 99285; J1100; Q9967

== ENCOUNTER 2025-01-19 17:24 | Emergency (ER) | payer BC, SELFPAY ==
[2025-01-19] VITALS (7 sets, daily range): BP systolic 118–138; BP diastolic 79–93; PULSE 62–67; TEMP 36.7; O2SAT 95–97; BMI 30.2
--- NOTE | 2025-01-19 17:29 | CT_ITS ---
The [address] [address] Patient Name: ANGELA LUGO MRN: [id number] date: 1965 Sex: M Assigned Patient Location: ED.MAIN Current Patient Location: ED.MAIN Accession/Order Number: [id number] Exam Date: 01/19/2025 17:42 Report Date: 01/19/2025 18:05 At the request of: CATALINA REYES Procedure: CT head/brain wo con CT BRAIN WITHOUT CONTRAST: CLINICAL HISTORY: Scalp hematoma, syncopal fall COMPARISON: CT head 07/07/2021 TECHNIQUE: Contiguous axial unenhanced images were obtained through the brain. This CT exam was performed using one or more following dose reduction techniques: Automated exposure control, adjustment of the mA and/or kV according to patient size, or use of iterative reconstruction technique. FINDINGS: There is no evidence of midline shift, intra or extra-axial fluid collection, hemorrhage or CT evidence of acute large vascular distribution stroke. Visualized intraorbital contents appear unremarkable. Visualized paranasal sinuses are clear. Left parietal scalp soft tissue swelling and subcutaneous hematoma. No calvarial fracture. CT/CT head/brain wo con IMPRESSION: NO ACUTE INTRACRANIAL ABNORMALITY. Impression dictated by: Ramón Diego M.D. 01/19/2025 6:05 PM Dictation Location: [place] [address] Electronically authenticated by: [id number] Y Date: 01/19/2025 18:05
--- NOTE | 2025-01-19 17:29 | ECG_ITS ---
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 Measurements Intervals [place] Rate: 62 P: 39 [place]: 160 QRS: 19 QRSD: 86 T: 47 QT: 408 QTc: 413 Interpretive Statements [address] ELEV, PROBABLE NORMAL EARLY REPOL PATTERN 9110 normal ECG Compared to ECG 05/24/2024 10:22:26 No significant changes Electronically Signed On 01-19-2025 20:07:51 EDT by ZENON COLUNGA M.D.
--- OUTSIDE RECORDS SUMMARY | 2025-01-19 17:29 | XMS_ITS | CCD ---
Author Organization [facility] Inform ion [facility] Care Team Providers Care 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 Name Role Phone REQUEST, DR NONE LISTED Primary Care Unavaila daniela REID, DR CARI Beckwith Attending Unavailable KARLA, DR CARI Beckwith Admitting Unavailable KARLA, DR CARI Beckwith Consulting Unavailable TONY CHESTER Consulting Unavailable OZ DISLA Attending Unavailable OZ DISLA Admitting Unavailable REQUEST, DR JACOBSON LISTED Primary Care Unavaila daniela CALL, DR ZHANE Danielle Consulting Unavailable KAMRYN, DR GARCIA Consulting Unavailable SARAH GAN Consulting Unavailable OZ DISLA Consulting Unavailable NICA SALAZAR Consulting Unavailable Gregg Sellers Consulting Unavailable Ena Herring Consulting Unavailable Catarina Plascencia Unavailable Unavailable Unavailable Unavailable Unavailable Yan MANAGER REIMBURSEMENT, Rahel Addison Unavailable [phone] Heaven GIBSON, Mariaa Lieberman Primary Care Provider [phone] Capo MANAGER REIMBURSEMENT, Emma Beckwith Unavailable Lizz Hampton NP Unavailable VELMA ROSARIO Attending Unavailable SHELLIE HAMMOND Referring Unavailable SHELLIE HAMMOND Primary Care Unavailable GRIS ANTHONY Attending Unavailable SHELLIE HAMMOND Referring Unavailable EMMA SCANLON Primary Care Unavailable SHELLIE HAMMOND Referring Unavailable SHELLIE HAMMOND Primary Care Unavailable EMMA SCANLON Referring Unavailable SCANLON EMMA Amena Primary Care Unavailable CAMILA SCANLONANN Amena Referring Unavailable CAPO EMMA R Primary Care Unavailable SHELLIE HAMMOND Referring Unavailable SHELLIE HAMMOND Primary Care Unavailable ZHANE BATES Attending Unavailable ZHANE BATES Referring Unavailable EMMA SCANLON Primary Care Unavailable VELMA ROSARIO Referring Unavailable SCANLON, EMMA R Primary Care Unavailable VELMA ROSARIO Attending Unavailable VELMA ROSARIO Referring Unavailable SCANLON, EMMA R Primary Care Unavailable VELMA ROSARIO Admitting Unavailable VELMA ROSARIO Attending Unavailable SHELLIE [...] SCANLON, EMMA R Primary Care Unavailable Scanlon MANAGER REIMBURSEMENT, Emma R Unavailable Scanlon MANAGER REIMBURSEMENT, Emma R Unavailable Marbella Phillips DO Attending Provider Mariaa Collado MD Unavailable Marbella Phillips Admitting Unavailable Marbella Phillips Attending Unavailable Mariaa Collado MD Unavailable YUKO REID Attending Unavailable CATARINA PLASCENCIA Primary Care Unavailable Manish KAITARA TARAKA-ASSOCIATE RESEARCH SCIENTISTShellie Primary Care Provid er Capo KAITARA TARAKA-ASSOCIATE RESEARCH SCIENTIST, Emma Beckwith Primary Care Provider [phone] Mariaa Collado MD Primary Care Provider MARIAA COLLADO Primary Care Unavailable O-INYANG , [place] Referring Unavailabl e [facility] Referring Unavailabl e HEAVEN MARIAA Lieberman Primary Care Unavailable [facility] Referring Unavailabl e HEAVENMARIAA ESTEVEZ Primary Care Unavailable CIELO LAINEZ Attending Unavailable MARBELLA PHILLIPS Referring Unavailable MITCH TERAN Attending Unavailable MARBELLA PHILLIPS Attending Unavailable NICA BARRON Attending Unavailable INDONYA , [facility] Referring Unavailabl e NICA BARRON Attending Unavailable INROOSE[place]ELT REYES, [facility] Referring Unavailabl e SUSANNE WATERMAN Attending Unavailable INROO[place]ELT REYES, [facility] Referring Unavailabl e SUSANNE WATERMAN Attending Unavailable IN[place]OO[place]T , [facility] Referring Unavailabl e MIRNA SALTER Attending Unavailable IN[place] , [facility] Referring Unavailadela e MIRNA SALTER Attending Unavailable IN[place] , [facility] Referring Unavailabl e JEFFREY BARRONEMElijah Peacock Attending Unavailable [place] JR, [facility] Referring Unavailadela e MARIAA COLLADO Mio Attending Unavailable MITCH TERAN Attending Unavailable MARBELLA PHILLPIS Referring Unavailable MARIAA COLLADO Attending Unavailable MARBELLA PHILLIPS Attending Unavailable MARIAA COLLADO F Referring Unavailable MARBELLA PHILLIPS Referring Unavailable MARBELLA PHILLIPS Attending Unavailable MARBELLA PHILLIPS Attending Unavailable MARIA L ETIENNE Attending Unavailab MARBELLA Singer Attending Unavailable Nato GIBSON, Lance Dill Attending Unavailable Heaven GIBSON, [facility], [facility] SHETH Attending Bridget Collado MD, [facility] Attending Bridget suarez Allergies Allergy Classification Reported Allergen(s) Allergy Type Date of Onset Reaction(s) Facility (1 source) No Known Medication Allergies; Translations: [No Known Medication Allergies] Propensity to adverse reactions to drug (disorder) [facility] Repository Medications Current Medications Medication Drug Class(es) Dates Sig (Normalized) Sig (Original) acetaminophen 325 mg / HYDROcodone bitartrate 5 mg oral tablet (6 sources) Opioid Agonist Start: 05-06-2024 take 1 tablet by mouth every four hours as needed HYDROcodone-acetamin ophen ([place]) 5-325 MG tablet Take 1 tablet by mouth every 4 (four) hours if needed 05/06/2024 Active atorvastatin 20 mg oral tablet (6 sources) HMG-CoA Reductase Inhibitor Start: 08-16-2024 End: 08-16-2025 take 1 tablet by mouth once daily atorvastatin (Lipitor) 20 MG tablet Indications: Mixed hyperlipidemia Take 1 tablet (20 mg) by mouth Daily 100 tablet 3 08/16/2024 08/16/2025 Active benzonatate 200 mg oral capsule (1 [...] Active doxycycline hyclate 100 mg oral capsule (10 sources) Tetracycline-clas s Drug Start: 04-14-2024 take 1 capsule by [...] Take 1 capsule by mouth. 0 Active Snur-Lfqlucrtl-Fxr-Methyl Koffi (NMAL-PIGHY-EISCLBZSF EX) (6 sources) apply 1 dose transdermal route once daily Xfrm-Wyuxinyhv-Vzr-Methyl Koffi (QWLL-OEABM-NHISIYNAN EX) Apply 1 patch topically 1 (one) time each day at the same time Active lisinopril 5 mg oral tablet (3 sources) Angiotensin Converting Enzyme Inhibitor Sta rt: 1 lisinopril 5 MG tablet 1 (one) time each day at the same time. 0 07/23/2020 Active methocarbamol 500 mg oral tablet (6 sources) Muscle Relaxant Sta rt: 5 take 1 tablet by mouth every eight hours as needed methocarbamol (Robaxin) 500 MG tablet Take 500 mg by mouth every 8 (eight) hours if needed 05/06/2024 Active in-crx-Q-nkbyomkm-vryojj-pf5 24 ([place], LYSINE HCL,) 1,000-50 mg tablet, effervescent (2 sources) hl-gwr-W-glutami n-lysine-hb 124 ([place], LYSINE HCL,) 1,000-50 mg tablet, effervescent Take by mouth as needed. 0 Active Nirmatrelvir&Ritonavir 300/100 (Paxlovid, 300/100,) 20 x 150 MG & 10 x 100MG tablet therapy pack (12 sources) Sta rt: 4 take 1 tablet [...] chew.. 90 capsule 3 02/01/2024 01/31/2025 Active predniSONE 10 mg oral tablet (3 sources) Sta rt: 5 End : 5 take 1 tablet by mouth in the morning predniSONE (Deltasone) 10 MG tablet Indications: Dysphagia, unspecified type Take 1 tablet (10 mg) by mouth in the morning and 1 tablet (10 mg) before bedtime. Do all this for 5 days. 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 90 capsule 1 11/17/2024 Active Start: 11-24-2023 take 1 capsule by [...] Start: 12-23-2020 take 1 capsule by mo ut once daily Propranolol HCl ER 60 MG Oral Capsule Extended Release 24 Hour TAKE 1 CAPSULE Daily Quantity: 0 Refills: 0 Ordered: 10-Jul-2021 DO Start : 23-Dec-2020 Active SUMAtriptan 100 mg oral tablet (20 sources) Serotonin-1b and Serotonin-1d Receptor Agonist Start: 05-12-2023 End: 08-12-2025 take 1 tablet by mouth every two hours as needed, then take 2 tablets by mouth once daily as needed SUMAtriptan (Imitrex) 100 MG tablet Indications: Migraine without aura and without status migrainosus, not intractable 1 tablet at least 2 hours between doses as needed Orally max 2 per day for 30 day(s) 9 tablet 05/12/2023 11/21/2024 Discontinued Start: 11-06-2021 SUMAtriptan Francisco ccinate 100 MG [...] 06/15/2023 06/30/2023 Discontinued (Patient Stopped On Own) barium sulfate 96 % suspension 50 mL (1 source) Start: 08-21-2024 End: 08-21-2024 take 1 dose by mouth once 50 mL, Oral, IMG ONCE PRN, 1 dose, Starting on Wed08/21/24 at 0854, Until Wed08/21/24 at 0905, Other barium sulfate 98 % suspension 140 mL (1 source) Start: 08-21-2024 End: 08-21-2024 take 1 dose by mouth once 140 mL, Oral, IMG ONCE PRN, 1 dose, Starting on Wed08/21/24 at 0853, Until Wed08/21/24 at 0901, Other sodium bicarb-citric acid-simethicone (EZ GAS II) packet 1 each (1 source) Start: 08-21-2024 End: 08-21-2024 1 each (4 g), Oral, ONCE, 1 dose, On Wed08/21/24 at 0930, Place the contents of the packet on the back of the tongue and swallow with 15 mL of water. Problems Active Problems Problem Classification Problem Date Documented Da te Episodic/Chronic Cardiac dysrhythmias (20 sources) Supraventricular tachycardia; Translations: [Supraventricular tachycardia] Onset: 2 09-02-2022 Chronic Conditions associated with dizziness or vertigo (2 sources) Dizziness; Translations: [Dizziness and giddiness] 11-21-2024 Episodic Esophageal disorders (2 sources) Gastroesophageal reflux disease without esophagitis; Translations: [Gastro-esophageal reflux disease without esophagitis] 02-01-2024 Chronic Essential hypertension (20 sources) Essential (primary) hypertension; Translations: [Benign essential hypertension] Onset: 2 09-02-2022 Chronic Fluid and electrolyte disorders (1 source) Dehydration; Translations: [DEHYDRATION] Onset: 2 Episodic Headache; including migraine (1 source) Headache; including migraine; Translations: [HEADACHE UNSPECIFIED] Onset: 2 Heart valve disorders (20 sources) Tricuspid valve regurgitation; Translations: [Rheumatic tricuspid insufficiency] Onset: 3 09-02-2022 Chronic Nonspecific chest pain (6 sources) Chest pain, unspecified; Translations: [Chest pain] Onset: 2 01-31-2024 Episodic Other aftercare (1 source) Other terminal clerk (current) drug therapy; Translations: [OTH JAIL CURRENT DRUG THERAPY] Onset: 2 Episodic Other connective tissue disease (6 sources) History of cervical spine fusion; Translations: [Arthrodesis status] 07-13-2024 Episodic Other gastrointestinal disorders (10 sources) Dysphagia; Translations: [Dysphagia, unspecified] Onset: 5 08-15-2024 Episodic Other gastrointestinal disorders (2 sources) Esophageal dysphagia; Translations: [Other dysphagia] 08-21-2024 Episodic Other gastrointestinal disorders (1 source) Other dysphagia; Translations: [Other dysphagia] Onset: 5 Episodic Other injuries and conditions due to external causes (2 sources) Food in respiratory tract, part unspecified causing other injury, initial encounter; Translations: [Foreign body in larynx] Onset: 5 08-11-2024 Episodic Other lower respiratory disease (6 sources) [...] disease (1 source) Hemoptysis; Translations: [Hemoptysis] Onset: 4 Episodic Other nervous system disorders (1 source) Paresthesia of skin; Translations: [PARESTHESIA OF SKIN] Onset: 2 Episodic Other nutritional; endocrine; and metabolic disorders (1 source) Obesity, unspecified; Translations: [OBESITY UNSPECIFIED] Onset: 2 Chronic Other nutritional; endocrine; and metabolic disorders (1 source) Body mass index (BMI) 30.0-30.9, adult; Translations: [BODY MASS INDEX BMI 30.0-30.9 ADULT] Onset: 2 Chronic Other nutritional; endocrine; and metabolic disorders (2 sources) Obesity; Translations: [Obesity, unspecified] Chronic Other nutritional; endocrine; and metabolic disorders (2 sources) Body mass index (BMI) 29.0-29.9, adult; Translations: [Body mass index (BMI) 29.0-29.9, adult] Onset: 5 Episodic Other screening for suspected conditions (not mental disorders or infectious disease) (9 sources) CT of chest abnormal; Translations: [Abnormal findings on diagnostic imaging of other specified body structures] Onset: 4 01-31-2024 Chronic Other screening for suspected conditions (not mental disorders or infectious disease) (7 sources) CT of chest abnormal; Translations: [Patient encounter status] 01-31-2024 Episodic Other upper respiratory infections (2 sources) Sore throat symptom; Translations: [Acute pharyngitis, unspecified] 04-03-2024 Episodic Paralysis (1 source) Hemiplegia, unspecified affecting left nondominant side; Translations: [HEMIPL UNS AFFECT LT NONDOM SIDE] Onset: 2 Chronic Spondylosis; intervertebral disc disorders; other back problems (20 sources) Arthropathy of cervical spine facet joint; Translations: [Spondylosis without myelopathy or radiculopathy, cervical region] Onset: 5 06-21-2024 Chronic Unclassified (1 source) CONTACT W/AND (SUSP) EXPOS COVID-19; Translations: [CONTACT W/AND (SUSP) EXPOS COVID-19] Onset: 2 Unclassified (1 source) Post-op Onset: 4 Unclassified (1 source) Cholelithiasis Onset: 4 Unclassified (1 source) Cough, unspecified; Translations: [Cough, unspecified] Onset: 4 Unclassified (1 source) gallbladder polyp Onset: 4 Unclassified (1 source) Aspiration of food, initial encounter 08-11-2024 Unclassified (1 source) Food entering into or through a natural orifice, initial encounter; Translations: [Food entering into or through a natural orifice, initial encounter] Onset: 5 Viral infection (2 sources) Disease caused by 2019-nCoV; Translations: [COVID-19] 04-03-2024 Episodic Past or Other Problems Problem Classification Problem Date Documented Date Episodic/Chronic Adjustment disorders (20 sources) Adjustment disorder with anxious mood; Translations: [Adjustment disorder with anxiety] Onset: 09-02-2022 Resolved: 08-15-2024 09-02-2022 Chronic Biliary tract disease (4 sources) Cholesterolosis of gallbladder; Translations: [Polyp of gallbladder] Onset: 06-09-2023 06-09-2023 Episodic Headache; including migraine (20 sources) Migraine without aura, not refractory ; Translations: [Migraine without aura, not intractable, without status migrainosus] Onset: 09-02-2022 Resolved: 08-15-2024 09-02-2022 Chronic Other acquired deformities (20 sources) Retrolisthesis; Translations: [Spondylolisthesis, site unspecified] Onset: 06-21-2024 06-21-2024 Episodic Other and ill-defined heart disease (20 sources) Left ventricular hypertrophy; Translations: [Cardiomegaly] Onset: 09-02-2022 Resolved: 08-15-2024 09-02-2022 Chronic Other circulatory disease (1 source) Personal history of other diseases of the circulatory system; Translations: [Personal history of other diseases of the circulatory system] Onset: 06-09-2023 Episodic Other circulatory disease (1 source) H/O: hypertension; Translations: [Personal history of other diseases of the circulatory system] 06-09-2023 Episodic Other lower respiratory disease (20 sources) Nodule of lung; Translations: [Solitary pulmonary nodule] Onset: 09-02-2022 09-02-2022 Episodic Other lower respiratory disease (1 source) Multiple nodules of lung; Translations: [Other nonspecific abnormal finding of lung field] 12-01-2023 Episodic Other nutritional; endocrine; and metabolic disorders (20 sources) Overweight in adulthood with body mass index of 25 or more but less than 30; Translations: [Overweight] Onset: 05-01-2024 05-01-2024 Episodic Residual codes; unclassified (1 source) Acquired absence of other specified parts of digestive tract; Translations: [Acquired absence of other specified parts of digestive tract] Onset: 06-30-2023 Episodic Residual codes; unclassified (1 source) Pain, unspecified; Translations: [Pain, unspecified] Onset: 06-08-2023 Episodic Spondylosis; intervertebral disc disorders; other back problems (20 sources) Spinal stenosis in cervical region; Translations: [Spinal stenosis, cervical region] Onset: 06-21-2024 05-25-2024 Episodic Syncope (20 sources) Syncope and collapse; Translations: [Syncope] Onset: 07-07-2021 Resolved: 08-15-2024 Episodic Unclassified (9 sources) Never smoked tobacco; Translations: [Never a smoker] Unclassified (3 sources) Onset: 07-31-2021 07-31-2021 Results Test Name Value Interpretation Reference Range Facility CT CHEST WO IV CONTRASTon CT CHEST WO IV CONTRAST EXAMINATION: CT CHEST WO IV CONTRAST HISTORY: Follow-up. TECHNIQUE: Spiral CT acquisition of the chest from the thoracic inlet to the upper abdomen without contrast. Dedicated sagittal and coronal reconstructions. All CT scans at this facility use dose modulation, iterative reconstruction, and/or weight based dosing when appropriate to reduce radiation dose to as low as reasonably achievable. COMPARISON: Multiple prior CTs of the chest with most recent from 06/16/2024 and most remote from 2018. RESULT: Lung parenchyma and pleura: Again, areas of bronchial wall thickening. Small nodular region within the right lower lobe dependently containing hyperdense material or calcifications, chronic, and minimally changed from multiple prior CTs dating back to 2018. Some adjacent atelectasis/scarring within the dependent right lower lobe, unchanged. Linear scarring left lung base, unchanged. No new opacities. No pleural effusion. No pneumothorax. No suspicious lung nodules. Thoracic inlet, heart, and mediastinum: Visualized thyroid unremarkable. No axillary, mediastinal, or hilar lymphadenopathy. Mild thoracic aorta atherosclerotic calcifications without aneurysm. Normal pulmonary size artery. Normal heart size. Diffuse coronary calcifications and/or stents. No pericardial effusion or thickening. Esophagus nondilated. Bones: No acute osseous findings. No destructive osseous lesions. Degenerative changes. Partially imaged postsurgical changes lower cervical spine. Soft tissues: Unremarkable. Upper abdomen: No acute abnormality in the imaged upper abdomen. IMPRESSION: Chronic findings, similar to prior CTs. ELECTRONICALLY SIGNED BY: Kapil Silvestre MD Normal Not Available Gastroenterology Consultatio non 12-05-2024 Gastroenterology Consultation This is a 59-year-old man who presented to the endoscopy and for diagnostic EGD in the setting of intermittent episodes of dysphagia; needing to clear throat across all consistencies with no episodes of aspiration. Patient also has globus sensation neck patient has pertinent history of recent anterior cervical fusion in 05/2024 Patient denies any nausea, vomiting, diarrhea, abdominal pain, early satiety, anorexia, unintentional weight loss, hematemesis, melena or hematochezia Review of Systems Constitutional : No weight loss, fever, chills, weakness or fatigue. HEENT: Eyes: No visual loss, blurred vision, double vision or yellow sclerae. Ears, Nose, Throat: No hearing loss, sneezing, congestion, runny nose or sore throat. Skin: No rash or itching. Cardiovascular: No chest pain, chest pressure or chest discomfort. No palpitations or edema. Respiratory: No shortness of breath, cough or sputum. Neurological: No headache, dizziness, syncope, paralysis, ataxia, numbness or tingling in the extremities. No change in bowel or bladder control. Musculoskeletal : No muscle, back pain, joint pain or stiffness. Psychiatric: Cooperative, appropriate mood and affect. Physical Examination Patient is hemodynamically stable and afebrile. HEENT: no scleral icterus Skin: no rashes noted Lungs: CTA B/L Cardiovascular system: S1,S2 heard ,Normal rate and rhythm, no rub Abdomen: Soft, no tenderness+, Bowels sounds+ BLEACHER OPERATOR: no focal deficits Recommendations: Will schedule EGD .The alternatives , benefits; risks and complications which include but are not limited to bleeding, perforation, infection, missing a lesion and complications of anesthesia explained to the patient . Patient understood and consented for procedure. Electronically signed by Lance Dutton MD 12/05/24 07:10 EDT Normal [facility] Operative Reporton Operative Report Missing Attachment - attachment storage system not supported [id number] Can be viewed in source system Missing Attachment - attachment storage system not supported [id number] Can be viewed in source system Missing Attachment - attachment storage system not supported [id number] Can be viewed in source system Missing Attachment - attachment storage system not supported [id number] Can be viewed in source system Missing Attachment - attachment storage system not supported [id number] Can be viewed in source system Missing Attachment - attachment storage system not supported [id number] Can be viewed in source system Missing Attachment - attachment storage system not supported [id number] Can be viewed in source system Missing Attachment - attachment storage system not supported [id number] Can be viewed in source system Missing Attachment - attachment storage system not supported [id number] Can be viewed in source system Missing Attachment - attachment storage system not supported [id number] Can be viewed in source system Missing Attachment - attachment storage system not supported [id number] Can be viewed in source system Patient: Dariusz Najera Age: 59 years Sex: Male : 1965 Associated Diagnoses: Gastric erythema; Duodenal erosion Author: Lance Dutton MD Pre-Procedure Procedure Date: 12/05/2024 . Procedure Type: Esophagogastroduodenoscopy . Procedure provider: Performed by Lance Dutton MD. Current history and physical: Documented on chart. Informed Consent: After discussing the rationale, risks and benefits, and alternatives to this procedure, the patient provided signed consent for the procedure. Indication: Diagnostic: Dysphagia/ odynophagia. Medications: (Selected) Inpatient Medications Ordered Betadine Gargle 0.5% solution: 10 mL, Oral, Once LR 1,000 mL: 15 mL/hr, IV Normal Saline Flush 0.9% injectable solution: 10 mL, IV Push, As Indicated, PRN: flush albuterol 2.5 mg/3 mL (0.083%) inhalation solution: 2.5 mg, 3 mL, NEB, Once, PRN: shortness of breath or wheezing Documented Medications Documented atorvastatin 20 mg oral tablet: 90 EA, 0 Refill(s), TAKE 1 TABLET BY MOUTH EVERY DAY, 0 Refill(s) hydrochlorothiazide-triamt erene 25 mg-37.5 mg oral capsule: 30 EA, 0 Refill(s), take 1 capsule by mouth once daily, 0 Refill(s) propranolol 60 mg oral capsule, extended release: 90 caps, 0 Refill(s), 0 Refill(s). ASA Classification: Class II. Monitoring: See anesthesia record. Procedure Location: Endo Suite. See anesthesia record for sedation given during procedure. The patient was positioned starting in the left lateral decubitus position. Endoscope type used was an adult-size, introduced orally, advanced to the 2nd portion of the duodenum. Procedure was completed without difficulty. Views were good. Esophageal biopsies were taken of the mid esophagus and of the distal esophagus. Gastric biopsies were taken of the body and of the antrum. Duodenal biopsies were taken of the first portion of the duodenum. The patient tolerated the procedure well. Findings No gross mass lesions were noted in the esophagus. No discrete luminal narrowing with any underlying discernible ring/web/strictures amenable to dilation noted in the esophagus. Biopsies were taken from mid-lower thirds of the esophagus. Squamocolumnar junction was noted to be regular at Patchy erythematous antral gastropathy was noted-biopsies were taken. Nonbleeding erosions were noted in the duodenal bulb. Biopsies were taken. No gross lesions were noted in the more distal portion of the examined duodenum. Images Procedure images: [id number]_[id number].jpg [id number]_0002.jpg EGD_0003.jpg EGD_0004.jpg EGD_0005.jpg EGD_0006.jpg EGD_0007.jpg EGD_0008.jpg EGD_0009.jpg EGD_0010.jpg EGD_0011.jpg . Post-Procedure Complications encountered during the procedure were none. Specimens were sent to pathology. Impression and Plan EGD: Diagnosis: Gastric erythema ([id number] K31.9, Discharge, Medical), Duodenal erosion ([id number] K26.9, Discharge, Medical). Orders: Pathology reports to be followed. Continue PPI Avoid NSAIDs. Lifestyle modifications including HOB elevation, allowing at least 1-3 hours after eating before lying down, avoiding alcohol and avoiding smoking. In case of persistent dysphagia would recommend pursuing esophageal HRM to rule out any underlying dysmotility lesions Return to GI clinic per schedule. 1. Patient advised to eat small, frequent meals. Patient to avoid large sized meals. 2. Patient advised (more content not included)... Normal [facility] Comment on above: Order Comment: Beata pace Attachment - attachment storage system not supported [id number] Can be viewed in source system Missing Attachment - attachment storage system not supported [id number] Can be viewed in source system Missing Attachment - attachment storage system not supported [id number] Can be viewed in source system Missing Attachment - attachment storage system not supported [id number] Can be viewed in source system Missing Attachment - attachment storage system not supported [id number] Can be viewed in source system Missing Attachment - attachment storage system not supported [id number] Can be viewed in source system Missing Attachment - attachment storage system not supported [id number] Can be viewed in source system Missing Attachment - attachment storage system not supported [id number] Can be viewed in source system Missing Attachment - attachment storage system not supported [id number] Can be viewed in source system Missing Attachment - attachment storage system not supported [id number] Can be viewed in source system Missing Attachment - attachment storage system not supported [id number] Can be viewed in source system Gastroenterology Office/Clin ic Noteon 11-08-2024 Gastroenterology Office/Clinic Note 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 Mullen, sent to GI with concerns for dysphagia. Patient is status post anterior cervical fusion in May 2024, C4-C7. Barium swallow study was completed 08/11/2024 which showed anterior spinal fusion hardware noted, there was intermittent throat clearing across all consistencies, unrelated to any episode of penetration or aspiration. Esophagram also completed on 08/21/2024, which showed no evidence for esophageal stricture, unremarkable study. Both exams completed at [facility] in [place]. Patient's symptoms started July of this year. Reports globus sensation and a feeling of fullness in his throat. Denies reflux or heartburn, no nausea or vomiting, no epigastric pain. No complaints regarding his bowel movements. Last colonoscopy 3 years ago in [place], states there were no abnormalities. Discussed further evaluation with EGD, patient would like to proceed. Currently not on any PPI therapy. Review of Systems ROS completed as noted per HPI, all other systems are negative Physical Exam Vitals & Measurements HR: 85 (Peripheral) BP: 122/76 SpO2: 99% HT: 170 cm WT: 88.6 kg BMI: 30.66 General: NAD, well nourished Mental status: Awake, alert, oriented x 3 Neuro: Speech is normal, EOM intact, no tremor, no focal deficits HEENT: Sclera clear, no drainage Lungs: Nonlabored respirations, regular rate Heart: Regular rate, no cyanosis Abdomen: Soft, nondistended Musculoskeletal: Moves all extremities, normal ambulation Skin: Intact warm and dry Psychiatric: Calm, cooperative Additional Vitals BP Position/Location: Sitting, Left arm Assessment and Plan: 1. Dysphagia Ordered: Esophagogastroduodenoscopy 2. Globus sensation Ordered: Esophagogastroduodenoscopy - Proceed with EGD, dysphagia and globus sensation s/p ACDF, referred by Aren - Clinic follow-up postprocedure Medical Decision Making Chronic conditions NOT treated during this visit that affected my overall medical decision making: [] Treatment plans discussed but not opted for at this time: [] Prescribed medication that requires intensive monitoring for toxicity: [] I have reviewed the patient?s medication list for medication interactions/contraindicat ions and/or for upcoming procedures: [yes or no] Time Spent with the Patient I have personally spent [] minutes on this date, directly related to today's patient visit, including pre and post visit work, for this date of service. Time listed does not include time spent on separately billable services. Problem List/Past Medical History Ongoing No qualifying data Historical No qualifying data Medications atorvastatin 20 mg oral tablet, 90 EA, 0 Refill(s), TAKE 1 TABLET BY MOUTH EVERY DAY hydrochlorothiazide-triamt erene 25 mg-37.5 mg oral capsule, 30 EA, 0 Refill(s), take 1 capsule by mouth once daily propranolol 60 mg oral capsule, extended release, 90 caps, 0 Refill(s) Allergies No Known Medication Allergies Social History Alcohol Current, 1-2 times per month Substance Abuse Denies All Tobacco Never (less than 100 in lifetime) Use:. Electronically signed by Barrett JOHNSONAve Sara 11/08/24 15:38 EDT Normal [facility] [place] ESOPHAGRAMon 08-21-2024 EXAMINATION: DOUBLE CONTRAST ESOPHAGRAM 08/21/2024 8:44 am TECHNIQUE: Double contrast esophagram was performed with barium and air contrast. FLUOROSCOPY DOSE AND TYPE: Radiation Exposure Index: DAP 6.165bKlwv7, COMPARISON: None HISTORY: ORDERING SYSTEM PROVIDED HISTORY: Esophageal dysphagia TECHNOLOGIST PROVIDED HISTORY: Reason for Exam: pt. states he had cervical surgery in May 2024, for the past 2-3 wks. diff. swallowing foods and liquids, feeling like they get stuck lower throat upper esophageal area FINDINGS: The esophagus is of normal caliber and demonstrates normal motility. There are no mucosal abnormalities seen. The gastroesophageal junction is normal. There is no evidence for reflux seen. Anterior cervical spine fusion hardware noted. IMPRESSION: No evidence for esophageal stricture. Unremarkable study. Anterior cervical spine fusion hardware noted. Interpreted by: Kapil Darden MD Signed by: Kapil Darden MD 08/21/24 Final result PT Radiology, Radiologi MD [employer] - 08/21/2024 EXAMINATION: DOUBLE CONTRAST ESOPHAGRAM 08/21/2024 8:44 am TECHNIQUE: Double contrast esophagram was performed with barium and air contrast. FLUOROSCOPY DOSE AND TYPE: Radiation Exposure Index: DAP 6.634rCxmy8, COMPARISON: None HISTORY: ORDERING SYSTEM PROVIDED HISTORY: Esophageal dysphagia TECHNOLOGIST PROVIDED HISTORY: Reason for Exam: pt. states he had cervical surgery in May 2024, for the past 2-3 wks. diff. swallowing foods and liquids, feeling like they get stuck lower throat upper esophageal area FINDINGS: The esophagus is of normal caliber and demonstrates normal motility. There are no mucosal abnormalities seen. The gastroesophageal junction is normal. There is no evidence for reflux seen. Anterior cervical spine fusion hardware noted. IMPRESSION: No evidence for esophageal stricture. Unremarkable study. Anterior cervical spine fusion hardware noted. Interpreted by: Kapil Darden MD Signed by: Kapil Darden MD 08/21/24 Final result [facility] [employer] [place] ESOPHAGRAM EXAMINATION: DOUBLE CONTRAST ESOPHAGRAM 08/21/2024 8:44 am TECHNIQUE: Double contrast esophagram was performed with barium and air contrast. FLUOROSCOPY DOSE AND TYPE: Radiation Exposure Index: DAP 6.376fEqzb0, COMPARISON: None HISTORY: ORDERING SYSTEM PROVIDED HISTORY: Esophageal dysphagia TECHNOLOGIST PROVIDED HISTORY: Reason for Exam: pt. states he had cervical surgery in May 2024, for the past 2-3 wks. diff. swallowing foods and liquids, feeling like they get stuck lower throat upper esophageal area FINDINGS: The esophagus is of normal caliber and demonstrates normal motility. There are no mucosal abnormalities seen. The gastroesophageal junction is normal. There is no evidence for reflux seen. Anterior cervical spine fusion hardware noted. IMPRESSION: No evidence for esophageal stricture. Unremarkable study. Anterior cervical spine fusion hardware noted. Interpreted by: Kapil Darden MD Signed by: Kapil Darden MD 08/21/24 Final result Normal [facility] Radiology Study observation (narrative) [facility] [employer] ESOPHAGRAMOrdered By: Enrike iologbrenda Radiology on 08-21-2024 [employer] Work Phone: RF Esophagus Views W contras t Brenda 08-21-2024 No evidence for esop hageal stricture. Unremarkable study. Anterior cervical spine fusion hardware noted. [facility] EXAMINATION: DOUBLE CONTRAST ESOPHAGRAM 08/21/2024 8:44 am TECHNIQUE: Double contrast esophagram was performed with barium and air contrast. FLUOROSCOPY DOSE AND TYPE: Radiation Exposure Index: DAP 6.004xKfik7, COMPARISON: None HISTORY: ORDERING SYSTEM PROVIDED HISTORY: Esophageal dysphagia TECHNOLOGIST PROVIDED HISTORY: Reason for Exam: pt. states he had cervical surgery in May 2024, for the past 2-3 wks. diff. swallowing foods and liquids, feeling like they get stuck lower throat upper esophageal area FINDINGS: The esophagus is of normal caliber and demonstrates normal motility. There are no mucosal abnormalities seen. The gastroesophageal junction is normal. There is no evidence for reflux seen. Anterior cervical spine fusion hardware noted. [facility] Kapil Darden MD - 08/21/2024 EXAMINATION: DOUBLE CONTRAST ESOPHAGRAM 08/21/2024 8:44 am TECHNIQUE: Double contrast esophagram was performed with barium and air contrast. FLUOROSCOPY DOSE AND TYPE: Radiation Exposure Index: DAP 6.845mCvvf7, COMPARISON: None HISTORY: ORDERING SYSTEM PROVIDED HISTORY: Esophageal dysphagia TECHNOLOGIST PROVIDED HISTORY: Reason for Exam: pt. states he had cervical surgery in May 2024, for the past 2-3 wks. diff. swallowing foods and liquids, feeling like they get stuck lower throat upper esophageal area FINDINGS: The esophagus is of normal caliber and demonstrates normal motility. There are no mucosal abnormalities seen. The gastroesophageal junction is normal. There is no evidence for reflux seen. Anterior cervical spine fusion hardware noted. IMPRESSION: No evidence for esophageal stricture. Unremarkable study. Anterior cervical spine fusion hardware noted. [facility] Radiology Study observation (narrative) [facility] RF Esophagus Views W contras t POOrdered By: Kapil Darden on 08-21-2024 [facility] Work Phone: [place] MODIFIED BARIUM SWALLOW W VIDEOon 08-11-2024 EXAMINATION: MODIFIED BARIUM SWALLOW WAS PERFORMED IN CONJUNCTION WITH SPEECH PATHOLOGY SERVICES TECHNIQUE: Under fluoroscopic evaluation cineradiography/videoradio graphy recordings were performed in conjunction with the speech-language pathologist (PROJECT COORDINATOR). Various liquid, solid and/or semi-solid barium preparations were used to assess swallowing function. FLUOROSCOPY DOSE AND TYPE: Fluoro time: 0.7 minutes DAP: 34.57 Gycm2 Air kerma: 8.21 mGy COMPARISON: None HISTORY: ORDERING SYSTEM PROVIDED HISTORY: Aspiration of food, initial encounter TECHNOLOGIST PROVIDED HISTORY: Reason for Exam: dysphagia, possible aspiration 58-year-old male with dysphagia; possible aspiration FINDINGS: No penetration or aspiration with the thick and thin liquid substance, pureed/pudding thick, soft solid and cookie solid substances. Patient swallowed a barium tablet without issue. Intermittent throat clearing across all consistencies, unrelated to any episode of penetration or aspiration. Anterior spinal fusion hardware is noted. IMPRESSION: 1. No penetration or aspiration with the above administered substances. 2. Anterior spinal fusion hardware is noted. 3. Intermittent throat clearing across all consistencies, unrelated to any episode of penetration or aspiration. Consider further evaluation with a nonemergent double-contrast esophagram. Please see separate speech pathology report for full discussion of findings and recommendations. Interpreted by: Abilio Quach MD Signed by: Abilio Quach MD 08/11/24 Final result [facility] Radiology, Radiologi MD [employer] - 08/11/2024 EXAMINATION: MODIFIED BARIUM SWALLOW WAS PERFORMED IN CONJUNCTION WITH SPEECH PATHOLOGY SERVICES TECHNIQUE: Under fluoroscopic evaluation cineradiography/videoradio graphy recordings were performed in conjunction with the speech-language pathologist (PROJECT COORDINATOR). Various liquid, solid and/or semi-solid barium preparations were used to assess swallowing function. FLUOROSCOPY DOSE AND TYPE: Fluoro time: 0.7 minutes DAP: 34.57 Gycm2 Air kerma: 8.21 mGy COMPARISON: None HISTORY: ORDERING SYSTEM PROVIDED HISTORY: Aspiration of food, initial encounter TECHNOLOGIST PROVIDED HISTORY: Reason for Exam: dysphagia, possible aspiration 58-year-old male with dysphagia; possible aspiration FINDINGS: No penetration or aspiration with the thick and thin liquid substance, pureed/pudding thick, soft solid and cookie solid substances. Patient swallowed a barium tablet without issue. Intermittent throat clearing across all consistencies, unrelated to any episode of penetration or aspiration. Anterior spinal fusion hardware is noted. IMPRESSION: 1. No penetration or aspiration with the above administered substances. 2. Anterior spinal fusion hardware is noted. 3. Intermittent throat clearing across all consistencies, unrelated to any episode of penetration or aspiration. Consider further evaluation with a nonemergent double-contrast esophagram. Please see separate speech pathology report for full discussion of findings and recommendations. Interpreted by: Abilio Quach MD Signed by: Abilio Quach MD 08/11/24 Final result [facility] MODIFIED BARIUM SWALLOW W VIDEO EXAMINATION: MODIFIED BARIUM SWALLOW WAS PERFORMED IN CONJUNCTION WITH SPEECH PATHOLOGY SERVICES TECHNIQUE: Under fluoroscopic evaluation cineradiography/videoradio graphy recordings were performed in conjunction with the speech-language pathologist (PROJECT COORDINATOR). Various liquid, solid and/or semi-solid barium preparations were used to assess swallowing function. FLUOROSCOPY DOSE AND TYPE: Fluoro time: 0.7 minutes DAP: 34.57 Gycm2 Air kerma: 8.21 mGy COMPARISON: None HISTORY: ORDERING SYSTEM PROVIDED HISTORY: Aspiration of food, initial encounter TECHNOLOGIST PROVIDED HISTORY: Reason for Exam: dysphagia, possible aspiration 58-year-old male with dysphagia; possible aspiration FINDINGS: No penetration or aspiration with the thick and thin liquid substance, pureed/pudding thick, soft solid and cookie solid substances. Patient swallowed a barium tablet without issue. Intermittent throat clearing across all consistencies, unrelated to any episode of penetration or aspiration. Anterior spinal fusion hardware is noted. IMPRESSION: 1. No penetration or aspiration with the above administered substances. 2. Anterior spinal fusion hardware is noted. 3. Intermittent throat clearing across all consistencies, unrelated to any episode of penetration or aspiration. Consider further evaluation with a nonemergent double-contrast esophagram. Please see separate speech pathology report for full discussion of findings and recommendations. Interpreted by: Abilio Quach MD Signed by: Abilio Quach MD 08/11/24 Final result Normal [facility] 1. No penetration or aspiration with the above administered substances. 2. Anterior spinal fusion hardware is noted. 3. Intermittent throat clearing across all consistencies, unrelated to any episode of penetration or aspiration. Consider further evaluation with a nonemergent double-contrast esophagram. Please see separate speech pathology report for full discussion of findings and recommendations. [facility] CONSOLIDATED EXAMINATION: MODIFIED BARIUM SWALLOW WAS PERFORMED IN CONJUNCTION WITH SPEECH PATHOLOGY SERVICES TECHNIQUE: Under fluoroscopic evaluation cineradiography/videoradio graphy recordings were performed in conjunction with the speech-language pathologist (PROJECT COORDINATOR). Various liquid, solid and/or semi-solid barium preparations were used to assess swallowing function. FLUOROSCOPY DOSE AND TYPE: Fluoro time: 0.7 minutes DAP: 34.57 Gycm2 Air kerma: 8.21 mGy COMPARISON: None HISTORY: ORDERING SYSTEM PROVIDED HISTORY: Aspiration of food, initial encounter TECHNOLOGIST PROVIDED HISTORY: Reason for Exam: dysphagia, possible aspiration 58-year-old male with dysphagia; possible aspiration FINDINGS: No penetration or aspiration with the thick and thin liquid substance, pureed/pudding thick, soft solid and cookie solid substances. Patient swallowed a barium tablet without issue. Intermittent throat clearing across all consistencies, unrelated to any episode of penetration or aspiration. Anterior spinal fusion hardware is noted. [facility] Abilio Cruz MD - 08/11/2024 EXAMINATION: MODIFIED BARIUM SWALLOW WAS PERFORMED IN CONJUNCTION WITH SPEECH PATHOLOGY SERVICES TECHNIQUE: Under fluoroscopic evaluation cineradiography/videoradio graphy recordings were performed in conjunction with the speech-language pathologist (PROJECT COORDINATOR). Various liquid, solid and/or semi-solid barium preparations were used to assess swallowing function. FLUOROSCOPY DOSE AND TYPE: Fluoro time: 0.7 minutes DAP: 34.57 Gycm2 Air kerma: 8.21 mGy COMPARISON: None HISTORY: ORDERING SYSTEM PROVIDED HISTORY: Aspiration of food, initial encounter TECHNOLOGIST PROVIDED HISTORY: Reason for Exam: dysphagia, possible aspiration 58-year-old male with dysphagia; possible aspiration FINDINGS: No penetration or aspiration with the thick and thin liquid substance, pureed/pudding thick, soft solid and cookie solid substances. Patient swallowed a barium tablet without issue. Intermittent throat clearing across all consistencies, unrelated to any episode of penetration or aspiration. Anterior spinal fusion hardware is noted. IMPRESSION: 1. No penetration or aspiration with the above administered substances. 2. Anterior spinal fusion hardware is noted. 3. Intermittent throat clearing across all consistencies, unrelated to any episode of penetration or aspiration. Consider further evaluation with a nonemergent double-contrast esophagram. Please see separate speech pathology report for full discussion of findings and recommendations. [facility] Radiology Study observation (narrative) [facility] Radiology Study observation (narrative) [facility] MODIFIED BARIUM SWALLOW W VIDEOOrdered By: Radiologist Radiology on 08-11-2024 [facility] [employer] Work Phone: [place] MODIFIED BARIUM SWALLOW W VIDEOOrdered By: Abilio Quach on 08-11-2024 [employer] Work Phone: CT CHEST WO IV CONTRASTon CT CHEST WO IV CONTRAST CT CHEST WO IV CONTRAST; HISTORY: Follow up CT, history of coughing up blood COMPARISON: CT chest March 01, 2024 TECHNIQUE: Helical scanning was obtained of the chest and reviewed in soft tissue and lung algorithm. Coronal reformations were reconstructed. CONTRAST: None FINDINGS: LUNGS: There is a linear scar in the left lower lung. There is marked tubular appearing bronchial wall thickening in the medial aspect of the right lower lobe, stable from before. AIRWAYS: Right lower lobe bronchial wall thickening with hyperdense material or foreign body in the lumen of the bronchus, unchanged. Mild adjacent pleural thickening is noted PLEURA: No pneumothorax or pleural effusion. MEDIASTINUM: No pathologically enlarged mediastinal or hilar lymph nodes. GREAT VESSELS: Visualized portions of the aorta and main pulmonary artery are within normal limits for age. HEART: Heart size is within normal limits for age. CORONARY ARTERY Calcifications: present AXILLA: No pathologically enlarged axillary lymph nodes. 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 UPPER ABDOMEN: Visualized portions of the abdomen show no specific abnormalities. IMPRESSION: Stable tubular bronchial wall thickening in the medial right lung base with adjacent pleural thickening. Hyperdense material in the lumen could reflect calcifications or radiopaque endobronchial foreign body. Dictated on: 06/16/2024 10:20 AM This report has been electronically signed and approved by the interpreting Radiologist. Normal Not Available Comment on above: Order Comment: HX AB NORMAL CHEST CT ALL CBC WITH AUTO DIFFon BASOPHILS ABSOLUTE AUTO 0.1 [facility] Basophils/100 WBC (Bld) 0.8 % 0.2 - 2.0 % [facility] Eosinophils/100 WBC (Bld) 3.1 % 0.9 - 7.0 % [facility] Erythrocyte distribution width (RBC) [Ratio] 13.3 % 11.0 - 15.0 % [facility] Hematocrit (Bld) [Volume fraction] 45.1 % 42.0 - 54.0 % [facility] Hemoglobin (Bld) [Mass/Vol] 15.2 g/dL 14.0 - 18.0 g/dL [facility] IMMATURE GRANULOCYTES ABS AUTO 0.03 [facility] Immature granulocytes/100 WBC (Bld) 0.3 % 0.0 - 0.5 % [facility] Interpretation and review of laboratory results Abnormal [facility] LYMPHOCYTES ABSOLUTE AUTO 2.4 [facility] Lymphocytes/100 WBC (Bld) 23 % 20.5 - 60.0 % [facility] MCH (RBC) [Entitic mass] 29.8 pg 25.9 - 34.0 pg [facility] MCHC (RBC) [Mass/Vol] 33.7 g/dL 29.9 - 35.2 g/dL [facility] MCV (RBC) [Entitic vol] 88.4 fL 80.0 - 94.0 fL [facility] MONOCYTES ABSOLUTE AUTO 0.7 [facility] Monocytes/100 WBC (Bld) 6.4 % 1.7 - 12.0 % [facility] NEUTROPHILS ABSOLUTE AUTO 7 High [facility] Neutrophils/100 WBC (Bld) 66.4 % 43.0 - 75.0 % [facility] Platelet mean volume (Bld) [Entitic vol] 11.2 fL 9.5 - 13.5 fL [facility] EO # 0.3 [facility] PLT 298 [facility] RBC 5.1 [facility] WBC 10.5 [facility] MR Cervical spine WO contras ton 05-15-2024 [place] [address] Magnetic Resonance Report Signed Patient: DARIUSZ NAJERA MR#: [id number] : 1965 Acct:[id number] Age/Sex: 58 / M ADM Date: 05/15/24 Loc: MRI Attending Dr: Hannah REYES Ordering Physician: Hannah Montesinos Date of Service: 05/15/24 Procedure(s): MR cervical spine wo con Accession Number(s): [id number] cc: MARIAA COLLADO ; Hannah Montesinos [address] [address] Patient Name: DARIUSZ NAJERA MRN: [facility]:[id number] date: 1965 Sex: M Assigned Patient Location: MRI Current Patient Location: MRI Accession/Order Number: [id number] Exam Date: 05/15/2024 06:57 Report Date: 05/15/2024 [...] M.D. 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, Radiologi MD [facility] - 05/15/2024 [place] [address] Magnetic Resonance Report Signed Patient: DARIUSZ NAJERA MR#: [id number] : 1965 Acct:[id number] Age/Sex: 58 / M ADM Date: 05/15/24 Loc: MRI Attending Dr: Hannah REYES Ordering Physician: Hannah Montesinos Date of Service: 05/15/24 Procedure(s): MR cervical spine wo con Accession Number(s): [id number] cc: MARIAA COLLADO ; Hannah Montesinos [place] [id number] Patient Name: DARIUSZ NAJERA MRN: [id number] date: 1965 Sex: M Assigned Patient Location: MRI Current Patient Location: MRI Accession/Order Number: [id number] Exam Date: 05/15/2024 06:57 Report Date: 05/15/2024 [...] M.D. 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[facility] [employer] Radiology Study observation (narrative) [facility] [employer] MR Cervical spine WO contras tOrdered By: Radiologist Radiology on 05-15-2024 [facility] [employer] Work Phone: FUNGUS (MYCOLOGY) CULTUREon 04-27-2024 [facility] Final report [facility] are OTHER-RIGHT LOWER LO BE [facility] FUNGUS (MYCOLOGY) RESULT 1on 04-27-2024 [facility] Comment [facility] Comment on above: No yeast or mold iso lated after 4 weeks. Performed at: [address] [id number] Assistant Credit Manager: Tigre Baker PhD, Phone: [phone] [facility] Comment [facility] Comment on above: No yeast or mold iso lated after 4 weeks. Performed at: [address] [id number] Assistant Credit Manager: Tigre Baker PhD, Phone: [phone] No Panel Informationon 04-27 OTHER-RIGHT LOWER LO BE TBBX [place] [facility] Final report [facility]ly [facility] are [facility] MISC LABon 04-07-2024 MISC LAB [facility] Comment on above: Bronch Alveolar Lav RIGHT LOWER LOBE Lower Respiratory Culture report Result : Routine respiratory ofelia Performed at: [address] [id number] Assistant Credit Manager: Tigre Baker PhD, Phone: [phone] [facility] Test Name: LAB PATRICIA BRONC CULTURE FROM RT LOW LOBE - BAL [place] [facility] - Microbiology an d Antimicrobial susceptibilityon 04-03-2024 SARS-CoV-2 (COVID-19) RNA MANDI+probe Ql (Unsp spec) Positive [facility] S. pyogenes Ag Ql (Throat) Negative Negative, None Detected [facility] No Panel Informationon 04-03 FLU A Negative [facility] FLU B Negative [facility] Interpretation and review of laboratory results Abnormal [facility] Interpretation and review of laboratory results Normal [facility] AFB SMEAR RESULTon [facility] Negative [facility] Comment on above: Performed at: [address] [place] [address] [id number] Assistant Credit Manager: Tigre Baker PhD, Phone: [phone] AFB SPECIMEN PROCESSINGon [facility] Concentration [facility] OTHER-RIGHT LOWER LO BE TBBX [facility] OTHER[facility]RIGHT LOWER LO BE TBBX [facility] FUNGAL SMEARon 03-30-2024 [facility] Not performed [facility] FUNGAL SMEAR No Yeast Like Elemen ts Seen [facility] FUNGAL SMEAR No Fungal Like Eleme nts Seen [facility] No Panel Informationon 03-30 [facility] Concentration [facility] FUNGAL SMEARon 03-29-2024 FUNGAL SMEAR No Fungal Like Eleme nts Seen [facility] FUNGAL SMEAR No Yeast Like Elemen ts Seen [facility] AFB Specimen Processingon AFB Specimen Processing Concentration Negative Performed at: [email or web address] [address] [id number] Assistant Credit Manager: Tigre Baker PhD, Phone: [phone] Negative No acid fast bacilli isolated after 6 weeks. Performed at: [email or web address] [address] [id number] Assistant Credit Manager: Tigre Baker PhD, Phone: [phone] PERFORMED BY: [facility] [address] PATHOLOGIST EDUCATION AND OUTREACH COORDINATOR MAGGIE MANNING M.D. Normal [facility] Comment on above: Performed By: #### C UBR, MISC LAB, FLCCDIFF, FS #### [facility] [address] [place] [address] #### MYC CULT, AFBCS RES1 #### [facility] , AFB Specimen Processing OTHER-RIGHT LOWER LOBE TBBX Concentration OTHER-RIGHT LOWER LOBE TBBX Negative Performed at: [facility] [address] [id number] Assistant Credit Manager: Tigre Baker PhD, Phone: [phone] OTHER-RIGHT LOWER LOBE TBBX Negative No acid fast bacilli isolated after 6 weeks. Performed at: - [address] [id number] Assistant Credit Manager: Tigre Baker PhD, Phone: [phone] PERFORMED BY: [place] [address] PATHOLOGIST EDUCATION AND OUTREACH COORDINATOR MAGGIE MANNING M.D. Normal [facility] Comment on above: Performed By: #### C UBR, MISC LAB, FLCCDIFF, FS #### [facility] [address] [place] [address] #### MYC CULT, AFBCS RES1 #### [facility] , Acid fast bacillus (AFB) cul tureOrdered By: Marbella Phillips on 03-28-2024 Mycobacterium sp identified Org specific cx Nom (Unsp spec) Acid fast bacillus (AFB) culture [facility] Acid fast bacillus (AFB) sme arOrdered By: Marbella Phillips on 03-28-2024 Microscopic observation Smear Nom (Unsp spec) Acid fast bacillus (AFB) smear [facility] Bacteria identification in b ronchial specimen by aerobe cultureOrdered By: Marbella Phillips on 03-28-2024 Bacteria identified Aer cx Nom (Bronch spec) Bacteria identification in bronchial specimen by aerobe culture [facility] Body fluid differential cell countOrdered By: Marbella Phillips on 03-28-2024 Differential panel (Body fld) Body fluid differential cell count [facility] Comment on above: The reference interv al and other method performance specifications have not been established for this body fluid. The test result must be integrated into the clinical context for interpretation. Body fluid total nucleated c ells countOrdered By: Marbella Phillips on 03-28-2024 Body Fluid Total Nucleated Cells 1348 /uL [facility] Comment on above: Body fluid is [...] Respira tory Ofelia 2 Days PERFORMED BY: [place] [phone] PATHOLOGIST EDUCATION AND OUTREACH COORDINATOR MAGGIE MANNING M.D. Normal [facility] Comment on above: Performed By: #### C UBR, MISC LAB, FLCCDIFF, FS #### [address] #### MYC CULT, AFBCS RES1 #### [facility] , Bronch Culture No Growth 2 Days PERFORMED BY: [place] [address] PATHOLOGIST EDUCATION AND OUTREACH COORDINATOR MAGGIE MANNING M.D. Normal [facility] Comment on above: Performed By: #### C UBR, MISC LAB, FLCCDIFF, FS #### [address] #### MYC CULT, AFBCS RES1 #### [facility] , Bronch Culture Respiratory Results PENDING SAMPLE SENT TO LAB PATRICIA PRIOR TO BEING SET UP IN HOUSE. ADDED ON TEST TO LAB PATRICIA ORDER. RESULTING IN A MISC. TEST. @04/07/24 NICO PERFORMED BY: [place] [address] PATHOLOGIST EDUCATION AND OUTREACH COORDINATOR MAGGIE MANNING M.D. Normal [facility] Comment on above: Performed By: #### C UBR, MISC LAB, FLCCDIFF, FS #### [facility] [address] #### MYC CULT, AFBCS RES1 #### [facility] , CELL COUNT/DIFF,FLUIDon 12- APPEARANCE, FLUID Turbid [facility] Comment on above: The reference interv al and other method performance specifications have not been established for this body fluid. The test result must be integrated into the clinical context for interpretation. COLOR, FLUID Straw [facility] are Comment on above: The reference interv al and other method performance specifications have not been established for this body fluid. The test result must be integrated into the clinical context for interpretation. COLOR, FLUID SUPERNATANT Straw [facility] Comment on above: The reference interv al and other method performance specifications have not been established for this body fluid. The test result must be integrated into the clinical context for interpretation. EOSINOPHILS, FLUID 0 /100{WBC} 0 - 3 /100{WBC} [facility] LYMPHOC[facility]TES, FLUID 1 % [facility] [...] for interpretation. NEUTROPHIL, FLUID 91 % [facility] Comment on above: The reference interv al [...] is recommended.@Avg 68,62 = 65 03/28/24 1320 [id number] The reference interval and other method performance [...] in the Site) Body Fluid Site: RLL [facility] [address] Healthcar e Cell Count/Diff, Fluidon Appearance, Fluid Turbid Normal [facility] Comment on above: Order Comment: Body Fluid Source: Other (Name in the Site) Body Fluid Site: RLL Result Comment: The reference interval and other method performance specifications have not been established for this body fluid. The test result must be integrated into the clinical context for interpretation. Performed By: #### C UBR, MISC LAB, FLCCDIFF, FS #### [address] #### MYC CULT, AFBCS RES1 #### [facility] , Color, Fluid Straw Normal [facility] Comment on above: Order Comment: Body Fluid Source: Other (Name in the Site) Body Fluid Site: RLL Result Comment: The reference interval and other method performance specifications have not been established for this body fluid. The test result must be integrated into the clinical context for interpretation. Performed By: #### C UBR, MISC LAB, FLCCDIFF, FS #### [place] [address] [place] #### MYC CULT, AFBCS RES1 #### [facility] , Color, Fluid Supernatant Straw Normal [facility] Comment on above: Order Comment: Body Fluid Source: Other (Name in the Site) Body Fluid Site: RLL Result Comment: The reference interval and other method performance specifications have not been established for this body fluid. The test result must be integrated into the clinical context for interpretation. Performed By: #### C UBR, MISC LAB, FLCCDIFF, FS #### [place] [address] [place] #### MYC CULT, AFBCS RES1 #### [facility] , Eosinophils, Fluid 0 /100{WBC} Normal 0-3 [facility] Comment on above: Order Comment: Body Fluid Source: Other (Name in the Site) Body Fluid Site: RLL Result Comment: PERF ORMED BY: [place] [address] PATHOLOGIST EDUCATION AND OUTREACH COORDINATOR MAGGIE MANNING M.D. Performed By: #### C UBR, MISC LAB, FLCCDIFF, FS #### [place] [address] [place] #### MYC CULT, AFBCS RES1 #### [...] C UBR, MISC LAB, FLCCDIFF, FS #### [place] [address] [place] #### MYC CULT, AFBCS RES1 #### [facility] , Monocytes/Macrophag es, Fluid 8 % Normal [facility] Comment on above: Order Comment: Body Fluid Source: Other (Name in the Site) Body Fluid Site: RLL Result Comment: The reference interval and other method performance specifications have not been established for this body fluid. The test result must be integrated into the clinical context for interpretation. Performed By: #### C UBR, MISC LAB, FLCCDIFF, FS #### [place] [address] [place] #### MYC CULT, AFBCS RES1 #### [facility] , Neutrophil, Fluid 91 % Normal [facility] Comment on above: Order Comment: Body Fluid Source: Other (Name in the Site) Body Fluid Site: RLL Result Comment: The reference interval and other method performance specifications have not been established for this body fluid. The test result must be integrated into the clinical context for interpretation. Performed By: #### C UBR, MISC LAB, FLCCDIFF, FS #### [facility] [address] [place] [address] [place] #### MYC CULT, AFBCS RES1 #### [facility] , RBC, Fluid 65 /uL Normal [facility] Comment on above: Order Comment: Body Fluid Source: Other (Name in the Site) Body Fluid Site: RLL Result Comment: Body fluid is partially clotted and/or cell clumps or debris are present. Fluid cell count and differential results may not be reliable. Clinical correlation is recommended.@Avg 68,62 = 65 03/28/24 1320 [id number] The reference interval and other method performance specifications have not been established for this body fluid. The test result must be integrated into the clinical context for interpretation. Performed By: #### C UBR, MISC LAB, FLCCDIFF, FS #### [facility] [address] [place] [address] [place] #### MYC CULT, AFBCS RES1 #### [facility] , TNC, Body Fluid 1348 /uL Normal [facility] Comment on above: Order [...] C UBR, MISC LAB, FLCCDIFF, FS #### [facility] [address] [place] [id number] [place] #### MYC CULT, AFBCS RES1 #### [facility] , Color of Spun Body fluidOrde red By: Marbella Phillips on 03-28-2024 Color (Spun body fld) Color of Spun Body fluid [facility] Comment on above: The reference interv al and other method performance specifications have not been established for this body fluid. The test result must be integrated into the clinical context for interpretation. Determination of appearance of body fluidOrdered By: Marbella Phillips on 03-28-2024 Appearance (Body fld) Determination of appearance of body fluid [facility] Comment on above: The reference interv al and other method performance specifications have not been established for this body fluid. The test result must be integrated into the clinical context for interpretation. Evaluation of color of body fluidOrdered By: Marbella Phillips on 03-28-2024 Color (Body fld) Evaluation of color of body fluid [facility] Comment on above: The reference interv al and other method performance specifications have not been established for this body fluid. The test result must be integrated into the clinical context for interpretation. Fungal Smearon 03-28-2024 Fungal Smear Fungus Smear Results No Fungal Like Elements Seen No Yeast Like Elements Seen PERFORMED BY: [place] [address] PATHOLOGIST EDUCATION AND OUTREACH COORDINATOR MAGGIE MANNING M.D. Normal [facility] Comment on above: Performed By: #### C UBR, MISC LAB, FLCCDIFF, FS #### [address] #### MYC CULT, AFBCS RES1 #### [facility] , Fungal Smear Fungus Smear Results No Yeast Like Elements Seen No Fungal Like Elements Seen PERFORMED BY: [place] [address] PATHOLOGIST EDUCATION AND OUTREACH COORDINATOR MAGGIE MANNING M.D. Normal [facility] Comment on above: Performed By: #### C UBR, MISC LAB, FLCCDIFF, FS #### [address] #### MYC CULT, AFBCS RES1 #### [facility] , Fungal Smear PERFORMED BY: [place] [address] PATHOLOGIST EDUCATION AND OUTREACH COORDINATOR MAGGIE MANNING M.D. Normal [facility] Comment on above: Performed By: #### C UBR, MISC LAB, FLCCDIFF, FS #### [facility] [address] [place] [address] [place] #### MYC CULT, AFBCS RES1 #### [facility] , Fungal smearOrdered By: Jeremy Phillips on 03-28-2024 Fungus identified Fungus stain Nom (Unsp spec) Fungal smear [facility] Fungus # 2 identified in Uns pecified specimen by CultureOrdered By: Marbellanavin Wilkinsonck on 03-28-2024 Fungus identified # 2 Cx Nom (Unsp spec) Fungus # 2 identified in Unspecified specimen by Culture [facility] Fungus # 3 identified in Uns pecified specimen by CultureOrdered By: Marbella Wilkinsonck on 03-28-2024 Fungus identified # 3 Cx Nom (Unsp spec) Fungus # 3 identified in Unspecified specimen by Culture [facility] Fungus # 4 identified in Uns pecified specimen by CultureOrdered By: Marbella Alan on 03-28-2024 Fungus identified # 4 Cx Nom (Unsp spec) Fungus # 4 identified in Unspecified specimen by Culture [facility] Fungus (Mycology) Cultureon 03-28-2024 Fungus (Mycology) Culture Final report Comment No yeast or mold isolated after 4 weeks. Performed at: [address] [id number] Assistant Credit Manager: Tigre Baker PhD, Phone: [phone] PERFORMED BY: [place] [address] PATHOLOGIST EDUCATION AND OUTREACH COORDINATOR MAGGIE MANNING M.D. Normal [facility] Comment on above: Performed By: #### C UBR, MISC LAB, FLCCDIFF, FS #### [place] [address] [place] #### MYC CULT, AFBCS RES1 #### [facility] , Fungus (Mycology) Culture OTHER-RIGHT LOWER LOBE TBBX Final report OTHER-RIGHT LOWER LOBE TBBX Comment No yeast or mold isolated after 4 weeks. Performed at: [address] [id number] Assistant Credit Manager: Tigre Baker PhD, Phone: [phone] PERFORMED BY: [place] [address] PATHOLOGIST EDUCATION AND OUTREACH COORDINATOR MAGGIE MANNING M.D. Normal [facility] Comment on above: Performed By: #### C UBR, MISC LAB, FLCCDIFF, FS #### [address] #### MYC CULT, AFBCS RES1 #### [facility] , Noah 03-28-2024 L ------ Specimen: [id number] Received: 03/29/24 Status: FERCHO [place] Num: [id number] Spec Type: Cytology Subm Dr: Marbella Phillips DO Tissues: A BRONWASH (RT WASH) B BAL (RLL) Procedures: HE/2, Gross/Micro L4, Cyto Prepstain/2, PAPSTN/2 Age/ Patient Sex Location Account Attending Physician Dariusz Najera/M [place] [id number] Marbella Phillips DO SPEC NUM: [id number] RECD: 03/29/24 STATUS: [place] NUM: [id number] ADA: 03/28/24 [facility] DR: Marbella Phillips DO ENTERED: 03/29/[address] [facility] [address]: MARVIN TYPE: Cytology DEPT: CNG ENTERED BY: [id number] RECV BY: [id number] ORDERED: HE/2, Gross/Micro L4, Cyto Prepstain/2, PAPSTN/2 [...] (ME/nh) Specimen: [id number] Received: 03/29/24 Status: [place] Num: [id number] Spec Type: Cytology Subm Dr: Marbella Phillips DO Tissues: A BRONWASH (RT WASH) B BAL (RLL) Procedures: HE/2, Gross/Micro L4, Cyto Prepstain/2, PAPSTN/2 Patient: Dariusz Najera [id number] (Continued) Specimen: [id number] Received: 03/29/24 (Continued) Gross Description (Continued) Signed (signature on file) Rosita Nicholson MD 04/01/24 [facility] Specimen: [id number] Received: 03/29/24 Status: [place] Num: [id number] Spec Type: Cytology Subm Dr: Marbella Phillips DO Tissues: A BRONWASH (RT WASH) B BAL (RLL) Procedures: HE/2, Gross/Micro L4, Cyto Prepstain/2, PAPSTN/2 Patient: Dariusz Najera [id number] (Continued) Specimen: [id number] Received: 03/29/24 (Continued) Gross Description (Continued) B. (BAL RLL) Received fresh is 15 ml colorless opaque unfixed fluid for cytology said to have been obtained as RLL BAL. ThinPrep preparations are prepared for microscopic examination. (ME/nh) Microscopic Description Microscopic examinations are performed supporting the above interpretation CPT Codes 90577h6 00641 Specimen: [id number] Received: 03/29/24 Status: [place] Num: [id number] Spec Type: Cytology Subm Dr: Marbella Phillips DO Tissues: A BRONWASH (RT WASH) B BAL (RLL) Procedures: HE/2, Gross/Micro L4, Cyto Prepstain/2, PAPSTN/2 Patient: Dariusz Najera [id number] (Continued) Signed (signature on file) Rosita Nicholson MD 04/01/24 Devan Hussein [facility] Sara ------ Specimen: [id number] Received: 03/29/24 Status: [place] Num: [id number] Spec Type: Surgical Subm Dr: Marbella Phillips DO Tissues: A Lung - Transbroncial Biopsy ((3) RLL TBBX IN FORMALIN) B Lung - Transbroncial Biopsy ((4) RLL TBBX IN SALINE) Procedures: CRESENCIO/4, Gross/Micro L4/2 Age/ Patient Sex Location Account Attending Physician Dariusz Najera 58/M [place] [id number] Marbella Phillips DO SPEC NUM: [id number] RECD: 03/29/24 STATUS: [place] NUM: [id number] ADA: 03/28/24-799 [facility] DR: Marbella Phillips DO ENTERED: 03/29/24-[address] [facility] [address]: [facility] SPEC TYPE: Surgical DEPT: S ENTERED BY: [id number] RECV BY: [id number] ORDERED: HE/4, Gross/Micro L4/2 ORDERED: HE/4, Gross/Micro [...] submitted in a single cassette. (1, ns, [id number] A) CIRO Specimen: [id number] Received: 03/29/24 Status: [place] Num: [id number] Spec Type: Surgical Subm Dr: Marbella Phillips DO Tissues: A Lung - Transbroncial Biopsy ((3) RLL TBBX IN FORMALIN) B Lung - Transbroncial Biopsy ((4) RLL TBBX IN SALINE) Procedures: HE/4, Gross/Micro L4/2 Patient: Dariusz Najera [id number] (Continued) Specimen: [id number] Received: 03/29/24 (Continued) Gross Description (Continued) Signed (signature on file) Rosita Nicholson MD 03/30/24 1402 Specimen: [id number] Received: 03/29/24 Status: [place] Num: [id number] Spec Type: Surgical Subm Dr: Marbella Phillips DO Tissues: A Lung - Transbroncial Biopsy ((3) RLL TBBX IN FORMALIN) B Lung - Transbroncial Biopsy ((4) RLL TBBX IN SALINE) Procedures: HE/Kimberly, Gross/Micro L4/2 Patient: Dariusz Najera [id number] (Continued) Specimen: [id number] Received: 03/29/24 (Continued) Gross Description (Continued) Part B is received in saline from microbiology labeled with the patient's name, date of , and BX RT lower lobe is a domínguez-pink, focally erythematous, feathery, 0.2 cm in greatest dimension tissue bit. The specimen is filtered and entirely submitted in a single cassette. (1, ns, [id number] B) Microscopic Description Microscopic examinations are performed supporting the above interpretation CPT Codes 33740v0 Specimen: [id number] Received: 03/29/24 Status: [place] Num: [id number] Spec Type: Surgical Subm Dr: Marbella Phillips DO Tissues: A Lung - Transbroncial Biopsy ((3) RLL TBBX IN FORMALIN) B Lung - Transbroncial Biopsy ((4) RLL TBBX IN SALINE) Procedures: HE/Kimberly, Gross/Micro L4/2 Patient: Dariusz Najera [id number] (Continued) Signed (signature on file) Deniz-Seng Nicholson MD 03/30/24 1402 Normal [facility] Normal [facility] Comment on above: Order Comment: [facility] Test Name: LAB PATRICIA BRONC CULTURE FROM RT LOW LOBE - BAL Result Comment: Bron ch Alveolar Lav RIGHT LOWER LOBE Lower Respiratory Culture report Result : Routine respiratory ofelia Performed at: - [facility] [place] [id number] Assistant Credit Manager: Tigre Baker PhD, Phone: [phone] PERFORMED BY: [place] [address] PATHOLOGIST EDUCATION AND OUTREACH COORDINATOR MAGGIE MANNING M.D. Performed By: #### C UBR, [facility] LAB, FLCCDIFF, FS #### [address] #### MYC CULT, AFBCS RES1 #### [facility] , Manual body fluid eosinophil s/100 leukocytesOrdered By: Marbella Phillips on 03-28-2024 Eosinophils/100 WBC Manual cnt (Body fld) Manual body fluid eosinophils/100 leukocytes 0-3 [facility] Manual body fluid erythrocyt es count (number/volume)Ordered By: Marbella Phillips on 03-28-2024 RBC Manual cnt (Body fld) [#/Vol] Manual body fluid erythrocytes count (number/volume) [facility] Comment on above: Body fluid is partia lly clotted and/or cell clumps or debris are present. Fluid cell count and differential results may not be reliable. Clinical correlation is recommended.@Av 68,62 = 65 03/28/24 1320 [id number] reference interval and other method performance specifications have not been established for this body fluid. The test result must be integrated into the clinical context for interpretation. Manual body fluid lymphocyte s/100 leukocytesOrdered By: Marbella Phillips on 03-28-2024 Lymphocytes/100 WBC Manual cnt (Body fld) Manual body fluid lymphocytes/100 leukocytes [facility] Comment on above: The reference interv al and other method performance specifications have not been established for this body fluid. The test result must be integrated into the clinical context for interpretation. Neutrophils/100 WBC Manual c nt (Body fld)Ordered By: Marbella Phillips on 03-28-2024 Neutrophils/100 WBC (Body fld) Manual body fluid neutrophils/100 leukocytes [facility] Comment on above: The reference interv al and other method performance specifications have not been established for this body fluid. The test result must be integrated into the clinical context for interpretation. No Panel InformationOrdered By: Marbella Phillips on 03-28-2024 Miscellaneous Test See comment [facility] Comment on above: Bronch Alveolar Lav RIGHT LOWER LOBE Lower Respiratory Culture reportResult : Routine respiratory floraPerformed at: [facility] [address] [id number] Director: Tigre Baker PhD, Phone: [phone] Mycology Susceptibility N/A [facility] CT CHEST W IV CONTRASTon CT [...] patient size Use of iterative reconstruction technique [facility] [employer] Radiology Study observation (narrative) [facility] [employer] CT Chest W contrast IVOrdere d By: Cari Gonsales on 03-01-2024 [employer] of [employer] Work Phone: Surgical Pathologyon Surgical Pathology Normal [facility] Comment on above: Result Comment: [facility] [employer] [facility] [facility] Medicine [address] [place] [address] Surgical Pathology Consultation Patient Name:DARIUSZ NAJERA:1965 (Age: 57)Gender:MTaken:06/15/2023eported:06/23/2023hysician(s):Velma Rosario D.O. ([phone])Copy To: Rec. #:[id number]: #[id number] Final Pathologic Diagnosis Gallbladder, cholecystectomy: Mild subacute and chronic cholecystitis Report Electronically Signed Out nsk/06/23/2023Razia Gutierrez MD Interpretation performed at [facility], [address] [place] [address], License number: [id number]. Clinical History Gallbladder polyp. Gross Description Received [...] gallbladder wall is 0.1-0.2 cm in thickness. Elevator Dispatcher cross-sections are submitted within a single cassette. (1, ss, [id number],m2) DM. dm/06/16/2023EAK Specimen(s) Received Gallbladder Fee Codes(s): 1; 08222 COMPLETE BLOOD COUNTon Erythrocyte distribution width (RBC) [Ratio] 13.2 % Normal 11.5-15.0 [facility] Comment on above: Performed By: #### C BC, CMP, 3040-3 #### [facility] ([id number]) [address] [place] [address], [address] [place] [address] Hematocrit (Bld) [Volume fraction] 42.2 % Normal 39-49 [facility] Comment on above: Performed By: #### Sharmin BC, CMP, 3039-3 #### [facility] ([id number]) [address], [address] [place] [address] Hemoglobin (Bld) [Mass/Vol] 14.0 g/dL Normal 13.0-17.0 [facility] Comment on above: Performed By: #### Sharmin BC, CMP, 3039-3 #### [facility] ([id number]) [address], [address] [place] [address] MCH (RBC) [Entitic mass] 30.0 pg Normal 27-34 [facility] Comment on above: Performed By: #### Sharmin BC, CMP, 3039-3 #### [facility] ([id number]) [address], [address] [place] [address] MCHC (RBC) [Mass/Vol] 33.3 g/dL Normal 32-36 [facility] Comment on above: Performed By: #### Sharmin BC, CMP, 3039-3 #### [facility] ([id number]) [address], [address] [place] [address] MCV (RBC) [Entitic vol] 90 fL Normal 80-100 [facility] Comment on above: Performed By: #### Sharmin BC CMP, 3039-3 #### [facility] ([id number]) [address], [address] [place] [address] Platelet mean volume (Bld) [Entitic vol] 9.9 fL Normal 7-12 [facility] Comment on above: Performed By: #### Sharmin BC, CMP, 3039-3 #### [facility] ([id number]) [address], [address] [place] [address] Platelets (Bld) [#/Vol] 233 10*3/uL Normal 150-450 [facility] Comment on above: Performed By: #### Sharmin BC, CMP, 3039-3 #### [facility] ([id number]) [address], [address] [place] [address] RBC COUNT 4.69 X10E12/L Normal 4.10-5.70 [facility] Comment on above: Performed By: #### Sharmin BC, CMP, 3040-3 #### [facility] ([id number]) [address], [address] [place] [address] WBC (Bld) [#/Vol] 6.1 10*3/uL Normal 4.0-11.0 [facility] Comment on above: Performed By: #### Sharmin BC CMP, 3039-3 #### [facility] ([id number]) [address], [address] [place] [address] COMPREHENSIVE METABOLIC PANE Noah 06-10-2023 Albumin [Mass/Vol] 4.3 g/dL Normal 3.2-5.3 [facility] Comment on above: Performed By: #### Sharmin BC, CMP, 3039-3 #### [facility] ([id number]) [address], [address] [place] [address] ALP [Catalytic activity/Vol] 121 U/L Normal 39-130 [facility] Comment on above: Performed By: #### Sharmin BC CMP, 3039-3 #### [facility] ([id number]) [address], [address] [place] [address] ALT [Catalytic activity/Vol] 14 U/L Normal 0-40 [facility] Comment on above: Performed By: #### Sharmin BC, CMP, 0-3 #### [facility] ([id number]) [address], [address] [place] [address] Anion gap [Moles/Vol] 8 mmol/L Normal 5-15 [facility] Comment on above: Performed By: #### Sharmin BC, CMP, 0-3 #### [facility] ([id number]) [address], [address] [place] [address] AST [Catalytic activity/Vol] 15 U/L Normal 0-41 [facility] Comment on above: Performed By: #### Sharmin SOLIS CMP, 3040-3 #### [facility] ([id number]) [address], [address] [place] [address] Bilirubin [Mass/Vol] 0.4 mg/dL Normal 0.3-1.2 [facility] Comment on above: Performed By: #### Sharmin SOLIS CMP, 3039-3 #### [facility] ([id number]) [address], [address] [place] [address] Calcium [Mass/Vol] 9.0 mg/dL Normal 8.5-10.5 [facility] Comment on above: Performed By: #### Sharmin SOLIS CMP, 3039-3 #### [facility] ([id number]) [address], [address] [place] [address] Chloride [Moles/Vol] 106 mmol/L Normal 98-109 [facility] Comment on above: Performed By: #### Sharmin SOLIS, CMP, 3039-3 #### [facility] ([id number]) [address], [address] [place] [address] CO2 [Moles/Vol] 29 mmol/L Normal 22-32 [facility] Comment on above: Performed By: #### Sharmin BC, CMP, 0-3 #### [facility] ([id number]) [address], [address] [place] [address] Creatinine [Mass/Vol] 0.86 mg/dL Normal 0.60-1.30 [facility] Comment on above: Result Comment: METH OD TRACEABLE TO IDMS STANDARD Performed By: #### Sharmin SOLIS CMP, 0-3 #### [facility] ([id number]) [address], [address] [place] [address] eGFR (CKD-EPI) NON-RACE DEPENDENT >90 Normal >59 [facility] Comment on above: Result Comment: Reported eGFR is based on the CKD-EPI 2020 equation that does not use a race coefficient. Performed By: #### Sharmin SOLIS CMP, 3040-3 #### [facility] ([id number]) [address] [address] [place] [address] Glucose [Mass/Vol] 100 mg/dL High 65-99 [facility] Comment on above: Performed By: #### Sharmin SOLIS CMP, 0-3 #### [facility] ([id number]) [address] [address] [place] [address] Potassium [Moles/Vol] 4.1 mmol/L Normal 3.5-5.0 [facility] Comment on above: Performed By: #### Sharmin SOLIS CMP, 0-3 #### [facility] ([id number]) [address] [facility] [address] [place] [address] Protein [Mass/Vol] 6.6 g/dL Normal 6.0-8.0 [facility] Comment on above: Performed By: #### Sharmin SOLIS CMP, 0-3 #### [facility] ([id number]) [address] [address] [place] [address] Sodium [Moles/Vol] 143 mmol/L Normal 134-146 [facility] Comment on above: Performed By: #### Sharmin SOLIS CMP, 3040-3 #### [facility] ([id number]) [address] [address] [place] [address] Urea nitrogen [Mass/Vol] 26 mg/dL High 5-23 [facility] Comment on above: Performed By: #### Sharmin SOLIS CMP, 3040-3 #### [facility] ([id number]) [address] [address] [place] [address] ECG 12 leadon 06-10-[address] [facility] LIPASEon 06-10-2023 Lipase [Catalytic activity/Vol] 30 U/L Normal 11-82 [facility] Comment on above: Performed By: #### C BC, CMP, 3040-3 #### [facility] ([id number]) [address] [facility], [address] [place] [address] Office Visit (Cardiology)on 11-06-2022 Follow-up visit Diagnoses/Problems Assessed Benign essential hypertension (401.1) (I10) Overweight with body mass index (BMI) of 27 to 27.9 in adult (278.02,V85.23) (E66.3,Z68.27) Never a smoker Syncope (780.2) (R55) Orders Benign essential hypertension Renew: Triamterene-HCTZ 37.5-25 MG Oral Capsule; TAKE 1 CAPSULE Daily Basic Metabolic Panel; Status:Active; Requested for:29Wyb2697; Overweight with body mass index (BMI) of 27 to 27.9 in adult Healthy Weight Tips; Status:Complete; Done: 19Voy3064 Some eating tips that can help you lose weight.; Status:Complete; Done: 85Mke8838 SocHx: Never a smoker Tobacco Use Screening; Status:Complete; Done: 54Xws6193 Patient Instructions Please bring all medicines, vitamins, [...] History of Tonsillectomy with adenoidectomy History of Foley tooth extraction Current Meds Medication NameInstruction Propranolol [...] negative for complaint. Vitals Vital Signs Recorded: 18Hlz8371 01:39PM Heart Rate76, L Radial Vvzvkyti593, LUE, Sitting Rsyytlqvb58, LUE, Sitting Height5 ft 7 in Vrsjmw626 lb BMI Fannpddugr06.41 kg/m2 BSA Calculated1.91 Tobacco Useb) No PHQ-2 [...] Screening.on 023 Adult depression screening assessment No [facility] 250 DO Work Phone: Tobacco use status CPHS b) No [facility] 250 DO Work Phone: Falls Risk Screeningon 09-30 Fall risk assessment c) Not medically indicated MP-[facility] 250 DO Work Phone: Tobacco Screening.on 022 Tobacco use status CP b) No [facility] 250 DO Work Phone: Tobacco Screening.on 022 Adult depression screening assessment No -[facility] 250 DO Work Phone: Tobacco use status CP b) No -[facility] 250 DO Work Phone: CBC AUTO DIFFon 07-08-2021 BASO # 0.1 103/ul Normal 0.0-0.1 [facility] Comment on above: Performed By: #### D DIM #### [facility] [address] [place] [address] Dr. Sony Nicholson Basophils/100 WBC (Bld) 0.7 % Normal 0.2-2.0 [facility] Comment on above: Performed By: #### D DIM #### [facility] [address] [place] [address] Dr. Sony Nicholson EO # 0.2 103/ul Normal 0.0-0.7 [facility] Comment on above: Performed By: #### D DIM #### [facility] [address] [place] [address] Dr. Sony Nicholson Eosinophils/100 WBC (Bld) 2.8 % Normal 0.9-7.0 [facility] Comment on above: Performed By: #### D DIM #### [facility] [address] [place] [address] Dr. Sony Nicholson Erythrocyte distribution width (RBC) [Ratio] 12.9 % Normal 11.0-15.0 [facility] Comment on above: Performed By: #### D DIM #### [facility] [address] [place] [address] Dr. Sony Nicholson Hematocrit (Bld) [Volume fraction] 43.7 % Normal 42.0-54.0 [facility] Comment on above: Performed By: #### D DIM #### [facility] [address] [place] [address] Dr. Sony Nicholson Hemoglobin (Bld) [Mass/Vol] 14.4 g/dL Normal 14.0-18.0 [facility] Comment on above: Performed By: #### D DIM #### [facility] [address] [place] [address] Dr. Sony Nicholson IG # 0.02 10e3/ul Normal 0.00-0.03 [facility] Comment on above: Performed By: #### D DIM #### [facility] [address] [place] [address] Dr. Sony Nicholson IG % 0.3 % Normal 0.0-0.5 [facility] Comment on above: Performed By: #### D DIM #### [facility] [address] [place] [address] Dr. Sony Nicholson LYMPH # 1.9 103/ul Normal 1.2-3.8 [facility] Comment on above: Performed By: #### D DIM #### [facility] [address] [place] [address] Dr. Sony Nicholson Lymphocytes/100 WBC (Bld) 25.9 % Normal 20.5-60.0 [facility] Comment on above: Performed By: #### D DIM #### [facility] [address] [place] [address] Dr. Sony Nicholson MANUAL DIFF REQ NO Normal [facility] Comment on above: Performed By: #### D DIM #### [facility] [address] [place] [address] Dr. Sony Nicholson MCH (RBC) [Entitic mass] 29.8 pg Normal 25.9-34.0 [facility] Comment on above: Performed By: #### D DIM #### [facility] [address] [place] [address] Dr. Sony Nicholson MCHC (RBC) [Mass/Vol] 33.0 g/dL Normal 29.9-35.2 [facility] Comment on above: Performed By: #### D DIM #### [facility] [address] [place] [address] Dr. Sony Nicholson MCV (RBC) [Entitic vol] 90.5 fL Normal 80.0-94.0 [facility] Comment on above: Performed By: #### D DIM #### [facility] [address] [place] [address] Dr. oSny Nicholson MONO # 0.7 103/ul Normal 0.3-0.8 [facility] Comment on above: Performed By: #### D DIM #### [facility] [address] [place] [address] Dr. Sony Nicholson Monocytes/100 WBC (Bld) 10.2 % Normal 1.7-12.0 [facility] Comment on above: Performed By: #### D DIM #### [facility] [address] [place] [address] Dr. Sony Nicholson NEUT # 4.3 103/ul Normal 1.4-6.5 [facility] Comment on above: Performed By: #### D DIM #### [facility] [address] [place] [address] Dr. Sony Nicholson Neutrophils/100 WBC (Bld) 60.1 % Normal 43.0-75.0 [facility] Comment on above: Performed By: #### D DIM #### [facility] [address] [place] [address] Dr. Sony Nicholson Platelet mean volume (Bld) [Entitic vol] 12.3 fL Normal 9.5-13.5 [facility] Comment on above: Performed By: #### D DIM #### [facility] [address] [place] [address] Dr. Sony Nicholson PLT 240 103/ul Normal 150-450 [facility] Comment on above: Performed By: #### D DIM #### [facility] [address] [place] [address] Dr. Sony Nicholson RBC 4.83 106/ul Normal 4.70-6.10 [facility] Comment on above: Performed By: #### D DIM #### [facility] [address] [place] [address] Dr. Sony Nicholson WBC 7.2 103/ul Normal 4.0-11.0 [facility] Comment on above: Performed By: #### D DIM #### [facility] [address] [place] [address] Dr. Sony Nicholson PROF CHEM 8 (BAS METB)on Anion gap [Moles/Vol] 13.2 mmol/L Normal [facility] Comment on above: Performed By: #### B MP #### [facility] [address] [place] [address] Dr. Sony Nicholson Calcium [Mass/Vol] 8.4 mg/dL Critically low 8.5-10.1 [facility] Comment on above: Performed By: #### B MP #### [facility] [address] [place] [address] Dr. Sony Nicholson Chloride [Moles/Vol] 102 mmol/L Normal 98-107 [facility] Comment on above: Performed By: #### B MP #### [facility] [address] [place] [address] Dr. Sony Nicholson CO2 [Moles/Vol] 27.5 mmol/L Normal 22.0-30.0 [facility] Comment on above: Performed By: #### B MP #### [facility] [address] [place] [address] Dr. Sony Nicholson Creatinine [Mass/Vol] 1.06 mg/dL Normal 0.66-1.25 [facility] Comment on above: Performed By: #### B MP #### [facility] [address] [address] [address] Sony Nicholson EGFR-AF NIGERIEN >60 Normal >=60 [facility] Comment on above: Performed By: #### B MP #### [facility] [address] [address] [address] Sony Nicholson EGFR-NON AF NIGERIEN >60 Normal >=60 [facility] Comment on above: Performed By: #### B MP #### [facility] [address] [address] [address] Sony Nicholson Glucose [Mass/Vol] 114 mg/dL Critically high 74-106 [facility] Comment on above: Performed By: #### B MP #### [facility] [address] [address] [address] Sony Nicholson Potassium [Moles/Vol] 4.7 mmol/L Normal 3.4-5.0 [facility] Comment on above: Performed By: #### B MP #### [facility] [address] [address] [address] Sony Nicholson Sodium [Moles/Vol] 138 mmol/L Normal 137-145 [facility] Comment on above: Performed By: #### B MP #### [facility] [address] [address] [address] Sony Nicholson Urea nitrogen [Mass/Vol] 24.0 mg/dL Critically high 7.0-18.0 [facility] Comment on above: Performed By: #### B MP #### [facility] [address] [address] [address] Sony Nicholson Urea nitrogen/Creatinine [Mass ratio] 22.6 mg/mg Normal [facility] Comment on above: Performed By: #### B MP #### [facility] [address] [address] [address] Sony Nicholson CARDIAC CARI 3-6on 2 CK [Catalytic activity/Vol] 122 U/L Normal 55-170 [facility] Comment on above: Performed By: #### C MREP #### [facility] [address] [address] [address] Sony Nicholson CK.MB [Mass/Vol] 0.98 ng/mL Normal <=2.37 [facility] Comment on above: Performed By: #### C MREP #### [facility] [address] [address] [address] Sony Nicholson HSTROP 7.2 pg/mL Normal 4.0-42.2 [facility] Comment on above: Result Comment: CUT- OFF POINTS HAVE BEEN ESTABLISHED BASED ON THE FOURTH UNIVERSAL DEFINITIONS OF MYOCARDIAL INFARCTION. THE UPPER REFERENCE LIMIT (URL) OF TROPONIN, DEFINED THE 99TH PERCENTILE OF cTnI DISTRIBUTION IN A REFERENCE POPULATION, HAS BEEN CONFIRMED THE DECISION THRESHOLD FOR DE DIAGNOSIS. Performed By: #### C MREP #### [facility] [address] [place] [address] Dr. Sony Nicholson CK [Catalytic activity/Vol] 137 U/L Normal 55-170 [facility] Comment on above: Performed By: #### C MREP #### [facility] [address] [address] [address] Sony WISE.MB [Mass/Vol] 1.18 ng/mL Normal <=2.37 [facility] Comment on above: Performed By: #### C MREP #### [facility] [address] [place] [address] Dr. Sony Nicholson HSTROP 9.3 pg/mL Normal 4.0-42.2 [facility] Comment on above: Result Comment: CUT- OFF POINTS HAVE BEEN ESTABLISHED BASED ON THE FOURTH UNIVERSAL DEFINITIONS OF MYOCARDIAL INFARCTION. THE UPPER REFERENCE LIMIT (URL) OF TROPONIN, DEFINED THE 99TH PERCENTILE OF cTnI DISTRIBUTION IN A REFERENCE POPULATION, HAS BEEN CONFIRMED THE DECISION THRESHOLD FOR DE DIAGNOSIS. Performed By: #### C MREP #### [facility] [address] [place] [address] Dr. Sony Nicholson CARDIAC CARI ADMITon 022 CK [Catalytic activity/Vol] 152 U/L Normal 55-170 [facility] Comment on above: Performed By: #### D DIM #### [facility] [address] [place] [address] Dr. Sony Nicholson CK.MB [Mass/Vol] 1.43 ng/mL Normal <=2.37 [facility] Comment on above: Performed By: #### D DIM #### [facility] [address] [place] [address] Dr. Sony Nicholson HSTROP 8.1 pg/mL Normal 4.0-42.2 [facility] Comment on above: Result Comment: CUT- OFF POINTS HAVE BEEN ESTABLISHED BASED ON THE FOURTH UNIVERSAL DEFINITIONS OF MYOCARDIAL INFARCTION. THE UPPER REFERENCE LIMIT (URL) OF TROPONIN, DEFINED THE 99TH PERCENTILE OF cTnI DISTRIBUTION IN A REFERENCE POPULATION, HAS BEEN CONFIRMED THE DECISION THRESHOLD FOR DE DIAGNOSIS. Performed By: #### D DIM #### [facility] [address] [place] [address] Dr. Sony Nicholson DAVID 46.0 ng/mL Normal <=121.0 [facility] Comment on above: Performed By: #### D DIM #### [facility] [address] [place] [address] Dr. Sony Nicholson CBC AUTO DIFFon 07-07-2021 BASO # 0.1 103/ul Normal 0.0-0.1 [facility] Comment on above: Performed By: #### C BC #### [facility] [address] [place] [address] Dr. Sony Nicholson Basophils/100 WBC (Bld) 0.7 % Normal 0.2-2.0 [facility] Comment on above: Performed By: #### C BC #### [facility] [address] [place] [address] Dr. Sony Nciholson EO # 0.2 103/ul Normal 0.0-0.7 [facility] Comment on above: Performed By: #### C BC #### [facility] [address] [place] [address] Dr. Sony Nicholson Eosinophils/100 WBC (Bld) 2.4 % Normal 0.9-7.0 [facility] Comment on above: Performed By: #### C BC #### [facility] [address] [place] [address] Dr. Sony Nicholson Erythrocyte distribution width (RBC) [Ratio] 12.6 % Normal 11.0-15.0 [facility] Comment on above: Performed By: #### C BC #### [facility] [address] [place] [address] Dr. Sony Nicholson Hematocrit (Bld) [Volume fraction] 45.9 % Normal 42.0-54.0 [facility] Comment on above: Performed By: #### C BC #### [facility] [address] [place] [address] Dr. Sony Nicholson Hemoglobin (Bld) [Mass/Vol] 15.1 g/dL Normal 14.0-18.0 [facility] Comment on above: Performed By: #### C BC #### [facility] [address] [place] [address] Dr. Sony Nicholson IG # 0.01 10e3/ul Normal 0.00-0.03 [facility] Comment on above: Performed By: #### C BC #### [facility] [address] [place] [address] Dr. Sony Nicholson IG % 0.1 % Normal 0.0-0.5 [facility] Comment on above: Performed By: #### C BC #### [facility] [address] [place] [address] Dr. Sony Nicholson LYMPH # 1.8 103/ul Normal 1.2-3.8 [facility] Comment on above: Performed By: #### C BC #### [facility] [address] [place] [address] Dr. Sony Nicholson Lymphocytes/100 WBC (Bld) 25.9 % Normal 20.5-60.0 [facility] Comment on above: Performed By: #### C BC #### [facility] [address] [place] [address] Dr. Sony Nicholson MANUAL DIFF REQ NO Normal [facility] Comment on above: Performed By: #### C BC #### [facility] [address] [place] [address] Dr. Sony Nicholson MCH (RBC) [Entitic mass] 29.3 pg Normal 25.9-34.0 [facility] Comment on above: Performed By: #### C BC #### [facility] [address] [place] [address] Dr. Sony Nicholson MCHC (RBC) [Mass/Vol] 32.9 g/dL Normal 29.9-35.2 [facility] Comment on above: Performed By: #### C BC #### [facility] [address] [place] [address] Dr. Sony Nicholson MCV (RBC) [Entitic vol] 89.0 fL Normal 80.0-94.0 [facility] Comment on above: Performed By: #### C BC #### [facility] [address] [place] [address] Dr. Sony Nicholson MONO # 0.8 103/ul Normal 0.3-0.8 [facility] Comment on above: Performed By: #### C BC #### [facility] [address] [place] [address] Dr. Sony Nicholson Monocytes/100 WBC (Bld) 11.8 % Normal 1.7-12.0 [facility] [facility] Comment on above: Performed By: #### C BC #### [facility] [address] [place] [address] Dr. Sony Nicholson NEUT # 4.2 103/ul Normal 1.4-6.5 [facility] Comment on above: Performed By: #### C BC #### [facility] [address] [place] [address] Dr. Sony Nicholson Neutrophils/100 WBC (Bld) 59.1 % Normal 43.0-75.0 [facility] Comment on above: Performed By: #### C BC #### [facility] [address] [place] [address] Dr. Sony Nicholson Platelet mean volume (Bld) [Entitic vol] 10.4 fL Normal 9.5-13.5 [facility] Comment on above: Performed By: #### C BC #### [facility] [address] [place] [address] Dr. Sony Nicohlson PLT 305 103/ul Normal 150-450 [facility] Comment on above: Performed By: #### C BC #### [facility] [address] [address] [address] Sony Nicholson RBC 5.16 106/ul Normal 4.70-6.10 [facility] Comment on above: Performed By: #### C BC #### [facility] [address] [address] [address] Sony Nicholson WBC 7.1 103/ul Normal 4.0-11.0 [facility] Comment on above: Performed By: #### C BC #### [facility] [address] HEAD WO CONon [...] by: NICA SALAZAR Date: 2021-07-07 06:36 Normal [facility] CTA NECK WO W CONon 07-08-19 [...] GREGG SELLERS Date: 2021-07-07 12:51 Normal [facility] Covid-19 PCR (CVDTBH)on 06-11 SARS-CoV-2 (COVID-19) RNA MANDI+probe Ql (Unsp spec) Not detected Normal NOT DETECTED [facility] Comment on above: Result Comment: When diagnostic testing is negative, the possibility of a false negative should be considered in the context of a patient's recent exposures and the presence of clinical signs and symptoms consistent with SARS-CoV-2. This test is not yet approved or cleared by the [place] Food and Drug Administration (FDA). This test was developed by [employer], [place], [place]. The performance characteristics of this test were validated by [facility]. The results are not intended to be used as the sole means for clinical diagnosis or patient management decisions. [facility] is authorized under Clinical Laboratory Improvement [...] for this test is supported by the Test And Balance Engineer of Health and Human Service's declaration that [...] used). Performed By: #### C VDTBH #### [facility] [address] [place] [address] Dr. Sony Nicholson D-DIMERon 07-07-2021 D-DIMER 0.20 mg/L FEU Normal 0.19-0.50 [facility] Comment on above: Performed By: #### D DIM #### [facility] [address] [place] [address] Dr. Sony Nicholson D-DIMER COMMENTS SEE BELOW Normal [facility] Comment on above: Result Comment: [...] hospitalization. Performed By: #### D DIM #### [facility] [address] [place] [address] Dr. Sony Nicholson GLYCOHEMOGLOBIN A1Con 2021 ADA RECOMMENDATION ADA THERAPEUTIC TARG ET 6.0 - 7.0 ACTION SUGGESTED > 7.0 Normal [facility] Comment on above: Performed By: #### D DIM #### [facility] [address] [address] [address] Sony Nicholson Glucose [Mass/Vol] 117 mg/dL Normal [facility] Comment on above: Performed By: #### D DIM #### [facility] [address] [address] [address] Sony Nicholson HbA1c (Bld) [Mass fraction] 5.7 % Normal <=6.0 [facility] Comment on above: Performed By: #### D DIM #### [facility] [address] [address] [address] Sony Nicholson LIPID PROFILEon 07-07-2021 CHOL-HDL RATIO NORM SEE BELOW Normal [facility] Comment on above: Result Comment: 3.3 - 4.4 LOW RISK 4.4 - 7.1 AVERAGE RISK 7.1 - 11.0 MODERATE RISK >11.0 HIGH RISK Performed By: #### L IPID #### [facility] [address] [place] [address] Dr. Sony Nicholson Cholesterol [Mass/Vol] 272 mg/dL Critically high <=200 [facility] Comment on above: Performed By: #### L IPID #### [facility] [address] [place] [address] Dr. Sony Nicholson Cholesterol in HDL [Mass/Vol] 52 mg/dL Normal 40-60 [facility] Comment on above: Performed By: #### L IPID #### [facility] [address] [address] [address] Sony Nicholson Cholesterol in LDL [Mass/Vol] 187.8 mg/dL Normal [facility] Comment on above: Performed By: #### L IPID #### [facility] [address] [place] [address] Dr. Sony Nicholson Cholesterol.total/C holesterol in HDL [Mass ratio] 5.2 {ratio} Normal [facility] Comment on above: Performed By: #### L IPID #### [facility] [address] [place] [address] Dr. Sony Nicholson HDL NORMAL > or = 60 mg/dl - LO W CARDIOVASCULAR RISK <40 mg/dl - HIGH CARDIOVASCULAR RISK Normal [facility] Comment on above: Performed By: #### L IPID #### [facility] [address] [address] [address] Sony Nicholson LDL CALC NORMAL SEE BELOW Normal [facility] Comment on above: Result Comment: <100 mg/dl OPTIMAL 100 - 129 mg/dl NEAR OR ABOVE OPTIMAL 130 - 159 mg/dl BORDERLINE HIGH 160 - 189 mg/dl HIGH >190 mg/dl VERY HIGH Performed By: #### L IPID #### [facility] [address] [address] [address] Sony Nicholson Triglyceride [Mass/Vol] 161 mg/dL Critically high <=150 [facility] Comment on above: Performed By: #### L IPID #### [facility] [address] [address] [address] Sony Nicholson VLDL CALC 32.2 mg/dL Normal [facility] Comment on above: Performed By: #### L IPID #### [facility] [address] [address] [address] Sony Nicholson MRI BRAIN WO W CONon 022 MRI BRAIN WO W CON MRI BRAIN WITH AND W ITHOUT CONTRAST, 07/07/2021. HISTORY: TIA. Syncope. COMPARISON: CTA head and neck, 07/07/2021. TECHNIQUE: Sagittal and axial T1, axial T2, FLAIR, diffusion, T2 gradient, postcontrast axial, coronal, and sagittal T1 images were obtained. FINDINGS: Paranasal sinuses clear. Mastoid air cells clear. Nasopharynx normal. Cloth Drier spaces normal. Orbital contents unremarkable. Extracranial soft [...] by: GREGG SELLERS Date: 2021-07-07 15:23 Normal [facility] PROF CHEM 8 (BAS METB)on Anion gap [Moles/Vol] 10.5 mmol/L Normal [facility] Comment on above: Performed By: #### D DIM #### [facility] [address] [address] [address] Sony Nicholson Calcium [Mass/Vol] 8.5 mg/dL Normal 8.5-10.1 [facility] Comment on above: Performed By: #### D DIM #### [facility] [address] [address] [address] Sony Nicholson Chloride [Moles/Vol] 101 mmol/L Normal 98-107 [facility] Comment on above: Performed By: #### D DIM #### [facility] [address] [address] [address] Sony Nicholson CO2 [Moles/Vol] 31.4 mmol/L Critically high 22.0-30.0 [facility] Comment on above: Performed By: #### D DIM #### [facility] [address] [address] [address] Sony Nicholson Creatinine [Mass/Vol] 1.08 mg/dL Normal 0.66-1.25 [facility] Comment on above: Performed By: #### D DIM #### [facility] [address] [place] [address] Dr. Sony Nicholson EGFR-AF NIGERIEN >60 Normal >=60 [facility] Comment on above: Performed By: #### D DIM #### [facility] [address] [address] [address] Sony Nicholson EGFR-NON AF NIGERIEN >60 Normal >=60 [facility] Comment on above: Performed By: #### D DIM #### [facility] [address] [address] [address] Sony Nicholson Glucose [Mass/Vol] 113 mg/dL Critically high 74-106 [facility] Comment on above: Performed By: #### D DIM #### [facility] [address] [address] [address] Sony Nicholson Potassium [Moles/Vol] 4.9 mmol/L Normal 3.4-5.0 [facility] Comment on above: Performed By: #### D DIM #### [facility] [address] [address] [address] Sony Nicholson Sodium [Moles/Vol] 138 mmol/L Normal 137-145 [facility] Comment on above: Performed By: #### D DIM #### [facility] [address] [address] [address] Sony Nicholson Urea nitrogen [Mass/Vol] 26.0 mg/dL Critically high 7.0-18.0 [facility] Comment on above: Performed By: #### D DIM #### [facility] [address] [address] [address] Sony Nicholson Urea nitrogen/Creatinine [Mass ratio] 24.1 mg/mg Normal [facility] Comment on above: Performed By: #### D DIM #### [facility] [address] [address] [address] Sony Nicholson US CAROTID ART BILon 022 US CAROTID ART [...] by: ZHANE CALL Date: 2021-07-07 14:10 Normal [facility] XR CHEST 1 Von 07-07-2021 XR [...] ENA SAID Date: 2021-07-07 06:31 Normal [facility] CBC AUTO DIFFon 05-18-2021 BASO # 0.1 103/ul Normal 0.0-0.1 [facility] Comment on above: Performed By: #### C BC #### [facility] [address] [place] [address] Dr. Sony Nicholson Basophils/100 WBC (Bld) 0.8 % Normal 0.2-2.0 [facility] Comment on above: Performed By: #### C BC #### [facility] [address] [place] [address] Dr. Sony Nicholson EO # 0.4 103/ul Normal 0.0-0.7 [facility] Comment on above: Performed By: #### C BC #### [facility] [address] [place] [address] Dr. Sony Nicholson Eosinophils/100 WBC (Bld) 4.2 % Normal 0.9-7.0 [facility] Comment on above: Performed By: #### C BC #### [facility] [address] [place] [address] Dr. Sony Nicholson Erythrocyte distribution width (RBC) [Ratio] 12.5 % Normal 11.0-15.0 [facility] Comment on above: Performed By: #### C BC #### [facility] [address] [place] [address] Dr. Sony Nicholson Hematocrit (Bld) [Volume fraction] 44.1 % Normal 42.0-54.0 [facility] Comment on above: Performed By: #### C BC #### [facility] [address] [place] [address] Dr. Soyn Nicholson Hemoglobin (Bld) [Mass/Vol] 14.6 g/dL Normal 14.0-18.0 [facility] Comment on above: Performed By: #### C BC #### [facility] [address] [place] [address] Dr. Sony Nicholson IG # 0.02 10e3/ul Normal 0.00-0.03 [facility] Comment on above: Performed By: #### C BC #### [facility] [address] [place] [address] Dr. Sony Nicholson IG % 0.2 % Normal 0.0-0.5 [facility] Comment on above: Performed By: #### C BC #### [facility] [address] [place] [address] Dr. Sony Nicholson LYMPH # 2.7 103/ul Normal 1.2-3.8 [facility] Comment on above: Performed By: #### C BC #### [facility] [address] [place] [address] Dr. Sony Nicholson Lymphocytes/100 WBC (Bld) 28.0 % Normal 20.5-60.0 [facility] Comment on above: Performed By: #### C BC #### [facility] [address] [place] [address] Dr. Sony Nicholson MANUAL DIFF REQ NO Normal [facility] Comment on above: Performed By: #### C BC #### [facility] [address] [place] [address] Dr. Sony Nicholson MCH (RBC) [Entitic mass] 29.6 pg Normal 25.9-34.0 [facility] Comment on above: Performed By: #### C BC #### [facility] [address] [place] [address] Dr. Sony Nicholson MCHC (RBC) [Mass/Vol] 33.1 g/dL Normal 29.9-35.2 [facility] Comment on above: Performed By: #### C BC #### [facility] [address] [place] [address] Dr. Sony Nicholson MCV (RBC) [Entitic vol] 89.3 fL Normal 80.0-94.0 [facility] Comment on above: Performed By: #### C BC #### [facility] [address] [address] [address] Sony Nicholson MONO # 0.8 103/ul Normal 0.3-0.8 [facility] Comment on above: Performed By: #### C BC #### [facility] [address] [address] [address] Sony Nicholson Monocytes/100 WBC (Bld) 8.6 % Normal 1.7-12.0 [facility] Comment on above: Performed By: #### C BC #### [facility] [address] [place] [address] Dr. Sony Nicholson NEUT # 5.6 103/ul Normal 1.4-6.5 [facility] Comment on above: Performed By: #### C BC #### [facility] [address] [place] [address] Dr. Sony Nicholson Neutrophils/100 WBC (Bld) 58.2 % Normal 43.0-75.0 [facility] Comment on above: Performed By: #### C BC #### [facility] [address] [place] [address] Dr. Sony Nicholson Platelet mean volume (Bld) [Entitic vol] 11.1 fL Normal 9.5-13.5 [facility] Comment on above: Performed By: #### C BC #### [facility] [address] [place] [address] Dr. Sony Nicholson PLT 264 103/ul Normal 150-450 [facility] Comment on above: Performed By: #### C BC #### [facility] [address] [place] [address] Dr. Sony Nicholson RBC 4.94 106/ul Normal 4.70-6.10 [facility] Comment on above: Performed By: #### C BC #### [facility] [address] [place] [address] Dr. Sony Nicholson WBC 9.7 103/ul Normal 4.0-11.0 [facility] Comment on above: Performed By: #### C BC #### [facility] [address] [place] [address] HEAD WO CONon [...] Gurdeep CHESTER Date: 2021-05-17 23:54 Normal [facility] PROF 14(COMP METB)on 022 Albumin [Mass/Vol] 4.1 g/dL Normal 3.5-5.0 [facility] Comment on above: Performed By: #### C MP #### [facility] [address] [place] [address] Dr. Sony Nicholson Albumin/Globulin [Mass ratio] 1.1 {ratio} Normal [facility] Comment on above: Performed By: #### C MP #### [facility] [address] [place] [address] Dr. Sony Nicholson ALP [Catalytic activity/Vol] 97 U/L Normal 38-126 [facility] Comment on above: Performed By: #### C MP #### [facility] [address] [place] [address] Dr. Sony Nicholson ALT [Catalytic activity/Vol] 26 U/L Normal 21-72 [facility] Comment on above: Performed By: #### C MP #### [facility] [address] [place] [address] Dr. Sony Nicholson Anion gap [Moles/Vol] 10.9 mmol/L Normal [facility] Comment on above: Performed By: #### C MP #### [facility] [address] [address] [address] Sony Nicholson AST [Catalytic activity/Vol] 22 U/L Normal 17-59 [facility] Comment on above: Performed By: #### C MP #### [facility] [address] [address] [address] Sony Nicholson Bilirubin [Mass/Vol] 0.3 mg/dL Normal 0.2-1.3 [facility] Comment on above: Performed By: #### C MP #### [facility] [address] [address] [address] Sony Nicholson Calcium [Mass/Vol] 9.3 mg/dL Normal 8.4-10.2 [facility] Comment on above: Performed By: #### C MP #### [facility] [address] [address] [address] Sony Nicholson Chloride [Moles/Vol] 100 mmol/L Normal 98-107 [facility] Comment on above: Performed By: #### C MP #### [facility] [address] [address] [address] Sony Nicholson CO2 [Moles/Vol] 30.8 mmol/L Critically high 22.0-30.0 [facility] Comment on above: Performed By: #### C MP #### [facility] [address] [address] [address] Sony Nicholson Creatinine [Mass/Vol] 1.04 mg/dL Normal 0.66-1.25 [facility] Comment on above: Performed By: #### C MP #### [facility] [address] [address] [address] Sony Nicholson EGFR-AF NIGERIEN >60 Normal >=60 [facility] Comment on above: Performed By: #### C MP #### [facility] [address] [address] [address] Sony Nicholson EGFR-NON AF NIGERIEN >60 Normal >=60 [facility] Comment on above: Performed By: #### C MP #### [facility] [address] [address] [address] Sony Nicholson Globulin (S) [Mass/Vol] 3.6 g/dL Normal [facility] Comment on above: Performed By: #### C MP #### [facility] [address] [address] [address] Sony Nicholson Glucose [Mass/Vol] 128 mg/dL Critically high 74-106 [facility] Comment on above: Performed By: #### C MP #### [facility] [address] [address] [address] Sony Nicholson Potassium [Moles/Vol] 3.7 mmol/L Normal 3.4-5.0 [facility] Comment on above: Performed By: #### C MP #### [facility] [address] [place] [address] Dr. Sony Nicholson Protein [Mass/Vol] 7.7 g/dL Normal 6.1-8.2 [facility] Comment on above: Performed By: #### C MP #### [facility] [address] [address] [address] Sony Nicholson Sodium [Moles/Vol] 138 mmol/L Normal 137-145 [facility] Comment on above: Performed By: #### C MP #### [facility] [address] [address] [address] Sony Nicholson Urea nitrogen [Mass/Vol] 33.0 mg/dL Critically high 9.0-20.0 [facility] Comment on above: Performed By: #### C MP #### [facility] [address] [address] [address] Sony Nicholson Urea nitrogen/Creatinine [Mass ratio] 31.7 mg/mg Normal [facility] Comment on above: Performed By: #### C MP #### [facility] [address] [place], [place] [id number] Dr. Sony Nicholson Vital Signs Date Time Vital Sign Value Performing Clinician Facility 11-21-2024 09:30-0400 Diastolic blood pressure 80 mm[Hg] Mitch Teran MANAGER REIMBURSEMENT Work Phone: [facility] 11-21-2024 09:30-0400 Systolic blood pressure 124 mm[Hg] Mitch Vos MANAGER REIMBURSEMENT Work Phone: [facility] 11-21-2024 09:25-0400 Body height 172.1 cm Mitchchanel Vos MANAGER REIMBURSEMENT Work Phone: [facility] 11-21-2024 09:25-0400 Body mass index (BMI) [Ratio] 29.32 kg/m2 Mitch Majors MANAGER REIMBURSEMENT Work Phone: [facility] 11-21-2024 09:25-0400 Body temperature 98.91 [degF] Mitch Vos MANAGER REIMBURSEMENT Work Phone: [facility] 11-21-2024 09:25-0400 Body weight 86.82 kg Mitch Vos MANAGER REIMBURSEMENT Work Phone: [facility] 11-21-2024 09:25-0400 Heart rate 95 /min Mitch Vos MANAGER REIMBURSEMENT Work Phone: [facility] 11-21-2024 09:25-0400 SaO2% (BldA) [Mass fraction] 96 % Mitch Vos MANAGER REIMBURSEMENT Work Phone: [facility] 08-15-2024 11:20-0400 Body height 172.1 cm Mariaa Collado MD Work Phone: [facility] 08-15-2024 11:20-0400 Body mass index (BMI) [Ratio] 28.49 kg/m2 Mariaa Collado MD Work Phone: [facility] 08-15-2024 11:20-0400 Body weight 84.37 kg Mariaa Collado MD Work Phone: [facility] 08-15-2024 11:20-0400 Diastolic blood pressure 68 mm[Hg] Mariaa Collado MD Work Phone: [facility] 08-15-2024 11:20-0400 Heart rate 68 /min Mariaa Collado MD Work Phone: [facility] 08-15-2024 11:20-0400 Respiratory rate 18 /min Mariaa Collado MD Work Phone: [facility] 08-15-2024 11:20-0400 SaO2% (BldA) [Mass fraction] 100 % Mariaa Collado MD Work Phone: [facility] 08-15-2024 11:20-0400 Systolic blood pressure 124 mm[Hg] Mariaa Collado MD Work Phone: [facility] 05-25-2024 12:53-0500 Body height 172.1 cm Cielo Lainez MD Work Phone: [facility] 05-25-2024 12:53-0500 Body mass index (BMI) [Ratio] 29.1 kg/m2 Cielo Lainez MD Work Phone: [facility] 05-25-2024 12:53-0500 Body weight 86.18 kg Cielo Lainez MD Work Phone: [facility] 05-25-2024 12:53-0500 Diastolic blood pressure 76 mm[Hg] Cielo Lainez MD Work Phone: [facility] 05-25-2024 12:53-0500 Heart rate 78 /min Cielo Lainez MD Work Phone: [facility] 05-25-2024 12:53-0500 Respiratory rate 18 /min Cielo Lainez MD Work Phone: [facility] 05-25-2024 12:53-0500 SaO2% (BldA) [Mass fraction] 98 % Cielo Lainez MD Work Phone: [facility] 05-25-2024 12:53-0500 Systolic blood pressure 124 mm[Hg] Cielo Lainez MD Work Phone: [facility] 05-01-2024 09:33-0500 Diastolic blood pressure 88 mm[Hg] Yuko Reid KAITARA TARAKA-ASSOCIATE RESEARCH SCIENTIST Work Phone: [facility] 05-01-2024 09:33-0500 Systolic blood pressure 140 mm[Hg] Yuko Reid KAITARA TARAKA-ASSOCIATE RESEARCH SCIENTIST Work Phone: [facility] 05-01-2024 09:15-0500 Body height 170.2 cm Yuko Reid KAITARA TARAKA-ASSOCIATE RESEARCH SCIENTIST Work Phone: [facility] 05-01-2024 09:15-0500 Body mass index (BMI) [Ratio] 29.73 kg/m2 Yuko Reid KAITARA TARAKA-ASSOCIATE RESEARCH SCIENTIST Work Phone: [facility] 05-01-2024 09:15-0500 Body weight 86.09 kg Yuko Reid KAITARA TARAKA-ASSOCIATE RESEARCH SCIENTIST Work Phone: [facility] 05-01-2024 09:15-0500 Heart rate 68 /min Yuko Reid KAITARA TARAKA-ASSOCIATE RESEARCH SCIENTIST Work Phone: [facility] 04-21-2024 08:32-0500 Body height 172.1 cm Marbella Alan DO Work Phone: [facility] 04-21-2024 08:32-0500 Body mass index (BMI) [Ratio] 29.23 kg/m2 Marbella Alan DO Work Phone: [facility] 04-21-2024 08:32-0500 Body weight 86.55 kg Marbella Alan DO Work Phone: [facility] 04-21-2024 08:32-0500 Diastolic blood pressure 97 mm[Hg] Marbella Alan DO Work Phone: [facility] 04-21-2024 08:32-0500 Heart rate 68 /min Marbella Alan DO Work Phone: [facility] 04-21-2024 08:32-0500 SaO2% (BldA) [Mass fraction] 97 % Marbella Alan DO Work Phone: [facility] 04-21-2024 08:32-0500 Systolic blood pressure 131 mm[Hg] Marbella Alan DO Work Phone: [facility] 04-14-2024 09:28-0500 Body height 170.18 cm Marbella Alan DO Work Phone: [facility] 04-14-2024 09:28-0500 Body mass index (BMI) [Ratio] 29.7 kg/m2 Marbella Alan DO Work Phone: [facility] 04-14-2024 09:28-0500 Body temperature 98.2 [degF] Marbella Alan DO Work Phone: [facility] 04-14-2024 09:28-0500 Body weight 86.18 kg Marbella Alan DO Work Phone: [facility] 04-14-2024 09:28-0500 Diastolic blood pressure 94 mm[Hg] Marbella Alan DO Work Phone: [facility] 04-14-2024 09:28-0500 Heart rate 70 /min Marbella Alan DO Work Phone: [facility] 04-14-2024 09:28-0500 Respiratory rate 18 /min Marbella Alan DO Work Phone: [facility] 04-14-2024 09:28-0500 SaO2% (BldA) [Mass fraction] 97 % Marbella Alan DO Work Phone: [facility] 04-14-2024 09:28-0500 Systolic blood pressure 144 mm[Hg] Marbella Alan DO Work Phone: [facility] 04-03-2024 15:32-0500 Body height 172.1 cm Maria L Nareshoneil MANAGER REIMBURSEMENT Work Phone: [facility] 04-03-2024 15:32-0500 Body mass index (BMI) [Ratio] 30.02 kg/m2 Maria L [place] MANAGER REIMBURSEMENT Work Phone: [facility] 04-03-2024 15:32-0500 Body weight 88.91 kg Maria L Haoneil MANAGER REIMBURSEMENT Work Phone: [facility] 04-03-2024 15:32-0500 Diastolic blood pressure 76 mm[Hg] Maria L Melanie MANAGER REIMBURSEMENT Work Phone: [facility] 04-03-2024 15:32-0500 Heart rate 88 /min Maria L Etienne MANAGER REIMBURSEMENT Work Phone: [facility] 04-03-2024 15:32-0500 Respiratory rate 18 /min Maria L Etienne MANAGER REIMBURSEMENT Work Phone: [facility] 04-03-2024 15:32-0500 SaO2% (BldA) [Mass fraction] 96 % Maria L Etienne MANAGER REIMBURSEMENT Work Phone: [facility] 04-03-2024 15:32-0500 Systolic blood pressure 128 mm[Hg] Maria L Etienne MANAGER REIMBURSEMENT Work Phone: [facility] 03-24-2024 08:32-0500 Body height 172.1 cm Marbella Alan DO Work Phone: [facility] 03-24-2024 08:32-0500 Body mass index (BMI) [Ratio] 30.21 kg/m2 Marbella Alan DO Work Phone: [facility] 03-24-2024 08:32-0500 Body weight 89.45 kg Marbella Alan DO Work Phone: [facility] 03-24-2024 08:32-0500 Diastolic blood pressure 83 mm[Hg] Marbella Alan DO Work Phone: [facility] 03-24-2024 08:32-0500 Heart rate 72 /min Marbella Alan DO Work Phone: [facility] 03-24-2024 08:32-0500 SaO2% (BldA) [Mass fraction] 98 % Marbella Alan DO Work Phone: [facility] 03-24-2024 08:32-0500 Systolic blood pressure 127 mm[Hg] Marbella Alan DO Work Phone: [facility] 02-25-2024 09:59-0500 Body height 172.1 cm Marbella Alan DO Work Phone: [facility] 02-25-2024 09:59-0500 Body mass index (BMI) [Ratio] 30.11 kg/m2 Marbella Alan DO Work Phone: [facility] 02-25-2024 09:59-0500 Body weight 89.18 kg Marbella Alan DO Work Phone: [facility] 02-25-2024 09:59-0500 Diastolic blood pressure 96 mm[Hg] Marbella Alan DO Work Phone: [facility] 02-25-2024 09:59-0500 Heart rate 84 /min Marbella Alan DO Work Phone: [facility] 02-25-2024 09:59-0500 SaO2% (BldA) [Mass fraction] 97 % Marbella Alan DO Work Phone: [facility] 02-25-2024 09:59-0500 Systolic blood pressure 126 mm[Hg] Marbella Alan DO Work Phone: [facility] 01-31-2024 14:28-0400 Body height 172.1 cm Mariaa Collado MD Work Phone: [facility] 01-31-2024 14:28-0400 Body mass index (BMI) [Ratio] 29.47 kg/m2 Mariaa Collado MD Work Phone: [facility] 01-31-2024 14:28-0400 Body weight 87.27 kg Mariaa Collado MD Work Phone: [facility] 01-31-2024 14:28-0400 Diastolic blood pressure 84 mm[Hg] Mariaa Collado MD Work Phone: [facility] 01-31-2024 14:28-0400 Heart rate 86 /min Mariaa Collado MD Work Phone: [facility] 01-31-2024 14:28-0400 Respiratory rate 20 /min Mariaa Collado MD Work Phone: [facility] 01-31-2024 14:28-0400 SaO2% (BldA) [Mass fraction] 97 % Mariaa Collado MD Work Phone: [facility] 01-31-2024 14:28-0400 Systolic blood pressure 132 mm[Hg] Mariaa Collado MD Work Phone: [facility] 06-30-2023 12:49-0400 Body height 170.2 cm 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 KAITARA TARAKA-ASSOCIATE RESEARCH SCIENTIST Work Phone: [facility] 06-30-2023 12:49-0400 Body mass index (BMI) [Ratio] 30.6 kg/m2 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 KAITARA TARAKA-ASSOCIATE RESEARCH SCIENTIST Work Phone: [facility] 06-30-2023 12:49-0400 Body weight 88.63 kg 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 KAITARA TARAKA-ASSOCIATE RESEARCH SCIENTIST Work Phone: [facility] 06-30-2023 12:49-0400 Diastolic blood pressure 71 mm[Hg] 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 KAITARA TARAKA-ASSOCIATE RESEARCH SCIENTIST Work Phone: [facility] 06-30-2023 12:49-0400 Heart rate 76 /min 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 KAITARA TARAKA-ASSOCIATE RESEARCH SCIENTIST Work Phone: [facility] 06-30-2023 12:49-0400 Systolic blood pressure 145 mm[Hg] 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 KAITARA TARAKA-ASSOCIATE RESEARCH SCIENTIST Work Phone: [facility] 06-10-2023 09:07-0500 Body height 170.2 cm Pmh [address] [facility] 06-10-2023 09:07-0500 Body mass index (BMI) [Ratio] 29.91 kg/m2 Pmh [address] [facility] 06-10-2023 09:07-0500 Body weight 86.64 kg Pmh [address] [facility] 06-09-2023 09:11-0500 Body height 170.2 cm Velma Rosario DO Work Phone: [facility] 06-09-2023 09:11-0500 Body mass index (BMI) [Ratio] 30.01 kg/m2 Velma Rosario DO Work Phone: [facility] 06-09-2023 09:11-0500 Body weight 86.91 kg Velma Rosario DO Work Phone: [facility] 11-06-2022 13:39-0400 Body height 170.18 cm Catarina Plascencia Work Phone: [facility] DO Work Phone: 11-06-2022 13:39-0400 Body mass index (BMI) [Ratio] 27.41 kg/m2 Catarina Plascencia Work Phone: [facility] [facility] DO Work Phone: 11-06-2022 13:39-0400 Body surface area Derived from formula 1.91 m2 Catarina Plascencia Work Phone: [facility] DO Work Phone: 11-06-2022 13:39-0400 Body weight 79.38 kg Catarina Plascencia Work Phone: [facility] DO Work Phone: 11-06-2022 13:39-0400 Diastolic blood pressure 88 mm[Hg] Catarina Plascencia Work Phone: [facility] DO Work Phone: 11-06-2022 13:39-0400 Heart rate 76 /min Catarina Plascencia Work Phone: [facility] DO Work Phone: 11-06-2022 13:39-0400 Systolic blood pressure 118 mm[Hg] Catarina Olivarespcarolyn Work Phone: [facility] DO Work Phone: 09-30-2021 08:44-0400 Diastolic blood pressure 86 mm[Hg] Catarina Olivarespfer Work Phone: [facility] DO Work Phone: 09-30-2021 08:44-0400 Systolic blood pressure 130 mm[Hg] Catarina Olivarespcarolyn Work Phone: [facility] DO Work Phone: 09-30-2021 08:43-0400 Diastolic blood pressure 92 mm[Hg] Catarina Olivarespfer Work Phone: [facility] DO Work Phone: 09-30-2021 08:43-0400 Systolic blood pressure 128 mm[Hg] Catarina Olivarespcarolyn Work Phone: [facility] DO Work Phone: 09-30-2021 08:35-0400 Body height 170.18 cm Catarina Olivarespfer Work Phone: [facility] DO Work Phone: 09-30-2021 08:35-0400 Body mass index (BMI) [Ratio] 28.98 kg/m2 Catarina Olivarespcarolyn Work Phone: [facility] DO Work Phone: 09-30-2021 08:35-0400 Body surface area Derived from formula 1.96 m2 Catarina Olivarespcarolyn Work Phone: [facility] DO Work Phone: 09-30-2021 08:35-0400 Body weight 83.92 kg Catarina Olivarespfer Work Phone: [facility] DO Work Phone: 09-30-2021 08:35-0400 Heart rate 78 /min Catarina Olivarespfer Work Phone: [facility] DO Work Phone: 09-02-2021 14:17-0400 Body height 170.18 cm Catarina Plascencia Work Phone: [facility] DO Work Phone: 09-02-2021 14:17-0400 Body mass index (BMI) [Ratio] 29.6 kg/m2 Catarina Plascencia Work Phone: [facility] DO Work Phone: 09-02-2021 14:17-0400 Body surface area Derived from formula 1.97 m2 Catarina Plascencia Work Phone: [facility] DO Work Phone: 09-02-2021 14:17-0400 Body weight 85.73 kg Ctaarina Plascencia Work Phone: [facility] DO Work Phone: 09-02-2021 14:17-0400 Diastolic blood pressure 88 mm[Hg] Catarina Plascencia Work Phone: [facility] DO Work Phone: 09-02-2021 14:17-0400 Heart rate 56 /min Catarina Plascencia Work Phone: [facility] DO Work Phone: 09-02-2021 14:17-0400 Systolic blood pressure 138 mm[Hg] Catarina Plascencia Work Phone: [facility] DO Work Phone: 09-02-2021 09:47-0400 Diastolic blood pressure 90 mm[Hg] Catarina Plascencia Work Phone: [facility] DO Work Phone: 09-02-2021 09:47-0400 Systolic blood pressure 152 mm[Hg] Catarina Plascencia Work Phone: [facility] DO Work Phone: 09-02-2021 09:10-0400 Body height 170.18 cm Catarina Plascencia Work Phone: [facility] DO Work Phone: 09-02-2021 09:10-0400 Body mass index (BMI) [Ratio] 29.6 kg/m2 Catarina Plascencia Work Phone: [facility] DO Work Phone: 09-02-2021 09:10-0400 Body surface area Derived from formula 1.97 m2 Catarina Plascencai Work Phone: [facility] DO Work Phone: 09-02-2021 09:10-0400 Body weight 85.73 kg Catarina Plascencia Work Phone: [facility] DO Work Phone: 09-02-2021 09:10-0400 Diastolic blood pressure 110 mm[Hg] Catarina Plascencia Work Phone: [facility] DO Work Phone: 09-02-2021 09:10-0400 Heart rate 56 /min Catarina Plascencia Work Phone: [facility] DO Work Phone: 09-02-2021 09:10-0400 Systolic blood pressure 160 mm[Hg] Catarina Plascencia Work Phone: [facility] DO Work Phone: 07-17-2021 15:33-0400 Diastolic blood pressure 90 mm[Hg] Catarina Olivarespfer Work Phone: [facility] DO Work Phone: 07-17-2021 15:33-0400 Systolic blood pressure 112 mm[Hg] Catarina Plascencia Work Phone: [facility] DO Work Phone: 07-17-2021 15:26-0400 Body height 170.18 cm Catarina Plascencia Work Phone: [facility] DO Work Phone: 07-17-2021 15:26-0400 Body mass index (BMI) [Ratio] 30.98 kg/m2 Catarina Plascencia Work Phone: [facility] DO Work Phone: 07-17-2021 15:26-0400 Body surface area Derived from formula 2.01 m2 Catarina Plascencia Work Phone: [facility] DO Work Phone: 07-17-2021 15:26-0400 Body weight 89.72 kg Catarina Plascencia Work Phone: [facility] DO Work Phone: 07-17-2021 15:26-0400 Diastolic blood pressure 100 mm[Hg] Catarina Plascencia Work Phone: [facility] DO Work Phone: 07-17-2021 15:26-0400 Heart rate 65 /min Catarina Olivarespcarolyn Work Phone: [facility] DO Work Phone: 07-17-2021 15:26-0400 Systolic blood pressure 120 mm[Hg] Catarina Olivarespcarolyn Work Phone: [facility] DO Work Phone: Encounters Encounter Date Encounter Type Care Provider Facility Start: 01-11-2025 End: 01-11-2025 ambulatory Mariaa Collado MD Facility[facility] Start: 12-26-2024 End: 12-26-2024 ambulatory MARBELLA PHILLIPS Not Available Start: 12-05-2024 End: 12-05-2024 ambulatory Lance Dutton MD Facility:[facility] Start: 11-21-2024 End: 11-21-2024 Bamboo flowsheet Mitch Teran MANAGER REIMBURSEMENT Work Phone: [facility] Start: 11-21-2024 End: 11-21-2024 Bamboo flowsheet Mitchchanel Teran MANAGER REIMBURSEMENT Work Phone: [facility] Start: 11-21-2024 End: 11-21-2024 Telephone encounter Mariaa Collado MD Work Phone: [facility] Start: 11-21-2024 End: 11-21-2024 Office outpatient visit 25 minutes Mitch Teran MANAGER REIMBURSEMENT Work Phone: [facility] Comment on above: Dysphagia, unspecifi ed type (Primary Dx); Dizziness Start: 11-21-2024 End: 11-21-2024 ambulatory MITCH TERAN Not Available Start: 11-08-2024 End: 11-08-2024 ambulatory Mariaa Collado MD Facility:[facility] Start: 08-21-2024 End: 08-21-2024 Clinisync Result Encounter Generic External Data Provider [facility] Unsolicited Start: 08-21-2024 End: 08-21-2024 Clinisync Result Encounter Generic External Data Provider [facility] External Department Unsolicited Start: 08-21-2024 End: 08-23-2024 ambulatory MARIAA COLLADO [facility] Start: 08-21-2024 End: 08-23-2024 Subsequent hospital visit by physician Boom Baig Room 2 [facility] Comment on above: Esophageal dysphagia Start: 08-18-2024 ambulatory CADENCE YOUNGER [facility] Start: 08-17-2024 End: 08-17-2024 Telephone encounter Mirna Salter BLANK DRILLER [facility] Start: 08-15-2024 End: 08-15-2024 Bamboo flowsheet Mirna Salter BLANK DRILLER [facility] Start: 08-15-2024 End: 08-15-2024 Bamboo flowsheet Mirna Salter BLANK DRILLER [facility] Start: 08-15-2024 End: 08-15-2024 Patient encounter status Mariaa Collado MD Work Phone: [facility] Start: 08-15-2024 End: 08-15-2024 Periodic preventive med est patient 40-64yrs Mariaa Collado MD Work Phone: [facility] Comment on above: Essential hypertensi on (CMS/HCC) (Primary Dx); SVT (supraventricular tachycardia) (CMS/HCC); Routine general medical examination at a health care facility; Benign essential hypertension (CMS/HCC); Prostate cancer screening Start: 08-15-2024 End: 08-15-2024 ambulatory MARIAA COLLADO Not Available Start: 08-11-2024 End: 08-11-2024 Clinisync Result Encounter Generic External Data Provider [facility] External Department Unsolicited Start: 08-11-2024 End: 08-11-2024 Clinisync Result Encounter Generic External Data Provider [facility] External Department Unsolicited Start: 08-11-2024 End: 08-13-2024 [facility] Start: 08-11-2024 End: 08-13-2024 Subsequent hospital visit by physician Boom Acevedo Fl Room 2 [facility] Comment on above: Aspiration of food, initial encounter Start: 08-10-2024 End: 08-10-2024 Bamboo flowsheet Nica Barron PT Work Phone: [facility] Start: 08-10-2024 End: 08-10-2024 Bamboo flowswaqas Barron PT Work Phone: [facility] Start: 08-10-2024 End: 08-10-2024 ambulatory Nica Barron PT Work Phone: [facility] Comment on above: Pain, neck (Primary Dx); S/P cervical spinal fusion Start: 08-07-2024 End: 08-07-2024 Bamboo flowsheet Mirna Brink BLANK DRILLER [facility] Start: 08-07-2024 End: 08-07-2024 Bamboo flowsheet Mirna Brink BLANK DRILLER [facility] Start: 08-07-2024 End: 08-07-2024 ambulatory Mirna Brink BLANK DRILLER [facility] Comment on above: Pain, neck (Primary Dx); S/P cervical spinal fusion Start: 08-01-2024 End: 08-01-2024 Bamboo flowsheet Mirna Brink BLANK DRILLER [facility] Start: 08-01-2024 End: 08-01-2024 Bamboo flowsheet Mirna Brink BLANK DRILLER [facility] Start: 08-01-2024 End: 08-01-2024 ambulatory Mirna Brink BLANK DRILLER [facility] Comment on above: Pain, neck (Primary Dx); S/P cervical spinal fusion Start: 07-24-2024 End: 07-24-2024 Bamboo flowsheet Susanne Kelbley BLANK DRILLER [facility] Start: 07-24-2024 End: 07-24-2024 Bamboo flowsheet Susanne Kelbley BLANK DRILLER [facility] Start: 07-24-2024 End: 07-24-2024 ambulatory Susanne Kelbley BLANK DRILLER [facility] Comment on above: Pain, neck (Primary Dx); S/P cervical spinal fusion Start: 07-20-2024 End: 07-20-2024 ambulatory SUSANNE KELBLEY Not Available Start: 07-18-2024 End: 07-18-2024 ambulatory Nica Barron PT Work Phone: [facility] Comment on above: Pain, neck (Primary Dx); S/P cervical spinal fusion Start: 07-18-2024 End: 07-18-2024 Bamboo flowsheet Nica Barron PT Work Phone: [facility] Start: 07-18-2024 End: 07-18-2024 Bamboo flowsheet Nica Barron PT Work Phone: [facility] Start: 07-13-2024 End: 07-13-2024 Bamboo flowsheet Nica Barron PT Work Phone: [facility] Start: 07-13-2024 End: 07-13-2024 Bamboo flowsheet Nica Barron PT Work Phone: [facility] Start: 07-13-2024 End: 07-13-2024 ambulatory Nica Barron PT Work Phone: [facility] Comment on above: Pain, neck (Primary Dx); S/P cervical spinal fusion Start: 06-29-2024 End: 06-29-2024 Bamboo flowsheet Marbella K Aaln DO Work Phone: [facility] Start: 06-29-2024 End: 06-29-2024 Bamboo flowsheet Marbella K Alan DO Work Phone: [facility] Start: 06-29-2024 End: 06-29-2024 ambulatory MARBELLA K ALAN Not Available Start: 06-21-2024 End: 06-21-2024 ambulatory MITCH MAJORS Not Available Start: 06-16-2024 End: 06-16-2024 ambulatory MARBELLA K ALAN Not Available Start: 05-25-2024 End: 05-25-2024 Bamboo flowsheet Cielo Lainez MD Work Phone: [facility] Start: 05-25-2024 End: 05-25-2024 Bamboo flowsheet Cielo Lainez MD Work Phone: [facility] Start: 05-25-2024 End: 05-25-2024 Telephone encounter Mariaa Collado MD Work Phone: [facility] Start: 05-25-2024 End: 05-25-2024 Office outpatient visit 25 minutes Cielo Lainez MD Work Phone: [facility] Comment on above: Preoperative clearan ce (Primary Dx); Cervical spinal stenosis Start: 05-25-2024 End: 05-25-2024 Preoperative state Cielo Lainez MD Work Phone: [facility] Work Phone: Start: 05-25-2024 End: 05-25-2024 ambulatory CIELO LAINEZ Not Available Start: 05-23-2024 End: 05-23-2024 Clinisync Result Encounter [...] End: 05-01-2024 Office outpatient visit 10 minutes [facility] KAITARA TARAKA-ASSOCIATE RESEARCH SCIENTIST Work Phone: [facility] Comment on above: Benign essential hyp ertension (Primary Dx); BMI 29.0-29.9,adult Start: 05-01-2024 End: 05-01-2024 ambulatory [facility] Start: 04-21-2024 End: 04-21-2024 Bamboo flowsheet Marbella Phillips DO Work Phone: [facility] Start: 04-21-2024 End: 04-21-2024 Bamboo flowsheet Marbella Mackenzie Alan DO Work Phone: [facility] Start: 04-21-2024 End: 04-21-2024 Office outpatient visit 25 minutes Marbella Phillips DO Work Phone: [facility] Comment on above: Abnormal chest CT (P rimary Dx); Hemoptysis Start: 04-21-2024 End: 04-21-2024 ambulatory MARBELLA PHILLIPS Not Available Start: 04-14-2024 End: 04-14-2024 Telephone encounter Mariaa Collado MD Work Phone: [facility] Start: 04-14-2024 End: 04-14-2024 ambulatory Marbella Alan DO Work Phone: [facility] Work Phone: Start: 04-14-2024 End: 04-14-2024 Patient encounter procedure Marbella Alan DO Work Phone: [facility] Work Phone: Start: 04-03-2024 End: 04-03-2024 Office outpatient visit 15 minutes Maria L Etienne MANAGER REIMBURSEMENT Work Phone: [facility] Comment on above: COVID-19 (Primary Dx ); Sore throat Start: 04-03-2024 End: 04-03-2024 ambulatory MARIA L A EDNABURG Not Available Start: 04-03-2024 End: 04-03-2024 Bamboo flowsheet Maria L A H[place]enburg MANAGER REIMBURSEMENT Work Phone: [facility] Start: 04-03-2024 End: 04-03-2024 Bamboo flowsheet Maria L A Hakelseyenburg MANAGER REIMBURSEMENT Work Phone: [facility] Start: 03-29-2024 End: 03-29-2024 Bamboo flowsheet Marbella K Alan DO Work Phone: [facility] Start: 03-29-2024 End: 03-29-2024 Bamboo flowsheet Marbella K Alan DO Work Phone: [facility] Start: 03-29-2024 End: 03-29-2024 ambulatory MARBELLA K ALAN Not Available Start: 03-28-2024 End: 04-27-2024 External Result Encounter Mrabella K Alan DO Work Phone: [facility] Unsolicited Start: 03-28-2024 End: 04-27-2024 External Result Encounter Marbella K Alan DO Work Phone: [facility] Unsolicited Start: 03-28-2024 End: 03-28-2024 ambulatory Marbella Phillips Facility:[facility] Start: 03-28-2024 End: 03-28-2024 Departed Referred Marbellanavin Phillips DO Work Phone: [facility] Work Phone: Start: 03-24-2024 End: 03-24-2024 Bamboo flowsheet Marbella K Alan DO Work Phone: [facility] Start: 03-24-2024 End: 03-24-2024 Bamboo flowsheet Marbella K Alan DO Work Phone: [facility] Start: 03-24-2024 End: 03-24-2024 Office outpatient visit 25 minutes Marbella Gurdeep Alan DO Work Phone: [facility] Comment on above: Abnormal chest CT (P rimary Dx); Hemoptysis Start: 03-24-2024 End: 03-24-2024 ambulatory MARBELLA Gurdeep ALAN Not Available Start: 03-01-2024 End: 03-01-2024 [...] CT Start: 02-25-2024 End: 02-25-2024 ambulatory MARBELLA Gurdeep ALAN Not Available Start: 02-21-2024 End: 02-21-2024 ambulatory [facility] Start: 02-21-2024 End: 02-21-2024 ambulatory [facility] Start: 02-21-2024 End: 02-21-2024 ambulatory [facility] Start: 02-15-2024 End: 02-15-2024 Telephone encounter Mariaa Collado MD Work Phone: [facility] Start: 02-10-2024 End: 02-10-2024 ambulatory [facility] Start: 02-10-2024 End: 02-10-2024 ambulatory [facility] Start: 02-01-2024 End: 02-01-2024 Orders Only [...] MD Work Phone: [facility] Start: 12-07-2023 End: 12-07-2023 Orders Only Mariaa Collado MD Work Phone: [facility] Comment on above: Subacute cough (Prim hermelinda Dx); Abnormal chest CT Start: 12-01-2023 End: 12-01-2023 Orders Only Mariaa Collado MD Work Phone: [facility] Comment on above: Lung nodule, multipl e (Primary Dx) Start: 06-30-2023 End: 06-30-2023 Postop follow up visit related to original px 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 KAITARA TARAKA-ASSOCIATE RESEARCH SCIENTIST Work Phone: [facility] Comment on above: Status post laparosc opic cholecystectomy (Primary Dx); Gallbladder polyp Start: 06-30-2023 End: 06-30-2023 ambulatory [facility] Start: 06-15-2023 End: 06-15-2023 Evaluation and management of inpatient ALONDRA Real HODGE [facility] Start: 06-15-2023 End: 06-15-2023 Evaluation and management of inpatient [place] Start: 06-10-2023 End: 06-10-2023 ambulatory [place] Start: 06-10-2023 Encounter for other preprocedural examination [facility] Start: 06-10-2023 End: 06-10-2023 Patient encounter procedure [facility] Pre-Admission Testing 1 [facility] - Pre Ad[facility] Comment on above: Preop examination (P rimary Dx); Hypertension, unspecified type Start: 06-10-2023 End: 06-10-2023 Preprocedural examination done [facility] [address] [facility] Start: 06-09-2023 End: 06-09-2023 Office outpatient new 45 minutes [facility] DO Work Phone: [facility] Comment on above: Gallbladder polyp (P rimary Dx); History of hypertension Start: 06-09-2023 End: 06-11-2023 ambulatory [facility] Start: 06-08-2023 ambulatory [facility] Start: 05-24-2023 Telephone encounter Mariaa estevez MD Work Phone: [facility] Start: 05-17-2023 Chart abstracting Emma Scanlon MANAGER REIMBURSEMENT Work Phone: [facility] Start: 05-17-2023 Telephone encounter Emma villatoro MANAGER REIMBURSEMENT Work Phone: [facility] Comment on above: Abdominal Pain Start: 11-06-2022 Office outpatient vi sit 15 minutes Catarina Plascencia Work Phone: [facility] 250 DO Work Phone: Start: 11-06-2022 Patient encounter procedure Catarina Plascencia Work Phone: [facility] 250 DO Work Phone: Start: 09-02-2022 Rx Renewal Catarina Camacho r Work Phone: [facility] 250 DO Work Phone: Start: 09-30-2021 Office outpatient vi sit 15 minutes Catarina Plascencia Work Phone: [facility] 250 DO Work Phone: Start: 09-30-2021 Patient encounter procedure Catarina Plascencia Work Phone: [facility] [employer] 250 DO Work Phone: Start: 09-02-2021 Office outpatient vi sit 15 minutes Catarina Plascencia Work Phone: [facility] 250 DO Work Phone: Start: 07-17-2021 Office consultation new/estab patient 60 min Catarina Plascencia Work Phone: [facility] 250 DO Work Phone: Start: 07-07-2021 End: 07-08-[address] [facility] Facility: Start: 05-18-2021 End: 05-18-[address] NONE LISTED REQUEST Facility: Procedures Date Procedure Procedure Detail Performing Clinician Start: 08-21-2024 FL ESOPHAGRAM Generic External Data Provider Start: 08-21-2024 Radiologic exam esophagus single contrast study Cadence Younger MD Work Phone: Start: 08-11-2024 FL MODIFIED BARIUM SWALLOW W VIDEO Gener ic External Data Provider Start: 08-11-2024 Radiologic exam swallow function contrast study Cadence Younger MD Work Phone: Start: 05-23-2024 ALL CBC WITH AUTO DIFF Generic External Data Provider Start: 05-15-2024 Mri spinal canal cervical w/o contrast matrl Generic External Data Provider Start: 04-03-2024 Iaadiadoo streptococcus group a Maria L A Nareshmateuszburg MANAGER REIMBURSEMENT Work Phone: Start: 04-03-2024 STATUS COVID-19/FLU Maria L A Annaleeenburg MANAGER REIMBURSEMENT Work Phone: Start: 03-28-2024 Acid fast bacilli culture Marbella Phillips DO Work Phone: Start: 03-28-2024 Acid fast stain method Marbella Phillips DO Work Phone: Start: 03-28-2024 Bacteria identification test Marbella Wilkinson ck DO Work Phone: Start: 03-28-2024 Determination of growth of fungi Marbella Phillips DO Work Phone: Start: 03-28-2024 Fungal Culture Result 2 Marbella Alan DO Work Phone: Start: 03-28-2024 Fungal Culture Result 3 Marbella Alan DO Work Phone: Start: 03-28-2024 Fungal Culture Result 4 Marbella Phillips DO Work Phone: Start: 03-28-2024 Mycology Susceptibility Marbella Alan DO Work Phone: Start: 03-28-2024 AFB SMEAR RESULT Marbella Phillips DO Work Phone: Start: 03-28-2024 AFB SPECIMEN PROCESSING Marbella Gurdeep Phillips DO Work Phone: Start: 03-28-2024 BRONCH CULTURE Marbella Gurdeep Phillips DO Work Phone: Start: 03-28-2024 CELL COUNT/DIFF,FLUID Marbella Phillips DO Work Phone: Start: 03-28-2024 FUNGAL SMEAR Marbella Phillips DO Work Phone: Start: 03-28-2024 FUNGUS (MYCOLOGY) CULTURE Marbella mackenzie DO Work Phone: Start: 03-28-2024 FUNGUS (MYCOLOGY) RESULT 1 Marbella wsie DO Work Phone: Start: 03-28-2024 MISC LAB Marbella Phillips DO Work Phone: Start: 03-27-2021 Colonoscopy Emma Scanlon NP Work Phone: Start: 03-12-2021 Total colonoscopy Catarina Plascencia Work Phone: Esophagogastroduodenoscopy S britneybrenda Ley Temo Work Phone: Extraction of wisdom tooth S rebecca Plascencia Work Phone: History of cholecystectomy Statu s post laparoscopic cholecystectomy 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 KAITARA TARAKA-ASSOCIATE RESEARCH SCIENTIST Work Phone: Tonsillectomy and adenoidectomy Catarina Ley Temo Work Phone: Plan of Treatment Date Care Activity Detail Author Start: 03-27-2031 Screening for malign ant neoplasm of colon [facility] Start: 01-11-2025 End: 01-11-2025 Patient encounter procedure [facility] Start: 12-11-[address] [facility] Start: 11-21-2024 End: 11-21-2025 CBC W Auto Differential panel - Blood CBC and differential Lab Routine Dizziness Expected: 11/21/2024 (Approximate), Expires: 11/21/2025 [facility] Work Phone: Comment on above: Expected: 11/21/2024 (Approximate), Expires: 11/21/2025 Start: 11-21-2024 End: 11-21-2025 Comprehensive metabolic 2000 panel - Serum or Plasma Comprehensive metabolic panel Lab Routine Dizziness Expected: 11/21/2024 (Approximate), Expires: 11/21/2025 [facility] Comment on above: Expected: 11/21/2024 (Approximate), Expires: 11/21/2025 Start: 11-21-2024 End: 11-21-2025 Magnesium [Mass/volume] in Serum or Plasma Magnesium Lab Routine Dizziness Expected: 11/21/2024 (Approximate), Expires: 11/21/2025 [facility] Comment on above: Expected: 11/21/2024 (Approximate), Expires: 11/21/2025 Start: 11-21-2024 End: 11-21-2024 Patient encounter procedure 11/21/2024 9:30 AM EDT Office Visit [facility] [address] [place] [phone] Mitch Teran NP [address], [place] [phone] [facility]: [facility] Start: 11-10-2024 Influenza vaccination Flu vacc ine (Season Ended) [facility] Start: 10-09-2024 Influenza vaccination Influenza Vacc ine (#1) [facility] Comment on above: Postponed from 12/11 (Patient Refused) Start: 08-25-2024 End: 08-25-2024 ambulatory 08/25/2024 9:00 AM EDT Treatment [facility] [address] [facility] [address] [place] [address] Mirna Salter BLANK DRILLER [facility] Start: 08-24-2024 End: 08-24-2024 ambulatory 08/24/2024 8:00 AM EDT Treatment [facility] [address] [facility] [address] [place] [address] Mirna Salter BLANK DRILLER [facility] Start: 08-21-2024 End: 08-21-2024 ambulatory 08/21/2024 8:00 AM EDT Treatment [facility] [address] [facility] [address] [place] [address] Mirna Salter BLANK DRILLER [facility] Start: 08-17-2024 End: 08-17-2024 ambulatory 08/17/2024 6:00 PM EDT Treatment [facility] [address] [place] [address] Tu Susanne, BLANK DRILLER [facility] Start: 08-15-2024 End: 08-15-2025 Comprehensive metabolic 2000 panel - Serum or Plasma Comprehensive metabolic panel Lab Routine Benign essential hypertension (CMS/HCC) Expected: 08/15/2024, Expires: 08/15/2025 [facility] Comment on above: Expected: 08/15/2024 , Expires: 08/15/2025 Start: 08-15-2024 End: 08-15-2025 Lipid 1996 panel - Serum or Plasma Lipid panel Lab Routine Benign essential hypertension (CMS/HCC) Expected: 08/15/2024 (Approximate), Expires: 08/15/2025 [facility] Work Phone: Comment on above: Expected: 08/15/2024 (Approximate), Expires: 08/15/2025 Start: 08-15-2024 End: 08-15-2025 Prostate specific Ag [Mass/volume] in Serum or Plasma PSA Lab Routine Prostate cancer screening Expected: 08/15/2024 (Approximate), Expires: 08/15/2025 [facility] Comment on above: Expected: 08/15/2024 (Approximate), Expires: 08/15/2025 Start: 08-15-2024 End: 08-15-2024 Patient encounter procedure 08/15/2024 11:20 AM EDT Office Visit [facility] [address] [place] [phone] Mariaa Collado MD [address] [place] [address] [facility] Start: 08-15-2024 End: 08-15-2024 ambulatory [facility] Comment on above: Pain, neck (Primary Dx); S/P cervical spinal fusion Start: 08-10-2024 End: 08-10-2024 ambulatory [facility] Comment on above: Pain, neck (Primary Dx); S/P cervical spinal fusion Start: 08-07-2024 End: 08-07-2024 ambulatory [facility] Comment on above: Arrived Start: 08-03-2024 End: 08-03-2024 ambulatory 08/03/2024 6:00 PM EDT Treatment [facility] [address] [facility] [address] [place] [address] Susanne Waterman BLANK DRILLER [facility] Start: 08-01-2024 End: 08-01-2024 ambulatory [facility] Comment on above: Pain, neck (Primary Dx) Start: 07-27-2024 End: 07-27-2024 ambulatory 07/27/2024 8:00 AM EDT Treatment [facility] [address] [facility] [address] [place] [address] Mirna Salter BLANK DRILLER [facility] Start: 07-24-2024 End: 07-24-2024 ambulatory [facility] Comment on above: Pain, neck (Primary Dx); S/P cervical spinal fusion Start: 07-20-2024 End: 07-20-2024 ambulatory 07/20/2024 6:00 PM EDT Treatment [facility] [address] [facility] [address] [place] [address] Susanne Waterman PTA [facility] Start: 07-18-2024 End: 07-18-2024 ambulatory [facility] Comment on above: Arrived Start: 07-13-2024 End: 07-13-2024 ambulatory 07/13/2024 11:00 AM EDT Evaluation [facility] [address] [facility] [address] [place] [address] Nica Barron, PT [address] [facility] [address] [place] [address] Arrived [facility] Comment on above: Arrived Start: 06-29-2024 Adult BMI Screening Adult BMI Screen ing [facility] Start: 06-29-2024 Tobacco Screening Tobacco Screening [facility] Start: 06-29-2024 End: 06-29-2024 Patient encounter procedure 06/29/2024 8:45 AM EDT Office Visit [facility] [address] [place] [address] Marbella Phillips, DO [address] [place] [address] Arrived [facility] Comment on above: Arrived Start: 06-12-2024 End: 04-21-2025 CT Chest WO contrast CT chest wo IV contrast Imaging Routine Abnormal chest CT Hemoptysis Expected: 06/12/2024, Expires: 04/21/2025 [facility] Work Phone: Comment on above: Expected: 06/12/2024 , Expires: 04/21/2025 Start: 06-09-2024 Adult BMI Screening Adult BMI Screen ing [facility] Start: 06-09-2024 Tobacco Screening Tobacco Screening [facility] Start: 05-25-2024 End: 05-25-2024 Patient encounter procedure [facility] Comment on above: Arrived Start: 04-21-2024 End: 04-21-2024 Patient encounter procedure [facility] Comment on above: Arrived Start: 04-19-2024 End: 04-19-2024 Patient encounter procedure 04/19/2024 8:45 AM EST Office Visit [facility] [address] [place] [address] Marbella Phillips, DO [address] [place] [address] [facility] Start: 04-14-2024 End: 04-14-2024 Patient encounter procedure 04/14/2024 11:40 AM EST Office Visit [facility] [address] [place] [address] Mariaa Collado MD [address] [place], [place] [phone] [facility] Start: 04-03-2024 End: 04-03-2024 Patient encounter procedure 04/03/2024 3:30 PM EST Office Visit [facility] [address] [place] [phone] Maria L Etienne NP [address] [place], [place] [phone] Arrived [facility] Comment on above: Arrived Start: 03-28-2024 Acid Fast Bacilli Cu lture & Smear Acid Fast Bacilli Culture & Smear [facility] Start: 03-28-2024 Fungal Culture Result 1 Fungal Cultu re Result 1 [facility] Start: 03-28-2024 Mycology Culture Mycology Culture Fi [facility] Start: 03-28-2024 [facility] Start: 03-24-2024 End: 03-24-2024 Patient encounter procedure [facility] Comment on above: Arrived Start: 02-25-2024 End: 02-25-2024 Patient encounter procedure 02/25/2024 10:15 AM EST Consult [facility] [address] [place] [phone] Marbella Phillips, DO [address] [place] [address] [facility] Start: 01-31-2024 End: 01-31-2024 Patient encounter procedure 01/31/2024 2:40 PM EDT Office Visit [facility] [address] [place] [address] Mariaa Collado MD [address] [place], [place] [phone] Arrived [facility] Comment on above: [...] pain, unspecified type Expected: 01/31/2024, Expires: 01/30/2025 [facility] Comment on above: Expected: 01/31/2024 , Expires: 01/30/2025 Start: 01-31-2024 End: 01-30-2025 ECG 12 lead [facility] Comment on above: Expected: 01/31/2024 (Approximate), Expires: 01/30/2025 Start: 01-31-2024 End: 01-30-2026 NM Heart Perfusion W single state of exercise Stress test with myocardial perfusion Cardiac Nuclear Medicine Routine Chest pain, unspecified type Expected: 01/31/2024 (Approximate), Expires: 01/30/2026 [facility] Comment on above: Expected: 01/31/2024 (Approximate), Expires: 01/30/2026 Start: 01-31-2024 End: 01-30-2025 NM Whole body Bone 3 Phase Views NM bone 3 phase Imaging Routine Cough, unspecified type Abnormal chest CT Expected: 01/31/2024, Expires: 01/30/2025 [facility] Work Phone: Comment on above: Expected: 01/31/2024 , Expires: 01/30/2025 Start: 01-31-2024 End: 01-30-2025 TSH W/REFLEX TO FT4 TSH W/REFLEX TO FT4 Lab Routine Chest pain, unspecified type Expected: 01/31/2024 (Approximate), Expires: 01/30/2025 [facility] Comment on above: Expected: 01/31/2024 (Approximate), Expires: 01/30/2025 Start: 12-12-2023 COVID-19 Vaccine () COVID-19 Vaccine () [facility] Start: 12-12-2023 Influenza vaccination Influenza Vacc ine (#1) [facility] Start: 12-01-2023 End: 11-30-2024 CT Chest WO contrast CT chest wo IV contrast Imaging Routine Lung nodule, multiple Expected: 12/01/2023, Expires: 11/30/2024 [facility] Work Phone: Comment on above: Expected: 12/01/2023 , Expires: 11/30/2024 Start: 11-03-2023 FUV, Provider: Ben Ly, Status: Pen, Time: 1:00 PM FUV, Provider: Ben Ly, Status: Pen, Time: 1:00 PM -[facility] 250 DO Work Phone: Start: 06-30-2023 End: 06-30-2023 Patient encounter procedure 06/30/2023 1:00 PM EDT Office Visit [facility] [address] [place] [phone] 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 APRN-ASSOCIATE RESEARCH SCIENTIST [address] [place] [address] [facility] Start: 06-15-2023 End: 06-15-2023 Admission to same day surgery center 06/15/2023 8:00 AM EST - 06/15/2023 9:45 AM EST Surgery [facility] - Surgery [address] [place] [phone] Velma Rosario DO [address] [place], [place] [phone] DAVINCI CHOLECYSTECTOMY [10585 (CPT )] [facility] Comment on above: DAVINCI CHOLECYSTECT DAFNE [40900 (CPT )] Start: 06-15-2023 End: 06-15-2023 Laparoscopy surg cholecystectomy DAVINCI CHOLECYSTECTOMY gallbladder polyp 06/15/2023 8:00 AM EST [facility] Start: 06-15-2023 Subsequent hospital visit by physician 06/15/2023 8:00 AM EST Hospital Encounter [facility] Surgery [address] [place] [phone] Velma Rosario, DO [address] [place], [place] [phone] [facility] Start: 06-10-2023 End: 06-10-2023 Patient encounter procedure 06/10/2023 9:00 AM EST Procedure visit [facility] - Pre Admit [address] [place] [address] [facility] - Pre Admit Start: 05-21-2023 End: 05-21-2023 Professional / ancillary services management 05/21/2023 8:00 AM EST Ancillary Procedure [facility] [address] [place] [address] [facility] Start: 05-17-2023 End: 05-17-2023 Professional / ancillary services management 05/17/2023 10:30 AM EST Ancillary Procedure [facility] [address] [place] [address] [facility] Start: 12-11-2022 COVID-19 Vaccine ( season) COVID-19 Vaccine ( season) [facility] Start: 12-11-2022 Influenza vaccination N [facility] Start: 11-06-2022 FUV, Provider: Ben Ly, Status: Pen, Time: 1:20 PM FUV, Provider: Ben Ly, Status: Pen, Time: 1:20 PM [facility] Work Phone: Start: 07-31-2022 Adult BMI Follow Up Plan Adult BMI F ollow Up Plan [facility] Start: 05-12-2022 FUV, Provider: Ben Ly, Status: Pen, Time: 9:30 AM FUV, Provider: Ben Ly, Status: Pen, Time: 9:30 AM [facility] 250 DO Work Phone: Start: 09-30-2021 NURSEVST, Provider: LA MARTINEZ REAL ESTATE ANALYST 1,[id number], Status: Pen, Time: 8:30 AM NURSEVST, Provider: LA MARTINEZ REAL ESTATE ANALYST 1,[id number], Status: Pen, Time: 8:30 AM [employer] 250 DO Work Phone: Start: 09-02-2021 FUV, Provider: Ben Ly, Status: Pen, Time: 8:50 AM FUV, Provider: Ben Ly, Status: Pen, Time: 8:50 AM [employer] 250 DO Work Phone: Start: 12-27-2020 Screening for malign ant neoplasm of colon FIT-DNA [facility] Start: 10-24-2017 Administration of varicella zoster vaccine Zoster (Shingles) Vaccine (1 of 2) [facility] Start: 10-24-2017 Pneumococcal 50+ yea rs Vaccine (1 of 1 - PCV) Pneumococcal 50+ years Vaccine (1 of 1 - PCV) [facility] Start: 10-24-2017 Pneumococcal vaccination Pneum ococcal Vaccine (1 of 1 - PCV) [facility] Start: 10-24-2017 Shingles vaccine (1 of 2) Eckert gles vaccine (1 of 2) [facility] Start: 10-24-2017 Zoster Vaccines (1 of 2) Zoster Vacc kalia (1 of 2) [facility] Start: 10-24-2012 Screening for malign ant neoplasm of colon [facility] Start: 2007 Lipid panel Lipids [facility] Start: 10-24-1989 DTaP/Tdap/Td Vaccine s (1 - Tdap) DTaP/Tdap/Td Vaccines (1 - Tdap) [facility] Start: 10-24-1986 DTaP,Tdap and Td Vac cines (1 - Tdap) DTaP,Tdap and Td Vaccines (1 - Tdap) [facility] Start: 10-24-1986 DTaP/Tdap/Td vaccine (1 - Tdap) DTaP/Tdap/Td vaccine (1 - Tdap) [facility] Start: 10-24-1986 Hepatitis B vaccine (1 of 3 - 19+ 3-dose series) Hepatitis B vaccine (1 of 3 - 19+ 3-dose series) [facility] Start: 10-24-1986 Hepatitis B Vaccines (1 of 3 - 19+ 3-dose series) Hepatitis B Vaccines (1 of 3 - 19+ 3-dose series) [facility] Start: 10-24-1985 Diabetes mellitus screening Diabetes Screening [facility] Start: 10-24-1985 Hepatitis C screening [facility] Start: 10-24-1982 HIV screening HIV screen [facility] Start: 1979 Depression Screen Depression Screen [facility] Start: 1979 Depression Screening Depression Scre ing [facility] Start: 10-24-1968 MMR Vaccines (1 of 1 - Standard series) MMR Vaccines (1 of 1 - Standard series) [facility] Start: 1967 HIV screening HIV Screening [facility] Start: 1967 Lipid panel Lipid Panel [facility] Start: 1967 Screening for malign ant neoplasm of colon [facility] Start: 1967 Yearly Adult Physical Yearly Adult P hysical [facility] BRONCH CULTURE BRONCH CULTURE L ab Routine 03/28/2024 8:25 AM EST [facility] Work Phone: End: 06-08-2024 CBC panel - Blood by Automated count CBC without diff Lab Routine Gallbladder polyp 1 Occurrences starting 06/09/2023 until 06/08/2024 Active Scaler Comment on above: 1 Occurrences starti ng 06/09/2023 until 06/08/2024 End: 06-08-2024 Comprehensive metabolic 2000 panel - Serum or Plasma Comprehensive metabolic panel Lab Routine Gallbladder polyp 1 Occurrences starting 06/09/2023 until 06/08/2024 [employer] Work Phone: Comment on above: 1 Occurrences starti ng 06/09/2023 until 06/08/2024 Fungus identified in Unspecified specimen by Culture [facility] End: 06-08-2024 Lipase [Enzymatic activity/volume] in Serum or Plasma Lipase Lab Routine Gallbladder polyp 1 Occurrences starting 06/09/2023 until 06/08[facility] 1 Occurrences starti ng 06/09/2023 until 06/08/2024 Mycobacterium sp identified in Unspecified specimen by Organism specific culture [facility] End: 06-08-2024 Unlisted Procedure / Surgery Unlisted Procedure / Surgery Procedures Routine Gallbladder polyp 1 Occurrences starting 06/09/2023 until 06/08/2024 [employer] Comment on above: 1 Occurrences starti ng 06/09/2023 until 06/08/2024 Immunizations Immunization Date Immunization Notes Care Provider Geraldine finn 08-12-2020 Moderna COVID-19 Vaccine 100 MCG/0.5ML Intramuscular Suspension Catarina A Temo Work Phone: [facility] 07-15-2020 Moderna COVID-19 Vaccine 100 MCG/0.5ML Intramuscular Suspension Catarina A Kampcarolyn Work Phone: [facility] 02-08-2014 influenza, injectabl e, quadrivalent, contains preservative Catarina A Kamannabelle Work Phone: [facility] 02-08-2014 influenza virus vaccine, unspecified formulation Emma Scanlon NP Work Phone: [facility] Healthcare Payers Date Payer Category Payer Self-pay 2021 [facility] [employer] [id number] 2021 [facility] [id number] 2018 Unknown 1967 Unknown [id number] 2.16.840.1.479378.3.579. 2.593 1967 Unknown [id number] 2.16.840.1.157056.3.579. 2.593 1967 Unknown [id number] 2.16.840.1.213493.3.579. 2.1285 1967 Unknown [id number] 2.16.840.1.118875.3.579. 2.1285 1967 Unknown [id number] 2.16.840.1.482039.3.579. 2.1285 1967 Unknown [id number] 2.16.840.1.134633.3.579. 2.1285 1967 Unknown [id number] 2.16.840.1.804077.3.579. 2.1285 1967 Unknown [id number] 2.16.840.1.893997.3.579. 2.1285 1967 Unknown [id number] 2.16.840.1.343857.3.579. 2.1285 1967 Unknown [id number] 2.16.840.1.568139.3.579. 2.1285 1967 Unknown [id number] 2.16.840.1.214400.3.579. 2.1285 1967 Unknown [id number] 2.16.840.1.961666.3.579. 2.1285 1967 Unknown [id number] 2.16.840.1.345028.3.579. 2.1285 1967 Unknown [id number] 2.16.840.1.227675.3.579. 2.128 1967 Unknown [id number] 2.16.840.1.839056.3.579. 2.1285 1967 Unknown [id number] 2.16.840.1.268992.3.579. 2.1285 1967 Unknown [id number] 2.16.840.1.450728.3.579. 2.1285 1967 Unknown [id number] 2.16.840.1.449757.3.579. 2.1285 1967 Unknown [id number] 2.16.840.1.032872.3.579. 2.1285 1967 Unknown [id number] 2.16.840.1.748419.3.579. 2.1285 1967 Unknown [id number] 2.16.840.1.134018.3.579. 2.1285 1967 Unknown [id number] 2.16.840.1.929245.3.579. 2.1285 1967 Unknown [id number] 2.16.840.1.236635.3.579. 2.1244 1967 Unknown [id number] 2.16.840.1.900648.3.579. 2.177 1967 Unknown [id number] 2.16.840.1.530298.3.579. 2.177 1967 Unknown [id number] 2.16.840.1.593100.3.579. 2.177 1967 Unknown [id number] 2.16.840.1.499122.3.579. 2.9 1967 Unknown [id number] 2.16.840.1.150423.3.579. 2.1258 1967 Unknown [id number] 2.16.840.1.985018.3.579. 2.1259 1967 Unknown [id number] 2.16.840.1.485871.3.579. 2.125 1968 Unknown [id number] 2.16.840.1.787272.3.579. 2.1258 1967 Unknown [id number] 2.16.840.1.456820.3.579. 2.1258 1967 Unknown [id number] 2.16.840.1.766484.3.579. 2.1258 1967 Unknown [id number] 2.16.840.1.582257.3.579. 2.1258 1967 Unknown [id number] 2.16.840.1.121455.3.579. 2.1258 1967 Unknown [id number] 2.16.840.1.730995.3.579. 2.1258 1967 Unknown [id number] 2..840.1.324951.3.579. 2.1258 1967 Unknown [id number] 2.16.840.1.528946.3.579. 2.1258 1967 Unknown [id number] 2..840.1.177186.3.579. 2.1258 1967 Unknown [id number] 2.16.840.1.596416.3.579. 2.1258 1967 Unknown [id number] 2.16.840.1.612133.3.579. 2.1258 1967 Unknown [id number] 2.16.840.1.187322.3.579. 2.1258 1967 Unknown [id number] 2.16.840.1.216870.3.579. 2.1258 1967 Unknown [id number] 2.16.840.1.885641.3.579. 2.1258 1967 Unknown [id number] 2.16.840.1.324111.3.579. 2.1258 1967 Unknown [id number] 2.16.840.1.829848.3.579. 2.1259 1967 Unknown [id number] 2.16.840.1.429433.3.579. 2.1259 1967 Unknown [id number] 2.16.840.1.994443.3.579. 2.196 1967 Unknown [id number] 2.16.840.1.945583.3.579. 2.196 1967 Unknown [id number] 2.16.840.1.529294.3.579. 2.196 1959 Unknown [id number] Unknown [id number] 2.16.840.1.796937.3.579. 2.531 Social History Date Type Detail Facility Start: 05-12-2023 End: 11-23-2023 No illicit drug use No illicit drug use [facility] Start: 05-12-2023 End: 06-09-2023 Tobacco smoking status RUST Never smoked tobacco [facility] Start: 05-12-2023 End: 06-09-2023 Tobacco use and exposure Smokeless tobacco non-user [facility] Start: 05-12-2023 End: 06-21-2024 Alcohol intake Lifetime non-drinker (finding) [facility] Start: 05-12-2023 End: 11-23-2023 Humiliation, Afraid, Rape, and Kick questionnaire [HARK] [facility] Within the last year , have you been afraid of your partner or ex-partner? No [facility] Do you belong to any clubs or organizations such as oriental orthodox groups, unions, fraternal or athletic groups, or [...] At Not on file [facility] Start: 05-22-2012 End: 04-14-2024 Sex Male (finding) [facility] Start: 1965 Sex Assigned At Male [facility] Start: 06-30-2023 End: 05-01-2024 Alcoholic beverage intake Current drinker of alcohol (finding) [facility] Start: 06-23-2023 Alcohol Comment occasionally [facility] Work Phone: Start: 04-21-2024 End: 05-01-2024 Exposure to SARS-CoV-2 (event) Not sure [facility] Start: 03-27-2021 Alcohol Comment rare [facility] Start: 06-29-2024 End: 11-21-2024 Alcoholic beverage intake Ex-drinker (finding) [facility] Tobacco smoking stat [facility] Tobacco smoking consumption unknown [facility] Clinical Notes 06-16-2021 to 01-11-2025 Telephone Encounter - Harini Meier - 11/21/2024 10:30 AM EDTTelephone Encounter - Harini Meier - 11/21/2024 10:30 AM Jericho Teran NP - 11/21/2024 9:30 AM EDTPatient Instructions Note Date & Type Note Facility 01-11-2025 Note Chief Complaint procedure follow up History of Present Illness Dariusz is a 59 year old male who presents to GI clinic for follow-up of dysphagia and globus sensation post ACDF in May with Dr. Mullen. Patient has undergone EGD since previous visit. No lesions in the esophagus, no narrowing amenable to dilation. Normal stomach, duodenal erosions. EGD pathology showed duodenal mucosal erosion with mild chronic inflammation. Patient has been prescribed pantoprazole 20 mg daily by his PCP, he never started it, recommend trialing for at least 8 weeks for healing of duodenal erosions. No other significant pathology. Patient states his symptoms are mild and improving, denies food getting stuck. Does report a cough at night with excess phlegm but is treating this as a separate issue. Denies reflux or heartburn, no epigastric pain. Discussed trialing PPI to see if he notes any increased improvement in symptoms, states they are mild, doing very well overall. No complaints regarding his bowel movements. EGD 12/05/2024 Impression and Plan EGD: Diagnosis: Gastric erythema ([id number] K31.9, Discharge, Medical), Duodenal erosion ([id number] K26.9, Discharge, Medical). Orders: Pathology reports to be followed. Continue PPI Avoid NSAIDs. Lifestyle modifications including HOB elevation, allowing at least 1-3 hours after eating before lying down, avoiding alcohol and avoiding smoking. In case of persistent dysphagia would recommend pursuing esophageal HRM to rule out any underlying dysmotility lesions Return to GI clinic per schedule. 1. Patient advised to eat small, frequent meals. Patient to avoid large sized meals. 2. Patient advised to never lay down after eating. The food sitting in the esophagus can regurgitate and end up aspiration . Patient to wait 3. Patient advised to be very careful about taking pills. Pills can cause significant damage. Advised to swallow pills with a large amount of water (12 oz) and remain upright for 1 hr after taking them. 4. Patient to eat sitting completely upright only. [place] can help empty the esophagus. 5. Patient to avoid acidic foods. The acidic foods can pool in the esophagus and make symptoms worse. 6. Patient encouraged to exercise and lose weight. Exercising after meals may exacerbate the symptoms and should be avoided. Eating after exercising advised. 7. Patient advised to swallow only once per bite and to avoid double swallows. Taking a second swallow can diminish esophageal motility. Patient to wait 15 seconds after every swallow before initiating a second swallow. [1] Pathology 12/05/2024 Diagnosis (Verified) Part A: Duodenal bulb, erosion, biopsies: Mucosal erosion with mild active chronic inflammation. Part B: Stomach, biopsies: Mild chronic inflammation. Part C: Lower esophagus, biopsies: No significant pathologic change. Part D: Mid esophagus, biopsies: No significant pathologic change. [2] Office visit 11/08/2024 History of Present Illness Dariusz is a 59 year old male who presents to GI clinic as a new patient, referred by his spine surgeon Dr. Mullen, sent to GI with concerns for dysphagia. Patient is status post anterior cervical fusion in May 2024, C4-C7. Barium swallow study was completed 08/11/2024 which showed anterior spinal fusion hardware noted, there was intermittent throat clearing across all consistencies, unrelated to any episode of penetration or aspiration. Esophagram also completed on 08/21/2024, which showed no evidence for esophageal stricture, unremarkable study. Both exams completed at [facility] in [place]. Patient's symptoms started July of this year. Reports globus sensation and a feeling of fullness in his throat. Denies reflux or heartburn, no nausea or vomiting, no epigastric pain. No complaints regarding his bowel movements. Last colonoscopy 3 years ago in [place], states there were no abnormalities. Discussed further evaluation with EGD, patient would like to proceed. Currently not on any PPI therapy. [3] Assessment and Plan: 1. Dysphagia Ordered: Esophagogastroduodenoscopy 2. Globus sensation Ordered: Esophagogastroduodenoscopy - Proceed with EGD, dysphagia and globus sensation s/p ACDF, referred by [facility] - Clinic follow-up postprocedure [4] Review of Systems ROS completed as noted per HPI, all other systems are negative Physical Exam Vitals & Measurements BP: 138/ 92 HT: 170 cm WT: 89.2 kg (Dosing) WT: 89.2 kg BMI: 30.87 General: NAD, well nourished Mental status: Awake, alert, oriented x 3 Neuro: Speech is normal, EOM intact, no tremor, no focal deficits HEENT: Sclera clear, no drainage Lungs: Nonlabored respirations, regular rate Heart: Regular rate, no cyanosis Abdomen: Soft, nondistended Musculoskeletal: Moves all extremities, normal ambulation Skin: Intact warm and dry Psychiatric: Calm, cooperative Additional Vitals BP Position/Location: Sitting, Left arm Assessment and Plan: 1. Dys (more content not included)... [facility] 12-05-2024 Note Clinical Information Procedure: EGD Pre-operative diagnosis: Dysphagia SP Specimen A Duodenal bulb erosion biopsies B Gastric biopsies C Lower esophageal biopsies D Mid esophageal biopsies Gross Description Part A: Received in formalin labeled 'duodenal bulb erosion biopsies' and consists of two 0.4 cm goins red tissue fragments. The specimen is entirely submitted in cassette A1. Part B: Received in formalin labeled 'gastric biopsies' and consists of four goins tissue fragments from 0.1 to 0.5 cm. The specimen is entirely submitted in cassette B1. Part C: Received in formalin labeled 'lower esophageal biopsies' and consists of three goins white tissue fragments from 0.2 to 0.5 cm. The specimen is entirely submitted in cassette C1. Part D: Received in formalin labeled 'mid esophageal biopsies' and consists of three goins white tissue fragments from 0.1 to 0.6 cm. The specimen is entirely submitted in cassette D1. Microscopic Description Part A: Sections examined at multiple levels show fragments of duodenal mucosa showing no significant villous shortening. The lamina propria shows a mildly increased chronic inflammatory cells. Focal mucosa erosion is noted, with rare neutrophils present in the lamina propria focally. There is no evidence of granulomatous disease. There is no evidence of dysplasia or malignancy. There is no evidence of celiac disease. Part B: Sections examined at multiple levels show fragments of gastric mucosa showing lamina propria with mildly increased lymphocytes, plasma cells and scattered eosinophils. The glandular epithelium shows slight reactive changes. There is no evidence of acute inflammation or granulomatous disease. There is no evidence of dysplasia or malignancy. No Helicobacter pylori is seen on the H&E. Parts C/D: Sections show fragments of squamous epithelium with no subepithelial tissue. The squamous epithelium shows scattered intraepithelial lymphocytes. Eosinophils are not increased. There is no evidence of dysplasia or malignancy. Diagnosis Part A: Duodenal bulb, erosion, biopsies: Mucosal erosion with mild active chronic inflammation. Part B: Stomach, biopsies: Mild chronic inflammation. Part C: Lower esophagus, biopsies: No significant pathologic change. Part D: Mid esophagus, biopsies: No significant pathologic change. [id number] Valdo Morales MD PhD (Electronically signed by) Verified: 12/07/24 14:[address] [facility] Comment on above: Performed By: #### S IN #### [facility] (DEFAULT) [id number] [place] [address] 11-21-2024 Telephone encounter Note Patient calling today to let you know that he talked to his GI specialist and they recommended he not take the steroids. [facility] 11-21-2024 Miscellaneous Notes Patient calling today to let you know that he talked to his GI specialist and they recommended he not take the steroids. documented in this encounter [facility] 11-21-2024 History of Present illness Narrative Associated Problem(s): Dysphagia Orders: predniSONE (Deltasone) 10 MG tablet; Take 1 tablet (10 mg) by mouth in the morning and 1 tablet (10 mg) before bedtime. Do all this for 5 days. Images from the original note were not included. Subjective Patient ID: Dariusz Najera is a 59 y.o. male who presents for No chief complaint on file.. HPI History of Present Illness The patient presents for dysphagia and lightheadedness. He reports recurrent dysphagia, which he believes is exacerbated by the hot and humid conditions at his workplace. He describes a sensation of tightness in his throat and occasionally struggles with swallowing saliva. He has been consuming extra hydration drinks mixed with Gatorade. He has undergone two barium swallow studies, both of which were normal but slow. His surgeon has recommended a GI consultation for further evaluation of his throat. He is scheduled for a throat scope on 12/05/2024. Despite the discomfort, he has not missed any workdays. He has previously taken steroids to manage his throat condition. He experienced lightheadedness/dizziness while ascending a staircase at work, prompting him to seek assistance. He did not faint or pass out. His colleagues have requested medical clearance before he can return to work due to his history of dysphagia. He reports not drinking enough fluids yesterday. He reports no chest pain or shortness of breath. 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 Constitutional: Appearance: Normal appearance. HENT: Head: Normocephalic and atraumatic. Right Ear: Tympanic membrane normal. Left Ear: Tympanic membrane normal. Nose: Nose normal. Mouth/Throat: Mouth: Mucous membranes are moist. Pharynx: No oropharyngeal exudate. Eyes: Extraocular Movements: Extraocular movements intact. Right eye: Normal extraocular motion and no nystagmus. Left eye: Normal extraocular motion and no nystagmus. Pupils: Pupils are equal, round, and reactive to light. Cardiovascular: Rate and Rhythm: Normal rate and regular rhythm. Pulses: Normal pulses. Heart sounds: Normal heart sounds. Pulmonary: Effort: Pulmonary effort is normal. No respiratory distress. Breath sounds: Normal breath sounds. No stridor. No wheezing, rhonchi or rales. Skin: General: Skin is warm and dry. Neurological: General: No focal deficit present. Mental Status: He is alert and oriented to person, place, and time. Psychiatric: Mood and Affect: Mood normal. Behavior: Behavior normal. Physical Exam Neurological: Alert and oriented, no focal deficits. Ears: No fluid or abnormalities noted. Eyes: Pupils equal, round, and reactive to light. Extraocular movements intact. Mouth/Throat: No abnormalities noted. No redness or swelling. Respiratory: Clear to auscultation, no wheezing, rales or rhonchi. Cardiovascular: Regular rate and rhythm, no murmurs, rubs, or gallops. Assessment & Plan Dysphagia, unspecified type Orders: predniSONE (Deltasone) 10 MG tablet; Take 1 tablet (10 mg) by mouth in the morning and 1 tablet (10 mg) before bedtime. Do all this for 5 days. Dizziness Orders: CBC and differential; Future Comprehensive metabolic panel; Future Magnesium; Future Assessment & Plan 1. Dysphagia. - Reports experiencing dysphagia, which may be exacerbated by his work environment. - A low-dose steroid regimen of prednisone 10 mg, to be taken two times daily for 5 days, has been prescribed and sent to pharmacy. - Advised to consult with his secy before starting this medication. If the secy advises against the steroid, he should not take it. - Advised to consider thickening his liquids to aid in swallowing and to discuss this option with his secy. A throat scope is scheduled for 12/05/2024 to further investigate the cause of his symptoms. 2. Lightheadedness. - Experienced lightheadedness/dizziness, particularly in a precarious position at work. This may be related to dehydration due to inadequate fluid intake. - Blood work will be conducted to rule out any underlying conditions and ensure his electrolyte levels are within normal range. - Advised to increase his fluid intake, especially given the hot and humid conditions at his workplace. - If the blood work results are normal, he will be cleared to return to work. documented in this encounter [facility] 08-17-2024 History of Present illness Narrative Dariusz called and left VM to cancel out remaining visit due to throat issue and being problematic. Pt will call back if more therapy is warranted. documented in this encounter [facility] 08-15-2024 History of Present illness Narrative Images from the original note were not included. Dariusz Najera is a 58 y.o. male presents with chief complaint of Dysphagia and Annual Exam HPI: HPI History of Present Illness The patient presents for evaluation of dysphagia, blood pressure management, and health maintenance. He reports a general sense of well-being, with the exception of some discomfort. Recent testing, including a swallow test, has led to a recommendation for an upper esophagus test scheduled for Wednesday. The results of this test will guide further management. The possibility of scar tissue or severe inflammation has been discussed. He has completed his course of steroids as of yesterday and is uncertain about potential future tightening. Physical therapy has been beneficial, with an increase in strength up to 5 pounds. However, fatigue is experienced when his elbow moves away from his body. Significant improvement in his condition followed spinal surgery, with immediate pain relief postoperatively. Overall, his condition is improving. He has resumed work and reports no dizziness. He contracted COVID-19 during the winter, followed by pneumonia. An active lifestyle is maintained, using a treadmill and walking his dogs with his . He notes that he walks more than he runs on the treadmill but is capable of running. An athletic mindset is maintained. His blood pressure is well-controlled. He is currently on propranolol for blood pressure management, initially prescribed for headaches. 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 No current issues with headaches are reported. Dr. Payne has advised a repeat CAT scan in 6 months, with subsequent follow-up based on the results. He has been instructed to report any instances of coughing up blood. A previous lung cleaning procedure resulted in the removal of 7 pounds of material, leading to immediate relief from fullness and pain. 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 Monitoring of this condition has been advised, although it has been approximately 20 years since the last incident and may not recur within his lifetime. PAST SURGICAL HISTORY: Spinal surgery SUBJECTIVE: MEDICATIONS: Current Outpatient Medications Medication Instructions propranolol LA (INDERAL LA) 60 mg, Oral, Every morning SUMAtriptan (Imitrex) 100 MG tablet 1 tablet at least 2 hours between doses as needed Orally max 2 per day for 30 day(s) triamterene-hydroCHLOROthiazide (Dyazide) 37.5-25 MG capsule 1 capsule, Daily ALLERGIES: No Known Allergies SURGICAL HISTORY: Past Surgical History: Procedure Laterality Date ADENOIDECTOMY BRONCHOSCOPY CHOLECYSTECTOMY LUNG BIOPSY SPINE SURGERY 06/01/2024 TONSILLECTOMY WISDOM TOOTH EXTRACTION FAMILY HISTORY: Family History Problem Relation Name Age of Onset Breast cancer Mother Mary Lymphoma Mother Mary Heart disease Mother Mary Cancer Father Hearing loss Father Hypertension Father Pancreatic cancer Father's Brother Cancer Paternal Grandmother Mushtaq Najera SOCIAL HISTORY: Social History Tobacco Use Smoking status: Never Smokeless tobacco: Never Substance Use Topics Alcohol use: Not Currently Alcohol/week: 2.0 standard drinks of alcohol Types: 2 Standard drinks or equivalent per week Drug use: Never Depression: Not at risk (11/23/2023) PHQ-2 PHQ-2 Score: 0 REVIEW OF SYMPTOMS: Review of Systems OBJECTIVE: Visit Vitals BP 124/68 (BP Location: Right arm, Patient Position: Sitting, BP Cuff Size: Adult) Pulse 68 Resp 18 Ht 5' 7.75 Wt 186 lb SpO2 100% BMI 28.49 kg/m Smoking Status Never BSA 2.01 m Physical Exam Constitutional: Appearance: He is normal weight. HENT: Head: Normocephalic and atraumatic. Mouth/Throat: Mouth: Mucous membranes are moist. Eyes: Extraocular Movements: Extraocular movements intact. Pupils: Pupils are equal, round, and reactive to light. Neck: Comments: Visible and palpable scar tissue from previous surgery Pulmonary: Effort: Pulmonary effort is normal. Musculoskeletal: Cervical back: Normal range of motion and neck supple. Skin: General: Skin is warm and dry. Findings: No rash. Neurological: General: No focal deficit present. Mental Status: He is alert and oriented to person, place, and time. Cranial Nerves: No cranial nerve deficit. Gait: Gait normal. Psychiatric: Mood and Affect: Mood normal. Behavior: Behavior normal. ASSESSMENT AND PLAN: Assessment/Plan Problem List Items Addressed This Visit Essential hypertension (CMS/HCC) - Primary SVT (supraventricular tachycardia) (CMS/HCC) Benign essential hypertension (CMS/HCC) Relevant Orders Lipid panel Comprehensive metabolic panel Other Visit Diagnoses Routine general medical examination at a health care facility Prostate cancer screening Relevant Orders PSA Assessment & Plan 1. Dysphagia. - Reports discomfort and has undergone a swallow test. - An upper esophagus test is scheduled for 08/21/2024 to investigate potential scar tissue or inflammation. - Will keep the office informed of the results. - Completed steroid therapy recently; monitoring for potential recurrence of symptoms. 2. Blood pressure management. - Blood pressure readings are within the normal range. - Currently taking propranolol for blood pressure management and headaches. - No changes to the current medication regimen are necessary. - Headaches are not an issue currently. 3. Health maintenance. - Has not been screened for prostate cancer in several years. - Cholesterol levels have not been assessed recently. - Prostate cancer screening will be conducted today. - A cholesterol panel will also be ordered today. 4. Post-spinal surgery recovery. - Reports improvement in pain post-surgery. - Engaging in physical therapy and exercise, including treadmill use and dog walks. - Experiencing some fatigue in the elbow during physical activity. - Continues to monitor and manage recovery progress. documented in this encounter [facility] 08-10-2024 History of Present illness Narrative Images from the original note were not included. Physical Therapy Treatment Visit Patient Name: Dariusz Najera Today's Date: 08/10/2024 Encounter Diagnoses Name Primary? Pain, neck Yes S/P cervical spinal fusion Visit number: 7 Timed Code Treatment: 53 minutes Total Treatment Time: 53 minutes Time In: 7:55 AM Time Out: 8:50 AM History: Pt. Presents to PT PO cervical spine fusion C4-C7 (ACDF). DOS: 06/01/24. Pt. Reports he feels great after surgery with no pain in neck and shoulder. C/c is left UE weakness. Pt. Reports his job requires him to lift up to 25#. Sleeping is back to normal. 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 Follow up: 08/29/24 Precautions: cervical spine fusion Subjective: Pt. Reports his shoulder is still weak but is definitely getting stronger. Pain: denies Objective: PT Evaluation (07/13/24) Neck ROM: WFL in all planes Flexibility: mild upper trapezius muscle tightness Left shoulder AROM: flexion 160 deg, abduction 160 deg Strength: left machine try out setter 100#, right 110#, left shoulder flexion 4/5, abduction 4-/5, ER 4-/5, IR 4/5 Observation: incision site healing well Treatment: Manual Therapy: Passive ROM, Joint mobilization, Soft Tissue Mobilization, Myofascial Release, Muscle Energy Technique, Neural Mobilization, Myofascial Cupping, Dry Needling, IASTM, and Scar mobilization Therapeutic Exercise: (38 minutes supervised ) Guided pt through ther and flex ex per exercise grid to improve postural, cervical and UE muscle Strength, Endurance,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 to leave work on Wednesday because of abd pain. States pain gets worse at times and has U/S for this morning at 10:30. He is questioning if there is any medication that would help with pain? States he uses [facility] in [place]. His call back is [phone]. Thank you! [facility] 05-17-2023 Miscellaneous Notes PC from pt stating he had to leave work on Wednesday because of abd pain. States pain gets worse at times and has U/S for this morning at 10:30. He is questioning if there is any medication that would help with pain? States he uses [facility] in [place]. His call back is [phone]. Thank you! documented in this encounter [facility] 06-18-2021 History of Present illness Narrative Patient [...] is low because he has a short IN interval and a narrow QRS complex. Because of this I doubt conduction system disease.I propose we get together in the next 5 or 6 weeks in follow-up of a 30-day event monitor. Obviously findings are yielded in the interim we will take action sooner. He will contact us if he has an episode or any useful information becomes available. [facility] [address] DO Work Phone: 06-16-2021 History of Present [...] is low because he has a short IN interval and a narrow QRS complex. Because of this I doubt conduction system disease.I propose we get together in the next 5 or 6 weeks in follow-up of a 30-day event monitor. Obviously findings are yielded in the interim we will take action sooner. He will contact us if he has an episode or any useful information becomes available. [facility]s DO Work Phone: Chief complaint Narrative - Reported DARIUSZ NAJERA is being seen for a consultation for syncope. [facility] [employer] 250 DO Work Phone: Evaluation note Diagnosis Cough, unspecified type- Primary Abnormal chest CT Nonspecific (abnormal) findings on radiological and other examination of other intrathoracic organs Chest pain, unspecified type documented in this encounter [facility] HealthcareEvaluation note* Diagnosis Gastroesophageal reflux disease without esophagitis- Primary Esophageal reflux documented in this encounter [facility] HealthcareEvaluation note* Diagnosis Hemoptysis- Primary Subacute cough Abnormal chest CT Nonspecific (abnormal) findings on radiological and other examination of other intrathoracic organs Abnormal chest CT Nonspecific (abnormal) findings on radiological and other examination of other intrathoracic organs documented in this encounter [facility] HealthcareEvaluation note* Diagnosis Abnormal chest CT- Primary Nonspecific (abnormal) findings on radiological and other examination of other intrathoracic organs Hemoptysis documented in this encounter [facility] HealthcareEvaluation note* Diagnosis Lung nodule, multiple- Primary documented in this encounter [facility] HealthcareEvaluation note* Diagnosis Subacute cough- Primary Abnormal chest CT Nonspecific (abnormal) findings on radiological and other examination of other intrathoracic organs documented in this encounter [facility] HealthcareEvaluation note* Diagnosis COVID-19- Primary Sore throat Acute pharyngitis documented in this encounter [facility] HealthcareEvaluation note* Diagnosis Onset Date Resolution Status Admit Date Acute lower respiratory infection acute April 14 9:06am [facility] Work Phone: Evaluation note* Diagnosis Abnormal chest CT- Primary Nonspecific (abnormal) findings on radiological and other examination of other intrathoracic organs Hemoptysis documented in this encounter [facility] HealthcareEvaluation note* Diagnosis Benign essential hypertension- Primary Essential hypertension, benign BMI 29.0-29.9,adult documented in this encounter [facility] Work Phone: Evaluation note* Diagnosis Preoperative clearance- Primary Unspecified pre-operative examination Cervical spinal stenosis Spinal stenosis in cervical region documented in this encounter [facility] HealthcareEvaluation note* Diagnosis Gallbladder polyp- Primary Cholesterolosis of gallbladder History of hypertension Personal history of other diseases of circulatory system Preop examination- Primary Unspecified pre-operative examination Hypertension, unspecified type documented in this encounter [facility] SystemEvaluation [facility]* Diagnosis Preop examination- Primary Unspecified pre-operative examination Hypertension, unspecified type Preop examination Unspecified pre-operative examination Hypertension, unspecified type documented in this encounter [facility] SystemEvaluation note* Diagnosis Status post laparoscopic cholecystectomy- Primary Other postprocedural status Gallbladder polyp Cholesterolosis of gallbladder documented in this encounter [facility] SystemEvaluation note* Diagnosis Pain, neck- Primary S/P cervical spinal fusion Arthrodesis status documented in this encounter [facility] HealthcareEvaluation note* Diagnosis Pain, neck- Primary S/P cervical spinal fusion Arthrodesis status documented in this encounter [facility] HealthcareEvaluation note* Diagnosis Pain, neck- Primary S/P cervical spinal fusion Arthrodesis status documented in this encounter [facility] HealthcareEvaluation note* Diagnosis Pain, neck- Primary S/P cervical spinal fusion Arthrodesis status documented in this encounter [facility] HealthcareEvaluation note* Diagnosis Pain, neck- Primary S/P cervical spinal fusion Arthrodesis status documented in this encounter [facility] HealthcareEvaluation note* Diagnosis Pain, neck- Primary S/P cervical spinal fusion Arthrodesis status documented in this encounter [facility] HealthcareEvaluation note* Diagnosis Aspiration of food, initial encounter documented in this encounter [facility] HealthEvaluation note* Diagnosis Essential hypertension (CMS/HCC)- Primary Unspecified essential hypertension SVT (supraventricular tachycardia) (CMS/HCC) Other specified cardiac dysrhythmias Routine general medical examination at a health care facility Benign essential hypertension ([facility]/HCC) Essential hypertension, benign Prostate cancer screening Special screening for malignant neoplasm of prostate documented in this encounter [facility]* Diagnosis Esophageal dysphagia Dysphagia, pharyngoesophageal phase documented [facility] this [facility]* Diagnosis Dysphagia, unspecified type- Primary Dizziness Dizziness and giddiness documented in this encounter [facility] HealthcareHistory of Present illness NarrativePatient returns in follow-up [...] him in the next 3 to 6 months.-[facility] [employer] 250 DO Work Phone: History of Present [...] because of this we make no other change[facility] 250 DO Work Phone: History of Present [...] for and encouraged to call if they arise.-[facility] [employer] 250 DO Work Phone: InstructionsNot on filedocumented in this encounter [facility] SystemInstructionsNot on filedocumented in this encounter [facility] SystemReason for referral (narrative)* Consultation (Routine) - Pending Review Specialty Diagnoses / Procedures Referred By Nessa peacock Referred To Contact Pulmonary Disease / Pulmonology Diagnoses Subacute cough Abnormal chest CT Procedures IN OFFICE/OUTPATIENT NEW HIGH MDM 60 MINUTES Mariaa Collado MD [address] [place] [address] Marbella Phillips DO [address] [place] [address] Referral ID Status Reason Start Date Expiration Date Visits Requested Visits Authorized [id number] Pending Review Specialty Services Required 12/07/2023 06/04/2024 1 1 [facility] HealthcareReason for visit Narrative* Rehabilitation - Outpatient (Routine) - Authorized Specialty Diagnoses / Procedures Referred By Nessa peacock Referred To Contact Physical Therapy Diagnoses Arthrodesis status Encounter for other orthopedic aftercare S/P Cervical Spinal Fusion Procedures IN PHYSICAL THERAPY EVALUATION LOW COMPLEX 20 MINS IN OFFICE/OUTPATIENT NEW HIGH MDM 60 MINUTES Aren Tirado Jr., MD [address] [place] [address] [place] [address] Phone: tel: fax: Nica Barron, PT [address] [facility] [address] [place] [address] Phone: tel: fax: Referral ID Status Reason Start Date Expiration Date V isits Requested Visits Authorized [id number] Authorized 07/13/2024 01/09/2025 40 40 [facility] HealthcareReason for visit Narrative* Rehabilitation - Outpatient (Routine) - Authorized Specialty Diagnoses / Procedures Referred By Nessa peacock Referred To Contact Physical Therapy Diagnoses Arthrodesis status Encounter for other orthopedic aftercare S/P Cervical Spinal Fusion Procedures IN PHYSICAL THERAPY EVALUATION LOW COMPLEX 20 MINS IN OFFICE/OUTPATIENT NEW HIGH MDM 60 MINUTES Aren Tirado Jr., MD [facility] [place] [address] [address] [place] [address] Phone: tel: fax: Nica Barron, PT [address] [facility] [address] [place] [address] Phone: tel: fax: Referral ID Status Reason Start Date Expiration Date V isits Requested Visits Authorized [id number] Authorized 07/13/2024 04/11/2025 40 40 [facility] Narrative* Imaging (Routine) - Open Specialty Diagnoses / Procedures Referred By Nessa peacock Referred To Contact Radiology Diagnoses Aspiration of food, initial encounter Procedures FL MODIFIED BARIUM SWALLOW W VIDEO FL ESOPHAGRAM Cadence Younger MD [address] [place] [address] Phone: tel: fax:[phone] Referral ID Status Reason Start Date Expiration Date Visits Re quested Visits Authorized [id number] Open 08/08/2024 08/08/2025 1 1 [facility] Narrative* Imaging (Routine) - Not Required - RTA Specialty Diagnoses / Procedures Referred By Nessa peacock Referred To Contact Radiology Diagnoses Esophageal dysphagia Procedures FL ESOPHAGRAM Cadence Younger Jr., MD [address] [place] [address] Phone: tel: fax:[phone] Referral ID Status Reason Start Date Expiration Date V isits Requested Visits Authorized [id number] Not Required - RTA 08/11/2024 08/11/2025 1 1 [facility] Summary Purpose Family History No Family History [...] chest [place] [address] [place] [address] Referral ID Status Reason Start Date Expiration Date V isits Requested Visits Authorized [id number] Pending Review 12/01/2023 05/29/2024 1 1 Specialty Diagnoses / Procedures Referred By Contac t Referred To Contact Diagnoses Gallbladder polyp Procedures Unlisted Procedure / Surgery Velma Rosario DO [address] [place] [id number] Referral ID Status Reason Start Date Expiration Date V isits Requested Visits Authorized [id number] Pending Review 06/09/2023 06/08/2024 1 1 Specialty Diagnoses / Procedures Referred By Contac t Referred To Contact Diagnoses Preop examination Hypertension, unspecified type Procedures ECG 12 lead Zhane Bates MD [address] [place] [address] Referral ID Status Reason Start Date Expiration Date V isits Requested Visits Authorized [id number] Pending Review 06/09/2023 06/08/2024 1 1 Chief Complaint and Reason for [...] and content) DATE CREATED AUTHOR 07/12/2021 [facility] DATE CREATED AUTHOR AUTHOR'S ORGANIZ ATION 11/07/2022 [employer] DATE CREATED AUTHOR AUTHOR'S ORGANIZ ATION 02/17/2024 [facility] DATE CREATED AUTHOR AUTHOR'S ORGANIZ ATION 03/10/2024 [facility] DATE CREATED AUTHOR AUTHOR'S ORGANIZ ATION 05/15/2024 [facility] DATE CREATED AUTHOR AUTHOR'S ORGANIZ ATION 05/25/2024 [facility] DATE CREATED AUTHOR AUTHOR'S ORGANIZ ATION 08/24/2024 [facility] DATE CREATED AUTHOR AUTHOR'S ORGANIZ ATION 12/31/[address] [facility] EPIC DATE CREATED AUTHOR AUTHOR'S ORGANIZ ATION 01/13/[address] [facility] Reason for Visit (unrecogniz ed section and content) Reason Onset Date Comments Abdominal Pain 05/17/2023 Reason Comments Breathing Problem Patient presents tod for pain in right chest. Patient states [...] Diagnoses Subacute cough Abnormal chest CT Procedures IN OFFICE/OUTPATIENT [facility] 60 MINUTES Mariaa Collado MD [address] [place] [address] Phone: tel: fax: Marbella Phillips DO [address] [facility] [place] [address] Phone: tel: fax: Referral ID Status Reason Start Date Expiration Date V isits Requested Visits Authorized [id number] Closed Specialty Services Required 12/07/2023 06/04/2024 [address] chest 1 month follow up wi th CT chest Reason Comments Sore Throat Reason Comments Abnormal CT Chest 1 [address] up po [address] bronchoscopy Reason Comments Follow-up Annual Exam Reason Comments Surgical Clearance Reason Comments Cholelithiasis GALLBLADDER POLYP, R EFERRED BY EMMA SCANLON NP Specialty Diagnoses / Procedures Referred By Nessa peacock Referred To Contact General Surgery Diagnoses Gallbladder polyp Procedures IN OFFICE OUTPATIENT VISIT 60-74 MINS HIGH MDM AMB REFERRAL TO GENERAL SURGERY Emma Scanlon, KAITARA TARAKA-ASSOCIATE RESEARCH SCIENTIST [address] [place] [address] Velma Rosario, [facility] [place] [address] Referral ID Status Reason Start Date Expiration Date Visits Re quested Visits Authorized [id number] Closed 05/25/2023 11/21/2023 1 1 Reason Comments Post-op Post op davinci chol ecystectomy performed 06/15/23 at [facility] Reason Comments Dysphagia Annual Exam Care Teams (unrecognized sec tion and content) 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 Relationship Specialty Start Date End Date Rahel Heredia NP [address] [place] [address] PCP - [employer] 11/10/20 Mariaa Collado MD [address] [place] [address] PCP - General Family Medicine 08/18/22 Emma Scanlon NP [address] [place] [address] Nurse Practitioner Family Medicine 05/10/23 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 Relationship Specialty Start Date End Date Rahel Heredia NP [address] [place] [address] PCP - [employer] 11/10/20 Mariaa Collado MD [address] [place] [address] PCP - General Family Medicine 08/18/22 Emma Scanlon NP [address] [place] [address] Nurse Practitioner Family Medicine 05/10/23 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 Relationship Specialty Start Date End Date Mariaa Collado MD [address] [place] [address] PCP - General Family Medicine 08/18/22 Lizz Hampton NP [address] [place] [address] PCP - [employer] 11/11/23 Emma Scanlon NP [address] [place] [address] Nurse Practitioner Family Medicine 05/10/23 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 Relationship Specialty Start Date End Date Mariaa Collado MD [address] [place] [address] PCP - General Family Medicine 08/18/22 Lizz Hampton NP [address] [place] [address] PCP - [employer] 11/11/23 Emma Scanlon NP [address] [place] [address] Nurse Practitioner Family Medicine 05/10/23 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 Relationship Specialty Start Date End Date Mariaa Collado MD [address] [place] [address] PCP - General Family Medicine 08/18/22 Lizz Hampton NP [address] [place] [address] PCP - [employer] 11/11/23 Emma Scanlon NP [address] [place] [address] Nurse Practitioner Family Medicine 05/10/23 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 Relationship Specialty Start Date End Date Mariaa Collado MD [address] [place] [address] PCP - General Family Medicine 08/18/22 Lizz Hampton NP [address] [place] [address] PCP - [employer] 11/11/23 Emma Scanlon NP [address] [place] [address] Nurse Practitioner Family Medicine 05/10/23 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 Relationship Specialty Start Date End Date Mariaa Collado MD [address] [place] [address] PCP - General Family Medicine 08/18/22 Lizz Hampton NP [address] [place] [address] PCP - [employer] 11/11/23 Emma Scanlon NP [address] [place] [address] Nurse Practitioner Family Medicine 05/10/23 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 Relationship Specialty Start Date End Date Mariaa Collado MD [address] [place] [address] PCP - General Family Medicine 08/18/22 Lizz Hampton NP [address] [place] [address] PCP - [employer] 11/11/23 Emma Scanlon NP [address] [place] [address] Nurse Practitioner Family Medicine 05/10/23 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 Relationship Specialty Start Date End Date Mariaa Collado MD [address] [place] [address] PCP - General Family Medicine 08/18/22 Lizz Hampton NP [address] [place] [address] PCP - [employer] 11/11/23 Emma Scanlon NP [address] [place] [address] Nurse Practitioner Family Medicine 05/10/23 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 Relationship Specialty Start Date End Date Mariaa Collado MD [address] [place] [address] PCP - General Family Medicine 08/18/22 Lizz Hampton NP [address] [place] [address] PCP - [employer] 11/11/23 Emma Scanlon NP [address] [place] [address] Nurse Practitioner Family Medicine 05/10/23 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 Relationship Specialty Start Date End Date Mariaa Collado MD [address] [place] [address] PCP - General Family Medicine 08/18/22 Lizz Hampton MANAGER REIMBURSEMENT [address] [place] [address] PCP - [employer] 11/11/23 Emma Scanlon MANAGER REIMBURSEMENT [address] [place] [address] Nurse Practitioner Family Medicine 05/10/23 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 Relationship Specialty Start Date End Date Mariaa Collado MD [address] [place] [address] PCP - General Family Medicine 08/18/22 Emma Scanlon NP [address] [place] [address] PCP - [employer] 07/12/23 Emma Scanlon NP [address] [place] [address] Nurse Practitioner Family Medicine 05/10/23 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 Relationship Specialty Start Date End Date Mariaa Collado MD [address] [place] [address] PCP - General Family Medicine 08/18/22 Lizz Hampton, MANAGER REIMBURSEMENT [address] [place] [address] PCP - [employer] 11/11/23 Emma Scanlon NP [address] [place] [address] Nurse Practitioner Family Medicine 05/10/23 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 Relationship Specialty Start Date End Date Mariaa Collado MD [address] [place] [address] PCP - General Family Medicine 08/18/22 Emma Scanlon NP [address] [place] [address] PCP - [employer] 07/12/23 Emma Scanlon NP [address] [place] [address] Nurse Practitioner Family Medicine 05/10/23 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 Relationship Specialty Start Date End Date Mariaa Collado MD [address] [place] [address] PCP - General Family Medicine 08/18/22 Lizz Hampton NP [address] [place] [address] PCP - [employer] 11/11/23 Emma Scanlon NP [address] [place] [address] Nurse Practitioner Family Medicine 05/10/23 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 Relationship Specialty Start Date End Date Mariaa Collado MD [address] [place] [address] PCP - General Family Medicine 08/18/22 Lizz Hampton NP [address] [place] [address] PCP - [employer] 11/11/23 Emma Scanlon NP [address] [place] [address] Nurse Practitioner Family Medicine 05/10/23 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 Relationship Specialty Start Date End Date Mariaa Collado MD [address] [place] [address] PCP - General Family Medicine 08/18/22 Lizz Hampton NP [address] [place] [address] PCP - [employer] 11/11/23 Emma Scanlon, MANAGER REIMBURSEMENT [address] [place] [address] Nurse Practitioner Family Medicine 05/10/23 Team Status: [...] April 14, 2024 End: April 14, 2024 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 Relationship Specialty Start Date End Date Mariaa Collado MD [address] [place] [address] PCP - General Family Medicine 08/18/22 Lizz Hampton NP [address] [place] [address] PCP - [employer] 11/11/23 Emma Scanlon NP [address] [place] [address] Nurse Practitioner Family Medicine 05/10/23 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 Relationship Specialty Start Date End Date Mariaa Collado MD [address] [place] [address] Referring Physician Family Medicine 05/01/24 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 Relationship Specialty Start Date End Date Mariaa Collado MD [address] [place] [address] PCP - General Family Medicine 08/18/22 Lizz Hampton NP [address] [place] [address] PCP - [employer] 11/11/23 Emma Scanlon MANAGER REIMBURSEMENT [address] [place] [address] Nurse Practitioner Family Medicine 05/10/23 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 Relationship Specialty Start Date End Date Mariaa Collado MD [address] [place] [address] PCP - General Family Medicine 08/18/22 Mariaa Collado MD [address] [place] [address] PCP - [employer] 03/12/24 Emma Scanlon, MANAGER REIMBURSEMENT [address] [place] [address] Nurse Practitioner Family Medicine 05/10/23 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 Relationship Specialty Start Date End Date Mariaa Collado MD [address] [place] [address] PCP - General Family Medicine 08/18/22 Mariaa Collado MD [address] [place] [address] PCP - [employer] 03/12/24 Emma Scanlon, MANAGER REIMBURSEMENT [address] [place] [address] Nurse Practitioner Family Medicine 05/10/23 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 Relationship Specialty Start Date End Date Mariaa Collado MD [address] [facility] [place] [address] PCP - General Family Medicine 08/18/22 Mariaa Collado MD [address] [facility] [place] [address] [facility] 03/12/24 Emma Scanlon, MANAGER REIMBURSEMENT [address] [facility] [place] [address] Nurse Practitioner Family Medicine 05/10/23 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 Relationship Specialty Start Date End Date Shellie Hammond, KAITARA TARAKA-ASSOCIATE RESEARCH SCIENTIST [address] [facility] [address] [place] [id number] PCP - General Family Medicine 09/09/18 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 Relationship Specialty Start Date End Date Emma Scanlon, KAITARA TARAKA-ASSOCIATE RESEARCH SCIENTIST [address] [facility] [place] [address] PCP - General Nurse Practitioner 06/10/23 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 Relationship Specialty Start Date End Date Emma Scanlon, KAITARA TARAKA-ASSOCIATE RESEARCH SCIENTIST [address] [facility] [place] [address] PCP - General Nurse Practitioner 06/10/23 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 Relationship Specialty Start Date End Date Mariaa Collado MD [address] [facility] [place] [address] PCP - General Family Medicine 08/18/22 Mariaa Collado MD [address] [facility] [place] [address] PCP - [employer] 03/12/24 Emma Scanlon, BROOKS [address] [place] [address] Nurse Practitioner Family Medicine 05/10/23 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 Relationship Specialty Start Date End Date Mariaa Collado MD [address] [place] [address] PCP - General Family Medicine 08/18/22 Mariaa Collado MD [address] [place] [address] PCP - [employer] 03/12/24 Emma Scanlon NP [address] [place] [address] Nurse Practitioner Family Medicine 05/10/23 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 Relationship Specialty Start Date End Date Mariaa Collado MD [address] [place] [address] PCP - General Family Medicine 08/18/22 Mariaa Collado MD [address] [place] [address] PCP - [employer] 03/12/24 Emma Scanlon NP [address] [place] [address] Nurse Practitioner Family Medicine 05/10/23 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 Relationship Specialty Start Date End Date Mariaa Collado MD [address] [place] [address] PCP - General Family Medicine 08/18/22 Mariaa Collado MD [address] [place] [address] PCP - [employer] 03/12/24 Emma Scanlon NP [address] [place] [address] Nurse Practitioner Family Medicine 05/10/23 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 Relationship Specialty Start Date End Date Mariaa Collado MD [address] [place] [address] PCP - General Family Medicine 08/18/22 Mariaa Collado MD [address] [place] [address] PCP - [employer] 03/12/24 Emma Scanlon NP [address] [place] [address] Nurse Practitioner Family Medicine 05/10/23 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 Relationship Specialty Start Date End Date Mariaa Collado MD [address] [place] [address] PCP - General Family Medicine 08/18/22 Mariaa Collado MD [address] [place] [address] PCP - [employer] 03/12/24 Emma Scanlon NP [address] [place] [address] Nurse Practitioner Family Medicine 05/10/23 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 Relationship Specialty Start Date End Date Mariaa Collado MD [address] [place] [address] PCP - General Family Medicine 08/18/22 Mariaa Collado MD [address] [place] [address] PCP - [employer] 03/12/24 Emma Scanlon NP [address] [place] [address] Nurse Practitioner Family Medicine 05/10/23 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 Relationship Specialty Start Date End Date Mariaa Collado MD [address] [place] [address] PCP - General Family Medicine 08/18/22 Mariaa Collado MD [address] [place] [address] PCP - [employer] 03/12/24 Emma Scanlon NP [address] [place] [address] Nurse Practitioner Family Medicine 05/10/23 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 Relationship Specialty Start Date End Date Mariaa Collado MD [address] [place] [address] PCP - General Family Medicine 08/18/22 Mariaa Collado MD [address] [place] [address] PCP - [employer] 03/12/24 Emma Scanlon NP [address] [place] [address] Nurse Practitioner Family Medicine 05/10/23 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 Relationship Specialty Start Date End Date Mariaa Collado MD [address] [place] [address] PCP - General Family Medicine 08/18/22 Mariaa Collado MD [address] [place] [address] PCP - [employer] 03/12/24 Emma Scanlon NP [address] [place] [address] Nurse Practitioner Family Medicine 05/10/23 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 Relationship Specialty Start Date End Date Mariaa Collado MD [address] [place] [address] PCP - General 08/11/24 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 Relationship Specialty Start Date End Date Mariaa Collado MD [address] [place] [address] PCP - General Family Medicine 08/18/22 Mariaa Collado MD [address] [place] [address] PCP - [facility] 03/12/24 Emma Scanlon NP [address] [place] [address] Nurse Practitioner Family Medicine 05/10/23 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 Relationship Specialty Start Date End Date Mariaa Collado MD [address] [place] [address] PCP - General Family Medicine 08/18/22 Emma Scanlon NP [address] [place] [address] Nurse Practitioner Family Medicine 05/10/23 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 Relationship Specialty Start Date End Date Mariaa Collado MD [address] [place] [address] PCP - General 08/11/24 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 Relationship Specialty Start Date End Date Mariaa Collado MD [address] [place] [address] PCP - General Family Medicine 08/18/22 Emma Scanlon NP [address] [facility] [place] [address] Nurse Practitioner Family Medicine 05/10/23 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 Relationship Specialty Start Date End Date Mariaa Collado MD [address] [place] [address] PCP - General Family Medicine 08/18/22 Emma Scanlon NP [address] [facility] [place] [address] Nurse Practitioner Family Medicine 05/10/23 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 Relationship Specialty Start Date End Date Mariaa Collado MD [address] [facility] [place] [address] PCP - General Family Medicine 08/18/22 Emma Scanlon NP [address] [facility] [place] [address] Nurse Practitioner Family [facility] 05/10/23 Goals (unrecognized section and content) Goals may be documented in a n alternate sectionNot on filedocumented as of this encounterNot on filedocumented as of this encounterNot on filedocumented as of this encounter FOR RECORDS PERTAINING TO PATIENTS WHO ARE [...] BE BASED ON THE PRIMARY CLINICAL RECORDS. [employer] [facility]. provides no warranty or guarantee of the accuracy or completeness of information in this document.
--- NOTE | 2025-01-19 17:44 | ED_ITS ---
HPI HPI - General Adult General Chief complaint: Head Injury Stated complaint: FALL Time Seen by Provider: 01/19/25 17:29 Source: patient Mode of arrival: ambulance Limitations: no limitations History of Present Illness HPI narrative: Patient is a 59-year-old male who presents to the emergency department via EMS with complaints of syncopal fall at work. Patient denies any prodromal symptoms prior to passing out and states that the work environment is not too hot. He has a scalp hematoma and thinks that his head hit the wall after he passed out. He does not take any anticoagulation or antiplatelet medications. He does have a history of high blood pressure that he has had issues with in the past. He had episodes where he is passed out before. He denies any cardiac issues. Aft er waking up he reports blurry vision and headache. He states that the blurry vision is resolving. He denies any extremity weakness or paresthesias. Related Data Home Medications ?Medication ?Instructions ?Recorded ?Confirmed propranolol 60 mg capsule,24 60 mg PO DAILY 01/07/23 1 hr,extended release triamterene 37.5 1 cap PO DAILY 01/07/2301/10 mg-hydrochlorothiazide 25 mg capsule pantoprazole 20 mg tablet,delayed 20 mg PO DAILY 01/1901/19/25 release Allergies Allergy/AdvReac Type Severity Reaction Status Date / Time No Known Drug Allergies Allergy Verified 08/08/24 12:28 Review of Systems ROS Status of ROS 10 or more systems reviewed and unremark able except as noted in history and below PFSH PFS Social History Smoking status: Current some day smoker Little interest or pleasure in doing things: not at all Feeling down, depressed, or hopeless: not at all Exam Narrative Exam Narrative: General: No distress, age-appropriate Skin: Warm, dry, no pallor. No rash. Head: Posterior scalp hematoma, no open wounds, abrasions, or ecchymosis. Neck: Supple, non-tender. Eye: Pupils are equal, round and EOMI. No scleral icterus. Ears, Nose, Mouth, and Throat: No nasal mucosal hypertrophy. Oral mucosa is moist, no posterior oropharynx erythema, uvula is mid-line Cardiovascular: Regular Rate and Rhythm without murmur, gallop or rub. Respiratory: No accessory muscle use or respiratory distress. Lungs are clear to auscultation, no wheezing, rales or rhonchi Chest Wall: no tenderness Back: No midline thoracic or lumbar vertebral tenderness. Musculoskeletal: Full ROM of all extremities, no calf or popliteal tenderness GI: Abdomen is soft, non-distended, non tender to palpation. No masses appreciated. No rebound, guarding, or rigidity noted. Neurological: A&O x4. No cranial nerve dysfunction observed. No truncal ataxia. Moves all extremities. Sensation intact. Psychiatric: Cooperative and interactive. Normal mood and affect. Constitutional Vital Signs, click to edit/add: Last Vital Signs Temp 98.0 F 01/19/25 17:25 Pulse 63 01/19/25 18:10 Resp 14 01/19/25 18:10 BP 133/86 01/19/25 18:00 Pulse Ox 96 01/19/25 18:10 O2 Del Method Room Air 01/19/25 17:25 Course Vital Signs Vital signs: Vital Signs Temperature 98.0 F 01/19/25 17:25 Pulse Rate 67 01/19/25 17:25 Respiratory Rate 16 01/19/25 17:25 Blood Pressure 138/93 H 01/19/25 17:25 Pulse Oximetry 97 01/19/25 17:25 Oxygen Delivery Method Room Air 01/19/25 17:25 Temperature 98.0 F 01/19/25 17:25 Pulse Rate 63 01/19/25 18:10 Respiratory Rate 14 01/19/25 18:10 Blood Pressure 133/86 01/19/25 18:00 Pulse Oximetry 96 01/19/25 18:10 Oxygen Delivery Method Room Air 01/19/25 17:25 Medical Decision Making MDM Narrative Medical decision making narrative: This is a 59-year-old male that presented to the emergency department via EMS after a syncopal fall at work. Patient denied any prodromal symptoms. He does not take any AC/AP medications. He does have a history of hypertension. He has had syncopal episodes in the past. He does follow with cardiology and his primary care for his syncopal episodes. He thinks he is possibly even seeing a neurologist. It sounds like it possibly could be orthostatic hypotension from his description of their diagnosis. He states that he was bending over at his locker at work and thinks he might of stood up too quickly. This has happened before when he stands up too quickly or turns his head too quickly On arrival patient is in no distress, GCS 15, no neurological deficits. Vitals are stable. BP is 138/93. Patient is afebrile temperature 98.0. He complains of headache and blurry vision, this is improving since he awoke from passing out. He has no other complaints. He has no pain on exam or signs of trauma other than the posterior scalp hematoma. There are no wounds. CT head, CBC, BMP, EKG ordered. EKG in sinus rhythm on arrival, no ST elevation, no ischemic changes. Labs: CBC: No leukocytosis, WBC 6.9, Hgb 14.4 no anemia BMP: Within normal limits UA: Within normal limits, no signs of infection CT head: No acute cranial abnormality. Patient updated with results. Patient observed ambulating in the halls and walks with a steady nonantalgic gait. The patient remained hemodynamically stable throughout his ED course. No arrhythmias or signs of ongoing neurologic compromise were observed. 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 We did discuss return precautions or if you experience any new or worsening symptoms to return to the emergency department for reevaluation. Differential Diagnosis Differential Diagnosis: Cardiac arrhythmia, vasovagal syncope, intracranial hemorrhage Lab Data Lab results reviewed: Yes I reviewed the patient's lab results Labs: Lab Results 01/19/25 01/19/25 Range/Units 17:23 18:30 WBC 6.9 (4.0-11.0) 10^3/uL RBC 4.83 (4.70-6.10) 10^6/uL Hgb 14.4 (14.0-18.0) g/dL Hct 42.5 (42.0-54.0) % MCV 88.0 (80.0-94.0) fL MCH 29.8 (25.9-34.0) pg MCHC 33.9 (29.9-35.2) g/dL RDW 12.3 (11.0-15.0) % Plt Count 279 (150-450) 10^3/uL MPV 10.8 (9.5-13.5) fL Neut % (Auto) 65.0 (43.0-75.0) % Lymph % (Auto) 19.7 L (20.5-60.0) % [place] % (Auto) 10.3 (1.7-12.0) % Eos % (Auto) 3.9 (0.9-7.0) % Baso % (Auto) 1.0 (0.2-2.0) % Neut # (Auto) 4.5 (1.4-6.5) 10^3/uL Lymph # (Auto) 1.4 (1.2-3.8) 10^3/uL [place] # (Auto) 0.7 (0.3-0.8) 10^3/uL Eos # (Auto) 0.3 (0.0-0.7) 10^3/uL Baso # (Auto) 0.1 (0.0-0.1) 10^3/uL Abs Immat Gran (auto) 0.01 (0.00-0.03) 10^3/uL Imm/Tot Granulo (auto) 0.1 (0.0-0.5) % Sodium 137 (136-145) mmol/L Potassium 3.9 (3.5-5.1) mmol/L Chloride 100 (98-107) mmol/L Carbon Dioxide 28.3 (21.0-32.0) mmol/L Anion Gap 12.6 BUN 21.0 H (7.0-18.0) mg/dL Creatinine 0.86 (0.70-1.30) mg/dL Est GFR ( Amer) >60 (>=60 mL/min/1.73m^2) Est GFR (Non-Af Amer) >60 (>=60 mL/min/1.73m^2) BUN/Creatinine Ratio 24.4 Glucose 112 H (74-106) mg/dL Calcium 9.1 (8.5-10.1) mg/dL Urine Color Lt. yellow (YELLOW) Urine Clarity Clear (CLEAR) Urine pH 6.0 (5.0-9.0) Ur Specific [place] 1.025 (1.005-1.025) Urine Protein Negative (NEG/TRACE) mg/dL Urine Glucose (UA) Negative (NEGATIVE) mg/dL Urine Ketones Negative (NEGATIVE) mg/dL Urine Occult Blood Negative (NEGATIVE) Urine Nitrite Negative (NEGATIVE) Urine Bilirubin Negative (NEGATIVE) Urine Urobilinogen 0.2 (0.2-1.0) EU/dL Ur Leukocyte Esterase Negative (NEGATIVE) Imaging Data CT scan - head: Attestation: I have reviewed the pertinent imaging results. Radiologist's impression: ITS Impressions Head CT 01/19/25 17:29 IMPRESSION: NO ACUTE INTRACRANIAL ABNORMALITY. Impression dictated by: Ramón Diego M.D. 01/19/2025 6:05 PM Dictation Location: [place] [address] Electronically authenticated by: [id number] Y Date: 01/19/2025 18:05 Discharge Plan Discharge Chief Complaint: Head Injury Clinical Impression: Syncope Patient Disposition: Home, Self-Care Time of Disposition Decision: 18:54 Condition: Good Mode of Transportation: Private Vehicle Prescriptions / Home Meds: No Action propranolol 60 mg capsule,extended release 24 hr 60 mg PO DAILY triamterene-hydrochlorothiazid 37.5-25 mg capsule 1 cap PO DAILY pantoprazole 20 mg tablet,delayed release (DR/EC) 20 mg PO DAILY Print Language: Lebanese Instructions: Syncope (ED) Additional Instructions: Rest: Avoid strenuous activity for 24?48 hours. Hydration: Drink fluids regularly, especially if you have not been eating or drinking much. Safety: Avoid driving, operating heavy machinery, or climbing heights until cleared by your doctor. Head injury: Apply cold compresses to the scalp hematoma as needed. Monitor for signs of worsening head injury (see below). Medications: Take any prescribed blood pressure or other medications as directed. Call 911 or return to the ED if you develop any of the following: * Chest pain, palpitations, or difficulty breathing * Recurrent episodes of passing out or feeling faint * Worsening headache * Vomiting * Vision changes, confusion, slurred speech, or weakness * Bleeding or worsening swelling at the site of the head injury Referrals: RAIZA TSAI [Primary Care Provider, Family Practice] - 1 week Discharge Date/Time: 01/19/25 19:26
[2025-01-19 17:46] LABS: Hematocrit 42.5 % (42.0-54.0); Hemoglobin 14.4 g/dL (14.0-18.0); Immature Granulocytes Abs Auto 0.01 10^3/uL (0.00-0.03); Immature Granulocytes Pct Auto 0.1 % (0.0-0.5); Lymphocytes Absolute Auto 1.4 10^3/uL (1.2-3.8); Mean Corpuscular HGB Conc 33.9 g/dL (29.9-35.2); Mean Corpuscular Hemoglobin 29.8 pg (25.9-34.0); Mean Corpuscular Volume 88.0 fL (80.0-94.0); Platelet Count 279 10^3/uL (150-450); Red Blood Count 4.83 10^6/uL (4.70-6.10); White Blood Count 6.9 10^3/uL (4.0-11.0)
[2025-01-19 18:09] LABS: Anion Gap 12.6; Blood Urea Nitrogen 21.0 mg/dL (7.0-18.0); Calcium 9.1 mg/dL (8.5-10.1); Carbon Dioxide 28.3 mmol/L (21.0-32.0); Chloride 100 mmol/L (98-107); Estimated GFR (African America >60 (>=60 mL/min/1.73m^2); Estimated GFR (Non-African Ame >60 (>=60 mL/min/1.73m^2); Glucose 112 mg/dL (74-106); Potassium 3.9 mmol/L (3.5-5.1); Sodium 137 mmol/L (136-145)
[2025-01-19 18:40] LABS: Glucose Urine UA NEGATIVE (NEGATIVE)
== END 2025-01-19 19:26 | disposition home or self-care (01) ==
PROVIDERS: Physician Assistant; Emergency Provider Emergency Medicine; PCP Family Medicine
DX: R55 Syncope and collapse (principal); I10 Essential (primary) hypertension; F17.200 Nicotine dependence, unspecified, uncomplicated
CPT/HCPCS: 36415; 70450; 80048; 81003; 85025; 93005; 99284; 99285